=== PATIENT | male | born 1960 | race Caucasian/White ===

== ENCOUNTER 2016-04-10 13:24 | Inpatient (IN) | payer MEDICARE, OTHER ==
[2016-04-10] MEDS ORDERED: SODIUM CHLORIDE 0.9% 1,000 ML IV ONE ×2 (13:35)
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
[2016-04-10 13:46] LABS: Glucose,Whole Blood 74 mg/dL (75-99)
[2016-04-10 14:01] LABS: ALT 65 U/L (21-72); AST 70 U/L (17-59); Alkaline Phosphatase 79 U/L (38-126); Anion Gap 9 mmol/L; Blood Urea Nitrogen 12 mg/dL (9-20); Calcium 9.1 mg/dL (8.4-10.2); Carbon Dioxide 26 mmol/L (22-30); Chloride 106 mmol/L (98-107); Glucose 69 mg/dL (74-99); Magnesium 2.1 mg/dL (1.6-2.3); Non-African American GFR(MDRD) >60 (>60 ml/min/1.73 sqM); Sodium 141 mmol/L (137-145); Total Bilirubin 0.8 mg/dL (0.2-1.3); Total Protein 6.6 g/dL (6.3-8.2)
[2016-04-10 14:03] LABS: Basophils % (A) 1 %; CH 30.4; CHCM 33.1; Eosinophils # (A) 0.3 k/uL (0-0.7); Eosinophils % (A) 4 %; HCT 40.6 % (39.0-53.0); HDW 2.62; HGB 13.4 gm/dL (13.0-17.5); Luc % (Auto) 1; Lymphocytes # (A) 1.8 k/uL (1.0-4.8); Lymphocytes % (A) 25 %; MCH 30.3 pg (25.0-35.0); MCHC 32.9 g/dL (31.0-37.0); MCV 92.2 fL (80.0-100.0); Mean Platelet Volume 8.2; Monocytes # (A) 0.4 k/uL (0-1.0); Monocytes % (A) 5 %; Neutrophils # (A) 4.8 k/uL (1.3-7.7); Neutrophils % (A) 65 %; RBC 4.41 m/uL (4.30-5.90); RDW 12.9 % (11.5-15.5); WBC 7.5 k/uL (3.8-10.6); WBC (Perox) 7.54
[2016-04-10 14:10] LABS: Partial Thromboplastin Time 24.8 sec (22.0-30.0)
[2016-04-10 14:19] LABS: Creatine Kinase 1525 U/L (55-170)
[2016-04-10 14:31] LABS: Troponin I <0.012 ng/mL (0.000-0.034)
[2016-04-10 14:38] LABS: Creatine Kinase MB 8.9 ng/mL (0.0-2.4)
[2016-04-10 14:45] LABS: Glucose,Whole Blood 49 mg/dL (75-99)
[2016-04-10] MEDS ORDERED: DEXTROSE 50%-WATER 50 ML SYRINGE IVP STA ×5 (14:47→21:08)
[2016-04-10 14:56] LABS: Appearance,Urine Clear (Clear); Bilirubin,Urine Negative (Negative); Glucose,Urine (UA) Negative (Negative); Ketones,Urine Negative (Negative); Leukocyte Esterase,Urine Negative (Negative); Nitrite,Urine Negative (Negative); Protein,Urine Trace (Negative); Specific Gravity,Urine 1.032 (1.001-1.035); UA Billing (MACRO vs. MICRO) CHEM; Urobilinogen,Urine <2.0 mg/dL (<2.0)
[2016-04-10 14:58] LABS: Glucose,Whole Blood 61 mg/dL (75-99)
[2016-04-10] MEDS ORDERED: DEXTROSE 5%-0.45% NACL 1,000 ML IV ONE (15:04)
[2016-04-10 15:19] LABS: Glucose,Whole Blood 92 mg/dL (75-99)
--- NOTE | 2016-04-10 15:57 | XR ---
EXAMINATION TYPE: XR chest 2V DATE OF EXAM: 04/10/2016 3:51 PM COMPARISON: 11/14/2015 HISTORY: Altered mental status FINDINGS: There is cardiomegaly and bibasilar infiltrate. There is a diffuse interstitial pattern. No pneumoth orax. No definite sizable pleural effusion. IMPRESSION: 1. Diffuse interstitial pattern correlate for CHF versus atypical pneumonia or interstitial pneumonit is.
[2016-04-10 16:09] LABS: Glucose,Whole Blood 116 mg/dL (75-99)
[2016-04-10 16:31] LABS: Glucose,Whole Blood 90 mg/dL (75-99)
[2016-04-10] MEDS ORDERED: NALOXONE 0.4 MG/ML 1 ML VIAL IV PRN (16:48)
[2016-04-10] MEDS ORDERED: DEXTROSE 5%-0.45% NACL 1,000 ML IV SCH (17:00)
--- NOTE | 2016-04-10 17:07 | CT ---
EXAMINATION TYPE: CT brain wo con DATE OF EXAM: 04/10/2016 5:01 PM COMPARISON: 03/08/2015 HISTORY: 55-year-old male with pain, patient poor historian TECHNIQUE: Examination was done in axial plane without intravenous contrast. Coronal and sagittal reconstructio ns performed. CT DLP: 943.8 mGycm Automated exposure control for dose reduction was used. FINDINGS: There is no evidence of acute intracranial hemorrhage, acute ischemic changes, mass, mass-effect, or extra-axial fluid collection. There is no effacement of cerebral sulci or basal subarachnoid cister ns. There is no hydrocephalus. There is no midline shift. Penny-white matter distinction is preserv ed. Moderate mucosal thickening within the ethmoid air cells with old medial orbital wall blowout fractur e on the left. Patient's gait is slightly divergent. Small amount of fluid within the inferior most m astoid air cells. IMPRESSION: 1. No acute intracranial abnormality seen. 2. Moderate chronic ethmoid sinus disease. The patient gaze remains divergent suggesting underlying s trabismus. Correlate. 3. Small amount of fluid within the inferior mastoid air cells on both sides could represent retained secretions. Correlate for any mastoid pain to exclude mastoiditis.
[2016-04-10 18:38] LABS: Glucose,Whole Blood 40 mg/dL (75-99)
[2016-04-10 19:01] LABS: Glucose,Whole Blood 56 mg/dL (75-99)
[2016-04-10 19:18] LABS: Glucose,Whole Blood 125 mg/dL (75-99)
[2016-04-10 19:47] LABS: Glucose,Whole Blood 94 mg/dL (75-99)
[2016-04-10 20:12] LABS: Creatine Kinase MB 8.6 ng/mL (0.0-2.4)
[2016-04-10 20:24] LABS: Glucose,Whole Blood 81 mg/dL (75-99)
[2016-04-10] MEDS: DEXTROSE 5%-0.45% NACL 1,000 ML IV SCH (20:30)
[2016-04-10 21:03] LABS: Glucose,Whole Blood 35 mg/dL (75-99)
[2016-04-10 21:21] LABS: Glucose,Whole Blood 120 mg/dL (75-99)
[2016-04-10 21:50] LABS: Glucose,Whole Blood 69 mg/dL (75-99)
[2016-04-10 22:07] LABS: Glucose,Whole Blood 76 mg/dL (75-99)
[2016-04-10 22:29] LABS: Glucose,Whole Blood 61 mg/dL (75-99)
[2016-04-10] MEDS: DEXTROSE 50%-WATER 50 ML SYRINGE IVP PRN ×2 (22:31→23:31)
[2016-04-10 22:47] LABS: Glucose,Whole Blood 80 mg/dL (75-99)
[2016-04-10 22:58] LABS: Glucose,Whole Blood 77 mg/dL (75-99)
[2016-04-10 23:35] LABS: Glucose,Whole Blood 62 mg/dL (75-99)
[2016-04-10 23:48] LABS: Glucose,Whole Blood 113 mg/dL (75-99)
[2016-04-11 00:03] LABS: Glucose,Whole Blood 82 mg/dL (75-99)
[2016-04-11] MEDS: TOPIRAMATE 100 MG TAB PO SCH ×3 (00:04→21:18)
[2016-04-11] MEDS: PREGABALIN 75 MG CAP PO SCH ×4 (00:04→21:18)
[2016-04-11] MEDS: DEXTROSE 5%-0.45% NACL 1,000 ML IV SCH ×2 (00:14→10:57)
[2016-04-11 00:33] LABS: Glucose,Whole Blood 72 mg/dL (75-99)
[2016-04-11] MEDS: METHYLPHENIDATE HCL 10 MG TAB PO SCH ×4 (01:05→21:19)
[2016-04-11 01:10] LABS: Glucose,Whole Blood 87 mg/dL (75-99)
[2016-04-11 01:32] VITALS: BMI 29.6
[2016-04-11] MEDS: PIPERACILLIN-TAZOBACTAM 3.375 GM in DEXTROSE/WATER 1 50ML.BAG IVPB SCH ×4 (01:40→23:54)
[2016-04-11 01:41] LABS: Glucose,Whole Blood 84 mg/dL (75-99)
[2016-04-11 01:59] LABS: Glucose,Whole Blood 88 mg/dL (75-99)
[2016-04-11] MEDS: DEXTROSE 5% IN WATER 1,000 ML IV SCH ×2 (02:00→16:35)
[2016-04-11 02:01] LABS: Creatine Kinase MB 5.3 ng/mL (0.0-2.4)
[2016-04-11 02:34] LABS: Glucose,Whole Blood 61 mg/dL (75-99)
[2016-04-11] MEDS: DEXTROSE 50%-WATER 50 ML SYRINGE IVP PRN (02:34)
[2016-04-11 02:55] LABS: Glucose,Whole Blood 134 mg/dL (75-99)
[2016-04-11 03:33] LABS: Glucose,Whole Blood 104 mg/dL (75-99)
[2016-04-11 04:04] LABS: Glucose,Whole Blood 87 mg/dL (75-99)
[2016-04-11 04:34] LABS: Glucose,Whole Blood 90 mg/dL (75-99)
[2016-04-11] MEDS ORDERED: oxyCODONE-APAP 10-325MG 1 EACH TAB PO PRN (04:47)
[2016-04-11 04:56] LABS: CH 30.5; CHCM 33.3; HCT 36.7 % (39.0-53.0); HDW 2.71; HGB 12.4 gm/dL (13.0-17.5); MCH 31.2 pg (25.0-35.0); MCHC 33.8 g/dL (31.0-37.0); MCV 92.2 fL (80.0-100.0); RBC 3.98 m/uL (4.30-5.90); RDW 13.1 % (11.5-15.5)
[2016-04-11 05:06] LABS: Glucose,Whole Blood 97 mg/dL (75-99)
[2016-04-11 05:15] LABS: Anion Gap 7 mmol/L; Blood Urea Nitrogen 8 mg/dL (9-20); Calcium 8.4 mg/dL (8.4-10.2); Carbon Dioxide 25 mmol/L (22-30); Chloride 106 mmol/L (98-107); Glucose 88 mg/dL (74-99); Magnesium 1.9 mg/dL (1.6-2.3); Non-African American GFR(MDRD) >60 (>60 ml/min/1.73 sqM); Phosphorous 3.5 mg/dL (2.5-4.5); Potassium 4.1 mmol/L (3.5-5.1); Sodium 138 mmol/L (137-145)
[2016-04-11 06:03] LABS: Glucose,Whole Blood 106 mg/dL (75-99)
[2016-04-11] MEDS ORDERED: Potassium Replacement Protocol 1 EACH MISC MISCELLANE PRN (06:38)
[2016-04-11] MEDS ORDERED: Phosphorus Replacement Protoco 1 EACH MISC MISCELLANE PRN (06:38)
[2016-04-11] MEDS ORDERED: Magnesium Replacement Protocol 1 EACH MISC MISCELLANE PRN (06:38)
[2016-04-11 07:04] LABS: Glucose,Whole Blood 89 mg/dL (75-99)
[2016-04-11] MEDS: MAGNESIUM SULFATE-D5W PMX 1 GM in DEXTROSE/WATER 1 100ML.BAG IVPB SCH ×2 (07:08→09:54)
[2016-04-11 08:18] LABS: Glucose,Whole Blood 99 mg/dL (75-99)
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
[2016-04-11 09:01] LABS: Glucose,Whole Blood 92 mg/dL (75-99)
[2016-04-11] MEDS: CITALOPRAM HYDROBROMIDE 20 MG TAB PO SCH (09:58)
[2016-04-11 10:04] LABS: Glucose,Whole Blood 105 mg/dL (75-99)
[2016-04-11 11:06] LABS: Glucose,Whole Blood 88 mg/dL (75-99)
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
[2016-04-11 12:28] LABS: Glucose,Whole Blood 121 mg/dL (75-99)
[2016-04-11] MEDS: CYCLOBENZAPRINE 10 MG TAB PO PRN (13:34)
[2016-04-11 14:37] LABS: Glucose,Whole Blood 77 mg/dL (75-99)
--- NOTE | 2016-04-11 14:53 | CDI ---
In responding to this query, please exercise your independent professional judgment. The [facility] Coding Staff and Clinical Documentation Specialists appreciate your assistance in clarifying documentation, maintaining compliance with coding guidelines, accurately documenting patients condition and capturing severity of illness. The fact that a question is asked does not imply that any particular answer is desired or expected. Communication forms are a method of clarifying documentation and are not made part of the Legal Health Record. Thank you in advance for your clarification. Last Revision, May [address] [place] [address] Documentation Clarification Form Date: 04/11/2016 2:42:00 PM From: Carina Collins RN, CCDS Admit Date: 04/10/2016 4:48:00 PM Patient Name: Jimenez Triana Visit Number: [id number] Dr. Brian Russell/ Kandi BIRD Altered mental status was documented in the H&P Patient history/risk factors: Seizure disorder, post-ictal, hypoglycemia, aspiration pneumonitis, severe recurrent depression Clinical Indicators: Labs: Glucose 69/88, POC Glucose /56/59/61/62, total CK 1138/984, CKMB 8.6/5.3, + opiates, + oxycodone, + TCA's, + Benzo's CXR: CHF vs. atypical pneumonia or interstitial pneumonitis CT: c ethmoid sinusitis, strabismus, correlate to exclude mastoiditis Treatment: D50x 6 amps IV Mag Iv Zosyn 3.375 gm IVPB q 8 hrs In your professional opinion, please clarify the etiology of the altered mental status, if known. Dementia (if know, specify Type and if with/without Behavioral Disturbance) Encephalopathy (specify Type and Underlying Medical Illness) Other condition (please specify) Unable to determine Please document in your progress notes and discharge summary in order to capture severity of illness and risk of mortality. Include clinical findings that support your diagnosis. FYI: Press F11 to launch patient chart. Place X here if this finding has no clinical significance, is not applicable or if you are not able to provide any additional documentation. MTDD
--- NOTE | 2016-04-11 15:21 | US ---
EXAMINATION TYPE: US abdomen limited DATE OF EXAM: 04/11/2016 2:51 PM COMPARISON: NONE CLINICAL HISTORY: hypoglycemia, elevated liver enzymes. Abd cramping in ICU patient EXAM MEASUREMENTS: Liver Length: 17.1cm Gallbladder Wall: 0.2cm CBD: 0.4cm Right Kidney: 10.6 x 4.3 x 4.cm TECHNOLOGIST IMPRESSION: overlying bowel gas limits exam, intercostal imaging Pancreas: not seen due to bowel Liver: difficult to penetrate, intercostal imaging appears wnl Gallbladder: wnl Evidence for sonographic Pruitt's sign: no CBD: wnl Right Kidney: wnl IMPRESSION: Limited examination however no definitive abnormalities identified.
[2016-04-11] MEDS: oxyCODONE-APAP 10-325MG 1 EACH TAB PO PRN (15:28)
[2016-04-11 16:59] LABS: Glucose,Whole Blood 102 mg/dL (75-99)
[2016-04-11 20:19] LABS: Glucose,Whole Blood 150 mg/dL (75-99)
--- NOTE | 2016-04-11 22:12 | EEG ---
DATE OF SERVICE: 04/11/2016 REASON FOR TESTING: Altered mental status. DESCRIPTION OF THE PROCEDURE: This EEG was performed using a 21-channel digital electroencephalograph, following international 10-20 system. DESCRIPTION OF THE RECORDING: From the beginning of the tracing, and with the patient's eyes closed, the background rhythm was mostly consisting of 8 to 9 Hz alpha frequency in the posterior occipital leads. No obvious asymmetry is seen. Photic stimulation was performed with a minimal driving response seen. No pathological waves were elicited. Occasional movement artifacts and muscle artifacts are seen. Hyperventilation was not performed. The patient remains awake throughout the tracing. No epileptiform discharges were seen. His EKG lead showed a regular rate and rhythm. INTERPRETATION: This awake EEG can be considered within normal limits. There was no asymmetry seen. No epileptiform discharges were noticed. The absence of epileptiform discharges does not rule out the diagnosis of epilepsy; therefore clinical correlation is recommended.
[2016-04-12 03:05] LABS: Glucose,Whole Blood 103 mg/dL (75-99)
[2016-04-12] MEDS: DEXTROSE 5% IN WATER 1,000 ML IV SCH ×2 (05:02→15:59)
[2016-04-12 05:41] LABS: Basophils % (A) 1 %; CH 30.6; CHCM 33.4; Eosinophils # (A) 0.2 k/uL (0-0.7); Eosinophils % (A) 4 %; HCT 37.6 % (39.0-53.0); HDW 2.69; HGB 12.2 gm/dL (13.0-17.5); Luc # (Auto) 0.08; Luc % (Auto) 1; Lymphocytes # (A) 1.8 k/uL (1.0-4.8); Lymphocytes % (A) 30 %; MCHC 32.5 g/dL (31.0-37.0); MCV 92.2 fL (80.0-100.0); Mean Platelet Volume 9.4; Monocytes # (A) 0.5 k/uL (0-1.0); Monocytes % (A) 8 %; Neutrophils # (A) 3.2 k/uL (1.3-7.7); Neutrophils % (A) 56 %; RBC 4.08 m/uL (4.30-5.90); RDW 13.1 % (11.5-15.5); WBC 5.8 k/uL (3.8-10.6); WBC (Perox) 5.99
[2016-04-12 06:34] LABS: Anion Gap 8 mmol/L; Blood Urea Nitrogen 10 mg/dL (9-20); Calcium 8.6 mg/dL (8.4-10.2); Carbon Dioxide 20 mmol/L (22-30); Chloride 111 mmol/L (98-107); Glucose 95 mg/dL (74-99); Magnesium 2.3 mg/dL (1.6-2.3); Non-African American GFR(MDRD) >60 (>60 ml/min/1.73 sqM); Phosphorous 3.6 mg/dL (2.5-4.5); Potassium 4.2 mmol/L (3.5-5.1); Sodium 139 mmol/L (137-145)
--- NOTE | 2016-04-12 07:27 | XR ---
EXAMINATION TYPE: XR chest 1V portable DATE OF EXAM: 04/12/2016 6:22 AM HISTORY: Shortness of breath. COMPARISON: 04/10/2016 TECHNIQUE: Single view of the chest is submitted. FINDINGS: Demonstrated are scattered senescent parenchymal change. The heart is stable. There is persistent pulmonary venous congestion which has improved in the interv al. Scattered patchy infiltrates also improved although do persist. Hilar and mediastinal structures are within normal limits. Degenerative changes are seen of the dorsal spine. IMPRESSION: 1. There is persistent pulmonary venous congestion which has improved in the interval. Scattered pat isabel infiltrates also improved although do persist.
[2016-04-12 07:44] LABS: Glucose,Whole Blood 81 mg/dL (75-99)
[2016-04-12] MEDS: CITALOPRAM HYDROBROMIDE 20 MG TAB PO SCH (08:57)
[2016-04-12] MEDS: PREGABALIN 75 MG CAP PO SCH ×3 (08:57→21:44)
[2016-04-12] MEDS: TOPIRAMATE 100 MG TAB PO SCH ×2 (08:58→20:51)
[2016-04-12] MEDS: METHYLPHENIDATE HCL 10 MG TAB PO SCH ×3 (09:00→21:44)
--- NOTE | 2016-04-12 09:07 | CONS ---
DATE OF CONSULTATION: 04/11/2016 CHIEF COMPLAINT: Altered mental status. HISTORY OF PRESENT ILLNESS: Mr. Triana is a 55-year-old male who is being evaluated today on 04/11/2016 by the Neurology Service per the request of Dr. Brian Russell for altered mental status. The patient was brought into [facility] emergency room after he was found to be confused at home. The patient was somewhat lethargic and disoriented. He denies having any head injuries and denies having any fevers at home. The patient does have history of seizure disorder that has been well-controlled on Topamax and Lyrica. A CT scan of the brain was done, which was normal. His CBC was normal except for mild anemia with a hemoglobin of 12.4. His basic metabolic profile, magnesium level, and urinalysis were normal. His urine drug screen was positive for opiates, oxycodone, tricyclic antidepressants, and benzodiazepine. The patient does take Percocet 3 times daily at home for chronic low back pain. He is not supposed to be on any hydrocodone. The patient's serum glucose was also found to be low and he was given multiple doses of D50 to elevate his glucose level. He was admitted to the intensive care unit for closer monitoring. At the time of my evaluation, he is back to his baseline and is quite awake and oriented. He continues to complain of low back pain with lower extremity pain. His Percocet has been restarted earlier today as needed. He denies having any recent breakthrough seizures. PAST MEDICAL HISTORY: Chronic pain syndrome, seizure disorder, chronic lumbago, hypertension, gastroesophageal reflux disease, attention deficit disorder, anxiety disorder, bipolar disorder, depression. SOCIAL HISTORY: The patient is a current every day smoker. He denies any alcohol or drug use. FAMILY HISTORY: Positive for peripheral vascular disease. HOME MEDICATIONS: Reviewed in the chart. ALLERGIES: DILANTIN. REVIEW OF SYSTEMS: CONSTITUTIONAL: Positive for fatigue. EYES: Positive for chronic diminished vision. ENT: Negative. CARDIOVASCULAR: Negative. RESPIRATORY: Negative. NEUROLOGICAL: He denies any lateralizing numbness or weakness and denies any headache at this time. GASTROINTESTINAL: Positive for occasional heartburn. GENITOURINARY: Negative. PSYCHIATRIC: Positive for history of bipolar disorder and anxiety disorder. MUSCULOSKELETAL: As mentioned above. DERMATOLOGICAL: Negative. ENDOCRINE: Negative. PHYSICAL EXAM: Vital signs show a temperature of 98.0, pulse 79, respiration 12, blood pressure 108/58. GENERAL APPEARANCE: The patient is a well-developed male who appears to be in no acute distress. HEENT: Normocephalic, atraumatic, no facial asymmetry is seen. Neck is supple with no masses felt. CARDIOVASCULAR: Regular rate and rhythm. ABDOMEN: Nontender, nondistended. EXTREMITIES: Showed trace edema with no clubbing seen. NEUROLOGICAL EXAM: The patient is alert, aware, and oriented x3. Speech and language are normal. Strength is 5-/5 in bilateral upper extremities and 4/5 in bilateral lower extremities with significant give way weakness, mostly due to pain. Sensory exam was normal to light touch in all 4 extremities. No tremors or seizure-like activity is seen. No facial asymmetry is noticed on cranial nerve testing. IMPRESSION: 1. Altered mental status, improved. 2. Acute multifactorial encephalopathy. 3. Hypoglycemia. 4. Seizure disorder. 5. Chronic pain syndrome. RECOMMENDATION: The patient's mental status has improved. The patient likely had multifactorial acute encephalopathy, given his serum glucose level and given his urine drug screen results. He likely had toxic encephalopathy as he had been taking other medications that were not prescribed to him. He is on Percocet 3 times daily at home for his chronic low back pain, but it is unclear why he tested positive for opiates. The patient denies taking any medications that are not prescribed to him. Also, he likely had metabolic encephalopathy, given his hypoglycemic episode. Nonetheless, he is back to his baseline now. I did review his EEG which was normal. For his seizures, I will keep him on his home dose of Lyrica and Topamax. Continue neuro checks. I will continue to follow with you. Further recommendations to follow. Thank you, Dr. Russell, for allowing me to participate in the care of your patient. If you have any questions, please call free to contact me.
[2016-04-12] MEDS: PIPERACILLIN-TAZOBACTAM 3.375 GM in DEXTROSE/WATER 1 50ML.BAG IVPB SCH ×3 (09:32→23:50)
[2016-04-12 12:33] LABS: Glucose,Whole Blood 106 mg/dL (75-99)
[2016-04-12] MEDS: oxyCODONE-APAP 10-325MG 1 EACH TAB PO PRN ×2 (13:12→21:44)
[2016-04-12 14:51] LABS: Mis test requested (Blood) Insulin
[2016-04-12] MEDS: CYCLOBENZAPRINE 10 MG TAB PO PRN (16:00)
[2016-04-12 17:07] LABS: Glucose,Whole Blood 143 mg/dL (75-99)
--- NOTE | 2016-04-12 18:01 | P.PN ---
Subjective Principal diagnosis: Altered mental status This 55-year-old male continue be evaluated by the neurology service for altered mental status. This is a known chronic pain and seizure patient to our practice. He was brought to the emergency room somewhat lethargic and disoriented. His seizures have been well controlled on his current medications. Initial CT of the brain was normal. His urine drug screen was positive for opiates, oxycodone, tricyclic antidepressants, and benzodiazepines. He was also found to be hypoglycemic. He has been transferred out of the ICU and is stable. At this time my evaluation he continues to be back to his baseline, and is sitting comfortably in bed eating his dinner. He continues to back complain of his chronic low back pain. There have been no seizures since his admission. Objective - Vital Signs Vital signs: Vital Signs Temp 97.6 F 04/12/16 14:45 Pulse 80 04/12/16 14:45 Resp 20 04/12/16 14:45 BP 120/64 04/12/16 14:45 Pulse Ox 95 04/12/16 14:45 Intake & Output 04/11/16 04/12/16 04/12/16 18:59 06:59 18:59 Intake Total 1050 150 240 Output Total 2750 900 525 Balance -1700 -750 -285 Intake: IV 550 150 Dextrose 5% in Water 1, 450 150 000 ml @ 75 mls/hr IV . [id number] RICH Rx#:[id number] Piperacillin-Tazobactam 3 100 .375 gm In Dextrose/Water 1 50ml.bag @ 12.5 mls/hr IVPB Q8HR RICH Rx#: [id number] Intake, IV Titration 500 Amount Dextrose 5% in Water 1, 300 000 ml @ 75 mls/hr IV . [id number] RICH Rx#:[id number] Magnesium Sulfate-D5w Pmx 200 1 gm In Dextrose/Water 1 100ml.bag @ 100 mls/hr IVPB Q1H RICH Rx#: [id number] Oral 240 Output: Urine 2750 900 525 Other: Voiding Method Indwelling Catheter Urinal Urinal # Voids 1 # Bowel Movements 0 - Constitutional General appearance: Present: average body habitus, no acute distress - EENT Eyes: Present: EOMI, PERRLA. Absent: abnormal pupil, ptosis ENT: Present: hearing grossly normal - Neck Neck: Present: normal ROM - Respiratory Respiratory: negative: prolonged expiration, prolonged inspiration - Cardiovascular Rhythm: regular - Gastrointestinal General gastrointestinal: Absent: distended, tenderness - Neurologic Neurologic Comment(s): Patient is alert awake oriented 3. Speech-language are normal. There is no facial asymmetry. Strength is 5 minus out of 5 bilateral upper extremities 5 minus out of 5 in bilateral lower extremities. No decreased sensation to in either bilateral upper or lower extremities. There is no tremor or seizure- like activity seen. - Labs CBC & Chem 7: 04/12/16 04:53 04/12/16 04:53 Labs: Abnormal Lab Results - Last 24 Hours (Table) 04/11/16 04/12/16 04/12/16 Range/Units 20:18 03:02 04:53 RBC 4.08 L (4.30-5.90) m/uL Hgb 12.2 L (13.0-17.5) gm/dL Hct 37.6 L (39.0-53.0) % Chloride (98-107) mmol/L Carbon Dioxide (22-30) mmol/L POC Glucose (mg/dL) 150 H 103 H (75-99) mg/dL 04/12/16 04/12/16 04/12/16 Range/Units 04:53 12:19 17:05 RBC (4.30-5.90) m/uL Hgb (13.0-17.5) gm/dL Hct (39.0-53.0) % Chloride 111 H (98-107) mmol/L Carbon Dioxide 20 L (22-30) mmol/L POC Glucose (mg/dL) 106 H 143 H (75-99) mg/dL Assessment and Plan (1) Acute metabolic encephalopathy due to hypoglycemia Status: Acute (2) Toxic encephalopathy Status: Acute (3) Chronic pain Status: Chronic (4) Altered mental status Status: Resolved (5) Hypoglycemia Status: Resolved (6) History of seizure disorder Status: Chronic Plan: Patient's mental status has improved. Again these changes were likely multifactorial in nature, to include hypoglycemia and urine drug screen abnormalities resulting in metabolic and toxic encephalopathies. His EEG was normal, and he is back to his baseline. There have been no seizure-like activities. Continue routine neurological checks. At this point he would be cleared from a neurological standpoint but we may be consulted on as-needed basis for any changes in his neurological status. I have performed a history and physical on the above patient. I have reviewed the above note, and agree.
--- NOTE | 2016-04-12 20:15 | CONS ---
DATE OF CONSULTATION: I was asked to consult regarding mastoiditis with this patient. I reviewed the CT scan films showing just a little fluid in the mastoid. He has what appears to be very limited mastoid fluid with no evidence of mastoiditis. I am recommending that this patient follow up with me on an outpatient basis. A course of antibiotics may be appropriate. IV expresses this to Yoly. I am requesting that the consultation be canceled, but the patient is to follow with me on an outpatient basis. I understand that this patient has no otologic symptoms. If there is any changes please let me know.
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
[2016-04-12 21:32] LABS: Glucose,Whole Blood 104 mg/dL (75-99)
[2016-04-13 02:14] LABS: Glucose,Whole Blood 76 mg/dL (75-99)
[2016-04-13 03:26] LABS: Glucose,Whole Blood 102 mg/dL (75-99)
[2016-04-13] MEDS: DEXTROSE 5% IN WATER 1,000 ML IV SCH (06:37)
[2016-04-13 07:32] LABS: Glucose,Whole Blood 92 mg/dL (75-99)
[2016-04-13 07:41] VITALS: RESP 16
[2016-04-13] MEDS: TOPIRAMATE 100 MG TAB PO SCH (08:38)
[2016-04-13] MEDS: oxyCODONE-APAP 10-325MG 1 EACH TAB PO PRN ×2 (08:38→16:55)
[2016-04-13] MEDS: PIPERACILLIN-TAZOBACTAM 3.375 GM in DEXTROSE/WATER 1 50ML.BAG IVPB SCH (08:38)
[2016-04-13] MEDS: CITALOPRAM HYDROBROMIDE 20 MG TAB PO SCH (08:38)
[2016-04-13] MEDS: PREGABALIN 75 MG CAP PO SCH ×2 (08:38→17:05)
[2016-04-13] MEDS: METHYLPHENIDATE HCL 10 MG TAB PO SCH ×2 (08:46→16:56)
[2016-04-13 09:33] LABS: Basophils % (A) 1 %; CH 30.3; CHCM 33.1; Eosinophils # (A) 0.2 k/uL (0-0.7); Eosinophils % (A) 4 %; HCT 41.3 % (39.0-53.0); HDW 2.68; HGB 13.7 gm/dL (13.0-17.5); Luc # (Auto) 0.08; Luc % (Auto) 1; Lymphocytes # (A) 1.6 k/uL (1.0-4.8); Lymphocytes % (A) 26 %; MCH 30.6 pg (25.0-35.0); MCHC 33.2 g/dL (31.0-37.0); MCV 92.2 fL (80.0-100.0); Mean Platelet Volume 8.8; Monocytes # (A) 0.4 k/uL (0-1.0); Monocytes % (A) 6 %; Neutrophils # (A) 3.7 k/uL (1.3-7.7); Neutrophils % (A) 62 %; RBC 4.48 m/uL (4.30-5.90); WBC 5.9 k/uL (3.8-10.6); WBC (Perox) 6.21
[2016-04-13 09:47] LABS: Anion Gap 10 mmol/L; Blood Urea Nitrogen 10 mg/dL (9-20); Calcium 9.1 mg/dL (8.4-10.2); Carbon Dioxide 21 mmol/L (22-30); Chloride 113 mmol/L (98-107); Glucose 89 mg/dL (74-99); Magnesium 2.2 mg/dL (1.6-2.3); Non-African American GFR(MDRD) >60 (>60 ml/min/1.73 sqM); Phosphorous 3.1 mg/dL (2.5-4.5); Potassium 4.2 mmol/L (3.5-5.1); Sodium 144 mmol/L (137-145)
[2016-04-13 12:14] LABS: Glucose,Whole Blood 86 mg/dL (75-99)
[2016-04-13 15:31] VITALS: BP 119/73; PULSE 66; TEMP 97.7
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
[2016-04-13 17:06] LABS: Glucose,Whole Blood 83 mg/dL (75-99)
== END 2016-04-13 17:52 | disposition home or self-care (01) | DRG 70 ==
LOC: EC 13:24 → 6SEL 16:48 → 6ICU 19:59 → 4MS4W 04-12 10:27
PROVIDERS: ADMIT Family Medicine; ATTEND Family Medicine
DX: G93.41 Metabolic encephalopathy (principal); J69.0 Pneumonitis due to inhalation of food and vomit; M62.82 Rhabdomyolysis; F33.2 Major depressive disorder, recurrent severe without psychotic features; E16.2 Hypoglycemia, unspecified; D64.9 Anemia, unspecified; T40.2X5A Adverse effect of other opioids, initial encounter; F17.200 Nicotine dependence, unspecified, uncomplicated; F41.9 Anxiety disorder, unspecified; F90.9 Attention-deficit hyperactivity disorder, unspecified type; G40.909 Epilepsy, unspecified, not intractable, without status epilepticus; G89.4 Chronic pain syndrome; I10 Essential (primary) hypertension; J32.2 Chronic ethmoidal sinusitis; K21.9 Gastro-esophageal reflux disease without esophagitis; Z82.49 Family history of ischemic heart disease and other diseases of the circulatory system
CPT/HCPCS: 36415; 70450; 71010; 71020; 76705; 80048; 80053; 80306; 81003; 82140; 82533; 82550; 82553; 83525; 83605; 83735; 83880; 84100; 84484; 85025; 85027; 85610; 85730; 93005; 95819; 96360; 96361; 99285

== ENCOUNTER → 2016-07-18 | Outpatient (CLI) | payer MEDICARE, OTHER ==
--- NOTE | 2016-07-18 11:55 | US ---
EXAMINATION TYPE: US abdomen limited DATE OF EXAM: 07/18/2016 9:52 AM COMPARISON: US CLINICAL HISTORY: 56-year-old male with E16.2 Hypoglycemia. TECHNIQUE: Multiple sonographic images of the right upper quadrant are obtained. FINDINGS: RETURNED GOODS REPAIRER NOTES: Patient has extensive overlying midline bowel gas. EXAM MEASUREMENTS: Liver Length: 14.9 cm Gallbladder Wall: 0.3 cm CBD: 0.4 cm Right Kidney: 10.8 x 4.0 x 5.2 cm Pancreas: Glass Bead Maker notes: multiple attempts made to better see the pancreas, it is not well visua lized. Liver: Glass Bead Maker notes: limited views due to excessive overlying bowel gas, one acoustic window, po rtions visualized show no gross abnormality. Gallbladder: The gallbladder fundus is obscured. Visualized portions show no abnormal distention, wal l thickening, pericholecystic fluid, or shadowing calculi. Glass Bead Maker notes: limited views due to ex cessive overlying bowel gas, one acoustic window, portions visualized wnl Evidence for sonographic Pruitt's sign: no CBD: Within normal limits Right Kidney: No hydronephrosis IMPRESSION: Multiple structures are suboptimally visualized with limited acoustic windows. There is no apparent c holelithiasis or findings of acute cholecystitis. No biliary ductal dilatation.
== END | disposition home or self-care (01) ==
LOC: RADUSWWP 09:21
PROVIDERS: ATTEND Family Medicine
DX: E16.2 Hypoglycemia, unspecified (principal)
CPT/HCPCS: 76705

== ENCOUNTER 2016-10-23 22:01 | Inpatient (IN) | payer MEDICARE, OTHER ==
[2016-10-23] MEDS ORDERED: SODIUM CHLORIDE 0.9% 500 ML IV ONE (22:06)
[2016-10-23] MEDS ORDERED: SODIUM CHLORIDE 0.9% 1,000 ML IV ONE (22:06)
[2016-10-23 22:22] LABS: Glucose,Whole Blood 90 mg/dL (75-99)
[2016-10-23 22:22] LABS: Basophils % (A) 1 %; CH 31.6; CHCM 34.8; Eosinophils # (A) 0.3 k/uL (0-0.7); Eosinophils % (A) 4 %; HCT 38.5 % (39.0-53.0); HDW 3.06; Luc # (Auto) 0.08; Luc % (Auto) 1; Lymphocytes # (A) 2.4 k/uL (1.0-4.8); Lymphocytes % (A) 36 %; MCH 30.8 pg (25.0-35.0); MCHC 33.7 g/dL (31.0-37.0); MCV 91.4 fL (80.0-100.0); Monocytes # (A) 0.4 k/uL (0-1.0); Monocytes % (A) 6 %; Neutrophils # (A) 3.6 k/uL (1.3-7.7); Neutrophils % (A) 53 %; RBC 4.22 m/uL (4.30-5.90); RDW 14.5 % (11.5-15.5); WBC 6.8 k/uL (3.8-10.6); WBC (Perox) 7.25
[2016-10-23 22:39] LABS: Alcohol <10 mg/dL; Anion Gap 9 mmol/L; Calcium 8.4 mg/dL (8.4-10.2); Carbon Dioxide 23 mmol/L (22-30); Chloride 105 mmol/L (98-107); Non-African American GFR(MDRD) >60 (>60 ml/min/1.73 sqM); Potassium 5.4 mmol/L (3.5-5.1); Sodium 137 mmol/L (137-145)
[2016-10-23 22:40] LABS: ALT 48 U/L (21-72); AST 82 U/L (17-59); Alkaline Phosphatase 49 U/L (38-126); Blood Urea Nitrogen 10 mg/dL (9-20); Glucose 90 mg/dL (74-99); Total Bilirubin 2.3 mg/dL (0.2-1.3); Total Protein 6.3 g/dL (6.3-8.2)
[2016-10-23 22:41] LABS: Appearance,Urine Clear (Clear); Bilirubin,Urine Negative (Negative); Glucose,Urine (UA) Negative (Negative); Ketones,Urine Negative (Negative); Leukocyte Esterase,Urine Negative (Negative); Nitrite,Urine Negative (Negative); Protein,Urine Trace (Negative); Specific Gravity,Urine 1.025 (1.001-1.035); UA Billing (MACRO vs. MICRO) CHEM
[2016-10-23 22:44] LABS: Partial Thromboplastin Time 24.1 sec (22.0-30.0)
[2016-10-23 22:54] LABS: Prothrombin Time 10.5 sec (9.0-12.0)
[2016-10-23 22:57] LABS: Creatine Kinase MB 4.2 ng/mL (0.0-2.4)
[2016-10-23 22:58] LABS: Creatine Kinase 1360 U/L (55-170); Troponin I <0.012 ng/mL (0.000-0.034)
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
[2016-10-23] MEDS ORDERED: SODIUM CHLORIDE 0.9% 2,000 ML IV STA (23:07)
[2016-10-23] MEDS ORDERED: SODIUM CHLORIDE 0.9% 500 ML IV STA (23:07)
--- NOTE | 2016-10-23 23:16 | CT ---
EXAM: CT Head Without Intravenous Contrast CLINICAL HISTORY: Reason: altered mental status TECHNIQUE: Axial computed tomography images of the head/brain without intravenous contrast. CTDI is 59.43 mGy and DLP is 1090.53 mGy-cm. This CT exam was performed using one or more of the following dose reduction techniques: automated exposure control, adjustment of the mA and/or kV according to patient size, and/or use of iterative reconstruction technique. COMPARISON: CT head on 04/10/2016 FINDINGS: Brain: No acute infarct or hemorrhage. No extra-axial fluid collection. No mass effect or midline shift. Ventricles and sulci: Normal. No ventriculomegaly or intraventricular hemorrhage. Skull: Normal. No bony lesion or fracture. Subcutaneous tissues: Normal. Sinuses: Persistent moderate opacification in the left ethmoid air cells with stable remote fracture deformity of the left lamina papyracea. Minimal mucosal thickening in the medial left maxillary sinus. Mastoid air cells: Persistent opacification of an inferior left mastoid air cell. Orbits: Grossly unremarkable. IMPRESSION: No acute intracranial abnormality.
[2016-10-23 23:21] LABS: Acetaminophen <10.0 ug/mL; Salicylate <1.0 mg/dL
[2016-10-23] MEDS ORDERED: NALOXONE 0.4 MG/ML 10 ML VIAL IVP STA (23:37)
[2016-10-24] MEDS ORDERED: NALOXONE 0.4 MG/ML 10 ML VIAL IVP PRN (00:06)
[2016-10-24] MEDS ORDERED: LORazepam 2 MG/ML SYRINGE IV PRN ×2 (00:09)
[2016-10-24] MEDS ORDERED: THIAMINE 100 MG/ML 2 ML VIAL IM STA (00:09)
[2016-10-24] MEDS ORDERED: ONDANSETRON 4 MG/2 ML VIAL IVP PRN (00:09)
--- NOTE | 2016-10-24 00:22 | XR ---
EXAM: XR Chest, 1 View CLINICAL HISTORY: Reason: Pain TECHNIQUE: Frontal view of the chest. COMPARISON: Chest radiograph on 04/12/2016 FINDINGS: Lungs/pleura: Persistent low lung volumes with prominence of pulmonary vascular markings which may at least in part be accentuated by low lung volumes. Element of pulmonary vasculature congestion is possible, similar to prior exam. Bibasilar opacities may represent small pleural effusions with atelectasis versus pneumonia. No pneumothorax. Heart/mediastinum: Stable cardiomediastinal silhouette, likely accentuated by low lung volumes and technique. Soft tissues: Unremarkable. Bones: No acute fracture. Upper abdomen: Unremarkable. IMPRESSION: Low lung volumes with similar pulmonary vasculature congestion. Increased bibasilar opacities may represent small pleural effusions with atelectasis versus pneumonia.
[2016-10-24] MEDS: ENOXAPARIN 40 MG/0.4 ML SYRINGE SQ SCH (08:34)
[2016-10-24] MEDS: LACTULOSE 20 GM/30 ML CUP PO SCH ×2 (08:35→20:55)
[2016-10-24 10:40] LABS: ALT 41 U/L (21-72); AST 45 U/L (17-59); Alkaline Phosphatase 47 U/L (38-126); Anion Gap 3 mmol/L; Blood Urea Nitrogen 6 mg/dL (9-20); Calcium 7.9 mg/dL (8.4-10.2); Carbon Dioxide 23 mmol/L (22-30); Chloride 116 mmol/L (98-107); Creatine Kinase 941 U/L (55-170); Glucose 98 mg/dL (74-99); Non-African American GFR(MDRD) >60 (>60 ml/min/1.73 sqM); Potassium 3.7 mmol/L (3.5-5.1); Sodium 142 mmol/L (137-145); Total Bilirubin 1.1 mg/dL (0.2-1.3); Total Protein 4.7 g/dL (6.3-8.2)
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
--- NOTE | 2016-10-24 12:02 | XR ---
EXAMINATION TYPE: XR chest 1V DATE OF EXAM: 10/24/2016 COMPARISON: 10/23/2016 HISTORY: 56-year-old male shortness of breath, possible aspiration. TECHNIQUE: Single lateral view of the chest is obtained. FINDINGS: A single lateral view submitted. Some patchy posterior basilar opacity that could represent atelectasis or early infiltrate. No pleura l effusion. IMPRESSION: Only a single lateral view there is submitted for evaluation. There is some patchy posterior basilar opacity that could represent atelectasis or developing infiltrate. No pleural effusion.
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
[2016-10-24] MEDS ORDERED: CYCLOBENZAPRINE 10 MG TAB PO PRN (16:00)
[2016-10-24] MEDS ORDERED: clonazePAM 0.5 MG TAB PO PRN (16:00)
[2016-10-24] MEDS: cloNIDine HCL 0.1 MG TAB PO SCH ×2 (16:55→20:55)
[2016-10-24] MEDS: oxyCODONE-APAP 10-325MG 1 EACH TAB PO PRN ×2 (16:57→23:05)
[2016-10-24] MEDS: PREGABALIN 75 MG CAP PO SCH ×2 (17:01→20:55)
[2016-10-24] MEDS: METHYLPHENIDATE HCL 10 MG TAB PO SCH ×2 (17:02→20:55)
[2016-10-24] MEDS: LORazepam 2 MG/ML SYRINGE IV PRN (17:03)
[2016-10-24] MEDS: THIAMINE 100 MG TAB PO SCH (17:03)
[2016-10-24 18:35] VITALS: BMI 27.8
[2016-10-24] MEDS: ALPRAZolam 0.5 MG TAB PO PRN (18:47)
[2016-10-24] MEDS: MIRTAZAPINE 15 MG TAB PO SCH (20:54)
[2016-10-25] MEDS: oxyCODONE-APAP 10-325MG 1 EACH TAB PO PRN ×4 (04:54→23:00)
[2016-10-25] MEDS: LACTULOSE 20 GM/30 ML CUP PO SCH ×2 (07:38→19:52)
[2016-10-25] MEDS: cloNIDine HCL 0.1 MG TAB PO SCH ×3 (07:38→19:53)
[2016-10-25] MEDS: ENOXAPARIN 40 MG/0.4 ML SYRINGE SQ SCH (07:38)
[2016-10-25] MEDS: PREGABALIN 75 MG CAP PO SCH ×3 (07:42→20:08)
[2016-10-25] MEDS: METHYLPHENIDATE HCL 10 MG TAB PO SCH ×3 (07:42→20:08)
--- NOTE | 2016-10-25 08:20 | CONS ---
This is a 56-year-old male who has been admitted to [facility] with history of substance overdose. Patient was brought in for mental status changes and has been admitted. Patient has history of seizure disorder, anxiety disorder, history of depression. Patient also had history of hypertension. I was consulted for vascular evaluation of the left arm. There was some cold feeling noted. On examination, the patient was seen in his room. He was sitting on his bed. HIS VASCULAR EXAMINATION: His brachial radial, axillary ( ) vein are palpable. There is no ischemic changes noted in both arms. His femoral pulses are present. There is no evidence of any vascular compromise noted into both upper extremities. No evidence of thrombophlebitis. At this point, patient is stable from vascular point of view. He has a history of smoking, which I have discussed with him. At this point, there is no patient need for vascular intervention. We will follow with you if there is any change. ROYAL
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
[2016-10-25] MEDS: THIAMINE 100 MG TAB PO SCH ×2 (10:58→16:55)
--- NOTE | 2016-10-25 11:05 | P.PN ---
Subjective Patient is comfortable and without complaint at this time. Patient has consultation with the neurology awaiting EEG also consultation with psychiatry plan is to reduce medications Objective - Vital Signs Vital signs: Vital Signs Temp 96.7 F L 10/25/16 07:57 Pulse 69 10/25/16 07:57 Resp 16 10/25/16 07:57 BP 142/85 10/25/16 07:57 Pulse Ox 94 L 10/25/16 07:57 Intake & Output 10/24/16 10/25/16 10/25/16 18:59 06:59 18:59 Intake Total 380 240 Output Total 700 Balance -320 240 Weight 90.718 kg 88.5 kg Intake: Oral 380 240 Output: Urine 700 Other: Voiding Method Urinal Urinal # Voids 1 - Constitutional General appearance: Present: obese - EENT Eyes: Present: PERRLA Ears: bilateral: normal - Neck Neck: Present: normal ROM - Respiratory Respiratory: bilateral: CTA - Cardiovascular Rhythm: regular - Gastrointestinal General gastrointestinal: Present: soft - Integumentary Integumentary: Present: normal - Neurologic Neurologic Comment(s): Resting tremor Neurologic: Present: CNII-XII intact - Musculoskeletal Musculoskeletal: Present: generalized weakness - Psychiatric Psychiatric: Present: A&O x's 3, appropriate affect, intact judgment & insight - Labs CBC & Chem 7: 10/23/16 22:09 10/24/16 09:58 Labs: Microbiology - Last 24 Hours (Table) 10/23/16 22:09 Urine Culture - Preliminary Urine,Catheterized Assessment and Plan Plan: Assessment Polypharmacy overdose Altered mental status toxic encephalopathy Rhabdomyolysis Chronic back pain with opioid dependence bipolar History of tobacco use Depression/anxiety seizure disorder Plan Consultation with neurology and psychiatry
[2016-10-25] MEDS: LORazepam 2 MG/ML SYRINGE IV PRN ×2 (11:07→19:49)
[2016-10-25] MEDS: ALPRAZolam 0.5 MG TAB PO PRN ×2 (13:43→21:46)
--- NOTE | 2016-10-25 16:35 | P.PN ---
Subjective Principal diagnosis: Patient is a pleasant 56-year-old male who is being followed by the neurology service for altered mental status. Patient came to [facility] with complaints of altered mental status. Patient was found to be quite lethargic in the emergency room. Patient does have a history of multiple medications for chronic lower extremity pain and low back pain. Computed tomography scan of the brain was done which was normal. His urine drug screen was positive for oxycodone, tricyclic antidepressants, and benzodiazepines. Patient's mentation has slowly improved and is alert and conversant at this time. At the time of my evaluation he is resting comfortably in bed and appears to be in no acute distress. Objective - Vital Signs Vital signs: Vital Signs Temp 98.2 F 10/25/16 15:44 Pulse 71 10/25/16 15:44 Resp 16 10/25/16 15:44 BP 140/85 10/25/16 15:44 Pulse Ox 97 10/25/16 15:44 Intake & Output 10/24/16 10/25/16 10/25/16 18:59 06:59 18:59 Intake Total 380 360 Output Total 700 Balance -320 360 Weight 90.718 kg 88.5 kg Intake: Oral 380 360 Output: Urine 700 Other: Voiding Method Urinal Urinal # Voids 1 - Exam PHYSICAL EXAM: GENERAL APPEARANCE: Patient is a well-developed, male who appears to be in no acute distress. HEENT: Normocephalic, atraumatic, no facial asymmetry is seen. Neck is supple with no masses felt. CARDIOVASCULAR: Regular rate and rhythm. ABDOMEN: Nontender, nondistended. EXTREMITIES: Show no edema or clubbing. NEUROLOGICAL EXAM: Patient is awake, alert, and oriented 3. Speech and language are normal. Strength is 4/5 in bilateral lower extremities and 5-/5 in bilateral upper extremities. Sensory exam is normal to light touch in all 4 extremities. No facial asymmetry is seen on cranial nerve testing. No tremors or seizure-like activity is noted. - Labs CBC & Chem 7: 10/23/16 22:09 10/24/16 09:58 Labs: Microbiology - Last 24 Hours (Table) 10/23/16 22:09 Urine Culture - Final Urine,Catheterized Assessment and Plan Plan: Impression: 1. Altered mental status, resolving 2. Acute toxic encephalopathy 3. Chronic pain syndrome 4. Rhabdomyolysis Recommendations: Patient's altered mental status is likely due to toxic encephalopathy due to high doses of oxycodone along with muscle relaxants and benzodiazepines. I recommend reducing his pain medication to Percocet at 3 times a day dosing. I recommend continuing to hold Klonopin. Due to difficulty in controlling his pain, we did discuss possibility of intrathecal drug therapy which can be further discussed in the outpatient setting. An EEG has been ordered and results are pending. Continue current medical management. Continue neurological checks. His mental status appears to be back to baseline. Barring any abnormalities on the EEG, I will continue to follow with you on an as-needed basis. Feel free to call with any questions or concerns. I performed an examination of the patient and discussed the management with the [employer]. I have reviewed the [employer] notes and agree with the findings and plan of care.
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
[2016-10-25 17:53] LABS: Glucose,Whole Blood 78 mg/dL (75-99)
[2016-10-25] MEDS: MIRTAZAPINE 15 MG TAB PO SCH (19:52)
[2016-10-25 20:26] LABS: Glucose,Whole Blood 87 mg/dL (75-99)
[2016-10-26] MEDS: LORazepam 2 MG/ML SYRINGE IV PRN (02:55)
[2016-10-26] MEDS: ALPRAZolam 0.5 MG TAB PO PRN ×2 (05:09→11:36)
[2016-10-26] MEDS: oxyCODONE-APAP 10-325MG 1 EACH TAB PO PRN ×2 (05:09→11:36)
--- NOTE | 2016-10-26 06:25 | EEG ---
DATE OF SERVICE: 10/25/2016 REASON FOR TESTING: Altered mental status. DESCRIPTION OF THE PROCEDURE: This EEG was performed using a 21 channel digital electroencephalograph, following international 10-20 system. DESCRIPTION OF THE RECORDING: From the beginning of the tracing, and with the patient's eyes closed, the background rhythm was mostly consisting of 8 Hz alpha frequency in the posterior occipital leads. No obvious asymmetry is seen. Photic stimulation was performed with a good driving response seen. No pathological waves were elicited. Hyperventilation was not performed. The patient does reach stage II during the tracing and occasional sleep spindles and K complexes are seen. Occasional movement artifacts are noticed. No epileptiform discharges were seen. His EKG lead showed a regular rate and rhythm. INTERPRETATION: This awake and asleep EEG can be considered within normal limits. There was no asymmetry seen. No epileptiform discharges were noticed. The absence of epileptiform discharges does not rule out the diagnosis of epilepsy, therefore clinical correlation is recommended. MTDD
[2016-10-26 07:53] VITALS: BP 147/90; PULSE 67; RESP 18; TEMP 97.2
[2016-10-26] MEDS: ENOXAPARIN 40 MG/0.4 ML SYRINGE SQ SCH (08:06)
[2016-10-26] MEDS: PREGABALIN 75 MG CAP PO SCH (08:06)
[2016-10-26] MEDS: METHYLPHENIDATE HCL 10 MG TAB PO SCH (08:06)
[2016-10-26] MEDS: cloNIDine HCL 0.1 MG TAB PO SCH (08:06)
[2016-10-26] MEDS: LACTULOSE 20 GM/30 ML CUP PO SCH (08:06)
[2016-10-26] MEDS: THIAMINE 100 MG TAB PO SCH (11:38)
--- NOTE | 2016-10-30 10:46 | DS ---
FINAL DIAGNOSES: 1. Change in mental status with acute metabolic toxic encephalopathy secondary to polypharmacy overdose. 2. Rhabdomyolysis. 3. Chronic back pain. 4. Degenerative joint disease. 5. Bipolar. 6. History of nicotine dependence. DISCHARGE DISPOSITION: Patient discharged in stable condition with guarded prognosis. Total time taken 35 minutes. HISTORY OF PRESENT ILLNESS: This is a 56-year-old gentleman with a past medical history of multiple medical problems, admitted with change in mental status, thought to be oral medication and polypharmacy medication adjusted. Patient improved significantly. The patient is seen by Dr. Carter. Psychiatry also saw the patient and cleared. Please refer to the recommendations and discharge consultation for recommendations. Dr. Bee saw the patient as well. Patient is found to be stable from the vascular point of view. On exam, vitals are stable. CARDIOVASCULAR SYSTEM: S1, S2, muffled. ABDOMEN: Soft. NERVOUS SYSTEM: No focal deficits. DISCHARGE ADVICE: 1. Diet is cardiac. 2. Activity limited until followup. 3. Follow up with Dr. Brian Russell in 2 to 3 days. 4. Follow up with Dr. Carter as recommended. Medications will be: 1. Xanax 1 mg q.6 p.r.n. 2. Catapres 0.1 p.o. t.i.d. 3. Flexeril 10 mg p.o. t.i.d. 4. Folic acid 1 mg p.o. daily. 5. Ritalin 20 mg p.o. t.i.d. 6. Remeron 30 mg p.o. q.h.s. 7. Multivitamin 1 p.o. daily. 8. Oxycodone 10 mg q.8 p.r.n. 9. Lyrica 150 mg p.o. t.i.d. 10. Imitrex 25 mg p.o. daily. 11. Multivitamin 1 p.o. daily. Once again, the patient will be discharged in a stable condition with guarded prognosis. MTDD
== END 2016-10-26 12:15 | disposition home or self-care (01) | DRG 917 ==
LOC: EC 22:01 → 6SEL 10-24 00:04 → 5MS5E 10-25 15:55
PROVIDERS: ADMIT Family Medicine; ATTEND Family Medicine
DX: T42.4X1A Poisoning by benzodiazepines, accidental (unintentional), initial encounter (principal); G92 Toxic encephalopathy; F31.9 Bipolar disorder, unspecified; M62.82 Rhabdomyolysis; F11.20 Opioid dependence, uncomplicated; T40.2X1A Poisoning by other opioids, accidental (unintentional), initial encounter; F17.200 Nicotine dependence, unspecified, uncomplicated; F41.9 Anxiety disorder, unspecified; F90.9 Attention-deficit hyperactivity disorder, unspecified type; G40.909 Epilepsy, unspecified, not intractable, without status epilepticus; G89.4 Chronic pain syndrome; I10 Essential (primary) hypertension; K21.9 Gastro-esophageal reflux disease without esophagitis; M54.5 Low back pain; M79.606 Pain in leg, unspecified; R51 Headache; Z79.899 Other long term (current) drug therapy; Z88.8 Allergy status to other drugs, medicaments and biological substances; Z86.14 Personal history of Methicillin resistant Staphylococcus aureus infection
CPT/HCPCS: 36415; 70450; 71010; 80053; 80164; 80185; 80306; 80320; 81003; 82140; 82550; 82553; 83520; 84484; 85025; 85610; 85730; 87086; 93005; 95819; 96361; 96372; 96374; 99291

== ENCOUNTER 2017-01-15 19:09 | Inpatient (IN) | payer MEDICARE, OTHER ==
[2017-01-15] MEDS ORDERED: SODIUM CHLORIDE 0.9% IVPB STA ×2 (19:12)
[2017-01-15] MEDS ORDERED: NALOXONE IVPB STA ×2 (19:12)
[2017-01-15] MEDS: SODIUM CHLORIDE 0.9% 1,000 ML IV STA ×2 (19:18→19:40)
[2017-01-15 19:19] LABS: Glucose,Whole Blood 139 mg/dL (75-99)
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
[2017-01-15 19:29] LABS: Basophils % (A) 0 %; CH 31.3; CHCM 33.2; Eosinophils # (A) 0.2 k/uL (0-0.7); Eosinophils % (A) 2 %; HCT 36.2 % (39.0-53.0); HDW 2.73; HGB 11.7 gm/dL (13.0-17.5); Luc # (Auto) 0.08; Luc % (Auto) 1; Lymphocytes # (A) 2.9 k/uL (1.0-4.8); Lymphocytes % (A) 38 %; MCH 30.7 pg (25.0-35.0); MCHC 32.4 g/dL (31.0-37.0); MCV 94.7 fL (80.0-100.0); Monocytes # (A) 0.4 k/uL (0-1.0); Monocytes % (A) 6 %; Neutrophils # (A) 4.1 k/uL (1.3-7.7); Neutrophils % (A) 53 %; RBC 3.82 m/uL (4.30-5.90); WBC 7.7 k/uL (3.8-10.6); WBC (Perox) 7.41
[2017-01-15] MEDS ORDERED: NALOXONE 0.4 MG/ML 10 ML VIAL IVP STA (19:30)
[2017-01-15 19:33] LABS: Prothrombin Time 10.4 sec (9.0-12.0)
[2017-01-15 19:45] LABS: ALT 40 U/L (21-72); AST 17 U/L (17-59); Alcohol <10 mg/dL; Alkaline Phosphatase 65 U/L (38-126); Amylase <30 U/L (30-110); Anion Gap 8 mmol/L; Blood Urea Nitrogen 19 mg/dL (9-20); Calcium 8.9 mg/dL (8.4-10.2); Carbon Dioxide 21 mmol/L (22-30); Chloride 112 mmol/L (98-107); Glucose 144 mg/dL (74-99); Magnesium 1.9 mg/dL (1.6-2.3); Non-African American GFR(MDRD) >60 (>60 ml/min/1.73 sqM); Potassium 4.2 mmol/L (3.5-5.1); Salicylate <1.0 mg/dL; Sodium 141 mmol/L (137-145); Total Bilirubin 0.3 mg/dL (0.2-1.3); Total Protein 5.6 g/dL (6.3-8.2)
[2017-01-15] MEDS ORDERED: SUCCINYLCHOLINE CHLORIDE VIAL 200 MG/10 ML VIAL IV STA (19:45)
[2017-01-15] MEDS ORDERED: PROPOFOL 1,000 MG/100 ML VIAL IV STA (19:48)
[2017-01-15 19:49] LABS: Creatine Kinase 58 U/L (55-170)
[2017-01-15 20:02] LABS: Creatine Kinase MB 0.9 ng/mL (0.0-2.4); Troponin I <0.012 ng/mL (0.000-0.034)
--- NOTE | 2017-01-15 20:09 | XR ---
EXAMINATION TYPE: XR chest 1V portable DATE OF EXAM: 01/15/2017 COMPARISON: 10/23/2016 HISTORY: Overdose and unresponsive TECHNIQUE: Single frontal view of the chest is obtained. FINDINGS: There is no heart failure nor confluent pneumonic infiltrate. There is poor inspiration. E ndotracheal tube appears in good position. There is nasogastric tube in good position. There are ches t leads. There is no sign of pleural effusion. IMPRESSION: Poor inspiration that is improved compared to last exam. No heart failure.
--- NOTE | 2017-01-15 20:11 | XR ---
EXAMINATION TYPE: XR KUB portable DATE OF EXAM: 01/15/2017 COMPARISON: 11/07/2012 HISTORY: Overdose TECHNIQUE: 2 views FINDINGS: There is no sign of intestinal obstruction or pneumoperitoneum. Fecal pattern is normal. Th ere is nasogastric tube is looped in the gastric fundus. There are no pathologic calcifications over the kidneys. IMPRESSION: Nonacute abdomen. No adverse change compared to old exam.
[2017-01-15 20:27] LABS: ABG HCO3 19 mmol/L (21-25); ABG PCO2 36 mmHg (35-45); ABG PH 7.35 (7.35-7.45); ABG PO2 292 mmHg (83-108); ABG TCO2 20 mmol/L (19-24)
[2017-01-15 20:28] LABS: ABG Base Excess -5.1 mmol/L
[2017-01-15] MEDS ORDERED: SODIUM CHLORIDE 0.9% 1,000 ML IV STA (20:44)
[2017-01-15] MEDS: NALOXONE 4 MG in SODIUM CHLORIDE 0.9% 100 ML IV SCH (21:04)
[2017-01-15] MEDS ORDERED: ATROPINE SULFATE 0.1 MG/ML 10ML SYRINGE IV STA (21:28)
[2017-01-15] MEDS ORDERED: NOREPINEPHRIN 4 MG-0.9% NS PMX 4 MG/250 ML ML IV ONE (21:46)
[2017-01-15] MEDS ORDERED: NALOXONE 0.4 MG/ML 1 ML VIAL IV PRN (21:53)
--- NOTE | 2017-01-15 21:58 | ED ---
Medical Decision Making - Medical Decision Making The patient's blood pressure stabilized on low-dose Levophed. He has 3 adequate IVs. Computed tomography scan was performed showing no acute findings. Patient is transferred to the ICU stable at this time. - Lab Data Result diagrams: 01/15/17 19:19 01/15/17 19:19 Lab Results 01/15/17 01/15/17 01/15/17 Range/Units 19:16 19:19 19:19 WBC (3.8-10.6) k/uL RBC (4.30-5.90) m/uL Hgb (13.0-17.5) gm/dL Hct (39.0-53.0) % MCV (80.0-100.0) fL MCH (25.0-35.0) pg MCHC (31.0-37.0) g/dL RDW (11.5-15.5) % Plt Count (150-450) k/uL Neutrophils % % Lymphocytes % % Monocytes % % Eosinophils % % Basophils % % Neutrophils # (1.3-7.7) k/uL Lymphocytes # (1.0-4.8) k/uL Monocytes # (0-1.0) k/uL Eosinophils # (0-0.7) k/uL Basophils # (0-0.2) k/uL PT (9.0-12.0) sec INR (<1.2) Sample Site ABG pH (7.35-7.45) ABG pCO2 (35-45) mmHg ABG pO2 (83-108) mmHg ABG HCO3 (21-25) mmol/L ABG Total CO2 (19-24) mmol/L ABG O2 Saturation (94-97) % ABG Base Excess mmol/L FiO2 % Sodium 141 (137-145) mmol/L Potassium 4.2 (3.5-5.1) mmol/L Chloride 112 H (98-107) mmol/L Carbon Dioxide 21 L (22-30) mmol/L Anion Gap 8 mmol/L BUN 19 (9-20) mg/dL Creatinine 0.80 (0.66-1.25) mg/dL Est GFR (MDRD) Af Amer >60 (>60 ml/min/1.73 sqM) Est GFR (MDRD) Non-Af >60 (>60 ml/min/1.73 sqM) Glucose 144 H (74-99) mg/dL POC Glucose (mg/dL) 139 H (75-99) mg/dL POC Glu Interactive Producer ID Renate Rodriguez Osmolality 298 (280-301) mosm/kg Plasma Lactic Acid Blake (0.7-2.0) mmol/L Calcium 8.9 (8.4-10.2) mg/dL Magnesium 1.9 (1.6-2.3) mg/dL Total Bilirubin 0.3 (0.2-1.3) mg/dL AST 17 (17-59) U/L ALT 40 (21-72) U/L Alkaline Phosphatase 65 (38-126) U/L Total Creatine Kinase 58 (55-170) U/L CK-MB (CK-2) 0.9 (0.0-2.4) ng/mL CK-MB (CK-2) Rel Index 1.6 Troponin I <0.012 (0.000-0.034) ng/mL Total Protein 5.6 L (6.3-8.2) g/dL Albumin 3.2 L (3.5-5.0) g/dL Amylase <30 L (30-110) U/L Lipase 54 (23-300) U/L Salicylates <1.0 mg/dL Urine Opiates Screen (NotDetected) Ur Oxycodone Screen (NotDetected) Urine Methadone Screen (NotDetected) Ur Propoxyphene Screen (NotDetected) Acetaminophen 21.0 ug/mL Ur Barbiturates Screen (NotDetected) U Tricyclic Antidepress (NotDetected) Ur Phencyclidine Scrn (NotDetected) Ur Amphetamines Screen (NotDetected) U Methamphetamines Scrn (NotDetected) U Benzodiazepines Scrn (NotDetected) Urine Cocaine Screen (NotDetected) U Marijuana (THC) Screen (NotDetected) Serum Alcohol <10 mg/dL 01/15/17 01/15/17 01/15/17 Range/Units 19:19 19:19 19:19 WBC 7.7 (3.8-10.6) k/uL RBC 3.82 L (4.30-5.90) m/uL Hgb 11.7 L (13.0-17.5) gm/dL Hct 36.2 L (39.0-53.0) % MCV 94.7 (80.0-100.0) fL MCH 30.7 (25.0-35.0) pg MCHC 32.4 (31.0-37.0) g/dL RDW 14.0 (11.5-15.5) % Plt Count 362 (150-450) k/uL Neutrophils % 53 % Lymphocytes % 38 % Monocytes % 6 % Eosinophils % 2 % Basophils % 0 % Neutrophils # 4.1 (1.3-7.7) k/uL Lymphocytes # 2.9 (1.0-4.8) k/uL Monocytes # 0.4 (0-1.0) k/uL Eosinophils # 0.2 (0-0.7) k/uL Basophils # 0.0 (0-0.2) k/uL PT 10.4 (9.0-12.0) sec INR 1.0 (<1.2) Sample Site ABG pH (7.35-7.45) ABG pCO2 (35-45) mmHg ABG pO2 (83-108) mmHg ABG HCO3 (21-25) mmol/L ABG Total CO2 (19-24) mmol/L ABG O2 Saturation (94-97) % ABG Base Excess mmol/L FiO2 % Sodium (137-145) mmol/L Potassium (3.5-5.1) mmol/L Chloride (98-107) mmol/L Carbon Dioxide (22-30) mmol/L Anion Gap mmol/L BUN (9-20) mg/dL Creatinine (0.66-1.25) mg/dL Est GFR (MDRD) Af Amer (>60 ml/min/1.73 sqM) Est GFR (MDRD) Non-Af (>60 ml/min/1.73 sqM) Glucose (74-99) mg/dL POC Glucose (mg/dL) (75-99) mg/dL POC Glu Interactive Producer ID Osmolality (280-301) mosm/kg Plasma Lactic Acid Blake 1.4 (0.7-2.0) mmol/L Calcium (8.4-10.2) mg/dL Magnesium (1.6-2.3) mg/dL Total Bilirubin (0.2-1.3) mg/dL AST (17-59) U/L ALT (21-72) U/L Alkaline Phosphatase (38-126) U/L Total Creatine Kinase (55-170) U/L CK-MB (CK-2) (0.0-2.4) ng/mL CK-MB (CK-2) Rel Index Troponin I (0.000-0.034) ng/mL Total Protein (6.3-8.2) g/dL Albumin (3.5-5.0) g/dL Amylase (30-110) U/L Lipase (23-300) U/L Salicylates mg/dL Urine Opiates Screen (NotDetected) Ur Oxycodone Screen (NotDetected) Urine Methadone Screen (NotDetected) Ur Propoxyphene Screen (NotDetected) Acetaminophen ug/mL Ur Barbiturates Screen (NotDetected) U Tricyclic Antidepress (NotDetected) Ur Phencyclidine Scrn (NotDetected) Ur Amphetamines Screen (NotDetected) U Methamphetamines Scrn (NotDetected) U Benzodiazepines Scrn (NotDetected) Urine Cocaine Screen (NotDetected) U Marijuana (THC) Screen (NotDetected) Serum Alcohol mg/dL 01/15/17 01/15/17 Range/Units 19:26 20:09 WBC (3.8-10.6) k/uL RBC (4.30-5.90) m/uL Hgb (13.0-17.5) gm/dL Hct (39.0-53.0) % MCV (80.0-100.0) fL MCH (25.0-35.0) pg MCHC (31.0-37.0) g/dL RDW (11.5-15.5) % Plt Count (150-450) k/uL Neutrophils % % Lymphocytes % % Monocytes % % Eosinophils % % Basophils % % Neutrophils # (1.3-7.7) k/uL Lymphocytes # (1.0-4.8) k/uL Monocytes # (0-1.0) k/uL Eosinophils # (0-0.7) k/uL Basophils # (0-0.2) k/uL PT (9.0-12.0) sec INR (<1.2) Sample Site R radial ABG pH 7.35 (7.35-7.45) ABG pCO2 36 (35-45) mmHg ABG pO2 292 H (83-108) mmHg ABG HCO3 19 L (21-25) mmol/L ABG Total CO2 20 (19-24) mmol/L ABG O2 Saturation 99.0 H (94-97) % ABG Base Excess -5.1 mmol/L FiO2 100 % Sodium (137-145) mmol/L Potassium (3.5-5.1) mmol/L Chloride (98-107) mmol/L Carbon Dioxide (22-30) mmol/L Anion Gap mmol/L BUN (9-20) mg/dL Creatinine (0.66-1.25) mg/dL Est GFR (MDRD) Af Amer (>60 ml/min/1.73 sqM) Est GFR (MDRD) Non-Af (>60 ml/min/1.73 sqM) Glucose (74-99) mg/dL POC Glucose (mg/dL) (75-99) mg/dL POC Glu Interactive Producer ID Osmolality (280-301) mosm/kg Plasma Lactic Acid Blake (0.7-2.0) mmol/L Calcium (8.4-10.2) mg/dL Magnesium (1.6-2.3) mg/dL Total Bilirubin (0.2-1.3) mg/dL AST (17-59) U/L ALT (21-72) U/L Alkaline Phosphatase (38-126) U/L Total Creatine Kinase (55-170) U/L CK-MB (CK-2) (0.0-2.4) ng/mL CK-MB (CK-2) Rel Index Troponin I (0.000-0.034) ng/mL Total Protein (6.3-8.2) g/dL Albumin (3.5-5.0) g/dL Amylase (30-110) U/L Lipase (23-300) U/L Salicylates mg/dL Urine Opiates Screen Not Detected (NotDetected) Ur Oxycodone Screen Detected H (NotDetected) Urine Methadone Screen Not Detected (NotDetected) Ur Propoxyphene Screen Not Detected (NotDetected) Acetaminophen ug/mL Ur Barbiturates Screen Not Detected (NotDetected) U Tricyclic Antidepress Not Detected (NotDetected) Ur Phencyclidine Scrn Not Detected (NotDetected) Ur Amphetamines Screen Not Detected (NotDetected) U Methamphetamines Scrn Not Detected (NotDetected) U Benzodiazepines Scrn Detected H (NotDetected) Urine Cocaine Screen Not Detected (NotDetected) U Marijuana (THC) Screen Not Detected (NotDetected) Serum Alcohol mg/dL - EKG Data -: EKG Interpreted by Me (Repeat EKG shows a heart rate of 50. Interval 188 QRS 76 QT/QTC of 506/461) Disposition Clinical Impression: Drug overdose, multiple drugs, Acute respiratory failure, Hypotension, Bradycardia, Depression, Suicidal overdose Disposition: ADMITTED IP TO THIS [facility] Condition: Critical
[2017-01-15] MEDS: SODIUM CHLORIDE 0.9% 1,000 ML IV SCH (22:16)
--- NOTE | 2017-01-15 22:55 | CT ---
EXAMINATION TYPE: CT brain sanjiv nazario DATE OF EXAM: 01/15/2017 COMPARISON: 10/23/2016 HISTORY: Overdose. CT DLP: 1714.20 mGycm Automated exposure control for dose reduction was used. TECHNIQUE: CT scan of the head and cervical spine are performed without contrast. FINDINGS: There is mild cerebral atrophy. There is no mass effect nor midline shift. There is no si gn of intracranial hemorrhage. The calvarium appears intact. Cervical vertebra have normal alignment. Posterior elements are intact. There is mild anterior spurring at C5-6 C6-7. Facet joints are intact . Skull base appears intact. IMPRESSION: Mild cerebral atrophy. No acute intracranial abnormality. No change. Mild degenerative changes in the cervical spine. No fracture.
[2017-01-15 23:35] LABS: Glucose,Whole Blood 117 mg/dL (75-99)
[2017-01-16] MEDS ORDERED: NOREPINEPHRIN 4 MG-0.9% NS PMX 4 MG/250 ML ML IV SCH (00:15)
[2017-01-16] MEDS ORDERED: IPRATROPIUM-ALBUTEROL 3 ML NEB INHALATION PRN (01:39)
[2017-01-16 02:18] VITALS: BMI 25.5
[2017-01-16] MEDS: NALOXONE 4 MG in SODIUM CHLORIDE 0.9% 100 ML IV SCH ×2 (04:19→15:21)
[2017-01-16 04:57] LABS: Basophils # (A) 0.1 k/uL (0-0.2); Basophils % (A) 1 %; CH 30.6; CHCM 31.9; Eosinophils # (A) 0.2 k/uL (0-0.7); Eosinophils % (A) 2 %; HGB 10.9 gm/dL (13.0-17.5); Luc # (Auto) 0.11; Luc % (Auto) 1; Lymphocytes # (A) 2.4 k/uL (1.0-4.8); Lymphocytes % (A) 30 %; MCH 30.2 pg (25.0-35.0); MCHC 31.2 g/dL (31.0-37.0); MCV 96.7 fL (80.0-100.0); Mean Platelet Volume 8.2; Monocytes # (A) 0.5 k/uL (0-1.0); Monocytes % (A) 6 %; Neutrophils # (A) 4.8 k/uL (1.3-7.7); Neutrophils % (A) 60 %; RBC 3.62 m/uL (4.30-5.90); RDW 15.2 % (11.5-15.5); WBC 7.9 k/uL (3.8-10.6); WBC (Perox) 7.66
[2017-01-16 04:58] LABS: ABG HCO3 19 mmol/L (21-25); ABG PCO2 33 mmHg (35-45); ABG PH 7.39 (7.35-7.45); ABG PO2 135 mmHg (83-108); ABG TCO2 20 mmol/L (19-24)
[2017-01-16 05:06] LABS: Anion Gap 5 mmol/L; Blood Urea Nitrogen 17 mg/dL (9-20); Calcium 8.5 mg/dL (8.4-10.2); Carbon Dioxide 21 mmol/L (22-30); Chloride 117 mmol/L (98-107); Glucose 113 mg/dL (74-99); Magnesium 1.9 mg/dL (1.6-2.3); Non-African American GFR(MDRD) >60 (>60 ml/min/1.73 sqM); Phosphorus 3.4 mg/dL (2.5-4.5); Potassium 4.2 mmol/L (3.5-5.1); Sodium 143 mmol/L (137-145)
[2017-01-16] MEDS: IPRATROPIUM-ALBUTEROL 3 ML NEB INHALATION SCH ×4 (07:12→19:57)
--- NOTE | 2017-01-16 07:29 | XR ---
EXAMINATION TYPE: XR chest 1V portable DATE OF EXAM: 01/16/2017 COMPARISON: 01/15/2017 HISTORY: Endotracheal tube placement TECHNIQUE: Single frontal view of the chest is obtained. FINDINGS: Enteric tube and endotracheal tube are unchanged in position from the prior. Cardiac silho uette remains unenlarged. There is hypoventilation of the lungs with bibasilar subsegmental atelectas is. No pleural effusion, pneumothorax or focal consolidation is appreciated. IMPRESSION: Stable endotracheal tube and enteric tube placement with bibasilar atelectasis. No focal consolidation.
[2017-01-16] MEDS ORDERED: SODIUM CHLORIDE 0.9% 1,000 ML IV ONE (09:00)
[2017-01-16] MEDS: CHLORHEXIDINE GLUCONATE 15 ML CUP MUCOUS MEM SCH ×2 (10:04→21:01)
[2017-01-16 10:23] LABS: ALT 34 U/L (21-72); AST 16 U/L (17-59); Alkaline Phosphatase 44 U/L (38-126); Total Bilirubin 0.6 mg/dL (0.2-1.3); Total Protein 5.2 g/dL (6.3-8.2)
[2017-01-16] MEDS: MAGNESIUM SULFATE-D5W PMX 1 GM in DEXTROSE/WATER 1 100ML.BAG IVPB SCH ×2 (10:30→10:37)
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
--- NOTE | 2017-01-16 13:06 | CDI ---
In responding to this query, please exercise your independent professional judgment. The [facility] Coding Staff and Clinical Documentation Specialists appreciate your assistance in clarifying documentation, maintaining compliance with coding guidelines, accurately documenting patients condition and capturing severity of illness. The fact that a question is asked does not imply that any particular answer is desired or expected. Communication forms are a method of clarifying documentation and are not made part of the Legal Health Record. Thank you in advance for your clarification. Last Revision, May 2015 Rosalino Polanco [address] [facility] [address] Documentation Clarification Form Date: 01/16/2017 12:56:00 PM From: Carina Collins RN, CCDS Admit Date: 01/15/2017 9:53:00 PM Patient Name: Jimenez Triana Visit Number: [id number] Dr. Brian Russell/ Kandi BIRD Hypotension with bradycardia is documented in the H&P Patient history/risk factors: Multiple drug overdose, acute respiratory failure, ADHD, seizure disorder, suicide attempt Clinical Indicators: Vitals: temp 97.3, hr 62, RR 21, B/P 75/36, spo2 98% on 100% NRB Treatment: Levophed Gtt titrate for B/P 3L IVF Bolus In your professional opinion, can you please specify the type of shock if known ? Hypovolemic Shock o Cause Cardiogenic Shock o Cause Other, please specify Unable to determine Please document in your progress notes and discharge summary in order to capture severity of illness and risk of mortality. Include clinical findings that support your diagnosis. FYI: Press F11 to launch patient chart. ROYAL
--- NOTE | 2017-01-16 13:16 | CDI ---
In responding to this query, please exercise your independent professional judgment. The [facility] Coding Staff and Clinical Documentation Specialists appreciate your assistance in clarifying documentation, maintaining compliance with coding guidelines, accurately documenting patients condition and capturing severity of illness. The fact that a question is asked does not imply that any particular answer is desired or expected. Communication forms are a method of clarifying documentation and are not made part of the Legal Health Record. Thank you in advance for your clarification. Last Revision, May 2015 Rosalino Polanco [address] [place] [address] Documentation Clarification Form Date: 01/16/2017 1:07:00 PM From: Carina Collins RN, CCDS Admit Date: 01/15/2017 9:53:00 PM Patient Name: Jimenez Triana Visit Number: [id number] Dr. Brian Russell/ Kandi BIRD Altered mental status was documented in the H&P Patient history/risk factors: Multiple drug overdose Clinical Indicators: Labs: + Oxycodone, + benzodiazepines, Cl- 112/117, Hgb 11.7/10.9 01/16 H&P: "Multi-drug overdose including oxycodone and Xanax Flexeril, Catapres. Altered mental status secondary to the above." CT Brain: mild cerebral atrophy Treatment: intubated and mechanically ventilated Narcan drip Diprovan Drip, 4L IVF Bolus In your professional opinion, please clarify the etiology of the altered mental status, if known. Encephalopathy (specify Type- toxic, metabolic, hypertensive- and Underlying Medical Illness) Other condition (please specify) Unable to determine Please document in your progress notes and discharge summary in order to capture severity of illness and risk of mortality. Include clinical findings that support your diagnosis. FYI: Press F11 to launch patient chart. ROYAL
[2017-01-16 20:52] LABS: Glucose,Whole Blood 72 mg/dL (75-99)
[2017-01-16] MEDS: SODIUM CHLORIDE 0.9% 1,000 ML IV SCH ×4 (21:00→21:35)
[2017-01-16] MEDS ORDERED: PROPOFOL 1,000 MG/100 ML VIAL IV SCH (21:15)
[2017-01-16 22:15] LABS: Glucose,Whole Blood 81 mg/dL (75-99)
[2017-01-17 03:17] LABS: Glucose,Whole Blood 71 mg/dL (75-99)
[2017-01-17 05:05] LABS: Basophils % (A) 0 %; CH 30.6; CHCM 31.4; Eosinophils # (A) 0.2 k/uL (0-0.7); Eosinophils % (A) 2 %; HCT 34.3 % (39.0-53.0); HGB 10.7 gm/dL (13.0-17.5); Hypochromasia Slight; Luc # (Auto) 0.11; Luc % (Auto) 2; Lymphocytes # (A) 2.9 k/uL (1.0-4.8); Lymphocytes % (A) 38 %; MCH 30.7 pg (25.0-35.0); MCHC 31.3 g/dL (31.0-37.0); MCV 98.1 fL (80.0-100.0); Mean Platelet Volume 7.3; Monocytes # (A) 0.5 k/uL (0-1.0); Monocytes % (A) 6 %; Neutrophils # (A) 3.8 k/uL (1.3-7.7); Neutrophils % (A) 51 %; WBC 7.5 k/uL (3.8-10.6); WBC (Perox) 7.72
[2017-01-17 05:11] LABS: ABG HCO3 20 mmol/L (21-25); ABG PCO2 33 mmHg (35-45); ABG PO2 117 mmHg (83-108); ABG TCO2 21 mmol/L (19-24)
[2017-01-17 06:08] LABS: Anion Gap 6 mmol/L; Blood Urea Nitrogen 11 mg/dL (9-20); Carbon Dioxide 19 mmol/L (22-30); Chloride 115 mmol/L (98-107); Glucose 65 mg/dL (74-99); Magnesium 2.1 mg/dL (1.6-2.3); Non-African American GFR(MDRD) >60 (>60 ml/min/1.73 sqM); Phosphorus 3.3 mg/dL (2.5-4.5); Potassium 4.1 mmol/L (3.5-5.1); Sodium 140 mmol/L (137-145)
[2017-01-17] MEDS: DEXTROSE 10 % IN WATER 250 ML IV STA ×2 (06:40→11:51)
--- NOTE | 2017-01-17 07:12 | XR ---
EXAMINATION TYPE: XR chest 1V portable DATE OF EXAM: 01/17/2017 CLINICAL HISTORY: Difficulty breathing progress study. TECHNIQUE: Single AP portable upright view of the chest is obtained. COMPARISON: Chest x-ray from one day earlier and older studies. FINDINGS: An endotracheal tube and orogastric tube are stable in appearance. There is chronic parenc hymal change without suspicious new focal airspace opacity, pleural effusion, or pneumothorax seen bi laterally. The cardiac silhouette size is stable and upper limits of normal. Osseous structures are i ntact. IMPRESSION: Overall stable findings, no suspicious acute pulmonary process is evident.
[2017-01-17 07:19] LABS: Glucose,Whole Blood 55 mg/dL (75-99)
[2017-01-17] MEDS: IPRATROPIUM-ALBUTEROL 3 ML NEB INHALATION SCH ×4 (07:19→19:36)
[2017-01-17 07:24] LABS: Glucose,Whole Blood 76 mg/dL (75-99)
[2017-01-17 08:03] LABS: Glucose,Whole Blood 121 mg/dL (75-99)
[2017-01-17] MEDS: CHLORHEXIDINE GLUCONATE 15 ML CUP MUCOUS MEM SCH (09:04)
--- NOTE | 2017-01-17 10:47 | P.PN ---
Subjective Patient extubated. Speech mumbling. We'll consult psych for medication adjustment and evaluation for overdose. 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 6 MG/HR 15 mls/hr IV . Q6H40M [facility] Rx#:[id number] Sodium Chloride 0.9% 1, 2425 1500 500 000 ml @ 125 mls/hr IV . Q8H [facility] Rx#:[id number] Intake, IV Titration 100.0 75.875 254.76 Amount Dextrose 10 % in Water 250 250 ml @ 999 mls/hr IV ONCE [facility] Rx#:[id number] Naloxone 4 mg In Sodium 100.0 Chloride 0.9% 100 ml @ 0. 6 MG/HR 15 mls/hr IV . Q6H40M [facility] Rx#:[id number] Propofol 1,000 mg In 100 75.875 4.76 ml @ Titrate IV .Q0M [facility] Rx#:[id number] Output: Gastric Drainage 200 Urine [phone] Other: Voiding Method Indwelling Catheter Indwelling Catheter Indwelling Catheter - Constitutional General appearance: Present: mild distress - EENT Eyes: Present: PERRLA Ears: bilateral: normal - Neck Neck: Present: normal ROM - Respiratory Respiratory: bilateral: CTA - Cardiovascular Rhythm: regular - Gastrointestinal General gastrointestinal: Present: soft - Integumentary Integumentary: Present: normal - Neurologic Neurologic: Present: CNII-XII intact - Musculoskeletal Musculoskeletal: Present: generalized weakness - Psychiatric Psychiatric Comment(s): Mumbling speech unable to assess orientation - Labs CBC & Chem 7: 01/17/17 04:26 01/17/17 04:24 Labs: Abnormal Lab Results - Last 24 Hours (Table) 01/16/17 01/17/17 01/17/17 Range/Units 20:50 03:15 04:24 RBC (4.30-5.90) m/uL Hgb (13.0-17.5) gm/dL Hct (39.0-53.0) % ABG pCO2 (35-45) mmHg ABG pO2 (83-108) mmHg ABG HCO3 (21-25) mmol/L ABG O2 Saturation (94-97) % Chloride 115 H (98-107) mmol/L Carbon Dioxide 19 L (22-30) mmol/L Glucose 65 L (74-99) mg/dL POC Glucose (mg/dL) 72 L 71 L (75-99) mg/dL Calcium 8.0 L (8.4-10.2) mg/dL 01/17/17 01/17/17 01/17/17 Range/Units 04:26 05:10 07:18 RBC 3.50 L (4.30-5.90) m/uL Hgb 10.7 L (13.0-17.5) gm/dL Hct 34.3 L (39.0-53.0) % ABG pCO2 33 L (35-45) mmHg ABG pO2 117 H (83-108) mmHg ABG HCO3 20 L (21-25) mmol/L ABG O2 Saturation 99.0 H (94-97) % Chloride (98-107) mmol/L Carbon Dioxide (22-30) mmol/L Glucose (74-99) mg/dL POC Glucose (mg/dL) 55 L (75-99) mg/dL Calcium (8.4-10.2) mg/dL 01/17/17 Range/Units 08:02 RBC (4.30-5.90) m/uL Hgb (13.0-17.5) gm/dL Hct (39.0-53.0) % ABG pCO2 (35-45) mmHg ABG pO2 (83-108) mmHg ABG HCO3 (21-25) mmol/L ABG O2 Saturation (94-97) % Chloride (98-107) mmol/L Carbon Dioxide (22-30) mmol/L Glucose (74-99) mg/dL POC Glucose (mg/dL) 121 H (75-99) mg/dL Calcium (8.4-10.2) mg/dL - Imaging and Cardiology Chest x-ray: report reviewed Assessment and Plan Plan: Assessment Drug overdose polypharmacy Shock secondary to Catapres overdose Acute hypoxic respiratory failure secondary to hypertension and bradycardia Altered mental status toxic encephalopathy secondary to overdose and hypotension Intubated for respiratory failure extubated at this time History of attention deficit GERD Hypertension Seizure disorder Chronic back pain Bipolar Plan Continue consultation with Dr. Mae Consultation with psychiatry and social staff worker
[2017-01-17 11:51] LABS: Glucose,Whole Blood 53 mg/dL (75-99)
[2017-01-17 11:51] LABS: Glucose,Whole Blood 50 mg/dL (75-99)
[2017-01-17] MEDS: SODIUM CHLORIDE 0.9% 1,000 ML IV SCH (11:52)
[2017-01-17] MEDS: DEXTROSE 5%-0.9% NACL 1,000 ML IV SCH ×2 (12:15→22:21)
[2017-01-17 12:29] LABS: Glucose,Whole Blood 134 mg/dL (75-99)
[2017-01-17 12:29] LABS: Glucose,Whole Blood 222 mg/dL (75-99)
[2017-01-17 15:05] LABS: Glucose,Whole Blood 99 mg/dL (75-99)
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
[2017-01-17] MEDS: PANTOPRAZOLE 40 MG/10 ML VIAL IVP SCH (16:56)
[2017-01-17] MEDS: HEPARIN SODIUM,PORCINE 5,000 UNIT/ML 1 ML VIAL SQ SCH (16:57)
[2017-01-17 21:14] LABS: Glucose,Whole Blood 73 mg/dL (75-99)
[2017-01-18] MEDS: HEPARIN SODIUM,PORCINE 5,000 UNIT/ML 1 ML VIAL SQ SCH ×4 (00:08→23:06)
[2017-01-18 05:36] LABS: Basophils % (A) 0 %; CH 30.2; CHCM 32.4; Eosinophils # (A) 0.1 k/uL (0-0.7); Eosinophils % (A) 1 %; HCT 36.3 % (39.0-53.0); HDW 2.62; HGB 11.8 gm/dL (13.0-17.5); Luc # (Auto) 0.05; Luc % (Auto) 0; Lymphocytes # (A) 1.5 k/uL (1.0-4.8); Lymphocytes % (A) 11 %; MCH 30.6 pg (25.0-35.0); MCHC 32.5 g/dL (31.0-37.0); MCV 93.9 fL (80.0-100.0); Monocytes # (A) 0.6 k/uL (0-1.0); Monocytes % (A) 4 %; Neutrophils # (A) 10.7 k/uL (1.3-7.7); Neutrophils % (A) 83 %; RBC 3.86 m/uL (4.30-5.90); RDW 14.9 % (11.5-15.5); WBC 12.8 k/uL (3.8-10.6)
[2017-01-18 05:57] LABS: Anion Gap 9 mmol/L; Blood Urea Nitrogen 5 mg/dL (9-20); Calcium 8.2 mg/dL (8.4-10.2); Carbon Dioxide 20 mmol/L (22-30); Chloride 113 mmol/L (98-107); Glucose 106 mg/dL (74-99); Magnesium 1.8 mg/dL (1.6-2.3); Non-African American GFR(MDRD) >60 (>60 ml/min/1.73 sqM); Phosphorus 3.5 mg/dL (2.5-4.5); Potassium 3.3 mmol/L (3.5-5.1); Sodium 142 mmol/L (137-145)
--- NOTE | 2017-01-18 06:38 | XR ---
EXAMINATION TYPE: XR chest 1V portable DATE OF EXAM: 01/18/2017 HISTORY: Tube placement. REFERENCE: Previous study dated 01/17/2017. FINDINGS: The patient has been extubated. The patient is NG tube is been removed. The heart is enlarged. There is vascular congestion without janice edema. There is some atelectasis at the lung bases. I suspect a small left effusion. IMPRESSION: 1. CARDIOMEGALY AND VASCULAR CONGESTION. 2. BIBASILAR ATELECTASIS.
[2017-01-18] MEDS: IPRATROPIUM-ALBUTEROL 3 ML NEB INHALATION SCH ×4 (07:20→19:43)
[2017-01-18] MEDS: POTASSIUM CHLORIDE ER 20 MEQ TAB.ER PO SCH ×2 (07:56→08:40)
[2017-01-18] MEDS: DEXTROSE 5%-0.9% NACL 1,000 ML IV SCH (07:59)
[2017-01-18] MEDS: PREGABALIN 75 MG CAP PO SCH ×3 (08:40→21:33)
[2017-01-18] MEDS: clonazePAM 0.5 MG TAB PO SCH ×3 (08:40→21:33)
[2017-01-18] MEDS: PANTOPRAZOLE 40 MG/10 ML VIAL IVP SCH (08:40)
[2017-01-18] MEDS ORDERED: METHYLPHENIDATE HCL 10 MG TAB PO SCH (08:45)
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
[2017-01-18 10:10] LABS: Glucose,Whole Blood 94 mg/dL (75-99)
[2017-01-18 11:47] LABS: Glucose,Whole Blood 76 mg/dL (75-99)
[2017-01-18] MEDS: ALPRAZolam 0.5 MG TAB PO PRN (13:40)
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
[2017-01-18 17:32] LABS: Glucose,Whole Blood 92 mg/dL (75-99)
[2017-01-18 21:13] LABS: Glucose,Whole Blood 96 mg/dL (75-99)
[2017-01-18] MEDS: MIRTAZAPINE 15 MG TAB PO SCH (21:33)
[2017-01-19] MEDS: ALPRAZolam 0.5 MG TAB PO PRN ×3 (03:00→18:18)
[2017-01-19] MEDS: PREGABALIN 75 MG CAP PO SCH ×3 (07:21→21:11)
[2017-01-19] MEDS: PANTOPRAZOLE 40 MG TABLET PO SCH (07:22)
[2017-01-19] MEDS: clonazePAM 0.5 MG TAB PO SCH ×3 (07:22→21:11)
[2017-01-19] MEDS: HEPARIN SODIUM,PORCINE 5,000 UNIT/ML 1 ML VIAL SQ SCH ×3 (07:22→23:14)
[2017-01-19 07:30] LABS: Glucose,Whole Blood 77 mg/dL (75-99)
[2017-01-19] MEDS: IPRATROPIUM-ALBUTEROL 3 ML NEB INHALATION SCH ×4 (07:45→20:44)
[2017-01-19 08:00] LABS: Basophils % (A) 0 %; CH 31.1; CHCM 33.2; Eosinophils # (A) 0.2 k/uL (0-0.7); Eosinophils % (A) 2 %; HCT 39.4 % (39.0-53.0); HDW 2.85; HGB 12.7 gm/dL (13.0-17.5); Luc # (Auto) 0.11; Luc % (Auto) 1; Lymphocytes # (A) 1.7 k/uL (1.0-4.8); Lymphocytes % (A) 16 %; MCH 30.4 pg (25.0-35.0); MCHC 32.2 g/dL (31.0-37.0); MCV 94.2 fL (80.0-100.0); Mean Platelet Volume 7.3; Monocytes # (A) 0.6 k/uL (0-1.0); Monocytes % (A) 6 %; Neutrophils # (A) 7.9 k/uL (1.3-7.7); Neutrophils % (A) 75 %; RBC 4.18 m/uL (4.30-5.90); RDW 13.8 % (11.5-15.5); WBC 10.4 k/uL (3.8-10.6); WBC (Perox) 10.66
[2017-01-19 08:36] LABS: Anion Gap 9 mmol/L; Blood Urea Nitrogen 3 mg/dL (9-20); Calcium 9.2 mg/dL (8.4-10.2); Carbon Dioxide 24 mmol/L (22-30); Chloride 110 mmol/L (98-107); Glucose 112 mg/dL (74-99); Magnesium 1.9 mg/dL (1.6-2.3); Non-African American GFR(MDRD) >60 (>60 ml/min/1.73 sqM); Phosphorus 3.2 mg/dL (2.5-4.5); Potassium 3.5 mmol/L (3.5-5.1); Sodium 143 mmol/L (137-145)
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
[2017-01-19 20:57] LABS: Glucose,Whole Blood 111 mg/dL (75-99)
[2017-01-19] MEDS: MIRTAZAPINE 15 MG TAB PO SCH (21:11)
[2017-01-20] MEDS: ALPRAZolam 0.5 MG TAB PO PRN ×3 (00:04→22:30)
[2017-01-20] MEDS: IPRATROPIUM-ALBUTEROL 3 ML NEB INHALATION SCH ×4 (07:40→20:08)
[2017-01-20 07:56] LABS: Glucose,Whole Blood 89 mg/dL (75-99)
[2017-01-20] MEDS: PREGABALIN 75 MG CAP PO SCH ×3 (08:39→20:50)
[2017-01-20] MEDS: PANTOPRAZOLE 40 MG TABLET PO SCH (08:39)
[2017-01-20] MEDS: HEPARIN SODIUM,PORCINE 5,000 UNIT/ML 1 ML VIAL SQ SCH ×3 (08:39→22:32)
[2017-01-20] MEDS: clonazePAM 0.5 MG TAB PO SCH ×3 (08:39→20:51)
[2017-01-20 08:52] LABS: Basophils % (A) 1 %; CH 31.5; Eosinophils # (A) 0.1 k/uL (0-0.7); Eosinophils % (A) 2 %; HCT 38.1 % (39.0-53.0); HGB 12.5 gm/dL (13.0-17.5); Luc # (Auto) 0.08; Luc % (Auto) 1; Lymphocytes # (A) 1.7 k/uL (1.0-4.8); Lymphocytes % (A) 22 %; MCH 30.5 pg (25.0-35.0); MCHC 32.7 g/dL (31.0-37.0); MCV 93.2 fL (80.0-100.0); Mean Platelet Volume 7.4; Monocytes # (A) 0.4 k/uL (0-1.0); Monocytes % (A) 5 %; Neutrophils # (A) 5.4 k/uL (1.3-7.7); Neutrophils % (A) 70 %; RBC 4.08 m/uL (4.30-5.90); RDW 13.7 % (11.5-15.5); WBC 7.8 k/uL (3.8-10.6); WBC (Perox) 8.03
[2017-01-20 09:40] LABS: Anion Gap 9 mmol/L; Blood Urea Nitrogen 7 mg/dL (9-20); Calcium 9.2 mg/dL (8.4-10.2); Carbon Dioxide 25 mmol/L (22-30); Chloride 109 mmol/L (98-107); Glucose 108 mg/dL (74-99); Magnesium 1.9 mg/dL (1.6-2.3); Non-African American GFR(MDRD) >60 (>60 ml/min/1.73 sqM); Phosphorus 2.9 mg/dL (2.5-4.5); Potassium 3.8 mmol/L (3.5-5.1); Sodium 143 mmol/L (137-145)
[2017-01-20] MEDS ORDERED: SUMAtriptan SUCCINATE 25 MG TAB PO PRN (13:02)
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
[2017-01-20] MEDS: CYCLOBENZAPRINE 10 MG TAB PO SCH ×2 (16:09→20:52)
[2017-01-20] MEDS: oxyCODONE-APAP 7.5-325MG 1 EACH TAB PO PRN ×2 (16:43→22:30)
[2017-01-20] MEDS: METHYLPHENIDATE HCL 10 MG TAB PO SCH (17:20)
[2017-01-20] MEDS: MIRTAZAPINE 15 MG TAB PO SCH (20:52)
[2017-01-20] MEDS ORDERED: MIRTAZAPINE 30 MG PO SCH (21:00)
[2017-01-21] MEDS: oxyCODONE-APAP 7.5-325MG 1 EACH TAB PO PRN ×2 (05:50→13:12)
[2017-01-21] MEDS: ALPRAZolam 0.5 MG TAB PO PRN (05:51)
[2017-01-21 06:56] LABS: Basophils % (A) 1 %; CH 31.2; CHCM 34.1; Eosinophils # (A) 0.3 k/uL (0-0.7); Eosinophils % (A) 4 %; HDW 2.92; HGB 12.1 gm/dL (13.0-17.5); Luc # (Auto) 0.11; Luc % (Auto) 2; Lymphocytes # (A) 2.6 k/uL (1.0-4.8); Lymphocytes % (A) 33 %; MCH 30.2 pg (25.0-35.0); MCHC 32.8 g/dL (31.0-37.0); MCV 92.2 fL (80.0-100.0); Mean Platelet Volume 7.5; Monocytes # (A) 0.5 k/uL (0-1.0); Monocytes % (A) 7 %; Neutrophils # (A) 4.1 k/uL (1.3-7.7); Neutrophils % (A) 54 %; RBC 4.02 m/uL (4.30-5.90); RDW 13.6 % (11.5-15.5); WBC 7.6 k/uL (3.8-10.6); WBC (Perox) 7.62
[2017-01-21 07:28] LABS: Anion Gap 7 mmol/L; Blood Urea Nitrogen 11 mg/dL (9-20); Calcium 8.9 mg/dL (8.4-10.2); Carbon Dioxide 27 mmol/L (22-30); Chloride 108 mmol/L (98-107); Glucose 78 mg/dL (74-99); Non-African American GFR(MDRD) >60 (>60 ml/min/1.73 sqM); Phosphorus 4.2 mg/dL (2.5-4.5); Potassium 3.6 mmol/L (3.5-5.1); Sodium 142 mmol/L (137-145)
[2017-01-21] MEDS: IPRATROPIUM-ALBUTEROL 3 ML NEB INHALATION SCH ×3 (07:50→16:30)
[2017-01-21] MEDS: PANTOPRAZOLE 40 MG TABLET PO SCH (08:13)
[2017-01-21] MEDS: CYCLOBENZAPRINE 10 MG TAB PO SCH (08:13)
[2017-01-21] MEDS: METHYLPHENIDATE HCL 10 MG TAB PO SCH ×2 (08:13→13:13)
[2017-01-21] MEDS: PREGABALIN 75 MG CAP PO SCH (08:13)
[2017-01-21] MEDS: HEPARIN SODIUM,PORCINE 5,000 UNIT/ML 1 ML VIAL SQ SCH (08:13)
[2017-01-21] MEDS: clonazePAM 0.5 MG TAB PO SCH (08:13)
[2017-01-21] MEDS ORDERED: METHYLPHENIDATE HCL 10 MG TAB PO ONE (13:45)
--- NOTE | 2017-01-21 15:09 | P.DS ---
Providers Date of admission: 01/15/17 21:53 Attending physician: Brian Russell Consults: 01/15/17 22:01 Consult Physician Stat Consulting Provider: Elena Mae Consult Reason/Comments: ICU management Do you want consulting provider notified?: Already Contacted 01/17/17 12:48 Consult Physician Urgent Consulting Provider: Fidel Escobar Consult Reason/Comments: bipolar/ drug OD, needs medication adjustment hs seizures Do you want consulting provider notified?: Already Contacted Primary care physician: Brian Russell Hospital Course: Interval history:patient was admitted secondary to intentional overdose on multiple medications including Xanax Percocet Lyrica clonidine and Klonopin Remeron and Flexeril, patient was extubated the day yesterday clinical doing well except for mild hyperglycemia which can be corrected with oral diet patient is okay to be discharged to psychiatric floor patient, but psychiatry cannot make the addition today because of which will transfer him to [facility] floor. Patient came in with intentional overdose on these medications. 01/20/2017 Patient is quite weak, family has tried to decide regarding his disposition will continue to monitor and physical therapy evaluation will decide on his disposition tomorrow after family preservation caseworker evaluation Jan, Patient began to go to rehab patient will be discharged today to follow up with the Dr. Russell as an outpatient, since patient uses all his medications he is requesting to refill which will be done and his daughter will apply for medical power of crisis intervention specialist guardianship an she'll be taking care of the patient and his medications at home. GENERAL: The patient is alert and oriented x3, not in any acute distress. Well developed, well nourished. patient is bit tremulous HEENT: Pupils are round and equally reacting to light. EOMI. No scleral icterus. No conjunctival pallor. Normocephalic, atraumatic. No pharyngeal erythema. No thyromegaly. CARDIOVASCULAR: S1 and S2 present. No murmurs, rubs, or gallops. PULMONARY: Chest is clear to auscultation, no wheezing or crackles. ABDOMEN: Soft, nontender, nondistended, normoactive bowel sounds. No palpable organomegaly. MUSCULOSKELETAL: No joint swelling or deformity. EXTREMITIES: No cyanosis, clubbing, or pedal edema. NEUROLOGICAL: Gross neurological examination did not reveal any focal deficits. SKIN: No rashes. 1 Multiple drug overdose, suspect intentional, multiple empty bottles were found including Xanax, Percocet, Lyrica, clonidine, Klonopin, Remeron, Flexeril. Urine drug screen positive for oxycodone and benzodiazepines. Clinically doing well #2 Acute hypoxic respiratory failure secondary to above #3 Altered mental status secondary to above, recovered toxic encephalopathy from overdose on medications #4 bipolar disorder #5 attention deficit disorder. #6 seizure disorder. #7 gastroesophageal reflux disorder. #8 hypertension. #9 chronic back pain Patient Condition at Discharge: Critical Plan - Discharge Summary Discharge Rx Participant: Yes New Discharge Prescriptions: New ALPRAZolam [Xanax] 1 mg PO Q6H PRN #30 tab PRN Reason: Anxiety Pregabalin [Lyrica] 150 mg PO TID #30 cap Continue Methylphenidate HCl [Ritalin] 20 mg PO TID #30 Mirtazapine 30 mg PO HS #30 tablet SUMAtriptan SUCCINATE [Imitrex] 25 mg PO DAILY PRN #30 tab PRN Reason: Migraine Headache Discontinued Pregabalin [Lyrica] 150 mg PO TID Cyclobenzaprine [Flexeril] 10 mg PO TID ALPRAZolam [Xanax] 1 mg PO Q6H cloNIDine HCL [Catapres] 0.1 mg PO TID oxyCODONE-APAP 10-325MG [Percocet 10-325 mg] 1 tab PO Q8H PRN #10 PRN Reason: pain clonazePAM [KlonoPIN] 0.5 mg PO TID Discharge Medication List ALPRAZolam [Xanax] 1 mg PO Q6H PRN #30 tab 01/21/17 [Rx] Methylphenidate HCl [Ritalin] 20 mg PO TID #30 01/21/17 [Rx] Mirtazapine 30 mg PO HS #30 tablet 01/21/17 [Rx] Pregabalin [Lyrica] 150 mg PO TID #30 cap 01/21/17 [Rx] SUMAtriptan SUCCINATE [Imitrex] 25 mg PO DAILY PRN #30 tab 01/21/17 [Rx] Follow up Appointment(s)/Referral(s): [facility] [Outside] - 01/28/17 10:00 am (Eva Oswald 11.13.17 at 10:00am Dr. Oconnor 01.30.17 at 8:00 PSYCH EVAL) Brian Russell MD [Primary Care Provider] - 01/23/17 1:40 pm [facility], [NON-STAFF] - 1 Week Patient Instructions/Handouts: How to Stop Smoking (DC), Depression (DC) Discharge Disposition: HOME WITH HOME HEALTH SERVICES
[2017-01-21 15:19] VITALS: BP 160/95; PULSE 108; RESP 16; TEMP 98.2
[2017-01-21] MEDS ORDERED: METHYLPHENIDATE HCL 10 MG TAB PO SCH (17:30)
== END 2017-01-21 16:35 | disposition home health service (06) | DRG 917 ==
LOC: EC 19:09 → 6ICU 21:53 → 4MS4W 01-18 21:07
PROVIDERS: ADMIT Family Medicine; ATTEND Family Medicine
PROC: 5A1945Z Respiratory Ventilation, 24-96 Consecutive Hours (ICD-10-PCS; principal; 2017-01-15)
PROC: 0BH17EZ Insertion of Endotracheal Airway into Trachea, Via Natural or Artificial Opening (ICD-10-PCS; 2017-01-15)
DX: T42.4X2A Poisoning by benzodiazepines, intentional self-harm, initial encounter (principal); J96.01 Acute respiratory failure with hypoxia; R57.9 Shock, unspecified; G92 Toxic encephalopathy; J98.11 Atelectasis; T40.2X2A Poisoning by other opioids, intentional self-harm, initial encounter; T42.6X2A Poisoning by other antiepileptic and sedative-hypnotic drugs, intentional self-harm, initial encounter; T46.5X2A Poisoning by other antihypertensive drugs, intentional self-harm, initial encounter; T43.022A Poisoning by tetracyclic antidepressants, intentional self-harm, initial encounter; T48.1X2A Poisoning by skeletal muscle relaxants [neuromuscular blocking agents], intentional self-harm, initial encounter; F90.9 Attention-deficit hyperactivity disorder, unspecified type; K21.9 Gastro-esophageal reflux disease without esophagitis; I10 Essential (primary) hypertension; G40.909 Epilepsy, unspecified, not intractable, without status epilepticus; M54.9 Dorsalgia, unspecified; R00.1 Bradycardia, unspecified; G89.29 Other chronic pain; F31.9 Bipolar disorder, unspecified; F17.210 Nicotine dependence, cigarettes, uncomplicated; F41.9 Anxiety disorder, unspecified; Z79.899 Other long term (current) drug therapy; Z91.5 Personal history of self-harm; Z86.14 Personal history of Methicillin resistant Staphylococcus aureus infection; Z88.8 Allergy status to other drugs, medicaments and biological substances; Y92.008 Other place in unspecified non-institutional (private) residence as the place of occurrence of the external cause
CPT/HCPCS: 31500; 36415; 36600; 70450; 71010; 72125; 74000; 80048; 80053; 80306; 80320; 82150; 82550; 82553; 82805; 83520; 83605; 83690; 83735; 83930; 84100; 84132; 84484; 85025; 85610; 93005; 94002; 94003; 94640; 96361; 96365; 96367; 96375; 96376; 99291

== ENCOUNTER 2017-08-03 20:26 | Inpatient (IN) | payer MEDICARE ==
[2017-08-03 22:08] LABS: Glucose,Whole Blood 79 mg/dL (75-99)
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
[2017-08-03] MEDS ORDERED: NALOXONE 0.4 MG/ML 1 ML VIAL IV STA (22:12)
[2017-08-03] MEDS: SODIUM CHLORIDE 0.9% 500 ML IV SCH (22:21)
[2017-08-03 22:31] LABS: Basophils # (A) 0.1 k/uL (0-0.2); Basophils % (A) 1 %; Eosinophils # (A) 0.3 k/uL (0-0.7); Eosinophils % (A) 3 %; HCT 45.3 % (39.0-53.0); HGB 15.3 gm/dL (13.0-17.5); Lymphocytes # (A) 2.7 k/uL (1.0-4.8); Lymphocytes % (A) 24 %; MCHC 33.7 g/dL (31.0-37.0); Mean Platelet Volume 7.6; Monocytes # (A) 0.8 k/uL (0-1.0); Monocytes % (A) 7 %; Neutrophils # (A) 7.2 k/uL (1.3-7.7); Neutrophils % (A) 64 %; Platelet Count 291 k/uL (150-450); RBC 5.09 m/uL (4.30-5.90); WBC 11.1 k/uL (3.8-10.6)
[2017-08-03 22:33] LABS: Appearance,Urine Clear (Clear); Bilirubin,Urine Negative (Negative); Blood,Urine Negative (Negative); Color,Urine Yellow; Glucose,Urine (UA) Negative (Negative); Ketones,Urine Negative (Negative); Leukocyte Esterase,Urine Negative (Negative); Nitrite,Urine Negative (Negative); PH, Urine 5.5 (5.0-8.0); Protein,Urine Trace (Negative); Specific Gravity,Urine 1.015 (1.001-1.035); Urobilinogen,Urine <2.0 mg/dL (<2.0)
[2017-08-03 22:40] LABS: Partial Thromboplastin Time 22.8 sec (22.0-30.0); Prothrombin Time 9.5 sec (9.0-12.0)
[2017-08-03 22:52] LABS: ALT 35 U/L (21-72); AST 24 U/L (17-59); Acetaminophen <10.0 ug/mL; Albumin 4.3 g/dL (3.5-5.0); Alkaline Phosphatase 77 U/L (38-126); Anion Gap 14 mmol/L; Blood Urea Nitrogen 14 mg/dL (9-20); Carbon Dioxide 21 mmol/L (22-30); Chloride 108 mmol/L (98-107); Creatine Kinase 89 U/L (55-170); Glucose 80 mg/dL (74-99); Potassium 4.4 mmol/L (3.5-5.1); Salicylate <1.0 mg/dL; Sodium 143 mmol/L (137-145); Total Bilirubin 0.5 mg/dL (0.2-1.3)
[2017-08-03 22:59] LABS: Creatine Kinase MB 1.2 ng/mL (0.0-2.4)
[2017-08-03 23:01] LABS: Amphetamine Screen,Urine Not Detected (NotDetected); Barbiturate Screen,Urine Not Detected (NotDetected); Benzodiazepines Screen,Urine Detected (NotDetected); Cocaine Screen,Urine Not Detected (NotDetected); Methadone Screen, Urine Not Detected (NotDetected); Opiate Screen,Urine Not Detected (NotDetected); Oxycodone Screen, Urine Not Detected (NotDetected); Phencyclidine Screen,Urine Not Detected (NotDetected); Tricyclic Antidepressant,Urine Not Detected (NotDetected); Urn Cannabinoid Scrn Not Detected (NotDetected)
--- NOTE | 2017-08-03 23:19 | XR ---
EXAMINATION TYPE: XR chest 1V portable DATE OF EXAM: 08/03/2017 COMPARISON: 01/18/2017 HISTORY: Fever TECHNIQUE: Single frontal view of the chest is obtained. FINDINGS: Heart and mediastinum are normal. Lungs are clear. Diaphragm is normal. There are chest le ads. Bony thorax is intact. IMPRESSION: No active cardiopulmonary disease. No change.
--- NOTE | 2017-08-04 00:04 | CT ---
EXAMINATION TYPE: CT brain wo con DATE OF EXAM: 08/03/2017 COMPARISON: NONE HISTORY: Altered mental status. CT DLP: 1126.5 mGycm Automated exposure control for dose reduction was used. FINDINGS: Ventricles and sulci appear normal. There is no mass effect nor midline shift. There is no sign of in tracranial hemorrhage. The calvarium is intact. IMPRESSION: NEGATIVE CT SCAN OF THE BRAIN.
[2017-08-04 00:10] LABS: ABG Base Excess -1.2 mmol/L; ABG HCO3 24 mmol/L (21-25); ABG Oxygen Saturation 93.3 % (94-97); ABG PCO2 41 mmHg (35-45); ABG PH 7.38 (7.35-7.45); ABG PO2 66 mmHg (83-108); ABG TCO2 25 mmol/L (19-24)
[2017-08-04] MEDS: SODIUM CHLORIDE 0.9% 500 ML IV SCH (00:50)
[2017-08-04] MEDS ORDERED: NALOXONE 0.4 MG/ML 1 ML VIAL IV PRN (00:51)
[2017-08-04] MEDS: SODIUM CHLORIDE 0.9% 1,000 ML IV SCH ×2 (01:16→16:14)
[2017-08-04 04:54] LABS: Creatine Kinase MB 1.2 ng/mL (0.0-2.4)
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
[2017-08-04] MEDS: HEPARIN SODIUM,PORCINE 5,000 UNIT/ML 1 ML VIAL SQ SCH (16:14)
[2017-08-04 17:21] VITALS: BMI 27.1
[2017-08-05] MEDS: HEPARIN SODIUM,PORCINE 5,000 UNIT/ML 1 ML VIAL SQ SCH ×4 (00:03→23:48)
[2017-08-05] MEDS: SODIUM CHLORIDE 0.9% 1,000 ML IV SCH ×2 (02:30→15:53)
[2017-08-05] MEDS: ACETAMINOPHEN TAB 325 MG TAB PO PRN ×2 (15:51→20:55)
--- NOTE | 2017-08-05 16:02 | P.CN ---
Psychiatric Consult - . Consult date: 08/05/17 Consult:: Mr. Triana is a 57-year-old male who has a history of a depressive disorder. He presented to medical service with confusion, falls and a reported history of an overdose. The hospitalist consulted psychiatry to evaluate the patient for the overdose and suicide attempt. I reviewed the medical record and attempted to interview Mr. Tirana. According to the medical record he presented to the ED for an altered mental status. He was unable to give a history or review of symptoms. However according to the charge nurse he presented to the ED waiting room to be evaluated for "suicidal ideation". Apparently was found unresponsive by family in the bathroom floor but did have a pulse and was breathing. He was brought immediately to the emergency department. He was unable to provide a coherent past or current history. He had difficulty expressing complete sentences. He uttered partial statements and was initially preoccupied about his legs. He kept talking about his "legs" and appeared unable to describe his concerns or his distress. He had great difficulty concentrating and attending to the interview. He is preoccupied with pain and falling. He alleged that he has fallen multiple times and has struck his head multiple times. He admitted to feeling depressed but appeared to attend denied that he attempted suicide by overdose. He appeared confused as to the reason for being in the hospital. According to our record he has had 3 prior admissions to this psychiatric unit with the last in December 2015. He has a diagnosis of recurrent depressive disorder. He receives treatment through [facility]. Information from his admission in November 2015 indicates has had 4 prior inpatient psychiatric hospitalizations. He's had 3 "accidental" overdoses. He has worked with a variety of psychiatrists in the past including Dr. Cruz at [facility]. He has been prescribed multiple psychotropic medications including Prozac, Paxil, Zoloft, Celexa, Lexapro, Effexor, Cymbalta etc. He has history of an alcohol use disorder including 4 DUIs. On mental status examination, he presented as a casually groomed middle-aged male who is laying In bed. A one-to-one sitter was in attendance. He made eye contact but had difficulty concentrating and attending to the interview. He had a distressed facial expression. He was alert and oriented to person, place and time. He showed show psychomotor retardation but no abnormal movements. His speech was nonspontaneous, monotone and slightly dysarthric. His affect was blunted and depressed. He denied suicidal ideation or wishes he denied homicidal ideation. He expressed feelings of hopelessness and helplessness but clearly with regard to his chronic pain and physical disability. He did not express ideas reference, paranoid ideation or delusional thoughts. His thinking was concrete. He perseverated on his physical limitations and pain. He denied hallucinations and did not appear to be responding to internal stimuli. We completed the [facility] Orientation Memory and Concentration test. He showed impairments in concentration, attention, registration and short-term memory. His total weighted error score was 18; a total weighted error score greater than 10 is consistent with a dementia. He knew the month and year. He was able to register memory phrase "Rodir Sung, [address] [place] [address].". He was unable to estimate the time correctly (within 1 hour of the actual time). He was able to count backwards 20-1 but could not name the months of the year in reverse order (beginning with February). He did not remember any element of the above memory phrase. Impression: He is a 57-year-old man with long history of depressive disorder and mental health treatment. [facility] with acute mental status changes. The record alleges a history of suicidal ideation but he denied that he had overdosed or attempted suicide prior to admission. During the interview he showed prominent of cognitive impairment affecting his ability to concentrate, remember, register or attend. Given the severity of his cognitive impairment he is not appropriate for transfer to the psychiatric unit at this time. Consider evaluating causes of the mental status changes and we consulted psychiatry when he is medically stable. Thank you for the consult. 08/05/17 15:45
--- NOTE | 2017-08-05 17:57 | P.PN ---
Subjective Progress Note Date: 08/05/17 Progress note being dictated for Dr. Cedeño Interval history:Chief Complaint: drug overdose patient is a 57-year-old male with a known history of chronic back pain, headache, hypertension and GERD was brought to the hospital with altered mental status. Currently patient is drowsy and could not be arousable. Otherwise hemodynamically stable and saturating well on room air. As per family patient apparently had suicidal ideation. He was found unresponsive on the bathroom floor. Aberrantly patient overdosed Xanax pills. UDS is positive for benzo arrangements. Otherwise appetite within normal limits. Patient does have a history of suicide attempts. Currently patient could not provide any history. Psychiatry was consulted as well. 08/05/2017 maintained on gentle IV fluid hydration. no overnight events. Diet intake improving. Suicide precautions maintained. Alert to person and place, disoriented to month,year and time. Evaluated by psychiatry with recommendations noted. Objective - Vital Signs Vital signs: Vital Signs Temp 99.4 F 08/05/17 14:42 Pulse 77 08/05/17 16:00 Resp 20 08/05/17 16:00 BP 129/80 08/05/17 14:42 Pulse Ox 92 L 08/05/17 14:42 Intake & Output 08/04/17 08/05/17 08/05/17 18:59 06:59 18:59 Weight 88.451 kg 88.451 kg Other: Voiding Method Diaper Urinal Urinal Incontinent Diaper Diaper Incontinent Incontinent # Voids 2 2 3 # Bowel Movements 0 0 - Exam PHYSICAL EXAMINATION: Patient is lying in the bed comfortably, no acute distress HEENT: Normocephalic. Neck is supple. Pupils reactive. Nostrils clear. Oral cavity is moist. Ears reveal no drainage. Neck reveals no JVD, carotid bruits, or thyromegaly. CHEST EXAMINATION: Trachea is central. Symmetrical expansion. Lung milton clear to auscultation and percussion. CARDIAC: Normal S1, S2 with no gallops. No murmurs ABDOMEN: Soft. Bowel sounds normal. No organomegaly. No abdominal bruits. Extremities: reveal no edema. No clubbing or cyanosis Neurologically . Cooperative. Follows simple commands, No focal deficits noted Skin: No rash or skin lesions. Psychiatry:, alert and oriented to person and place, disoriented to time. Disoriented to month and year. Musculoskeletal: No joint swelling or deformity. - Labs CBC & Chem 7: 08/03/17 20:10 08/03/17 20:10 Labs: Microbiology - Last 24 Hours (Table) 08/03/17 20:10 Urine Culture - Final Urine,Catheterized 08/03/17 20:10 Blood Culture - Preliminary Blood No Growth after 24 hours Assessment and Plan Assessment: acute benzodiazepine overdose Possible suicide attempt History of depression and suicidal ideation in the past Hypertension GERD chronic back pain DVT prophylaxis Plan: Continue on current medication regime ,monitoring and symptomatic treatment. Maintain IV fluid hydration. Follow closely with psychiatry, potential transfer to psych unit. Maintain suicide precautions. The impression and plan of care has been dictated as directed. : I performed a history and examination of this patient, discussed the same with the dictator. I agree with the dictator's note ,documented as a scribe. Any additional findings or plans will be noted.
[2017-08-05] MEDS: IBUPROFEN 400 MG TAB PO PRN (23:48)
[2017-08-06] MEDS: ACETAMINOPHEN TAB 325 MG TAB PO PRN (03:11)
[2017-08-06] MEDS: SODIUM CHLORIDE 0.9% 1,000 ML IV SCH ×2 (05:16→16:19)
[2017-08-06] MEDS: HEPARIN SODIUM,PORCINE 5,000 UNIT/ML 1 ML VIAL SQ SCH ×2 (08:27→15:06)
[2017-08-06 10:00] LABS: Basophils # (A) 0.1 k/uL (0-0.2); Basophils % (A) 1 %; Eosinophils # (A) 0.1 k/uL (0-0.7); Eosinophils % (A) 1 %; HCT 40.4 % (39.0-53.0); HGB 13.4 gm/dL (13.0-17.5); Lymphocytes # (A) 2.2 k/uL (1.0-4.8); Lymphocytes % (A) 31 %; MCHC 33.3 g/dL (31.0-37.0); MCV 90.3 fL (80.0-100.0); Mean Platelet Volume 7.9; Monocytes # (A) 0.4 k/uL (0-1.0); Monocytes % (A) 6 %; Neutrophils # (A) 4.2 k/uL (1.3-7.7); Neutrophils % (A) 60 %; Platelet Count 254 k/uL (150-450); RBC 4.47 m/uL (4.30-5.90); RDW 14.1 % (11.5-15.5)
[2017-08-06 10:19] LABS: Anion Gap 13 mmol/L; Blood Urea Nitrogen 13 mg/dL (9-20); Calcium 8.8 mg/dL (8.4-10.2); Carbon Dioxide 21 mmol/L (22-30); Chloride 110 mmol/L (98-107); Glucose 106 mg/dL (74-99); Potassium 3.9 mmol/L (3.5-5.1); Sodium 144 mmol/L (137-145)
[2017-08-06] MEDS: IBUPROFEN 400 MG TAB PO PRN (12:24)
--- NOTE | 2017-08-06 12:47 | P.CN ---
Psychiatric Consult - . Consult date: 08/06/17 Consult:: IDENTIFYING DATA: Mr. mccarty a 57-year-old male who has a history of a depressive disorder. The hospitalist reconsulted psychiatry to evaluate his need for inpatient psychiatric services. HISTORY OF PRESENT ILLNESS: I evaluated the patient on 08/05/2017 because he described for suicide and ideation and need for inpatient psychiatric care. I did not recommend psychiatric transfer at that time because he was markedly obtunded and showed prominent cognitive impairment. During our interview today he was able to explain the reason for his presentation and described that he had attempted overdose on benzodiazepines. He complained of feeling depressed over his chronic physical disability and pain. When I ask questions about his depressive symptoms he returned to his concerns about the persistence and severity of the pain. He gave conflicting responses to questions about suicidality and depression. During one point interview he denied feeling depressed than later he admitted to feeling depressed because he cannot "stand the pain." He initially denied having suicidal ideation, thoughts or intent but later in interview request to be transferred to psych at Hospital and acknowledged that he has attempted suicide at home. He described feeling hopeless, helpless and worthless. He feels depressed in the severity of depression fluctuates with the severity of the pain. He denied severe and persistent anxiety that interferes with his ability to function. He denied symptoms suggestive of panic attack. He denied obsessions or compulsive behaviors. He denied such psychotic symptoms as auditory, visual or olfactory hallucinations, ideas reference, thought insertion etc. He denied use of alcohol or drugs. Note that his urine drug screen on admission was positive only for benzodiazepines. MENTAL STATUS EXAM: He presented as a moderately obese casually groomed middle- aged male who was pleasant on approach. He made eye contact and attended to interview. He had no distinguishing features. He had a depressed facial expression. He is alert and oriented to person, place and time. He showed psychomotor retardation but no abnormal movements. His gait was slow and unsteady. His affect was depressed but reactive. He denied current suicidal ideation or wishes. He denied homicidal ideation. He feels hopeless, helpless and worthless. He ruminated about pain and his physical disabilities. He did not express ideas of reference, paranoid ideation or delusional thoughts. His thinking was concrete but his associations were coherent, logical and goal directed. He did not demonstrate neologisms or blocking. He denied hallucinations and did not appear to be responding to internal stimuli. [facility] Con[facility]. His total weighted error score was 8; a total weighted error score greater than 10 is consistent with a dementia. He knew the year and the month. He is able to register the memory phrase "Rodri Sung, [address] [place] [address]." He correctly estimated the time (within 1 hour actual time). He is able to count backwards from 20 and name the months of the year in reverse order. He remembered only 1 element of memory phrase ("Tye".) PSYCHIATRIC DIAGNOSES: Major depressive disorder recurrent severe with psychotic features, chronic pain disorder PLAN: Transfer the psychiatric unit when medically stable. He agreed to a voluntary admission. 08/06/17 12:35
[2017-08-06] MEDS: PREGABALIN 75 MG CAP PO SCH ×2 (15:06→15:52)
[2017-08-06 15:16] VITALS: BP 155/61; PULSE 72; RESP 18; TEMP 98.6
--- NOTE | 2017-08-06 17:00 | CDI ---
Last Revision, February 2017 Documentation Clarification Form Date: 08/06/2017 From: Rosario Workman RN, CCDS Admit Date: 08/04/2017 12:50:00 AM Patient Name: Jimenez Triana Visit Number: [id number] Discharge Date: ATTENTION: The Clinical Documentation Specialists (CDI) and [facility] Coding Staff appreciate your assistance in clarifying documentation. Please respond to the clarification below the line at the bottom and electronically sign. The CDI & [facility] Coding staff will review the response and follow-up if needed. Please note: Queries are made part of the Legal Health Record. If you have any questions, please contact the author of this message via ITS. Dr. Janet Garcia Altered mental status was documented in the ED notes H/P and progress notes. Patient history/risk factors: Hypertension, Seizure disorder, ADHD, Bipolar, Depression, Current every day smoker, Opiates, Prescription Drug Abuse Clinical Indicators: Patient was found unresponsive on the bathroom floor. Present with altered mental status. In ED patient was drowsy, lethargic and unarousable. Vital Signs 124/72 116 128 98.6 Labs: UDS is positive for benzodiazepines CT Brain: Negative brain CT Treatment: IV Fluids Psychiatry consult Neuro checks per protocol Suicide precautions Sitter 1:1 at bedside In your professional opinion, please clarify the etiology of the altered mental status, if known. Encephalopathy (specify Type Metabolic, Toxic- Specify drugs, and Underlying Medical Illness) Other condition (please specify) Unable to determine Please continue to document in your progress notes and discharge summary in order to capture severity of illness and risk of mortality. Include clinical findings that support your diagnosis. metabolic encephalopathy due to drug over dose MTDD
--- NOTE | 2017-08-07 06:10 | DS ---
DISCHARGE SUMMARY DATE OF SERVICE: 08/06/2017. FINAL DIAGNOSES: 1. Acute benzodiazepine overdose and suicidal attempt. 2. Depression. 3. Suicidal ideation in the past. 4. Hypertension. 5. Gastroesophageal reflux disease. 6. Chronic back pain. 7. Deep venous thrombosis prophylaxis. DISCHARGE DISPOSITION: The patient will be discharged and transferred to inpatient psych unit. HISTORY OF PRESENT ILLNESS: This 57-year-old gentleman admitted with suicidal attempt and benzodiazepine overdose and patient was evaluated by Psychiatry, treated symptomatically. Patient improved significantly. On exam, vitals are stable. CARDIOVASCULAR: S1 and S2 muffled. ABDOMEN: Soft. NERVOUS SYSTEM: No focal deficits. DISCHARGE ADVICE: The patient will be transferred to inpatient psych with the following advice and medications: 1. Diet is regular. 2. Activity limited until followup. 3. Follow up with Dr. Bravo after discharge from inpatient psych. MEDICATIONS: 1. Tylenol 650 q.6 p.r.n. 2. Vitamin B12, 1000 mcg subcutaneously. 3. Vitamin D2, 50,000. 4. Motrin 400 mg q.6 p.r.n. 5. Zestril 10 mg p.o. daily. 6. Lyrica 150 mg p.o. t.i.d. MMCHRISTINEL / CATERINAN: [id number] / MTDD
== END 2017-08-06 16:58 | DRG 917 ==
LOC: EC 20:26 → 4MS4W 08-04 00:50
PROVIDERS: ADMIT Internal Medicine; ATTEND Internal Medicine
DX: T42.4X2A Poisoning by benzodiazepines, intentional self-harm, initial encounter (principal); G93.41 Metabolic encephalopathy; F33.3 Major depressive disorder, recurrent, severe with psychotic symptoms; F17.200 Nicotine dependence, unspecified, uncomplicated; F41.9 Anxiety disorder, unspecified; F90.9 Attention-deficit hyperactivity disorder, unspecified type; G89.29 Other chronic pain; I10 Essential (primary) hypertension; K21.9 Gastro-esophageal reflux disease without esophagitis; Z79.899 Other long term (current) drug therapy; Z82.49 Family history of ischemic heart disease and other diseases of the circulatory system; Z91.5 Personal history of self-harm; Z88.8 Allergy status to other drugs, medicaments and biological substances; M54.9 Dorsalgia, unspecified
CPT/HCPCS: 36415; 36600; 70450; 71045; 80048; 80053; 80306; 81003; 82009; 82550; 82553; 82805; 83520; 83605; 83930; 85025; 85610; 85730; 87040; 87086; 93005; 96374; 99285

== ENCOUNTER 2017-08-06 16:37 | Inpatient (IN) | payer MEDICARE, MEDICAID ==
[2017-08-06 17:51] VITALS: BMI 27.6
[2017-08-06] MEDS ORDERED: ZIPRASIDONE 20 MG VIAL IM PRN (17:51)
[2017-08-06] MEDS ORDERED: MAGNESIUM HYDROXIDE 2,400 MG/10 ML CUP PO PRN (17:51)
[2017-08-06] MEDS ORDERED: MAG HYDROX/AL HYDROX/SIMETH 30 ML CUP PO PRN (17:51)
[2017-08-06] MEDS ORDERED: ACETAMINOPHEN TAB 325 MG TAB PO PRN (17:51)
[2017-08-06] MEDS: LORazepam 1 MG TAB PO PRN (20:32)
[2017-08-06] MEDS: PREGABALIN 75 MG CAP PO SCH (21:41)
[2017-08-06] MEDS: IBUPROFEN 400 MG TAB PO PRN (22:58)
[2017-08-07] MEDS: PREGABALIN 75 MG CAP PO SCH ×3 (09:11→21:11)
[2017-08-07] MEDS: LISINOPRIL 10 MG TAB PO SCH (09:11)
[2017-08-07] MEDS: NICOTINE 21MG/24HR PATCH TRANSDERM SCH (09:11)
[2017-08-07 12:57] LABS: T4, Free (Free Thyroxine) 1.01 ng/dL (0.78-2.19)
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
[2017-08-07] MEDS: FLUoxetine HCL 20 MG CAP PO SCH (14:17)
[2017-08-07] MEDS: IBUPROFEN 400 MG TAB PO PRN (15:58)
[2017-08-07] MEDS: LORazepam 1 MG TAB PO PRN (17:42)
--- NOTE | 2017-08-07 18:13 | CONS ---
CONSULTATION DATE OF SERVICE: 08/07/2017 REASON FOR CONSULTATION: Advice regarding leg pain and other medical issues, requested by Psychiatry. HISTORY OF PRESENT ILLNESS: This 57-year-old gentleman with a past medical history of depression, hypertension, GERD, chronic back pain, being followed by [facility] and Dr. Bravo in the outpatient setting, was admitted recently with benzodiazepine overdose and suicidal attempt to medical floor. After improving, the patient was sent to inpatient psych floor. Patient is complaining of bilateral knee pain, right more than left, and some difficulty walking. Apparently patient was taking Auxier for a prolonged time from Dr. Brian Russell, but currently the patient is attending [facility] and the patient does not have a valid prescription for narcotics at this time. The patient is set to see Dr. Urbano, the pain management physician. Otherwise there is no history of any fever, rigor, chills; no history of headache, loss of consciousness, seizures. PAST MEDICAL HISTORY: 1. History of GERD. 2. Hypertension. 3. History of seizure disorder. 4. Back pain. 5. MRSA. 6. ADD, ADHD. 7. Anxiety. MEDICATIONS PRIOR TO ADMISSION: 1. Lyrica 150 mg p.o. t.i.d. 2. Zestril 10 mg p.o. daily. 3. Motrin 400 mg q.6 p.r.n. 4. Drisdol 50,000 q.14 days. 5. Vitamin B12 1000 mcg p.o. monthly. 6. Tylenol 650 q.6 p.r.n. ALLERGIES: 1. PHENYTOIN. 2. DILANTIN. FAMILY HISTORY: No history of any heart disease or strokes in the family. SOCIAL HISTORY: History of smoking. No history of alcohol. No substance abuse. REVIEW OF SYSTEMS: ENT: No diminished hearing. No diminished vision. CARDIOVASCULAR SYSTEM: No angina, palpitations. RESPIRATORY SYSTEM: No cough, hemoptysis. GI: No nausea, vomiting. : No dysuria or retention. NERVOUS SYSTEM: As mentioned earlier. ALLERGY/IMMUNOLOGY: No asthma, hayfever. MUSCULOSKELETAL: As mentioned earlier. HEMATOLOGY/ONCOLOGY: No history of anemia. ENDOCRINE: No history of diabetes, hypothyroidism. CONSTITUTIONAL: As mentioned earlier. DERMATOLOGY: Negative. RHEUMATOLOGY: Negative. PSYCHIATRY: As mentioned earlier. PHYSICAL EXAMINATION: Patient is alert and oriented x3. Pulse 51, blood pressure 116/67, respiration 16, temperature 97.4, pulse ox 98% on room air. HEENT: Conjunctivae normal. Oral mucosa moist. NECK: No jugular venous distention. No carotid bruit. No lymph node enlargement. CARDIOVASCULAR SYSTEM: S1, S2 muffled. RESPIRATORY SYSTEM: Breath sounds diminished at the bases. No rhonchi. No crackles. ABDOMEN: Soft, non-tender. No mass palpable. LEGS: Movements are slightly painful in both knees. Otherwise no weakness appreciated. LYMPHATICS: No lymph node palpable in neck, axillae or groin. JOINTS: No deforming arthropathy. NERVOUS SYSTEM: Higher functions as mentioned earlier. Cranial nerves 2 to 12 grossly intact. Moves all 4 limbs. No nystagmus. No diplopia. The power is normal. Gait is noted. No sensory abnormalities. LABS: TSH 0.457. ASSESSMENT: 1. Status post benzodiazepine overdose and suicidal attempts. 2. Bilateral leg pain and knee pain, possibly degenerative joint disease, and chronic pain syndrome. 3. Depression and anxiety. 4. Suicidal ideation in the past. 5. Hypertension. 6. Gastroesophageal reflux disease. 7. Chronic back pain. RECOMMENDATIONS AND DISCUSSION: I recommend to continue current medications, continue with symptomatic treatment. I would recommend a free T3, T4. Resume the home medications. Recommend a combination Tylenol and Motrin at this time. I recommend close followup with Pain Management in the outpatient setting. If the patient has difficulty in walking, PT/OT evaluation may be requested later. Otherwise we will follow the patient closely. Patient may be asked to follow up with Dr. Bravo and [facility]. Thank you for letting us participate in the care of this patient. MMODL / IJN: [id number] / MTDD
[2017-08-07] MEDS: OLANZapine 5 MG TAB PO SCH (20:26)
[2017-08-08] MEDS: LORazepam 1 MG TAB PO PRN ×3 (01:43→21:02)
[2017-08-08] MEDS: NICOTINE 21MG/24HR PATCH TRANSDERM SCH (08:05)
[2017-08-08] MEDS: PANTOPRAZOLE 40 MG TABLET PO SCH (08:06)
[2017-08-08] MEDS: FLUoxetine HCL 20 MG CAP PO SCH (08:06)
[2017-08-08] MEDS: OLANZapine 5 MG TAB PO SCH ×2 (08:07→20:30)
[2017-08-08] MEDS: PREGABALIN 75 MG CAP PO SCH ×3 (08:07→20:59)
[2017-08-08] MEDS: IBUPROFEN 400 MG TAB PO PRN ×2 (08:07→16:11)
[2017-08-08] MEDS: LISINOPRIL 10 MG TAB PO SCH (08:07)
--- NOTE | 2017-08-08 14:11 | P.PN ---
Progress Note - Text Progress Note Date: 08/08/17 I reviewed the medical record, interviewed the patient and discuss his treatment and treatment plan during team meeting. He complained of pain and requested prescriptions for "2 Tylenol #4 in the morning and 2 at night." He alleged that he been prescribed "Narco" for the treatment of his pain. He questioned why we are refusing to prescribe him the medication. I obtained a copy of the [facility] report through [facility] and shared the results. He is not received a prescription for opiate pain medication since December 2016. The report also documents that he has regularly received prescriptions for methylphenidate, alprazolam, Lyrica and clonazepam. We also obtain copies of the medical records from [facility]. We have been treating him for diagnoses of major depressive disorder recurrent severe, posttraumatic Disorder, alcohol use disorder and opiate use disorder. Her psychotropic medications include fluoxetine 20 mg daily, Lyrica 150 mg 3 times a day, Ritalin 10 mg twice a day, Xanax 0.5 mg twice a day and Zyprexa 10 mg at bedtime. The talent coordinator examined him yesterday and the exam report appreciated. He has not participated in therapeutic groups and activities. He presented as a disheveled appearing male who is ambulating with the assistance of a walker. He had a depressed and angry facial expression. He was alert and oriented to person, place and time. She showed psychomotor retardation but no abnormal movements. Speech was spontaneous with decreased rhythm and volume. His affect was dysphoric consisting of mixture of anger and depression. He denied suicidal ideation or wishes. He denied homicidal ideation. He expressed feelings of hopelessness and helplessness particularly with regard to her discussions of pain and prescription narcotic pain medications. He ruminated over narcotic pain medications. He did not express ideas of reference and paranoid ideation. His thinking was concrete but his associations appeared coherent and goal directed he denied hallucinations and did not appear to be responding to internal stimuli. Impression: He continues to show signs and symptoms of depression. He remains preoccupied with pain and obtaining prescriptions for narcotic pain medications. Plan: Continue inpatient hospitalization due to the severity of depressive symptoms. Continue Prozac 20 mg daily and change olanzapine dosing to 10 mg at bedtime. Continue lorazepam 1 mg by mouth 3 times a day when necessary for anxiety. Obtain free T4 and T3 as per recommendation of talent coordinator. Follow the talent coordinator recommendation regarding management of his pain. Encourage participation in therapeutic groups and activities. Evaluate clinical status response to treatment daily basis.
[2017-08-09 06:23] VITALS: TEMP 97.6
[2017-08-09] MEDS: OLANZapine 5 MG TAB PO SCH (08:21)
[2017-08-09] MEDS: NICOTINE 21MG/24HR PATCH TRANSDERM SCH (08:21)
[2017-08-09] MEDS: FLUoxetine HCL 20 MG CAP PO SCH (08:21)
[2017-08-09] MEDS: PREGABALIN 75 MG CAP PO SCH (08:22)
[2017-08-09] MEDS: LISINOPRIL 10 MG TAB PO SCH (08:22)
[2017-08-09] MEDS: PANTOPRAZOLE 40 MG TABLET PO SCH (08:22)
[2017-08-09] MEDS: LORazepam 1 MG TAB PO PRN (08:23)
[2017-08-09 08:40] VITALS: BP 148/80; PULSE 87; RESP 22
--- NOTE | 2017-08-09 12:20 | P.DS ---
Providers Date of admission: 08/06/17 17:06 Attending physician: Rodri Taylor MD Consults: 08/06/17 17:51 Consult Physician Routine Consulting Provider: Janet Garcia Consult Reason/Comments: H & P and medical management Do you want consulting provider notified?: Yes Primary care physician: Olivia Bravo - Discharge Diagnosis(es) (1) Benzodiazepine overdose Current Visit: No Status: Resolved Priority: Medium (2) Major depressive disorder, recurrent severe without psychotic features Current Visit: No Status: Chronic Priority: Medium (3) Suicidal ideation Current Visit: No Status: Resolved Priority: Medium Hospital Course: The patient presented to the emergency department on 11/20/2017 with complaints of suicidal ideation. ED staff found him unresponsive at the restroom but with a pulse and normal respiration. His BAL was negative. His urine drug screen was positive for benzodiazepines. The emergency room physician suspected that that he overdosed on benzodiazepines either prior to her arrival to the emergency department. He was admitted to medicine service for management with mental status changes due to an intentional overdose of benzodiazepines. When he was medically stable he was transferred to the psychiatric unit. During the initial evaluation on the psychiatric unit he was preoccupied with pain and obtaining a prescription for opiate pain medications. He alleged that he overdosed on Xanax on his way to the hospital because he was distressed and frustrated that he could not find a physician willing to prescribe him narcotic pain medications. He complained that he has been taking narcotic pain medications for 20 years and since the pain clinic he attended last year discharge him, he has been unable to find another physician willing to prescribe the medication. On arrival to the psychiatric unit and throughout this hospitalization he denied suicidal ideation, wishes or suicidal intent or plan. He repeatedly requested a prescription for narcotic pain medication. He received a comprehensive psychiatric assessment, social work assessment and nursing assessment. The consultant electronics and she does completed the initial physical exam and also declined the patient's request for prescription for an opiate pain medication. Restarted his outpatient medications including Prozac 20 mg per day and Zyprexa 10 mg at bedtime. We continued Lyrica 150 mg 3 times a day and prescribed lorazepam 1 mg by mouth 3 times a day when necessary for anxiety. By day of discharge she presented as a casually groomed H male who was pleasant on approach. He made eye contact and attended to the interview. He had a blunted but bright facial expression. He showed psychomotor retardation but no abnormal movements. His gait was slow and unsteady. He walked with the aid of a walker. His speech was spontaneous with normal rate, rhythm and volume. His F was blunted but stable and appropriate. She denied suicidal ideation or wishes. He denied homicidal ideation. He did not express such depressive cognitions as hopelessness, helplessness or worthlessness. He ruminated about the of his son and his . He did not express ideas reference. Ideation or delusional thoughts. His thinking was concrete but his associations were coherent and logical. He denied hallucinations and did not appear to be responding to internal stimuli. We arranged a follow-up appointment with [facility] and he is to call his outpatient clinic to schedule an appointment with his primary care physician. Patient Condition at Discharge: Stable Plan - Discharge Summary Discharge Rx Participant: No New Discharge Prescriptions: New FLUoxetine HCL [PROzac] 20 mg PO DAILY #7 cap Nicotine 21Mg/24Hr Patch [Habitrol] 1 patch TRANSDERM DAILY #7 patch OLANZapine [ZyPREXA] 10 mg PO HS #7 tab Continue Cyanocobalamin [Vitamin B-12 Injection] 1,000 mcg SQ QMONTH Lisinopril [Zestril] 10 mg PO DAILY Ergocalciferol [Vitamin D2 (DRISDOL)] 50,000 unit PO Q14D Acetaminophen Tab [Tylenol] 650 mg PO Q6HR PRN tab PRN Reason: Fever And/ Or Pain Ibuprofen [Motrin] 400 mg PO Q6HR PRN tab PRN Reason: Moderate Pain Pregabalin [Lyrica] 150 mg PO TID #42 capsule Discharge Medication List Cyanocobalamin [Vitamin B-12 Injection] 1,000 mcg SQ QMONTH 08/04/17 [History] Ergocalciferol [Vitamin D2 (DRISDOL)] 50,000 unit PO Q14D 08/04/17 [History] Lisinopril [Zestril] 10 mg PO DAILY 08/04/17 [History] Acetaminophen Tab [Tylenol] 650 mg PO Q6HR PRN tab 08/06/17 [Rx] Ibuprofen [Motrin] 400 mg PO Q6HR PRN tab 08/06/17 [Rx] FLUoxetine HCL [PROzac] 20 mg PO DAILY #7 cap 08/09/17 [Rx] Nicotine 21Mg/24Hr Patch [Habitrol] 1 patch TRANSDERM DAILY #7 patch 08/09/17 [ Rx] OLANZapine [ZyPREXA] 10 mg PO HS #7 tab 08/09/17 [Rx] Pregabalin [Lyrica] 150 mg PO TID #42 capsule 08/09/17 [Rx] Follow up Appointment(s)/Referral(s): [facility] [Outside] - As Needed (Follow up appts at [facility] are as follows: Saturday08/13/17 @ 8:[address] Cruz 08/20/17 @ 3pm with Eva for therapy) [facility] [NON-STAFF] - 08/16/17 8:00 am Activity/Diet/Wound Care/Special Instructions: Follow up with [facility] for his TSH level of 0.457, free t3 2.7, and free t4 1.01. Discharge Disposition: HOME SELF-CARE
[2017-08-15] MEDS ORDERED: ERGOCALCIFEROL 50,000 UNIT CAP PO SCH (12:00)
== END 2017-08-09 13:31 | disposition home or self-care (01) | DRG 885 ==
LOC: 3MHU 17:06
PROVIDERS: ADMIT Psychiatry & Neurology Psychiatry; ATTEND Psychiatry & Neurology Psychiatry
DX: F33.2 Major depressive disorder, recurrent severe without psychotic features (principal); F90.9 Attention-deficit hyperactivity disorder, unspecified type; F10.11 Alcohol abuse, in remission; F11.10 Opioid abuse, uncomplicated; F43.10 Post-traumatic stress disorder, unspecified; F45.9 Somatoform disorder, unspecified; G40.909 Epilepsy, unspecified, not intractable, without status epilepticus; G89.29 Other chronic pain; I10 Essential (primary) hypertension; K21.9 Gastro-esophageal reflux disease without esophagitis; T42.4X2D Poisoning by benzodiazepines, intentional self-harm, subsequent encounter; Z72.0 Tobacco use; Z79.899 Other long term (current) drug therapy; Z91.5 Personal history of self-harm; M54.9 Dorsalgia, unspecified; M25.552 Pain in left hip; M25.551 Pain in right hip; M79.605 Pain in left leg; M79.604 Pain in right leg; M79.602 Pain in left arm; M79.601 Pain in right arm; Z56.0 Unemployment, unspecified; Z91.19 Patient's noncompliance with other medical treatment and regimen; Z86.14 Personal history of Methicillin resistant Staphylococcus aureus infection; R26.81 Unsteadiness on feet
CPT/HCPCS: 84439; 84443; 84481

== ENCOUNTER → 2017-10-25 | Outpatient (CLI) | payer MEDICARE, OTHER ==
--- NOTE | 2017-10-25 16:07 | MR ---
EXAMINATION TYPE: MR lumbar spine wo con DATE OF EXAM: 10/25/2017 COMPARISON: Prior lumbar MRI dated 02/18/2015 HISTORY: Low back pain TECHNIQUE: Multiplanar, multisequence images of the lumbar spine were acquired. L1-L2: Normal disc appearance without desiccation. No herniation, protrusion or disc bulging. No ca nal stenosis is present. Foramina are patent bilaterally. L2-L3: Normal disc appearance without desiccation. No herniation, protrusion or disc bulging. No ca nal stenosis is present. Foramina are patent bilaterally. L3-L4: Mild facet arthropathy, no significant stenosis or evident disc herniation, neural foraminal e ncroachment. L4-L5: Facet arthropathy with hypertrophy ligamentum flavum encroaches somewhat on the lateral recess es as on prior exam, there is no significant central stenosis. Minimal posterior broad-based disc bul ge causes only slight anterior mass effect on the thecal sac. No significant foraminal encroachment. L5-S1: Broad-based posterior disc bulge is stable contact the anterior thecal sac, there is some face t arthropathy change, no significant central canal stenosis. Differential extension of endplate disc complex encroaches slightly on the foramina as on prior exam Lumbar segments are intact, there is preserved height and alignment, stable marrow signal in stable d isc spaces. No paraspinal masses are identified. Conus medullaris has a normal appearance. Circumao rtic left renal vein is present. IMPRESSION: Essentially stable degenerative disc disease and facet arthropathy.
== END | disposition home or self-care (01) ==
LOC: RADMRIMAIN 15:23
PROVIDERS: ATTEND Psychiatry & Neurology Neurology
DX: M51.36 Other intervertebral disc degeneration, lumbar region (principal); M46.96 Unspecified inflammatory spondylopathy, lumbar region
CPT/HCPCS: 72148

== ENCOUNTER 2017-11-27 18:08 | Emergency (ER) | payer MEDICARE, OTHER ==
[2017-11-27 18:46] VITALS: RESP 18; TEMP 98.3
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
[2017-11-27] MEDS ORDERED: KETOROLAC 60 MG/2 ML VIAL IM STA (19:42)
[2017-11-27] MEDS ORDERED: ORPHENADRINE 30 MG/ML 2 ML VIAL IM STA (19:42)
--- NOTE | 2017-11-27 20:21 | XR ---
EXAMINATION TYPE: XR Hip RT and AP Pelvis DATE OF EXAM: 11/27/2017 COMPARISON: NONE HISTORY: Right hip pain TECHNIQUE: A single AP view of the pelvis is obtained. Two views of the right hip are obtained. FINDINGS: The pelvic ring is intact. Proximal right femur and hip joint are intact. There is mild sheri tabular spurring. There is mild spurring on the femoral head. Sacroiliac joints are intact. IMPRESSION: Mild osteoarthritis. No fracture.
--- NOTE | 2017-11-27 20:22 | XR ---
EXAMINATION TYPE: XR knee complete RT DATE OF EXAM: 11/27/2017 COMPARISON: 12/06/2015 HISTORY: Right knee pain TECHNIQUE: 3 views FINDINGS: There is spurring of the medial femoral and tibial condyles. There is a knee joint effusion . There is spurring on the superior patella. IMPRESSION: Mild osteoarthritis. No fracture. Small joint effusion. Joint effusion appears new compar ed to old exam.
[2017-11-27] MEDS ORDERED: ACET/COD 300 MG/30 MG STARTER PACK 6 TAB BTL PO STA (20:48)
[2017-11-27 20:53] VITALS: BP 159/99; PULSE 71
== END 2017-11-27 21:28 | disposition home or self-care (01) ==
LOC: EC 18:08
DX: S76.011A Strain of muscle, fascia and tendon of right hip, initial encounter (principal); W19.XXXA Unspecified fall, initial encounter; Y92.521 Bus station as the place of occurrence of the external cause; M25.461 Effusion, right knee; I10 Essential (primary) hypertension; G40.909 Epilepsy, unspecified, not intractable, without status epilepticus; F31.9 Bipolar disorder, unspecified; F41.9 Anxiety disorder, unspecified; F90.9 Attention-deficit hyperactivity disorder, unspecified type; F17.200 Nicotine dependence, unspecified, uncomplicated; Z86.14 Personal history of Methicillin resistant Staphylococcus aureus infection; Z79.899 Other long term (current) drug therapy
CPT/HCPCS: 73502; 73562; 99284; 96372 ×2; L1830; J2360; J1885

== ENCOUNTER → 2018-04-07 | Outpatient (CLI) | payer MEDICARE, OTHER ==
[2018-04-07 10:00] LABS: Basophils # (A) 0.1 k/uL (0-0.2); Basophils % (A) 1 %; Eosinophils # (A) 0.2 k/uL (0-0.7); Eosinophils % (A) 1 %; HGB 16.5 gm/dL (13.0-17.5); Lymphocytes # (A) 3.1 k/uL (1.0-4.8); Lymphocytes % (A) 30 %; MCH 30.6 pg (25.0-35.0); MCHC 32.3 g/dL (31.0-37.0); MCV 94.5 fL (80.0-100.0); Mean Platelet Volume 7.9; Monocytes # (A) 0.6 k/uL (0-1.0); Monocytes % (A) 6 %; Neutrophils # (A) 6.4 k/uL (1.3-7.7); Neutrophils % (A) 61 %; Platelet Count 330 k/uL (150-450); RBC 5.39 m/uL (4.30-5.90); RDW 13.7 % (11.5-15.5); WBC 10.4 k/uL (3.8-10.6)
[2018-04-07 10:07] LABS: Calcium 10.1 mg/dL (8.4-10.2); Potassium 4.9 mmol/L (3.5-5.1)
== END | disposition home or self-care (01) ==
LOC: LABPAT 08:37
PROVIDERS: ATTEND Urology
DX: Z01.812 Encounter for preprocedural laboratory examination (principal); C61 Malignant neoplasm of prostate; Z79.899 Other long term (current) drug therapy
CPT/HCPCS: 36415; 80048; 85025

== ENCOUNTER 2018-04-10 16:49 | Inpatient (IN) | payer MEDICARE, OTHER ==
[2018-04-10] MEDS ORDERED: MORPHINE SULFATE 4 MG/ML SYRINGE IVP STA (18:31)
--- NOTE | 2018-04-10 19:02 | XR ---
PROCEDURE: XR hand complete LT - 3V DATE AND TIME: 04/10/2018 6:53 PM CLINICAL INDICATION: PH[facility]; Pain TECHNIQUE: Department protocol COMPARISON: None FINDINGS: There is no fracture or malalignment. Multifocal relatively mild osteoarthritis pattern noted. The soft tissues show diffuse hand soft tissue swelling. IMPRESSION: Hand soft tissue swelling noted.
[2018-04-10 19:25] LABS: Basophils % (A) 0 %; Eosinophils # (A) 0.3 k/uL (0-0.7); Eosinophils % (A) 3 %; HCT 44.5 % (39.0-53.0); HGB 14.2 gm/dL (13.0-17.5); Lymphocytes # (A) 2.1 k/uL (1.0-4.8); Lymphocytes % (A) 22 %; MCH 29.8 pg (25.0-35.0); MCHC 31.9 g/dL (31.0-37.0); MCV 93.4 fL (80.0-100.0); Mean Platelet Volume 7.2; Monocytes # (A) 0.7 k/uL (0-1.0); Monocytes % (A) 7 %; Neutrophils # (A) 6.3 k/uL (1.3-7.7); Neutrophils % (A) 66 %; Platelet Count 225 k/uL (150-450); RBC 4.77 m/uL (4.30-5.90); RDW 13.6 % (11.5-15.5); WBC 9.6 k/uL (3.8-10.6)
[2018-04-10 19:34] LABS: Albumin 4.2 g/dL (3.5-5.0); C Reactive Protein 36.9 mg/L (<10.0); Potassium 5.3 mmol/L (3.5-5.1); Total Bilirubin 0.9 mg/dL (0.2-1.3)
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
[2018-04-10] MEDS ORDERED: KETOROLAC 30 MG/ML 1 ML VIAL IVP STA (20:20)
[2018-04-10] MEDS ORDERED: PIPERACILLIN-TAZOBACTAM 3.375 GM in SODIUM CHLORIDE 0.9% 100 ML IVPB STA (20:20)
[2018-04-10] MEDS ORDERED: SODIUM CHLORIDE 0.9% 1,000 ML IV ONE (20:20)
[2018-04-10] MEDS ORDERED: ACETAMINOPHEN TAB 325 MG TAB PO PRN (20:26)
[2018-04-10] MEDS ORDERED: NALOXONE 0.4 MG/ML 1 ML VIAL IV PRN (20:26)
[2018-04-10] MEDS ORDERED: IBUPROFEN 400 MG TAB PO PRN (20:26)
[2018-04-10] MEDS ORDERED: ONDANSETRON 4 MG/2 ML VIAL IVP PRN (20:26)
[2018-04-10] MEDS ORDERED: CYCLOBENZAPRINE 5 MG TAB PO PRN (20:28)
[2018-04-10] MEDS ORDERED: ALBUTEROL NEBULIZED 2.5 MG/3 ML INHALATION PRN (20:28)
--- NOTE | 2018-04-10 20:42 | US ---
EXAMINATION TYPE: US venous doppler duplex UE LT DATE OF EXAM: 04/10/2018 COMPARISON: 09/30/2015 CLINICAL HISTORY: Pain. Left hand swelling. SIDE PERFORMED: Left FINDINGS: Grayscale, color doppler, spectral doppler imaging performed of the deep veins of the upper extremities. There is normal flow, compressibility and vascular waveforms. IMPRESSION: NEGATIVE FOR DVT, LEFT UPPER EXTREMITY.
[2018-04-10] MEDS: PREGABALIN 75 MG CAP PO SCH (22:21)
[2018-04-10] MEDS: levETIRAcetam 500 MG TAB PO SCH (22:21)
[2018-04-10] MEDS: SODIUM CHLORIDE 0.9% 1,000 ML IV SCH (22:22)
[2018-04-10 22:33] VITALS: BMI 31.4
[2018-04-11] MEDS: MORPHINE SULFATE 4 MG/ML SYRINGE IV PRN ×5 (00:03→22:05)
[2018-04-11] MEDS: DULoxetine HCL 60 MG CAPSULE.DR PO SCH ×3 (00:03→21:09)
[2018-04-11] MEDS: KETOROLAC 30 MG/ML 1 ML VIAL IVP PRN ×4 (03:16→23:00)
[2018-04-11] MEDS ORDERED: PIPERACILLIN-TAZOBACTAM 3.375 GM in SODIUM CHLORIDE 0.9% 100 ML IVPB SCH (06:00)
[2018-04-11] MEDS: levETIRAcetam 500 MG TAB PO SCH ×2 (08:08→21:09)
[2018-04-11] MEDS: lamoTRIgine 100 MG TAB PO SCH (08:09)
[2018-04-11] MEDS: TAMSULOSIN 0.4 MG CAP.ER.24H PO SCH (08:09)
[2018-04-11] MEDS: PREGABALIN 75 MG CAP PO SCH ×3 (08:12→21:09)
[2018-04-11] MEDS: SODIUM CHLORIDE 0.9% 1,000 ML IV SCH ×2 (08:24→13:48)
[2018-04-11] MEDS ORDERED: LISINOPRIL 10 MG TAB PO SCH (09:00)
[2018-04-11] MEDS ORDERED: LISINOPRIL 5 MG TAB PO SCH (09:00)
[2018-04-11] MEDS ORDERED: PANTOPRAZOLE 40 MG/10 ML VIAL IV SCH (09:00)
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
[2018-04-11] MEDS: oxyCODONE-APAP 10-325MG 1 EACH TAB PO PRN ×3 (11:17→21:09)
[2018-04-11] MEDS ORDERED: VANCOMYCIN IV PER PHARMACY 1 EACH MISC MISCELLANE PRN (11:53)
[2018-04-11] MEDS ORDERED: IPRATROPIUM-ALBUTEROL 3 ML NEB INHALATION PRN (11:56)
[2018-04-11] MEDS ORDERED: VANCOMYCIN 1,750 MG in SODIUM CHLORIDE 0.9% 500 ML 500 ML IVPB ONE (12:15)
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
[2018-04-11 13:49] LABS: Potassium 5.1 mmol/L (3.5-5.1)
[2018-04-11] MEDS: SYMBICORT 160-4.5 MCG INHALER INHALATION SCH (20:07)
[2018-04-11] MEDS: FAMOTIDINE 20 MG TAB PO SCH (21:09)
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
--- NOTE | 2018-04-11 23:58 | P.PN ---
Progress Note - Text Progress Note Date: 04/11/18 Progress Note - Orthopedic Surgery S: Pt states the hand has continued to improve throughout the day. Pain has decreased and motion is improving. O: Left hand/wrist: erythema improved and regressed behind previous demarcations. Localized primarily to the dorsum of the hand. Still moderately intense TTP. (However much improved when pt doesn't watch the exam. There's likely a component of anxiety. Persistent but improved edema of hand/fingers. Better active digital flexion A: Cellulitis - left hand and wrist P: Pt continues to show clinical improvement. Recommend continued IV abx and observation. Encourage ROM and activity as tolerated. Will continue to monitor. Marvin Dougherty D.O.
[2018-04-12] MEDS: oxyCODONE-APAP 10-325MG 1 EACH TAB PO PRN ×3 (01:15→09:51)
[2018-04-12] MEDS: ceFAZolin IN SWFI 2 GM/20 ML SYRINGE IVP SCH ×2 (02:04→07:53)
[2018-04-12] MEDS: MORPHINE SULFATE 4 MG/ML SYRINGE IV PRN ×3 (02:04→21:35)
[2018-04-12] MEDS: KETOROLAC 30 MG/ML 1 ML VIAL IVP PRN ×2 (05:15→11:49)
[2018-04-12] MEDS: SODIUM CHLORIDE 0.9% 1,000 ML IV SCH (05:15)
[2018-04-12] MEDS ORDERED: VANCOMYCIN 1,750 MG in SODIUM CHLORIDE 0.9% 500 ML 500 ML IVPB SCH (06:00)
[2018-04-12] MEDS: SYMBICORT 160-4.5 MCG INHALER INHALATION SCH ×2 (07:23→22:46)
[2018-04-12 07:33] LABS: Basophils % (A) 1 %; Eosinophils # (A) 0.3 k/uL (0-0.7); Eosinophils % (A) 5 %; HCT 37.9 % (39.0-53.0); HGB 12.4 gm/dL (13.0-17.5); Lymphocytes # (A) 1.7 k/uL (1.0-4.8); Lymphocytes % (A) 26 %; MCH 30.9 pg (25.0-35.0); MCHC 32.6 g/dL (31.0-37.0); MCV 94.6 fL (80.0-100.0); Monocytes # (A) 0.5 k/uL (0-1.0); Monocytes % (A) 7 %; Neutrophils # (A) 3.8 k/uL (1.3-7.7); Neutrophils % (A) 59 %; Platelet Count 200 k/uL (150-450); RDW 13.3 % (11.5-15.5); WBC 6.5 k/uL (3.8-10.6)
[2018-04-12 07:49] LABS: Calcium 8.7 mg/dL (8.4-10.2); Potassium 4.9 mmol/L (3.5-5.1); Uric Acid 7.7 mg/dL (3.5-8.5)
[2018-04-12] MEDS: TAMSULOSIN 0.4 MG CAP.ER.24H PO SCH (07:52)
[2018-04-12] MEDS: PREGABALIN 75 MG CAP PO SCH ×3 (07:52→21:36)
[2018-04-12] MEDS: DULoxetine HCL 60 MG CAPSULE.DR PO SCH ×2 (07:52→21:35)
[2018-04-12] MEDS: lamoTRIgine 100 MG TAB PO SCH (07:52)
[2018-04-12] MEDS: levETIRAcetam 500 MG TAB PO SCH ×2 (07:52→21:34)
[2018-04-12] MEDS: FAMOTIDINE 20 MG TAB PO SCH ×2 (07:52→21:35)
--- NOTE | 2018-04-12 21:22 | P.PN ---
<Yury Whiteside - Last Filed: 04/12/18 21:18> Subjective Progress Note Date: 04/12/18 Principal diagnosis: Left hand cellulitis Patient is seen at bedside this morning. We are following for left hand cellulitis. he has been on IV antibiotocs. Patients states his hand continues to improve. He denies new numbness or tingling. No other complaints Objective - Vital Signs Vital signs: Vital Signs Temp 97.6 F 04/12/18 04:15 Pulse 66 04/12/18 04:15 Resp 16 04/12/18 04:15 BP 130/61 04/12/18 04:15 Pulse Ox 94 L 04/12/18 04:15 Intake & Output 04/12/18 04/12/18 04/13/18 06:59 18:59 06:59 Intake Total 1979 Balance 1979 Intake: Intake, IV Titration 1200 Amount Sodium Chloride 0.9% 1, 1200 000 ml @ 100 mls/hr IV . Q10H [facility] Rx#:[id number] Oral 780 Other: Voiding Method Toilet Toilet Urinal Urinal # Voids 2 - Exam Improved erythema and edema at dorsum of left hand. Neurovascular status intact with motor and sensation in all digits. 2+ radius pulse and less than 2 sec cap refill present in all digits. - Constitutional General appearance: Present: no acute distress - Labs CBC & Chem 7: 04/12/18 06:37 04/12/18 06:37 Labs: Abnormal Lab Results - Last 24 Hours (Table) 04/12/18 04/12/18 Range/Units 06:37 06:37 RBC 4.00 L (4.30-5.90) m/uL Hgb 12.4 L (13.0-17.5) gm/dL Hct 37.9 L (39.0-53.0) % Chloride 109 H (98-107) mmol/L BUN 24 H (9-20) mg/dL Creatinine 1.50 H (0.66-1.25) mg/dL Microbiology - Last 24 Hours (Table) 04/10/18 19:03 Blood Culture - Preliminary Blood No Growth after 48 hours Assessment and Plan (1) Cellulitis of left hand Narrative/Plan: We will continue to monitor. Continue IV antibiotics, elevation and pain management. Status: Acute Priority: Medium Code(s): L03.114 - CELLULITIS OF LEFT UPPER LIMB SNOMED Code(s): 31003767 Time with Patient: Less than 30 <Marvin Dougherty - Last Filed: 04/13/18 20:24> Objective - Vital Signs Vital signs: Vital Signs Temp 97.1 F L 04/13/18 12:55 Pulse 75 04/13/18 12:55 Resp 15 04/13/18 12:55 BP 107/51 04/13/18 12:55 Pulse Ox 96 04/13/18 12:55 Intake & Output 04/13/18 04/13/18 04/14/18 06:59 18:59 06:59 Intake Total 1500 Output Total 500 Balance 1000 Intake: Intake, IV Titration 900 Amount Sodium Chloride 0.9% 1, 900 000 ml @ 100 mls/hr IV . Q10H [facility] Rx#:[id number] Oral 600 Output: Urine 500 Other: Voiding Method Toilet Toilet Urinal Urinal # Voids 1 3 # Bowel Movements 1 - Labs CBC & Chem 7: 04/12/18 06:37 04/12/18 06:37 Labs: Microbiology - Last 24 Hours (Table) 04/10/18 19:03 Blood Culture - Preliminary Blood No Growth after 48 hours Assessment and Plan (1) Cellulitis of left hand Status: Acute Priority: Medium Code(s): L03.114 - CELLULITIS OF LEFT UPPER LIMB SNOMED Code(s): 45708173 Plan: Reviewed and agree with above. Patient was seen and examined by me. Patient states the pain is marginally improved. Still notes stiffness and difficulty moving fingers. PE: Erythema continues to regress. Dorsal edema improved - minimal in fingers now. Unable to make full composite fist: ~5cm [id number] deficit of all fingers. Impression: Left hand cellulitis - improving. Plan: Continue IV Abx and PRN analgesics. Encourage ROM. Will continue to monitor. Marvin Dougherty D.O.
[2018-04-13] MEDS: KETOROLAC 30 MG/ML 1 ML VIAL IVP PRN ×3 (00:20→16:05)
[2018-04-13] MEDS: ceFAZolin IN SWFI 2 GM/20 ML SYRINGE IVP SCH ×4 (00:21→16:04)
[2018-04-13] MEDS: SODIUM CHLORIDE 0.9% 1,000 ML IV SCH ×3 (00:26→10:10)
[2018-04-13] MEDS: oxyCODONE-APAP 10-325MG 1 EACH TAB PO PRN ×4 (01:06→14:07)
[2018-04-13] MEDS: MORPHINE SULFATE 4 MG/ML SYRINGE IV PRN ×4 (02:02→15:01)
--- NOTE | 2018-04-13 02:51 | PN ---
PROGRESS NOTE DATE OF SERVICE: 04/12/2018 REASON FOR FOLLOWUP: Left hand cellulitis. INTERVAL HISTORY: The patient is currently afebrile. The left hand dorsum swelling and redness is improved. The patient denies having any chest pain, shortness of breath or cough. No abdominal pain, no diarrhea. PHYSICAL EXAMINATION: Blood pressure is 122/61 with a pulse of 67, temperature is 97.6. He is 94% on room air. GENERAL DESCRIPTION: A middle-aged male lying in bed in no distress. RESPIRATORY SYSTEM: Unlabored breathing. Clear to auscultation anteriorly. HEART: S1, S2. Regular rate and rhythm. ABDOMEN: Soft, no tenderness. LABS: Hemoglobin 12.4, white count 6.5, BUN of 24, creatinine 1.50. Blood culture has been negative. DIAGNOSTIC IMPRESSION AND PLAN: Patient with left hand cellulitis with some extension to the left arm. The patient did show overall decrease in the redness and swelling to his left hand. To continue on IV cefazolin for another 24 hours before transitioning to oral antibiotics. Continue supportive care. MMODL / IJN: [id number] /
[2018-04-13] MEDS: DULoxetine HCL 60 MG CAPSULE.DR PO SCH (08:29)
[2018-04-13] MEDS: levETIRAcetam 500 MG TAB PO SCH (08:29)
[2018-04-13] MEDS: PREGABALIN 75 MG CAP PO SCH ×2 (08:29→16:04)
[2018-04-13] MEDS: SYMBICORT 160-4.5 MCG INHALER INHALATION SCH (08:29)
[2018-04-13] MEDS: FAMOTIDINE 20 MG TAB PO SCH (08:29)
[2018-04-13] MEDS: lamoTRIgine 100 MG TAB PO SCH (08:30)
[2018-04-13] MEDS: TAMSULOSIN 0.4 MG CAP.ER.24H PO SCH (08:30)
--- NOTE | 2018-04-13 11:00 | P.PN ---
Subjective Progress Note Date: 04/12/18 57-year-old pleasant gentleman with a history of prostate cancer supposed to undergo prostatectomy came in with compensative tonsillitis has been going on for 3 days swollen painful and red left hand involving the whole hand extending up to a few centimeters proximal to the wrist joint mostly on the dorsal aspect. Patient does have history of MRSA. Patient used to smoke but will cut down smoking to 3-4 in willing to completely stop it before his prostate surgery on April 23 patient had chills denied any obvious fever denied any nausea vomiting. Patient also is comparing of severe burning pain in the left hand, secondary to select this. Patient was started on Zosyn patient will be switched to vancomycin blood cultures were obtained. 04/12/2018 Patient's right hand is did improve will continue with IV vancomycin for today possibility of discharge tomorrow. Constitutional: Denied any fatigue denied any fever. Cardio vascular: denied any chest pain, palpitations Gastrointestinal denied any nausea vomiting Pulmonary: Denied any shortness of breath cough Neurologic denied any new focal deficits All inpatient medications were reviewed and appropriate changes in these medications as dictated in the interval history and assessment and plan. Objective - Vital Signs Vital signs: Vital Signs Temp 97.6 F 04/13/18 05:00 Pulse 72 04/13/18 05:00 Resp 20 04/13/18 05:00 BP 132/59 04/13/18 05:00 Pulse Ox 99 04/13/18 05:00 Intake & Output 04/12/18 04/13/18 04/13/18 18:59 06:59 18:59 Intake Total 1500 Output Total 500 Balance 1000 Intake: Intake, IV Titration 900 Amount Sodium Chloride 0.9% 1, 900 000 ml @ 100 mls/hr IV . Q10H [facility] Rx#:[id number] Oral 600 Output: Urine 500 Other: Voiding Method Toilet Toilet Toilet Urinal Urinal Urinal # Voids 1 # Bowel Movements 1 - Exam PHYSICAL EXAMINATION: GENERAL: The patient is alert and oriented x3, not in any acute distress. Well developed, well nourished. HEENT: Pupils are round and equally reacting to light. EOMI. No scleral icterus. No conjunctival pallor. Normocephalic, atraumatic. No pharyngeal erythema. No thyromegaly. CARDIOVASCULAR: S1 and S2 present. No murmurs, rubs, or gallops. PULMONARY: Fairly good air entry bilateral lung milton minimal expiratory wheezing was appreciated ABDOMEN: Soft, nontender, nondistended, normoactive bowel sounds. No palpable organomegaly. MUSCULOSKELETAL: No joint swelling or deformity. EXTREMITIES: No cyanosis, clubbing, or pedal edema. NEUROLOGICAL: Gross neurological examination did not reveal any focal deficits. SKIN: Redness swelling in the left hand as mentioned above in the history, improved redness and swelling - Labs CBC & Chem 7: 04/12/18 06:37 04/12/18 06:37 Labs: Microbiology - Last 24 Hours (Table) 04/10/18 19:03 Blood Culture - Preliminary Blood No Growth after 48 hours Assessment and Plan Plan: -Left hand cellulitis with history of MRSA in the past: Patient is on vancomycin , infectious disease will be consulted patient was started on IV vancomycin blood cultures were obtained orthopedic surgery evaluated the patient. Patient doesn't have any trauma to the hand. -COPD with minimal exacerbation patient was started on inhaled steroids and initial treatments, smoking cessation counseling was provided -Gastroesophageal reflux disease -Hypertension -Seizure disorder -Bipolar disorder -Patient will not require pharmacologic DVT prophylaxis early ablation although patient will require pharmacologic GI prophylaxis
--- NOTE | 2018-04-13 13:02 | P.PN ---
<Yury Whiteside Glory - Last Filed: 04/13/18 12:59> Subjective Progress Note Date: 04/13/18 Principal diagnosis: Left hand cellulitis Patient is seen at bedside this morning. We are following for left hand cellulitis. He has been on IV antibiotocs. Patients states his hand continues to improve today. He denies new numbness or tingling. No other complaints Objective - Vital Signs Vital signs: Vital Signs Temp 97.6 F 04/13/18 05:00 Pulse 72 04/13/18 05:00 Resp 20 04/13/18 05:00 BP 132/59 04/13/18 05:00 Pulse Ox 99 04/13/18 05:00 Intake & Output 04/12/18 04/13/18 04/13/18 18:59 06:59 18:59 Intake Total 1500 Output Total 500 Balance 1000 Intake: Intake, IV Titration 900 Amount Sodium Chloride 0.9% 1, 900 000 ml @ 100 mls/hr IV . Q10H [facility] Rx#:[id number] Oral 600 Output: Urine 500 Other: Voiding Method Toilet Toilet Toilet Urinal Urinal Urinal # Voids 1 # Bowel Movements 1 - Exam Continued Improved erythema and edema at dorsum of left hand. Neurovascular status intact with motor and sensation in all digits. 2+ radius pulse and less than 2 sec cap refill present in all digits. Mild tenderness - Constitutional General appearance: Present: no acute distress - Labs CBC & Chem 7: 04/12/18 06:37 04/12/18 06:37 Labs: Microbiology - Last 24 Hours (Table) 04/10/18 19:03 Blood Culture - Preliminary Blood No Growth after 48 hours Assessment and Plan (1) Cellulitis of left hand Narrative/Plan: He has continued improvement overall and has minimal edema and erythema today. No plans for surgical intervention from an orthopedic standpoint. We will sign off for now. Thank you Status: Acute Priority: Medium Code(s): L03.114 - CELLULITIS OF LEFT UPPER LIMB SNOMED Code(s): 83546843 Time with Patient: Less than 30 <Marvin Dougherty - Last Filed: 04/13/18 20:29> Objective - Vital Signs Vital signs: Vital Signs Temp 97.1 F L 04/13/18 12:55 Pulse 75 04/13/18 12:55 Resp 15 04/13/18 12:55 BP 107/51 04/13/18 12:55 Pulse Ox 96 04/13/18 12:55 Intake & Output 04/13/18 04/13/18 04/14/18 06:59 18:59 06:59 Intake Total 1500 Output Total 500 Balance 1000 Intake: Intake, IV Titration 900 Amount Sodium Chloride 0.9% 1, 900 000 ml @ 100 mls/hr IV . Q10H [facility] Rx#:[id number] Oral 600 Output: Urine 500 Other: Voiding Method Toilet Toilet Urinal Urinal # Voids 1 3 # Bowel Movements 1 - Labs CBC & Chem 7: 04/12/18 06:37 04/12/18 06:37 Labs: Microbiology - Last 24 Hours (Table) 04/10/18 19:03 Blood Culture - Preliminary Blood No Growth after 48 hours Assessment and Plan (1) Cellulitis of left hand Status: Acute Priority: Medium Code(s): L03.114 - CELLULITIS OF LEFT UPPER LIMB SNOMED Code(s): 26930358 Plan: Reviewed and agree with above. Patient was seen and examined by me prior to discharge. Patient reports marked improvement in pain and motion. Has been working on ROM. PE: Trace erythema and mild residual edema localized to dorsum of hand. Able to make a near full composite fist: ~2cm [id number] deficit of all fingers. Impression: Left hand cellulitis - improving. Plan: Patient has made significant clinical improvement. Do not foresee need for operative intervention or outpatient followup with orthopedics. Encouraged patient to continue working on ROM and gradually increase use of hand as tolerated. Marvin Dougherty D.O.
[2018-04-13 13:37] VITALS: BP 107/51; PULSE 75; RESP 15; TEMP 97.1
--- NOTE | 2018-04-13 17:04 | P.DS ---
Providers Date of admission: 04/12/18 13:40 Attending physician: Janet Garcia Consults: 04/10/18 22:00 Consult Physician Routine Consulting Provider: Marvin Dougherty Consult Reason/Comments: cellulitis Do you want consulting provider notified?: Yes, Notify in am 04/11/18 11:57 Consult Physician Routine Consulting Provider: Jonas Cruz Consult Reason/Comments: hand cellulitis Do you want consulting provider notified?: Yes Primary care physician: [facility] Hospital Course: 57-year-old pleasant gentleman with a history of prostate cancer supposed to undergo prostatectomy came in with compensative tonsillitis has been going on for 3 days swollen painful and red left hand involving the whole hand extending up to a few centimeters proximal to the wrist joint mostly on the dorsal aspect. Patient does have history of MRSA. Patient used to smoke but will cut down smoking to 3-4 in willing to completely stop it before his prostate surgery on April 23 patient had chills denied any obvious fever denied any nausea vomiting. Patient also is comparing of severe burning pain in the left hand, secondary to select this. Patient was started on Zosyn patient will be switched to vancomycin blood cultures were obtained. 04/12/2018 Patient's right hand is did improve will continue with IV vancomycin for today possibility of discharge tomorrow. 04/13/2018 Patient swelling significantly improved patient's creatinine was 1.6 yesterday secondary to Toradol NICHOLAS inhibitor hypotension and vancomycin all of which were discontinued today it's 1.6 patient is presently on ceftezole and patient swelling significantly improved will repeat basic metabolic profile in 3 days patient will be discharged today I'm expecting her creatinine to come down his NICHOLAS inhibitor will be discontinued patient is presently not receiving this medication in spite of which his blood pressure is stable. PHYSICAL EXAMINATION: GENERAL: The patient is alert and oriented x3, not in any acute distress. Well developed, well nourished. HEENT: Pupils are round and equally reacting to light. EOMI. No scleral icterus. No conjunctival pallor. Normocephalic, atraumatic. No pharyngeal erythema. No thyromegaly. CARDIOVASCULAR: S1 and S2 present. No murmurs, rubs, or gallops. PULMONARY: Fairly good air entry bilateral lung milton minimal expiratory wheezing was appreciated ABDOMEN: Soft, nontender, nondistended, normoactive bowel sounds. No palpable organomegaly. MUSCULOSKELETAL: No joint swelling or deformity. EXTREMITIES: No cyanosis, clubbing, or pedal edema. NEUROLOGICAL: Gross neurological examination did not reveal any focal deficits. SKIN: Redness swelling in the left hand significantly improved Assessment and Plan Plan: -Left hand cellulitis and patient has significant improvement with ceftezole and will be discharged on Keflex for 10 days. Follow up with infectious disease -Acute renal failure secondary to hypotension and NICHOLAS inhibitor, NICHOLAS inhibitor is being discontinued -COPD with minimal exacerbation patient was started on inhaled steroids and initial treatments, smoking cessation counseling was provided -Gastroesophageal reflux disease -Hypertension -Seizure disorder -Bipolar disorder Patient Condition at Discharge: Stable Plan - Discharge Summary Discharge Rx Participant: No New Discharge Prescriptions: New Budesonide-Formot 160-4.5 Mcg [Symbicort 160-4.5 Mcg Inhaler] 2 puff INHALATION RT-BID #1 inhaler Cephalexin [Keflex] 500 mg PO Q6HR 10 Days #40 cap Continue levETIRAcetam [Keppra] 1,000 mg PO BID Pregabalin [Lyrica] 150 mg PO TID Cyclobenzaprine [Flexeril] 5 mg PO DAILY PRN PRN Reason: Muscle Spasm lamoTRIgine [LaMICtal] 100 mg PO DAILY Tamsulosin HCl [Flomax] 0.4 mg PO DAILY Ergocalciferol [Vitamin D2 (DRISDOL)] 50,000 unit PO Q14D oxyCODONE-APAP 10-325MG [Percocet 10-325 mg] 1 tab PO Q4H PRN PRN Reason: Pain Albuterol Inhaler [Ventolin Hfa Inhaler] 1 - 2 puff INHALATION RT-Q6H PRN PRN Reason: Shortness Of Breath DULoxetine HCL [Cymbalta] 60 mg PO BID traZODone HCL [Desyrel] 100 mg PO HS Discontinued Lisinopril [Zestril] 10 mg PO DAILY Lisinopril [Zestril] 5 mg PO DAILY Discharge Medication List Cyclobenzaprine [Flexeril] 5 mg PO DAILY PRN 11/27/17 [History] Pregabalin [Lyrica] 150 mg PO TID 11/27/17 [History] lamoTRIgine [LaMICtal] 100 mg PO DAILY 11/27/17 [History] levETIRAcetam [Keppra] 1,000 mg PO BID 11/27/17 [History] Tamsulosin HCl [Flomax] 0.4 mg PO DAILY 04/04/18 [History] Albuterol Inhaler [Ventolin Hfa Inhaler] 1 - 2 puff INHALATION RT-Q6H PRN [History] DULoxetine HCL [Cymbalta] 60 mg PO BID 04/10/18 [History] Ergocalciferol [Vitamin D2 (DRISDOL)] 50,000 unit PO Q14D 04/10/18 [History] oxyCODONE-APAP 10-325MG [Percocet 10-325 mg] 1 tab PO Q4H PRN 04/10/18 [History] traZODone HCL [Desyrel] 100 mg PO HS 04/12/18 [History] Budesonide-Formot 160-4.5 Mcg [Symbicort 160-4.5 Mcg Inhaler] 2 puff INHALATION RT-BID #1 inhaler 04/13/18 [Rx] Cephalexin [Keflex] 500 mg PO Q6HR 10 Days #40 cap 04/13/18 [Rx] Follow up Appointment(s)/Referral(s): [facility] [Primary Care Provider] - 3 Days Discharge Disposition: HOME SELF-CARE
--- NOTE | 2018-04-13 17:46 | PN ---
PROGRESS NOTE DATE OF SERVICE: 04/13/2018. REASON FOR FOLLOWUP: Left hand cellulitis. INTERVAL HISTORY: The patient is currently afebrile. He is breathing comfortably. Denies having any chest pain, shortness of breath or cough. No abdominal pain. Left hand swelling and redness improved. PHYSICAL EXAMINATION: Blood pressure is 107/51 with a pulse of 75. Temperature 97.1. He is 96% on room air. General description is a middle-aged male lying in bed in no distress. Respiratory system: Unlabored breathing. Clear to auscultation anteriorly. Heart S1, S2. Regular rate and rhythm. Abdomen soft, no tenderness. Left hand swelling and redness improved. No drainage. LABS: Hemoglobin is 12.4, white count 6.5. Blood cultures remain to be negative. DIAGNOSTIC IMPRESSION AND PLAN: Patient with left hand cellulitis. The patient significant clinical improvement with IV cefazolin able to transitioned to oral Keflex 500 mg q.6 hours for another 10 days with close outpatient followup. Plan of care discussed with the admitting physician. Continue supportive care. MMODL / IJN: [id number] /
[2018-04-14] MEDS ORDERED: ERGOCALCIFEROL 50,000 UNIT CAP PO SCH (09:00)
== END 2018-04-13 17:45 | disposition home or self-care (01) | DRG 603 ==
LOC: EC 16:49 → 3NMEDONC 20:44 → OBSVTOIN 04-12 13:40
PROVIDERS: ADMIT Hospitalist; ATTEND Hospitalist
DX: L03.114 Cellulitis of left upper limb (principal); N17.9 Acute kidney failure, unspecified; Z71.6 Tobacco abuse counseling; F17.210 Nicotine dependence, cigarettes, uncomplicated; F31.9 Bipolar disorder, unspecified; F41.9 Anxiety disorder, unspecified; F90.9 Attention-deficit hyperactivity disorder, unspecified type; G40.909 Epilepsy, unspecified, not intractable, without status epilepticus; I10 Essential (primary) hypertension; I95.2 Hypotension due to drugs; J44.9 Chronic obstructive pulmonary disease, unspecified; K21.9 Gastro-esophageal reflux disease without esophagitis; M10.9 Gout, unspecified; M19.90 Unspecified osteoarthritis, unspecified site; M79.7 Fibromyalgia; T46.4X5A Adverse effect of angiotensin-converting-enzyme inhibitors, initial encounter; Z79.899 Other long term (current) drug therapy; C61 Malignant neoplasm of prostate; Z86.14 Personal history of Methicillin resistant Staphylococcus aureus infection; I83.90 Asymptomatic varicose veins of unspecified lower extremity; Z91.81 History of falling; Z83.2 Family history of diseases of the blood and blood-forming organs and certain disorders involving the immune mechanism
CPT/HCPCS: 36415; 80048; 80053; 83605; 84550; 85025; 86140; 87040; 94640; 96374; 96375; 99285

== ENCOUNTER 2018-04-11 07:30 | Inpatient (IN) | payer MEDICARE, OTHER ==
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
[2018-04-23] MEDS ORDERED: ceFAZolin IN SWFI 2 GM/20 ML SYRINGE IVP ONE (05:00)
[2018-04-23] MEDS ORDERED: ONDANSETRON 4 MG/2 ML VIAL IVP ONE (06:48)
[2018-04-23] MEDS ORDERED: DEXAMETHASONE SOD PHOSPHATE 10 MG/ML 1 ML VIAL IV ONE (06:48)
[2018-04-23] MEDS ORDERED: SCOPOLAMINE 1.5MG/72HR PATCH TRANSDERM ONE (06:48)
[2018-04-23] MEDS ORDERED: LIDOCAINE 1% 20 ML VIAL (10MG/ML) FOR IV START INTRADERMA PRN (06:48)
[2018-04-23] MEDS: LACTATED RINGERS 1,000 ML IV SCH (11:32)
[2018-04-23] MEDS ORDERED: fentaNYL (PF) 50 MCG/ML 2 ML AMP IV ONE (11:33)
[2018-04-23] MEDS ORDERED: HEPARIN SODIUM,PORCINE 5,000 UNIT/ML 1 ML VIAL SQ ONE (12:00)
[2018-04-23] MEDS ORDERED: NEOSTIGMINE 1 MG/ML 10 ML VIAL ONE (12:24)
[2018-04-23] MEDS ORDERED: VECURONIUM 10 MG VIAL IV ONE (12:24)
[2018-04-23] MEDS ORDERED: GLYCOPYRROLATE 0.2 MG/ML 2 ML VIAL ONE (12:24)
[2018-04-23] MEDS ORDERED: LIDOCAINE 1% INJ 10MG/ML (20 ML MDV) ONE (12:24)
[2018-04-23] MEDS ORDERED: PROPOFOL 10 MG/ML 20 ML VIAL IV ONE (12:24)
[2018-04-23] MEDS ORDERED: fentaNYL (PF) 50 MCG/ML 2 ML AMP ONE (12:24)
[2018-04-23] MEDS ORDERED: MIDAZOLAM 2 MG/2 ML VIAL ONE (12:24)
[2018-04-23] MEDS ORDERED: HYDROmorphone (PF) 1 MG/ML ONE (12:24)
[2018-04-23] MEDS ORDERED: BUPIVACAINE (PF) 0.25% 30 ML VIAL SQ ONE ×2 (13:12)
[2018-04-23] MEDS ORDERED: ONDANSETRON 4 MG/2 ML VIAL IVP PRN (17:04)
--- NOTE | 2018-04-23 17:18 | P.OP ---
Date of Procedure: 04/23/18 Preoperative Diagnosis: Adenocarcinoma of the prostate Postoperative Diagnosis: Same Procedure(s) Performed: Robotic-assisted laparoscopic prostatectomy (RALP) with bilateral pelvic lymphadenectomy Anesthesia: MAIN Surgeon: Elmer Kimball Software Development Engineer #1: Baldemar Cao Estimated Blood Loss (ml): 50 IV fluids (ml): 450 Condition: stable Disposition: PACU Indications for Procedure: The patient is a 57-year-old white male found to have an elevated PSA level of 24.3. A repeat PSA level was 18.4. HOLLY revealed a nodule at the left prostatic base. He underwent a prostate ultrasound, revealing a prostate volume of 16 mL. All 6 left-sided biopsies showed Santo 8/9 adenocarcinoma. The right-sided biopsies were negative. His metabolic evaluation consisted of a bone scan and computed tomography scan of the pelvis, both of which were normal. Alternative treatment options were reviewed with him in detail. He has elected to undergo a robotic-assisted laparoscopic prostatectomy (RALP) with bilateral pelvic lymphadenectomy. Operative Findings: Significant bladder wall thickening. No evidence of extraprostatic disease. Description of Procedure: The patient was taken in the operating room and placed in the dorsal lithotomy position, with his legs supported in Wilmer stirrups. He was carefully positioned on a beanbag for stability. The abdomen and external genitalia were prepped and draped sterilely. A Pimentel catheter was inserted. The Veress needle was passed through the anterior abdominal wall immediately cephalad to the umbilicus, and insufflation was performed to a pressure of 20 mm Hg. Once insufflation was performed, the Veress needle was removed and a supraumbilical incision was made, through which a 12 mm camera port was placed. Under camera guidance, 3 8 mm robotic ports were placed, 2 on the left and one on the right. An additional 12 mm port was placed on the right lateral side for use as an blood donor unit assistant port. A 5 mm port was placed to the right of the camera port for suction. The patient was placed in Trendelenburg position, and docking was then performed to the da Huong system utilizing a 4-arm approach. The abdomen was examined. The sigmoid colon was mobilized out of the pelvis. The peritoneum was incised lateral to the medial umbilical ligaments bilaterally , exposing the pubis. The peritoneum was then incised across the midline, allowing the bladder flap to be taken down. The endopelvic fascia was opened bilaterally, and muscular attachments from the urogenital diaphragm were swept away from the prostate. Extended bilateral pelvic lymphadenectomies were performed in the standard fashion. The peritoneal incisions were extended in a cephalad direction, and the vas deferens were divided bilaterally. Margins of dissection were the bifurcation of the iliac vessels proximally, the circumflex iliac vein distally , the genitofemoral nerve laterally, and the obturator nerve medially. A combination of sharp and blunt dissection was used. Care was taken to avoid any neurovascular injury, and the use of monopolar electrocautery was avoided immediately adjacent to neurovascular structures. The lymphatic package was clipped distally. No enlarged lymph nodes were encountered. There were no complications. The vesical neck was incised transversely, down to the lumen. The Pimentel catheter was brought out through the anterior vesical neck incision and was used for traction. The posterior aspect of the vesical neck was incised, such that the full-thickness of the vesical neck was divided. The vesical neck was significantly thickened. The anterior layer of the Denonvilliers fascia was incised, exposing the vas deferens. Each were isolated and divided. Next, each of the seminal vesicles were dissected away from adjacent tissues, and vascular attachments were cauterized and divided. The posterior leaf of Denonvilliers fascia was incised transversely, allowing entry into the plane between the prostate and rectum. With lateral spreading, this plane was developed down to the apex. This exposed the lateral vascular pedicles bilaterally. The da Huong vessel sealer was used to ligate and divide the vascular pedicles in an antegrade fashion, down to the apex. Wide excision of the left neurovascular bundle was performed. The remaining apical attachments were swept away from the prostate. The dorsal venous complex was incised, as well as periurethral tissue. At this point, only the urethra remained intact. This was transected immediately distal to the prostatic apex using cold scissors. The specimen was placed within a specimen bag. The dorsal venous complex was sutured using a V-Loc suture in a running fashion. A second V-Loc suture was then used to place the Juan Carlos stitch, incorporating the rhabdosphincter and the edge of Denonvilliers fascia. This allowed the bladder to be taken down to the urethra, leaving the vesical neck immediately adjacent to the urethra. The vesicourethral anastomosis was then performed using a V-Loc suture in a running fashion. After completing the anastomosis, an 18-[place] Pimentel catheter was placed and approximately 150 mL of 0.9 normal saline were instilled into the bladder. No extravasation of irrigant from the vesicourethral anastomosis was noted. Hemostasis was noted at this time to be excellent, and it was thus felt that a drain was unnecessary. Tisseel was sprayed into the pelvis over the vascular pedicles, dorsal vein, and vesicourethral anastomosis. The patient was returned to the supine position. Undocking was performed, and the specimen bag sutures were passed through the camera port. After removing all the ports and allowing all of the CO2 to be released from the peritoneal cavity, the camera port incision was enlarged to allow removal of the surgical specimen. The fascia of this incision was then closed using 0 Vicryl suture in an interrupted [id number] fashion. Each of the skin incisions were then closed using 4-0 Monocryl suture in a subcuticular fashion. Marcaine was injected at each of the incision sites. Dermabond was applied to each incision. The Pimentel catheter was connected to gravity drainage. All sponge and needle counts were correct. The patient tolerated the procedure well was taken to the recovery room in stable condition.
[2018-04-23] MEDS ORDERED: ALBUTEROL NEBULIZED 2.5 MG/3 ML INHALATION PRN (17:46)
[2018-04-23] MEDS ORDERED: CYCLOBENZAPRINE 5 MG TAB PO PRN (17:46)
[2018-04-23] MEDS: HYDROmorphone 0.5 MG/0.5 ML SYRINGE IVP PRN ×4 (18:44→19:00)
[2018-04-23] MEDS ORDERED: fentaNYL (PF) 50 MCG/ML 2 ML AMP IVP ONE (19:15)
[2018-04-23] MEDS: SYMBICORT 160-4.5 MCG INHALER INHALATION SCH (19:52)
[2018-04-23] MEDS: HYDROmorphone 1 MG/ML 1 ML SYRINGE IVP PRN (21:25)
[2018-04-23] MEDS: levETIRAcetam 500 MG TAB PO SCH (21:29)
[2018-04-23] MEDS: traZODone HCL 100 MG TAB PO SCH (21:29)
[2018-04-23] MEDS: HEPARIN SODIUM,PORCINE 5,000 UNIT/ML 1 ML VIAL SQ SCH (21:29)
[2018-04-23] MEDS: PREGABALIN 75 MG CAP PO SCH (21:29)
[2018-04-23] MEDS: DULoxetine HCL 60 MG CAPSULE.DR PO SCH (21:29)
[2018-04-23] MEDS: DEXTROSE 5%-0.45% NACL 1,000 ML IV SCH (21:30)
[2018-04-24] MEDS: HYDROmorphone 1 MG/ML 1 ML SYRINGE IVP PRN ×6 (00:17→21:31)
[2018-04-24] MEDS: KETOROLAC 30 MG/ML 1 ML VIAL IVP PRN ×4 (00:18→18:55)
[2018-04-24 01:03] VITALS: BMI 31.0
[2018-04-24] MEDS: DEXTROSE 5%-0.45% NACL 1,000 ML IV SCH ×3 (01:42→17:29)
[2018-04-24] MEDS ORDERED: HYDROmorphone 1 MG/ML 1 ML SYRINGE ONE (02:47)
[2018-04-24] MEDS: LACTATED RINGERS 1,000 ML IV SCH (07:21)
[2018-04-24] MEDS: PREGABALIN 75 MG CAP PO SCH ×3 (07:31→21:31)
[2018-04-24] MEDS: DULoxetine HCL 60 MG CAPSULE.DR PO SCH ×2 (07:31→21:30)
[2018-04-24] MEDS: levETIRAcetam 500 MG TAB PO SCH ×2 (07:32→21:30)
[2018-04-24] MEDS: HEPARIN SODIUM,PORCINE 5,000 UNIT/ML 1 ML VIAL SQ SCH ×2 (07:32→19:58)
[2018-04-24] MEDS: lamoTRIgine 100 MG TAB PO SCH (07:32)
[2018-04-24] MEDS: SYMBICORT 160-4.5 MCG INHALER INHALATION SCH ×2 (08:39→19:36)
--- NOTE | 2018-04-24 12:04 | P.PN ---
Subjective Progress Note Date: 04/24/18 Principal diagnosis: POD #1, s/p RALP Patient complains of leg and hip pain. He also reports moderate abdominal discomfort with movement. He tolerated clear liquid diet. He has not yet ambulated. Objective - Vital Signs Vital signs: Vital Signs Temp 98.2 F 04/24/18 07:27 Pulse 79 04/24/18 07:27 Resp 14 04/24/18 07:27 BP 110/68 04/24/18 07:27 Pulse Ox 96 04/24/18 07:27 Intake & Output 04/23/18 04/24/18 04/24/18 18:59 06:59 18:59 Intake Total 850 1368 Output Total 40 800 Balance 810 568 Intake: IV 850 Intake, IV Titration 1250 Amount Dextrose 5%-0.45% NaCl 1, 1250 000 ml @ 125 mls/hr IV . Q8H RICH Rx#:[id number] Oral 118 Output: Urine 800 Estimated Blood Loss 40 Other: Voiding Method Indwelling Catheter Indwelling Catheter - Constitutional General appearance: Present: cooperative, no acute distress - Gastrointestinal Gastrointestinal Comment(s): Incisions clean, dry, and intact. General gastrointestinal: Present: soft. Absent: distended Assessment and Plan (1) Malignant neoplasm of prostate Current Visit: Yes Status: Acute Code(s): C61 - MALIGNANT NEOPLASM OF PROSTATE SNOMED Code(s): 422223561 Plan: Patient is doing fairly well overall. The Pimentel catheters draining clear yellow urine. I have encouraged ambulation. PT/OT consultation has been requested.
[2018-04-24] MEDS: traZODone HCL 100 MG TAB PO SCH (21:30)
[2018-04-25] MEDS: HYDROmorphone 1 MG/ML 1 ML SYRINGE IVP PRN ×9 (00:54→23:24)
[2018-04-25] MEDS: DEXTROSE 5%-0.45% NACL 1,000 ML IV SCH ×4 (01:41→22:54)
[2018-04-25] MEDS: KETOROLAC 30 MG/ML 1 ML VIAL IVP PRN ×3 (02:05→21:40)
[2018-04-25] MEDS: LACTATED RINGERS 1,000 ML IV SCH (05:23)
[2018-04-25] MEDS: SYMBICORT 160-4.5 MCG INHALER INHALATION SCH ×2 (07:15→19:56)
[2018-04-25] MEDS: PREGABALIN 75 MG CAP PO SCH ×3 (07:23→21:38)
[2018-04-25] MEDS: lamoTRIgine 100 MG TAB PO SCH (07:24)
[2018-04-25] MEDS: levETIRAcetam 500 MG TAB PO SCH ×2 (07:24→20:14)
[2018-04-25] MEDS: HEPARIN SODIUM,PORCINE 5,000 UNIT/ML 1 ML VIAL SQ SCH ×2 (07:24→20:13)
[2018-04-25] MEDS: DULoxetine HCL 60 MG CAPSULE.DR PO SCH ×2 (07:24→20:13)
--- NOTE | 2018-04-25 13:19 | P.PN ---
Subjective Progress Note Date: 04/25/18 Principal diagnosis: POD #2, s/p RALP Patient complains of persistent leg and hip pain which limits his ability to ambulate. He also reports moderate abdominal discomfort with movement. He is tolerating diet. He is passing flatus but has not had a bowel movement. Objective - Vital Signs Vital signs: Vital Signs Temp 98.0 F 04/25/18 11:45 Pulse 55 L 04/25/18 11:45 Resp 14 04/25/18 11:45 BP 103/65 04/25/18 11:45 Pulse Ox 96 04/25/18 11:45 Intake & Output 04/24/18 04/25/18 04/25/18 18:59 06:59 18:59 Intake Total 1000 200 320 Output Total 700 1250 Balance 300 -1050 320 Intake: Intake, IV Titration 1000 Amount Dextrose 5%-0.45% NaCl 1, 1000 000 ml @ 125 mls/hr IV . Q8H RICH Rx#:[id number] Oral 200 320 Output: Urine 700 1250 Uretheral (Pimentel) 850 Other: Voiding Method Indwelling Catheter Indwelling Catheter Indwelling Catheter - Constitutional General appearance: Present: cooperative, no acute distress - Gastrointestinal Gastrointestinal Comment(s): Soft, non-distended. Incisions clean, dry, and intact. - Psychiatric Psychiatric: Present: A&O x's 3, appropriate affect Assessment and Plan (1) Malignant neoplasm of prostate Current Visit: Yes Status: Acute Code(s): C61 - MALIGNANT NEOPLASM OF PROSTATE SNOMED Code(s): 870745699 Plan: Patient is doing fairly well overall. The Pimentel catheter is draining clear yellow urine. He is scheduled to be transferred to [facility] tomorrow for rehab. He will follow up with me in 1 week for Pimentel catheter removal. The pathology report is pending.
[2018-04-25] MEDS: traZODone HCL 100 MG TAB PO SCH (21:38)
[2018-04-26] MEDS: HYDROmorphone 1 MG/ML 1 ML SYRINGE IVP PRN ×8 (02:54→22:11)
[2018-04-26] MEDS: LACTATED RINGERS 1,000 ML IV SCH (04:17)
[2018-04-26] MEDS: SYMBICORT 160-4.5 MCG INHALER INHALATION SCH ×2 (07:59→20:44)
[2018-04-26] MEDS: HEPARIN SODIUM,PORCINE 5,000 UNIT/ML 1 ML VIAL SQ SCH ×2 (08:14→21:16)
[2018-04-26] MEDS: KETOROLAC 30 MG/ML 1 ML VIAL IVP PRN ×2 (08:15→18:17)
[2018-04-26] MEDS: PREGABALIN 75 MG CAP PO SCH ×3 (08:16→21:16)
[2018-04-26] MEDS: levETIRAcetam 500 MG TAB PO SCH ×2 (08:17→21:16)
[2018-04-26] MEDS: DULoxetine HCL 60 MG CAPSULE.DR PO SCH ×2 (08:17→21:16)
[2018-04-26] MEDS: lamoTRIgine 100 MG TAB PO SCH (08:17)
[2018-04-26] MEDS: DEXTROSE 5%-0.45% NACL 1,000 ML IV SCH ×3 (09:07→21:18)
[2018-04-26] MEDS: traZODone HCL 100 MG TAB PO SCH (21:16)
[2018-04-27] MEDS: HYDROmorphone 1 MG/ML 1 ML SYRINGE IVP PRN ×9 (01:16→22:48)
[2018-04-27] MEDS: LACTATED RINGERS 1,000 ML IV SCH (02:19)
[2018-04-27] MEDS: KETOROLAC 30 MG/ML 1 ML VIAL IVP PRN ×2 (02:26→10:30)
[2018-04-27] MEDS: HEPARIN SODIUM,PORCINE 5,000 UNIT/ML 1 ML VIAL SQ SCH ×2 (07:58→20:25)
[2018-04-27] MEDS: DULoxetine HCL 60 MG CAPSULE.DR PO SCH ×2 (08:02→20:25)
[2018-04-27] MEDS: lamoTRIgine 100 MG TAB PO SCH (08:02)
[2018-04-27] MEDS: PREGABALIN 75 MG CAP PO SCH ×3 (08:02→21:43)
[2018-04-27] MEDS: levETIRAcetam 500 MG TAB PO SCH ×2 (08:02→20:26)
[2018-04-27] MEDS: SYMBICORT 160-4.5 MCG INHALER INHALATION SCH ×2 (08:05→19:39)
[2018-04-27] MEDS: DEXTROSE 5%-0.45% NACL 1,000 ML IV SCH ×2 (10:36→20:23)
[2018-04-27] MEDS ORDERED: HYDROcodone/APAP 10-325MG 1 EACH TAB PO PRN (11:19)
--- NOTE | 2018-04-27 11:48 | P.PN ---
Progress Note - Text Progress Note Date: 04/27/18 The patient is afebrile. He has chronic pain and had been taking Percocet prior to this admission. He is tolerating a diet and is ambulatory. He lives with his mother who is disabled and plans had been made for him to be transferred to the [facility] for rehab but this could not be set up over the weekend. The patient will remain in the hospital until tomorrow when he will be discharged to that facility. His catheter will remain in place. He will be seeing later in the week for catheter removal.
[2018-04-27] MEDS: traZODone HCL 100 MG TAB PO SCH (20:25)
[2018-04-28] MEDS: HYDROmorphone 1 MG/ML 1 ML SYRINGE IVP PRN ×3 (01:42→06:13)
[2018-04-28] MEDS: DEXTROSE 5%-0.45% NACL 1,000 ML IV SCH ×2 (05:16→08:29)
[2018-04-28] MEDS: LACTATED RINGERS 1,000 ML IV SCH (05:17)
[2018-04-28] MEDS: SYMBICORT 160-4.5 MCG INHALER INHALATION SCH (07:42)
[2018-04-28] MEDS: oxyCODONE-APAP 10-325MG 1 EACH TAB PO PRN ×3 (08:27→17:46)
[2018-04-28] MEDS: PREGABALIN 75 MG CAP PO SCH ×2 (08:28→16:17)
[2018-04-28] MEDS: DULoxetine HCL 60 MG CAPSULE.DR PO SCH (08:28)
[2018-04-28] MEDS: lamoTRIgine 100 MG TAB PO SCH (08:28)
[2018-04-28] MEDS: levETIRAcetam 500 MG TAB PO SCH (08:28)
[2018-04-28] MEDS: HEPARIN SODIUM,PORCINE 5,000 UNIT/ML 1 ML VIAL SQ SCH (08:28)
--- NOTE | 2018-04-28 08:48 | P.DS ---
Providers Date of admission: 04/23/18 10:01 Expected date of discharge: 04/28/18 Attending physician: Elmer Kimball Primary care physician: [facility] - Discharge Diagnosis(es) (1) Malignant neoplasm of prostate Current Visit: Yes Status: Acute Hospital Course: On the day of admission, the patient underwent an uncomplicated RALP with bilateral pelvic lymphadenectomy. The perioperative course was unremarkable, other than the fact that the patient has multiple orthopedic problems which limited his mobility postoperatively. The decision was made for him to be transferred to [facility] for inpatient rehabilitation, but this could not be coordinated into 04/28/2018. At that time, he was ambulating to a limited degree. He was tolerating diet and his bowels were moving regularly. He had no specific complaints related to his surgery. The Pimentel catheter was draining clear yellow urine, and his incisions were clean and dry. Procedures: Robotic-assisted laparoscopic prostatectomy (RALP) with bilateral pelvic lymphadenectomy on 04/23/2018. Patient Condition at Discharge: Good Plan - Discharge Summary Discharge Rx Participant: Yes New Discharge Prescriptions: New Ciprofloxacin HCl [Cipro] 250 mg PO Q12HR #6 tablet oxyCODONE HCL/ACETAMINOPHEN [Percocet 10-325 mg] 1 tab PO Q4HR PRN 3 Days # 18 tab PRN Reason: Pain Continue levETIRAcetam [Keppra] 1,000 mg PO BID Pregabalin [Lyrica] 150 mg PO TID Cyclobenzaprine [Flexeril] 5 mg PO DAILY PRN PRN Reason: Muscle Spasm lamoTRIgine [LaMICtal] 100 mg PO DAILY Tamsulosin HCl [Flomax] 0.4 mg PO DAILY Ergocalciferol [Vitamin D2 (DRISDOL)] 50,000 unit PO Q14D oxyCODONE-APAP 10-325MG [Percocet 10-325 mg] 1 tab PO Q4H PRN PRN Reason: Pain Albuterol Inhaler [Ventolin Hfa Inhaler] 1 - 2 puff INHALATION RT-Q6H PRN PRN Reason: Shortness Of Breath DULoxetine HCL [Cymbalta] 60 mg PO BID traZODone HCL [Desyrel] 100 mg PO HS Budesonide-Formot 160-4.5 Mcg [Symbicort 160-4.5 Mcg Inhaler] 2 puff INHALATION RT-BID Discharge Medication List Cyclobenzaprine [Flexeril] 5 mg PO DAILY PRN 11/27/17 [History] Pregabalin [Lyrica] 150 mg PO TID 11/27/17 [History] lamoTRIgine [LaMICtal] 100 mg PO DAILY 11/27/17 [History] levETIRAcetam [Keppra] 1,000 mg PO BID 11/27/17 [History] Tamsulosin HCl [Flomax] 0.4 mg PO DAILY 04/04/18 [History] Albuterol Inhaler [Ventolin Hfa Inhaler] 1 - 2 puff INHALATION RT-Q6H PRN [History] DULoxetine HCL [Cymbalta] 60 mg PO BID 04/10/18 [History] Ergocalciferol [Vitamin D2 (DRISDOL)] 50,000 unit PO Q14D 04/10/18 [History] oxyCODONE-APAP 10-325MG [Percocet 10-325 mg] 1 tab PO Q4H PRN 04/10/18 [History] traZODone HCL [Desyrel] 100 mg PO HS 04/12/18 [History] Budesonide-Formot 160-4.5 Mcg [Symbicort 160-4.5 Mcg Inhaler] 2 puff INHALATION RT-BID 04/17/18 [History] Ciprofloxacin HCl [Cipro] 250 mg PO Q12HR #6 tablet 04/25/18 [Rx] oxyCODONE HCL/ACETAMINOPHEN [Percocet 10-325 mg] 1 tab PO Q4HR PRN 3 Days #18 tab 04/28/18 [Rx] Follow up Appointment(s)/Referral(s): Elmer Kimball MD [STAFF PHYSICIAN] - 05/02/18 Patient Instructions/Handouts: Prostate Cancer (DC), Robot Assisted Laparoscopic Prostatectomy (DC) Activity/Diet/Wound Care/Special Instructions: Discharge home with Pimentel catheter. Instruct patient to use overnight drainage bag as well as urinary leg bag. Okay to shower. Diet as tolerated. No lifting , driving, or strenuous activity. Reassure patient that abdominal wall ecchymosis and penoscrotal swelling are normal. Patient to begin taking Cipro on 05/01/18. Discharge Disposition: TRANSFER TO SNF/ECF
[2018-04-28 15:38] VITALS: BP 121/68; PULSE 70; RESP 12; TEMP 99.1
[2018-05-01] MEDS ORDERED: ERGOCALCIFEROL 50,000 UNIT CAP PO SCH (09:00)
== END 2018-04-28 17:55 | DRG 708 ==
LOC: 2ORMAIN 04-23 10:01 → 4SSUR 04-23 17:29
PROVIDERS: ADMIT Urology; ATTEND Urology
PROC: 07TC4ZZ Resection of Pelvis Lymphatic, Percutaneous Endoscopic Approach (ICD-10-PCS; 2018-04-23)
PROC: 8E0W4CZ Robotic Assisted Procedure of Trunk Region, Percutaneous Endoscopic Approach (ICD-10-PCS; 2018-04-23)
PROC: 0VT04ZZ Resection of Prostate, Percutaneous Endoscopic Approach (ICD-10-PCS; principal; 2018-04-23 12:30)
DX: C61 Malignant neoplasm of prostate (principal); G89.29 Other chronic pain; F17.210 Nicotine dependence, cigarettes, uncomplicated; I10 Essential (primary) hypertension; J44.9 Chronic obstructive pulmonary disease, unspecified; M54.9 Dorsalgia, unspecified; K21.9 Gastro-esophageal reflux disease without esophagitis; G40.909 Epilepsy, unspecified, not intractable, without status epilepticus; Z79.51 Long term (current) use of inhaled steroids; Z79.899 Other long term (current) drug therapy
CPT/HCPCS: 86850; 86900; 86901; 88305; 88307; 88309; 94640

== ENCOUNTER 2018-05-14 13:35 | Inpatient (IN) | payer MEDICARE, OTHER ==
[2018-05-14] MEDS ORDERED: MORPHINE SULFATE 4 MG/ML SYRINGE IVP STA ×2 (14:13→17:34)
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
--- NOTE | 2018-05-14 15:36 | US ---
EXAMINATION TYPE: US venous doppler duplex LE LT DATE OF EXAM: 05/14/2018 3:25 PM COMPARISON: NONE CLINICAL HISTORY: Pain. patient has chronic pain, rock hard edematous left leg, patient is uncontroll ably shaking, no h/o dvt, just had prostate removed. SIDE PERFORMED: left TECHNIQUE: The lower extremity deep venous system is examined utilizing real time linear array sonog ronald with graded compression, doppler sonography and color-flow sonography. VESSELS IMAGED: External Iliac Vein (EIV) Common Femoral Vein Deep Femoral Vein Greater Saphenous Vein * Femoral Vein Popliteal Vein Small Saphenous Vein * Proximal Calf Veins (* superficial vessels) Left Leg: , unable to visualize color flow or compression imaging in left dist FV, but was able to d etected doppler flow. IMPRESSION: 1. Limited exam could not exclude a DVT of the left mid superficial femoral vein. See above.
[2018-05-14] MEDS ORDERED: RX INFO: IV CONTRAST WAS GIVEN 1 EACH MISC MISCELLANE PRN (16:21)
[2018-05-14 16:58] LABS: Basophils % (A) 0 %; Eosinophils # (A) 0.2 k/uL (0-0.7); Eosinophils % (A) 2 %; HCT 38.6 % (39.0-53.0); HGB 12.7 gm/dL (13.0-17.5); Lymphocytes # (A) 1.7 k/uL (1.0-4.8); Lymphocytes % (A) 22 %; MCH 30.3 pg (25.0-35.0); MCHC 32.9 g/dL (31.0-37.0); MCV 92.2 fL (80.0-100.0); Mean Platelet Volume 7.7; Monocytes # (A) 0.5 k/uL (0-1.0); Monocytes % (A) 6 %; Neutrophils # (A) 5.3 k/uL (1.3-7.7); Neutrophils % (A) 68 %; Platelet Count 281 k/uL (150-450); RBC 4.19 m/uL (4.30-5.90); RDW 13.5 % (11.5-15.5); WBC 7.8 k/uL (3.8-10.6)
[2018-05-14 17:00] LABS: Albumin 4.2 g/dL (3.5-5.0); Calcium 9.5 mg/dL (8.4-10.2); Magnesium 1.9 mg/dL (1.6-2.3)
[2018-05-14] MEDS ORDERED: LORazepam 2 MG/ML INJ IV STA (17:01)
[2018-05-14 17:03] LABS: Potassium 4.7 mmol/L (3.5-5.1)
[2018-05-14 17:06] LABS: INR 0.9 (<1.2); Partial Thromboplastin Time 23.7 sec (22.0-30.0); Prothrombin Time 9.7 sec (9.0-12.0)
[2018-05-14 17:31] LABS: D-Dimer 4.32 mg/L FEU (<0.60)
--- NOTE | 2018-05-14 18:28 | CT ---
EXAMINATION TYPE: CT angio lower extremity LT DATE OF EXAM: 05/14/2018 6:17 PM COMPARISON: None HISTORY: Pain, swelling lower LT extremity CT DLP: 1487.8 mGycm Automated exposure control for dose reduction was used. TECHNIQUE: Performed with IV Contrast, patient injected with 125 mL of Isovue 370. . There are 3-D post processed images. FINDINGS: The distal abdominal aorta has normal size. There is wide patency of the iliac and femoral arteries. There is patency of the femoral artery bifurcation. There is wide patency of the femoral arteries. There is wide patency of the popliteal and tibial timothy fina. There is wide patency of the tibial artery trifurcations. There is subcutaneous edema around th e left lower leg. On the right side there is arterial flow in the anterior and posterior tibial arteries at the ankle. On the left side there is no demonstrated flow in the distal anterior and posterior tibial arteries. I see no bony destructive process. IMPRESSION: THERE IS NO EVIDENCE OF HEMODYNAMIC STENOSIS OF THE ILIAC AND FEMORAL AND POPLITEAL ARTERIES. THERE I S DIMINISHED ARTERIAL CONTRAST OPACIFICATION DISTAL LEFT TIBIAL ARTERIES. THIS COULD RELATE TO SLOW F LOW OR DISTAL HEMODYNAMIC STENOSIS. SUBCUTANEOUS EDEMA NOTED AROUND THE LEFT LOWER LEG.
[2018-05-14] MEDS ORDERED: HEPARIN SODIUM,PORCINE 10,000 UNIT/ML 1 ML VIAL IV ONE (18:38)
[2018-05-14] MEDS ORDERED: HEPARIN SODIUM,PORCINE 5,000 UNIT/ML 1 ML VIAL IV PRN (18:38)
[2018-05-14] MEDS ORDERED: ONDANSETRON 4 MG/2 ML VIAL IVP PRN (18:39)
[2018-05-14] MEDS ORDERED: NALOXONE 0.4 MG/ML 1 ML VIAL IV PRN (18:39)
[2018-05-14] MEDS: HEPARIN SOD,PORK IN 0.45% NACL 25,000 UNIT in 0.45% NACL 1 250ML.BAG IV SCH (20:38)
[2018-05-14 21:27] LABS: Glucose,Whole Blood 95 mg/dL (75-99)
[2018-05-14] MEDS: MORPHINE SULFATE 4 MG/ML SYRINGE IV PRN (22:22)
[2018-05-14] MEDS: levETIRAcetam 500 MG TAB PO SCH (23:39)
[2018-05-14] MEDS: LORazepam 2 MG/ML INJ IV PRN (23:40)
[2018-05-15] MEDS: MORPHINE SULFATE 4 MG/ML SYRINGE IV PRN ×6 (02:20→22:35)
[2018-05-15] MEDS: LORazepam 2 MG/ML INJ IV PRN (05:43)
[2018-05-15] MEDS: SODIUM CHLORIDE 0.9% 1,000 ML IV SCH ×3 (05:55→20:14)
[2018-05-15] MEDS: DULoxetine HCL 60 MG CAPSULE.DR PO SCH ×2 (08:56→20:14)
[2018-05-15] MEDS: lamoTRIgine 100 MG TAB PO SCH (08:56)
[2018-05-15] MEDS: levETIRAcetam 500 MG TAB PO SCH ×2 (08:56→20:14)
[2018-05-15] MEDS: TAMSULOSIN 0.4 MG CAP.ER.24H PO SCH (08:59)
[2018-05-15] MEDS: oxyCODONE-APAP 5-325MG 1 EACH TAB PO PRN ×2 (09:03→17:07)
[2018-05-15 09:28] LABS: Basophils % (A) 0 %; Eosinophils # (A) 0.2 k/uL (0-0.7); Eosinophils % (A) 3 %; HGB 11.7 gm/dL (13.0-17.5); Lymphocytes # (A) 1.3 k/uL (1.0-4.8); Lymphocytes % (A) 20 %; MCH 30.7 pg (25.0-35.0); MCHC 33.4 g/dL (31.0-37.0); MCV 91.8 fL (80.0-100.0); Mean Platelet Volume 7.6; Monocytes # (A) 0.3 k/uL (0-1.0); Monocytes % (A) 5 %; Neutrophils # (A) 4.6 k/uL (1.3-7.7); Neutrophils % (A) 70 %; Platelet Count 239 k/uL (150-450); RBC 3.81 m/uL (4.30-5.90); RDW 13.6 % (11.5-15.5); WBC 6.5 k/uL (3.8-10.6)
[2018-05-15] MEDS: SYMBICORT 160-4.5 MCG INHALER INHALATION SCH ×2 (09:47→19:37)
[2018-05-15] MEDS: HEPARIN SOD,PORK IN 0.45% NACL 25,000 UNIT in 0.45% NACL 1 250ML.BAG IV SCH (10:00)
[2018-05-15] MEDS ORDERED: FUROSEMIDE 40 MG TAB PO STA (12:25)
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
[2018-05-15] MEDS: CYCLOBENZAPRINE 10 MG TAB PO PRN (13:29)
[2018-05-15] MEDS ORDERED: HEPARIN SODIUM,PORCINE 5,000 UNIT/ML 1 ML VIAL IV STA (15:51)
[2018-05-15] MEDS: PREGABALIN 75 MG CAP PO SCH ×2 (15:57→20:14)
--- NOTE | 2018-05-15 19:04 | CONS ---
CONSULTATION This is a 57 -year-old gentleman who has history of prostate surgery and lymph node dissection for CA of the prostate about April 23. He came with history of marked swelling of the left lower extremity for a few days and patient has been admitted. The patient had a carotid ultrasound of the left leg. Left leg unable to visualize color- flow and does not compresses and Doppler flow was noted which was inconclusive study for a DVT. The patient had a CT of the left extremity no evidence of vascular occlusive disease. PHYSICAL EXAMINATION: Patient was seen in his room. Patient has some marked swelling of the left lower extremity. CHEST: Clear to auscultation. ABDOMEN: Soft, nontender. Vascular examination: Femorals are palpable, dorsal pedis is palpable. Patient has swelling of the left lower extremity. No vascular compromise noted. The patient is on heparin. PLAN: Continue the heparin. Stocking 2 pillow elevation. I will discuss with Internal Medicine for possible CT venography, rule out any iliofemoral DVT. We will follow with you and also the differential impression includes possible due to the lymph node dissection. There is obstruction of the lymphatic system causing lymphedema. MMODL / IJN: [id number] /
[2018-05-15] MEDS: traZODone HCL 100 MG TAB PO SCH (20:14)
[2018-05-16] MEDS: MORPHINE SULFATE 4 MG/ML SYRINGE IV PRN ×6 (02:28→22:37)
[2018-05-16] MEDS: HEPARIN SOD,PORK IN 0.45% NACL 25,000 UNIT in 0.45% NACL 1 250ML.BAG IV SCH ×2 (02:35→16:55)
[2018-05-16] MEDS: oxyCODONE-APAP 5-325MG 1 EACH TAB PO PRN ×3 (04:28→20:58)
[2018-05-16 05:48] LABS: Basophils % (A) 1 %; Eosinophils # (A) 0.4 k/uL (0-0.7); Eosinophils % (A) 6 %; HCT 35.8 % (39.0-53.0); HGB 12.1 gm/dL (13.0-17.5); Lymphocytes # (A) 2.3 k/uL (1.0-4.8); Lymphocytes % (A) 35 %; MCH 31.2 pg (25.0-35.0); MCHC 33.7 g/dL (31.0-37.0); MCV 92.5 fL (80.0-100.0); Mean Platelet Volume 6.7; Monocytes # (A) 0.4 k/uL (0-1.0); Monocytes % (A) 7 %; Neutrophils # (A) 3.2 k/uL (1.3-7.7); Neutrophils % (A) 49 %; Platelet Count 254 k/uL (150-450); RBC 3.87 m/uL (4.30-5.90); RDW 13.6 % (11.5-15.5); WBC 6.5 k/uL (3.8-10.6)
[2018-05-16 06:20] LABS: Anion Gap 5 mmol/L; Blood Urea Nitrogen 14 mg/dL (9-20); Calcium 9.2 mg/dL (8.4-10.2); Carbon Dioxide 28 mmol/L (22-30); Chloride 109 mmol/L (98-107); Glucose 87 mg/dL (74-99); Potassium 3.8 mmol/L (3.5-5.1); Sodium 142 mmol/L (137-145)
[2018-05-16] MEDS: SYMBICORT 160-4.5 MCG INHALER INHALATION SCH ×2 (07:33→19:26)
[2018-05-16] MEDS: TAMSULOSIN 0.4 MG CAP.ER.24H PO SCH (08:54)
[2018-05-16] MEDS: levETIRAcetam 500 MG TAB PO SCH ×2 (08:54→20:58)
[2018-05-16] MEDS: lamoTRIgine 100 MG TAB PO SCH (08:54)
[2018-05-16] MEDS: DULoxetine HCL 60 MG CAPSULE.DR PO SCH ×2 (08:54→20:58)
[2018-05-16] MEDS: PREGABALIN 75 MG CAP PO SCH ×3 (09:10→20:58)
[2018-05-16] MEDS: SODIUM CHLORIDE 0.9% 1,000 ML IV SCH ×2 (09:11→22:43)
[2018-05-16] MEDS: CYCLOBENZAPRINE 10 MG TAB PO PRN (14:32)
--- NOTE | 2018-05-16 14:56 | CT ---
EXAMINATION TYPE: CT abdomen pelvis and left lower extremity and surrounding artifact. W con DATE OF EXAM: 05/16/2018 COMPARISON: 05/14/2018 HISTORY: clinical dvt/hx of prostate cancer CT DLP: 2058.1 mGycm Automated exposure control for dose reduction was used. CONTRAST: CT scan of the abdomen pelvis is performed with IV Contrast, patient injected with 100 mL of Isovue 3 70. FINDINGS- Aorta of normal caliber. The exam was tailored for the venous system. Unfortunately there is suboptim al opacification of the venous system to assess for thrombus. Case discussed with referring physician . A repeat ultrasound was suggested given the limitation of the exam. There is a small amount of free fluid in the pelvis anteriorly. There remains a 6 cm left pelvic side wall mass which could be related to a postoperative seroma although low density adenopathy or other e tiologies including neoplasm not excluded. Hypertrophic and degenerative change of the vertebral column. There does appear to be some diminished caliber to the external iliac vein secondary to this seroma. A trace of pericardial fluid noted. The arterial findings are unchanged previous exam. Patency is seen to the level of the popliteal carol a. Assessment the trifurcation vessels limited due to their diminutive size IMPRESSION- 1. Nondiagnostic assessment of the venous system due to suboptimal opacification. Case discussed with referring clinician. Repeat ultrasound or venogram could BE obtained. There does appear to be reduce d caliber and possible compression of the left external iliac vein at the level of the large left pel mona sidewall mass suspected to be postoperative seroma. 2. Stable left sidewall pelvic mass measuring 6 cm. Cerebral and the differential diagnosis. Other et iologies as discussed above not excluded.
--- NOTE | 2018-05-16 14:57 | CT ---
EXAMINATION TYPE: CT lower leg LT w con DATE OF EXAM: 05/16/2018 COMPARISON: Ultrasound 05/14/2018 HISTORY: Clinical dvt/hx prosate cancer CT DLP: 8.1 mGycm Automated exposure control for dose reduction was used. CONTRAST: Performed with IV Contrast, patient injected with 100 mL of Isovue 370. IMPRESSION: SEE DICTATION CT ABDOMEN PELVIS
[2018-05-16] MEDS: traZODone HCL 100 MG TAB PO SCH (20:58)
[2018-05-17] MEDS: MORPHINE SULFATE 4 MG/ML SYRINGE IV PRN ×4 (02:39→14:45)
[2018-05-17] MEDS: oxyCODONE-APAP 5-325MG 1 EACH TAB PO PRN ×2 (04:36→13:11)
[2018-05-17] MEDS: SYMBICORT 160-4.5 MCG INHALER INHALATION SCH (07:19)
[2018-05-17] MEDS: HEPARIN SOD,PORK IN 0.45% NACL 25,000 UNIT in 0.45% NACL 1 250ML.BAG IV SCH (07:28)
[2018-05-17 07:43] LABS: Basophils % (A) 1 %; Eosinophils # (A) 0.4 k/uL (0-0.7); Eosinophils % (A) 6 %; HCT 38.1 % (39.0-53.0); HGB 12.4 gm/dL (13.0-17.5); Lymphocytes # (A) 1.9 k/uL (1.0-4.8); Lymphocytes % (A) 29 %; MCH 30.8 pg (25.0-35.0); MCHC 32.6 g/dL (31.0-37.0); MCV 94.5 fL (80.0-100.0); Monocytes # (A) 0.4 k/uL (0-1.0); Monocytes % (A) 7 %; Neutrophils # (A) 3.7 k/uL (1.3-7.7); Neutrophils % (A) 56 %; Platelet Count 257 k/uL (150-450); RBC 4.03 m/uL (4.30-5.90); RDW 13.5 % (11.5-15.5); WBC 6.5 k/uL (3.8-10.6)
[2018-05-17] MEDS: TAMSULOSIN 0.4 MG CAP.ER.24H PO SCH (08:32)
[2018-05-17] MEDS: DULoxetine HCL 60 MG CAPSULE.DR PO SCH (08:32)
[2018-05-17] MEDS: levETIRAcetam 500 MG TAB PO SCH (08:32)
[2018-05-17] MEDS: lamoTRIgine 100 MG TAB PO SCH (08:32)
[2018-05-17] MEDS: PREGABALIN 75 MG CAP PO SCH (08:33)
--- NOTE | 2018-05-17 09:52 | US ---
EXAMINATION TYPE: US venous doppler duplex LE LT DATE OF EXAM: 05/17/2018 9:32 AM COMPARISON: Left lower extremity venous ultrasound May 14, 2018 CT CLINICAL HISTORY: R/O DVT . left leg swelling SIDE PERFORMED: Left TECHNIQUE: The lower extremity deep venous system is examined utilizing real time linear array sonog ronald with graded compression, doppler sonography and color-flow sonography. VESSELS IMAGED: External Iliac Vein (EIV) Common Femoral Vein Deep Femoral Vein Greater Saphenous Vein * Femoral Vein Popliteal Vein Proximal Calf Veins (* superficial vessels) Dr. Bee present for exam. Left Leg: Negative for DVT, Additional images taken distal FV where flow was unable to be shown on p rior. Grayscale, color doppler, spectral doppler imaging performed of the deep veins of the left lower extr emity. There is normal flow, compressibility, vascular waveforms on current study. IMPRESSION: No evidence of acute DVT on current study. More successful visualization on current stud y.
--- NOTE | 2018-05-17 10:36 | PN ---
PROGRESS NOTE This patient is a 57-year-old gentleman who had a prostatectomy and lymph node dissection for carcinoma of the prostate. The patient came with marked swelling of the left lower extremity. Patient had a venous ultrasound done which showed that the left superficial vein was small in caliber; could not rule out DVT. The patient has been on heparin. CT venography shows there is a fluid collection of 6 cm in the left pelvic sidewall. There is suboptimal opacification of the venous system to assess for the thrombus. Today we did the ultrasound, and his left external iliac vein was found to be patent and compressible. Common femoral vein was compressible. In distal femoral vein there was flow noted. Popliteal vein was visualized and compressible and augments. We did not see any thrombus in the venous system. His swelling is completely gone. PLAN: We will discontinue the heparin. Continue with SOL hose and leg elevation. MMODL / IJN: [id number] /
[2018-05-17] MEDS: SODIUM CHLORIDE 0.9% 1,000 ML IV SCH (14:37)
[2018-05-17 14:43] VITALS: BP 147/82; PULSE 87; RESP 16; TEMP 98.6
--- NOTE | 2018-05-17 15:14 | P.DS ---
Providers Date of admission: 05/14/18 19:17 Attending physician: Shashank Jarrett MD Consults: 05/15/18 11:32 Consult Physician Routine Consulting Provider: Quinton Bee Consult Reason/Comments: R/O DVT Do you want consulting provider notified?: Yes Primary care physician: [facility] Course: 57-year-old admitted with the left leg swelling there was a suspicion of DVT Doppler of the left lower extremity did not rule out any DVT patient had CT venogram which did not show any evidence of DVT because of which IV heparin is being discontinued last for surgery evaluated the patient unfortunately there is no good treatment for his lymphedema of the left leg patient will be given Lasix after which his creatinine remained stable because of which I'll discharge him on oral Lasix with potassium supplementation along with compression socks. Patient does have prostatic adenocarcinoma patient will follow with urology as an outpatient. Patient's Awa score is 7 PHYSICAL EXAMINATION: GENERAL: The patient is alert and oriented x3, not in any acute distress. Well developed, well nourished. HEENT: Pupils are round and equally reacting to light. EOMI. No scleral icterus. No conjunctival pallor. Normocephalic, atraumatic. No pharyngeal erythema. No thyromegaly. CARDIOVASCULAR: S1 and S2 present. No murmurs, rubs, or gallops. PULMONARY: Chest is clear to auscultation, no wheezing or crackles. ABDOMEN: Soft, nontender, nondistended, normoactive bowel sounds. No palpable organomegaly. MUSCULOSKELETAL: No joint swelling or deformity. EXTREMITIES: He still has edema of the left leg and some pain in the leg although better NEUROLOGICAL: Gross neurological examination did not reveal any focal deficits. SKIN: No rashes. Assessment and Plan Plan: -Left leg pain and edema: Rule out DVT and patient probably has lymphedema of the left leg lymphedema secondary to radical lymphadenectomy the pelvis recently -Recent prostatectomy laparoscopic with lymphadenectomy. 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 -Fibromyalgia -Gastroesophageal reflux disease -Seizure disorder -COPD without any acute exacerbation although patient continues to smoke 1-2 cigarettes a day which she has cut down from 2 packs per day Patient Condition at Discharge: Fair Plan - Discharge Summary Discharge Rx Participant: No New Discharge Prescriptions: New Furosemide [Lasix] 40 mg PO DAILY #30 tablet Potassium Chloride ER [K-Dur 10] 10 meq PO DAILY #30 tab Continue levETIRAcetam [Keppra] 1,000 mg PO BID Pregabalin [Lyrica] 150 mg PO TID Cyclobenzaprine [Flexeril] 5 mg PO DAILY PRN PRN Reason: Muscle Spasm lamoTRIgine [LaMICtal] 100 mg PO DAILY Tamsulosin HCl [Flomax] 0.4 mg PO DAILY Ergocalciferol [Vitamin D2 (DRISDOL)] 50,000 unit PO Q14D Albuterol Inhaler [Ventolin Hfa Inhaler] 1 - 2 puff INHALATION RT-Q6H PRN PRN Reason: Shortness Of Breath DULoxetine HCL [Cymbalta] 60 mg PO BID traZODone HCL [Desyrel] 100 mg PO HS Budesonide-Formot 160-4.5 Mcg [Symbicort 160-4.5 Mcg Inhaler] 2 puff INHALATION RT-BID oxyCODONE HCL/ACETAMINOPHEN [Percocet 10-325 mg] 1 tab PO Q4HR PRN 3 Days # 18 tab PRN Reason: Pain Discharge Medication List Cyclobenzaprine [Flexeril] 5 mg PO DAILY PRN 11/27/17 [History] Pregabalin [Lyrica] 150 mg PO TID 11/27/17 [History] lamoTRIgine [LaMICtal] 100 mg PO DAILY 11/27/17 [History] levETIRAcetam [Keppra] 1,000 mg PO BID 11/27/17 [History] Tamsulosin HCl [Flomax] 0.4 mg PO DAILY 04/04/18 [History] Albuterol Inhaler [Ventolin Hfa Inhaler] 1 - 2 puff INHALATION RT-Q6H PRN [History] DULoxetine HCL [Cymbalta] 60 mg PO BID 04/10/18 [History] Ergocalciferol [Vitamin D2 (DRISDOL)] 50,000 unit PO Q14D 04/10/18 [History] traZODone HCL [Desyrel] 100 mg PO HS 04/12/18 [History] Budesonide-Formot 160-4.5 Mcg [Symbicort 160-4.5 Mcg Inhaler] 2 puff INHALATION RT-BID 04/17/18 [History] oxyCODONE HCL/ACETAMINOPHEN [Percocet 10-325 mg] 1 tab PO Q4HR PRN 3 Days #18 tab 05/16/18 [Rx] Furosemide [Lasix] 40 mg PO DAILY #30 tablet 05/17/18 [Rx] Potassium Chloride ER [K-Dur 10] 10 meq PO DAILY #30 tab 05/17/18 [Rx] Follow up Appointment(s)/Referral(s): Nima Ma MD [STAFF PHYSICIAN] - 1 Week [facility], [NON-STAFF] - [facility] [Primary Care Provider] - 1 Week Activity/Diet/Wound Care/Special Instructions: Continue with SOL hose to bilateral legs. Make follow up appointment with primary care on Saturday Please make appointment with pain clinic (Dr. Ma) for pain management. Discharge Disposition: HOME WITH HOME HEALTH SERVICES
[2018-05-21] MEDS ORDERED: ERGOCALCIFEROL 50,000 UNIT CAP PO SCH (09:00)
== END 2018-05-17 15:22 | disposition home health service (06) | DRG 607 ==
LOC: EC 13:35 → 4MS4W 19:17
PROVIDERS: ADMIT Internal Medicine; ATTEND Internal Medicine
DX: I89.0 Lymphedema, not elsewhere classified (principal); G62.9 Polyneuropathy, unspecified; C61 Malignant neoplasm of prostate; E16.2 Hypoglycemia, unspecified; F17.210 Nicotine dependence, cigarettes, uncomplicated; F31.9 Bipolar disorder, unspecified; F41.9 Anxiety disorder, unspecified; F90.9 Attention-deficit hyperactivity disorder, unspecified type; G40.909 Epilepsy, unspecified, not intractable, without status epilepticus; G89.29 Other chronic pain; I10 Essential (primary) hypertension; J44.9 Chronic obstructive pulmonary disease, unspecified; K21.9 Gastro-esophageal reflux disease without esophagitis; M79.7 Fibromyalgia; G43.909 Migraine, unspecified, not intractable, without status migrainosus; I83.90 Asymptomatic varicose veins of unspecified lower extremity; M19.90 Unspecified osteoarthritis, unspecified site; M54.5 Low back pain; M79.604 Pain in right leg; I73.9 Peripheral vascular disease, unspecified; Z79.51 Long term (current) use of inhaled steroids; Z79.899 Other long term (current) drug therapy; Z88.5 Allergy status to narcotic agent; Z86.14 Personal history of Methicillin resistant Staphylococcus aureus infection; Z90.79 Acquired absence of other genital organ(s); Z91.81 History of falling; Z82.49 Family history of ischemic heart disease and other diseases of the circulatory system
CPT/HCPCS: 36415; 74177; 80048; 80053; 83735; 84484; 85025; 85379; 85610; 85730; 93005; 94640; 96374; 96375; 96376; 99285

== ENCOUNTER → 2018-05-23 | Outpatient (CLI) | payer MEDICARE, OTHER | END | disposition home or self-care (01) | LOC: LABWHC1 08:42 | PROVIDERS: ATTEND Urology | DX: C61 Malignant neoplasm of prostate (principal) | CPT/HCPCS: 36415; 84153 ==

== ENCOUNTER 2018-06-06 14:55 | Emergency (ER) | payer MEDICARE, OTHER ==
[2018-06-06 15:59] LABS: Basophils # (A) 0.1 k/uL (0-0.2); Basophils % (A) 0 %; Eosinophils # (A) 0.3 k/uL (0-0.7); Eosinophils % (A) 2 %; HCT 44.5 % (39.0-53.0); HGB 14.6 gm/dL (13.0-17.5); Lymphocytes # (A) 2.5 k/uL (1.0-4.8); Lymphocytes % (A) 19 %; MCH 30.7 pg (25.0-35.0); MCHC 32.9 g/dL (31.0-37.0); MCV 93.3 fL (80.0-100.0); Mean Platelet Volume 7.9; Monocytes # (A) 0.9 k/uL (0-1.0); Monocytes % (A) 6 %; Neutrophils # (A) 9.5 k/uL (1.3-7.7); Neutrophils % (A) 71 %; Platelet Count 330 k/uL (150-450); RBC 4.78 m/uL (4.30-5.90); RDW 13.2 % (11.5-15.5); WBC 13.4 k/uL (3.8-10.6)
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
[2018-06-06 16:09] LABS: Albumin 4.6 g/dL (3.5-5.0); Calcium 9.5 mg/dL (8.4-10.2); Potassium 4.6 mmol/L (3.5-5.1); Total Bilirubin 0.6 mg/dL (0.2-1.3); Total Protein 7.3 g/dL (6.3-8.2)
[2018-06-06] MEDS ORDERED: MORPHINE SULFATE 4 MG/ML SYRINGE IVP STA (16:09)
--- NOTE | 2018-06-06 17:16 | CT ---
EXAMINATION TYPE: CT abdomen pelvis wo con DATE OF EXAM: 06/06/2018 COMPARISON: 05/16/2018 CT HISTORY: Dysuria, history of prostate cancer. CT DLP: 741.2 mGycm Automated exposure control for dose reduction was used. TECHNIQUE: Helical acquisition of images was performed from the lung bases through the pelvis. FINDINGS: Within the limitations of noncontrast CT the following observations are made: LUNG BASES: No significant abnormality is appreciated. LIVER/GB: No significant abnormality is appreciated. PANCREAS: No significant abnormality is seen. SPLEEN: No significant abnormality is seen. ADRENALS: No significant abnormality is seen. KIDNEYS AND URETERS AND URINARY BLADDER: No acute findings. There is, there is no hydronephrosis or h ydroureter. Urinary bladder is widely distended but is otherwise unremarkable. There are no renal mo cifications. FREE AIR: No free air is visualized RETROPERITONEAL ADENOPATHY: None visualized REPRODUCTIVE ORGANS: No significant abnormality is seen PELVIC ADENOPATHY: No adenopathy. However, previously seen left pelvic sidewall water attenuation mas s in the left iliac lymph node positions is redemonstrated, but less than one half its volume seen on the previous study; currently measuring approximately 5 x 5 x 2 cm in greatest dimensions. OSSEOUS STRUCTURES: No significant abnormality is seen. BOWEL: No significant abnormality is seen. IMPRESSION: INTERVAL DECREASE IN THE WATER ATTENUATION SMOOTHLY MARGINATED ROUNDED LEFT PELVIC SIDEWALL MASS; SINA PECT DIAGNOSIS OF SEROMA/LYMPHOCELE WHICH CAN BE PROVEN WITH FOLLOW-UP IMAGING.
[2018-06-06 18:03] LABS: Appearance,Urine Clear (Clear); Bilirubin,Urine Negative (Negative); Blood,Urine Negative (Negative); Color,Urine Light Yellow; Glucose,Urine (UA) Negative (Negative); Granular Casts,Urine 1 /lpf (0); Hyaline Casts,Urine 12 /lpf (0-2); Ketones,Urine Negative (Negative); Leukocyte Esterase,Urine Trace (Negative); Mucus,Urine Rare /hpf; Nitrite,Urine Negative (Negative); Protein,Urine Negative (Negative); RBC,Urine 1 /hpf (0-5); Specific Gravity,Urine 1.006 (1.001-1.035); Squamous Epithelial Cell,Urine <1 /hpf (0-4); Urobilinogen,Urine <2.0 mg/dL (<2.0); WBC,Urine 3 /hpf (0-5)
[2018-06-06 18:33] VITALS: BP 112/81; PULSE 85; RESP 19; TEMP 98.1
== END 2018-06-06 18:33 | disposition home or self-care (01) ==
LOC: EC 14:55
DX: R10.31 Right lower quadrant pain (principal); R39.198 Other difficulties with micturition; I10 Essential (primary) hypertension; M19.90 Unspecified osteoarthritis, unspecified site; G40.909 Epilepsy, unspecified, not intractable, without status epilepticus; F31.9 Bipolar disorder, unspecified; F90.9 Attention-deficit hyperactivity disorder, unspecified type; F41.9 Anxiety disorder, unspecified; F17.200 Nicotine dependence, unspecified, uncomplicated; Z85.46 Personal history of malignant neoplasm of prostate; Z86.14 Personal history of Methicillin resistant Staphylococcus aureus infection; Z79.899 Other long term (current) drug therapy; Z88.5 Allergy status to narcotic agent
CPT/HCPCS: 36415; 80053; 82150; 83690; 85025; 81001; 74176; 99284; 96374; J2270

== ENCOUNTER → 2018-07-14 | Outpatient (CLI) | payer MEDICARE, OTHER ==
--- NOTE | 2018-07-14 13:20 | XR ---
EXAMINATION TYPE: XR chest 2V DATE OF EXAM: 07/14/2018 COMPARISON: 08/03/2017 HISTORY: 58-year-old male with chest pain and abdominal pain TECHNIQUE: Frontal and lateral views FINDINGS: Heart normal size. Mild interstitial prominence and mild hyperinflation. No consolidation or pleural effusion seen. IMPRESSION: Chronic changes, possible underlying COPD. No acute process seen.
--- NOTE | 2018-07-14 13:23 | XR ---
EXAMINATION TYPE: XR abdomen complete w decub DATE OF EXAM: 07/14/2018 COMPARISON: NONE HISTORY: 58 year-old male chest pain on breathing, abdominal pain TECHNIQUE: Supine, upright, and left side down lateral decubitus views of the abdomen are obtained. FINDINGS: There is no evidence for pneumoperitoneum. No differential air-fluid levels seen. Few mildly dilated small bowel loops seen within the left mid abdomen measuring up to 3.7 cm. Colonic air is present throughout. Moderate stool burden. No signific ant stool within the rectum. IMPRESSION: 1. A few mildly dilated small bowel within the left mid abdomen are nonspecific. They may represent a regional ileus or enteritis. The presence of prominent colonic gas argues against small bowel obstr uction at this time. Radiographic follow-up as clinically indicated. 2. Moderate stool burden.
== END | disposition home or self-care (01) ==
LOC: RADXRMAIN 10:20
PROVIDERS: ATTEND Nurse Practitioner
DX: K63.89 Other specified diseases of intestine (principal); R91.8 Other nonspecific abnormal finding of lung field; R07.1 Chest pain on breathing
CPT/HCPCS: 71046; 74021

== ENCOUNTER → 2018-12-12 | Outpatient (CLI) | payer MEDICARE | END | disposition home or self-care (01) | LOC: LABWHC1 08:23 | PROVIDERS: ATTEND Urology | DX: C61 Malignant neoplasm of prostate (principal) | CPT/HCPCS: 36415; 84153 ==

== ENCOUNTER 2019-03-30 02:32 | Observation (INO) | payer MEDICARE ==
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
[2019-03-30] MEDS ORDERED: IPRATROPIUM-ALBUTEROL 3 ML NEB INHALATION STA (02:51)
[2019-03-30] MEDS ORDERED: ASPIRIN 81 MG PO STA (02:51)
[2019-03-30] MEDS ORDERED: LORazepam 1 MG TAB PO STA (02:52)
[2019-03-30 03:11] LABS: Basophils # (A) 0.1 k/uL (0-0.2); Basophils % (A) 1 %; Eosinophils # (A) 0.3 k/uL (0-0.7); Eosinophils % (A) 3 %; HCT 41.1 % (39.0-53.0); HGB 13.9 gm/dL (13.0-17.5); Lymphocytes # (A) 2.2 k/uL (1.0-4.8); Lymphocytes % (A) 21 %; MCH 31.4 pg (25.0-35.0); MCHC 33.7 g/dL (31.0-37.0); MCV 93.1 fL (80.0-100.0); Mean Platelet Volume 8.5; Monocytes # (A) 0.5 k/uL (0-1.0); Monocytes % (A) 5 %; Neutrophils # (A) 7.3 k/uL (1.3-7.7); Neutrophils % (A) 69 %; Platelet Count 279 k/uL (150-450); RBC 4.42 m/uL (4.30-5.90); RDW 13.5 % (11.5-15.5); WBC 10.5 k/uL (3.8-10.6)
[2019-03-30 03:16] LABS: ALT 67 U/L (4-49); AST 32 U/L (17-59); African American GFR (CKD) >90 (>60 ml/min/1.73 sqM); Albumin 4.2 g/dL (3.5-5.0); Alkaline Phosphatase 91 U/L (38-126); Anion Gap 6 mmol/L; Blood Urea Nitrogen 13 mg/dL (9-20); Calcium 9.3 mg/dL (8.4-10.2); Carbon Dioxide 26 mmol/L (22-30); Chloride 108 mmol/L (98-107); Glucose 130 mg/dL (74-99); Magnesium 2.1 mg/dL (1.6-2.3); Non-African American GFR(CKD) >90 (>60 ml/min/1.73 sqM); Potassium 4.5 mmol/L (3.5-5.1); Sodium 140 mmol/L (137-145); Total Bilirubin 0.6 mg/dL (0.2-1.3); Total Protein 6.7 g/dL (6.3-8.2)
[2019-03-30 03:20] LABS: INR 0.8 (<1.2); Partial Thromboplastin Time 22.5 sec (22.0-30.0); Prothrombin Time 9.3 sec (9.0-12.0)
--- NOTE | 2019-03-30 03:24 | XR ---
EXAMINATION TYPE: XR chest 2V DATE OF EXAM: 03/30/2019 COMPARISON: 08/03/2017 HISTORY: Chest pain TECHNIQUE: FINDINGS: There is no heart failure nor confluent pneumonic infiltrate. Heart appears slightly enlarg ed. Costophrenic angles are clear. There is osteopenia. IMPRESSION: No active cardiopulmonary disease. Mild cardiomegaly. No change.
[2019-03-30] MEDS ORDERED: methylPREDNISolone SOD SUCCI 125 MG/2 ML VIAL IV STA (04:09)
[2019-03-30] MEDS: predniSONE 20 MG TAB PO SCH (09:59)
[2019-03-30] MEDS: IPRATROPIUM-ALBUTEROL 3 ML NEB INHALATION PRN ×2 (10:38→20:31)
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
[2019-03-30] MEDS: OXYBUTYNIN CHLORIDE 5 MG TAB PO SCH ×2 (13:05→20:17)
[2019-03-30] MEDS: lamoTRIgine 100 MG TAB PO SCH (13:05)
[2019-03-30] MEDS: PREGABALIN 75 MG CAP PO SCH ×3 (13:06→20:17)
[2019-03-30] MEDS: CHOLECALCIFEROL 1,000 UNIT TAB PO SCH (13:07)
[2019-03-30] MEDS: FUROSEMIDE 40 MG TAB PO SCH (13:08)
[2019-03-30] MEDS: levETIRAcetam 500 MG TAB PO SCH ×2 (13:08→20:17)
[2019-03-30] MEDS: POTASSIUM CHLORIDE ER 10 MEQ TAB.ER.PRT PO SCH (13:09)
[2019-03-30] MEDS: TAMSULOSIN 0.4 MG CAP.ER.24H PO SCH (13:09)
[2019-03-30] MEDS: DULoxetine HCL 60 MG CAPSULE.DR PO SCH ×2 (13:10→20:17)
[2019-03-30] MEDS: LISINOPRIL 5 MG TAB PO SCH ×2 (13:11→13:40)
[2019-03-30] MEDS: oxyCODONE-APAP 10-325MG 1 EACH TAB PO SCH ×3 (13:11→20:21)
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
[2019-03-30] MEDS: BREXPIPRAZOLE 2 MG PO SCH (14:43)
[2019-03-30] MEDS: BACLOFEN 10 MG TAB PO SCH (20:17)
[2019-03-31 06:26] VITALS: BP 116/71; RESP 18; TEMP 97.5
[2019-03-31] MEDS: TAMSULOSIN 0.4 MG CAP.ER.24H PO SCH (07:02)
[2019-03-31] MEDS: BACLOFEN 10 MG TAB PO SCH (07:02)
[2019-03-31] MEDS: CHOLECALCIFEROL 1,000 UNIT TAB PO SCH (07:03)
[2019-03-31] MEDS: predniSONE 20 MG TAB PO SCH (07:03)
[2019-03-31] MEDS: PREGABALIN 75 MG CAP PO SCH (07:03)
[2019-03-31] MEDS: levETIRAcetam 500 MG TAB PO SCH (07:04)
[2019-03-31] MEDS: lamoTRIgine 100 MG TAB PO SCH (07:04)
[2019-03-31] MEDS: POTASSIUM CHLORIDE ER 10 MEQ TAB.ER.PRT PO SCH (07:04)
[2019-03-31] MEDS: LISINOPRIL 5 MG TAB PO SCH (07:04)
[2019-03-31] MEDS: DULoxetine HCL 60 MG CAPSULE.DR PO SCH (07:04)
[2019-03-31] MEDS: FUROSEMIDE 40 MG TAB PO SCH (07:04)
[2019-03-31] MEDS: OXYBUTYNIN CHLORIDE 5 MG TAB PO SCH (07:04)
[2019-03-31] MEDS: BREXPIPRAZOLE 2 MG PO SCH (07:08)
[2019-03-31] MEDS: IPRATROPIUM-ALBUTEROL 3 ML NEB INHALATION PRN ×2 (07:34→11:17)
[2019-03-31] MEDS: oxyCODONE-APAP 10-325MG 1 EACH TAB PO SCH (08:02)
[2019-03-31 08:50] LABS: HCT 45.1 % (39.0-53.0); HGB 14.8 gm/dL (13.0-17.5); MCH 31.2 pg (25.0-35.0); MCHC 32.8 g/dL (31.0-37.0); Mean Platelet Volume 8.6; Platelet Count 263 k/uL (150-450); RBC 4.74 m/uL (4.30-5.90); RDW 13.9 % (11.5-15.5); WBC 26.7 k/uL (3.8-10.6)
[2019-03-31 09:15] LABS: Calcium 9.9 mg/dL (8.4-10.2)
[2019-03-31 09:20] LABS: Potassium 4.9 mmol/L (3.5-5.1)
[2019-03-31 11:29] VITALS: PULSE 84
--- NOTE | 2019-03-31 12:30 | P.PN ---
Subjective Progress Note Date: 03/31/19 Principal diagnosis: Acute exacerbation of chronic obstructive pulmonary disease 58-year-old white male patient who receives his care at the [facility] [place], and follows with JOHNIE Cantrell, with past medical history of COPD, normally not oxygen dependent, history of nicotine dependence, patient carries [id number] smoking history, continues to smoke, one pack daily, hypertension, fibromyalgia, prostate cancer with surgery, previous history of MRSA infection, ADD/ADHD, anxiety, bipolar disorder, and seizure disorder taint on [facility]. Patient presented to the emergency department on 03/30/2019, complaints of worsening dyspnea, that has been progressive over a period of several days. States last night it became much worse, and patient felt like he could not get a full breath, he states his chest was hurting with deep breathing. denied hemoptysis, he states he did feel a bit nauseous, and briefly sweaty, which had resolved. He states he went outside to get some fresh air, and finally called the ambulance. Denied any cough or congestion. denied any fevers, chills denied any vomiting, denying any recent illness. chest x-ray was completed showing no active cardiopulmonary disease. EKG showed normal sinus rhythm with evidence of old inferior infarct of undetermined age. CBC was unremarkable, and her was 0.8, electrolytes and renal profile were unremarkable, troponin was negative at less than 0.012, proBNP was within normal limit at 75. Denies any swelling in lower extremities, no calf tenderness. No cough or phlegm production. in the ER she received IV Solu-Medrol and breathing treatments and he states his breathing is somewhat improved since he came in. The patient is seen today 03/31/2019 and follow-up on the regular medical floor. He is currently sitting up in a chair at the bedside. Awake and alert in no acute distress. His breathing is pretty much back to his baseline. He is maintaining O2 saturations in the 90s on room air. White count 26.7. Hemoglobin 14.8. Sodium 140. Potassium 4.9. Creatinine 1.24. He's been treated with DuoNeb inhalations and steroids. Objective - Vital Signs Vital signs: Vital Signs Temp 97.5 F L 03/31/19 06:15 Pulse 84 03/31/19 11:29 Resp 18 03/31/19 06:15 BP 116/71 03/31/19 06:15 Pulse Ox 96 03/31/19 11:08 Intake & Output 03/30/19 03/31/19 03/31/19 18:59 06:59 18:59 Weight 104.326 kg Other: # Voids 1 - Exam GENERAL EXAM: Alert, 58-year-old white male, currently on room air, with a pulse ox of 94%, comfortable in no apparent distress. HEAD: Normocephalic/atraumatic. EYES: Normal reaction of pupils, equal size. Conjunctiva pink, sclera white. NOSE: Clear with pink turbinates. THROAT: No erythema or exudates. NECK: No masses, no JVD, no thyroid enlargement, no adenopathy. CHEST: No chest wall deformity. Symmetrical expansion. LUNGS: diminished air entry with no crackles, wheeze, rhonchi or dullness. CVS: Regular rate and rhythm, normal S1 and S2, no gallops, no murmurs, no rubs ABDOMEN: Soft, nontender. No hepatosplenomegaly, normal bowel sounds, no guarding or rigidity. EXTREMITIES: No clubbing, no edema, no cyanosis, 2+ pulses and upper and lower extremities. MUSCULOSKELETAL: Muscle strength and tone normal. SPINE: No scoliosis or deformity SKIN: No rashes CENTRAL NERVOUS SYSTEM: Alert and oriented -3. No focal deficits, tone is normal in all 4 extremities. PSYCHIATRIC: Alert and oriented -3. Appropriate affect. Intact judgment and insight. - Labs CBC & Chem 7: 03/31/19 08:18 03/31/19 08:18 Labs: Abnormal Lab Results - Last 24 Hours (Table) 03/31/19 03/31/19 Range/Units 08:18 08:18 WBC 26.7 H (3.8-10.6) k/uL BUN 27 H (9-20) mg/dL Glucose 171 H (74-99) mg/dL Assessment and Plan Assessment: #1. Acute dyspnea, possibly related to mild COPD exacerbation, chest x-ray showed no acute pulmonary process #2. Suspect underlying COPD, and the severity of which is unknown at this time, but patient is not oxygen dependent at baseline #3. History of prostate cancer status post prostatectomy and lymphadenectomy #4. Chronic low back pain with radiculopathy and peripheral neuropathy #5. Fibromyalgia #6. GERD/reflux #7. Seizure disorder, patient's last seizure was a year and half ago #8. [id number] smoking history, and patient is a current smoker #9. Anxiety #10. Bipolar disorder with previous hospitalizations related to multiple drug overdoses #11.history of ADD/ADHD #12. History of methicillin-resistant staph aureus infection in the left arm in 2012 Plan: The patient was seen and evaluated by Dr. Palomino. He is improved and stable from the pulmonary standpoint he could be discharged home. Complete prednisone taper starting at 40 mg for 4 days. He does follow at the [facility]. If he is able he could follow-up in our office for full pulmonary function testing to evaluate the severity of his suspected COPD and make recommendations for for maintenance medications. He verbalized understanding and is agreeable to this plan. I, the cosigning physician, performed a history & physical examination of the patient. Lungs sounds are clear, diminished. Maintaining good O2 saturations in the 90s on room air. I discussed the assessment and plan of care with my nurse practitioner, Zaira Dior. I attest to the above note as dictated by her.
[2019-03-31] MEDS ORDERED: oxyCODONE-APAP 10-325MG 1 EACH TAB PO SCH (13:00)
--- NOTE | 2019-03-31 17:00 | P.DS ---
Providers Date of admission: 03/30/19 04:56 Expected date of discharge: 03/31/19 Attending physician: Janet Garcia Consults: 03/30/19 04:56 Consult Physician Routine Consulting Provider: Elena Mae Consult Reason/Comments: COPD, no hx of, daily smoker Do you want consulting provider notified?: Yes, Notify in am Primary care physician: [facility] Course: Final diagnosis -COPD exacerbation, cute -History of prostate cancer -Continued nicotine use -Chronic low back pain -Hypertension -Gastroesophageal reflux disease -seizure disorder -Bipolar disorder discharge disposition Patient is being discharged in a stable condition with guarded prognosis to home and will follow-up with primary care provider at the [facility] upon discharge. Patient will also follow-up with pulmonary Dr. Palomino in 2-3 weeks for pulmonary function testing. Patient will continue with prednisone taper upon discharge. Total time taken is 35 minutes. History of present illness 58-year-old pleasant gentleman came in with COPD exacerbation wheezing significant improved with the breathing treatments and systemic steroids continues to smoke but trying to quit unable to quit doesn't use any onset at home denied any fever chills doesn't have any pneumonia on the chest x-ray. Patient is being admitted for COPD exacerbation. He is comparing of cough with whitish sputum production symptoms has been going on about 3-4 days 03/31/2019 Patient is sitting up in the chair and appears to be in no acute distress. Patient was on 3 L of oxygen via nasal cannula and satting in the high 90s. Discussed with nursing staff about weaning patient off oxygen and was maintaining 92-94% on room air. Pulmonary was following and cleared the patient for discharge today. Patient will continue on a short course of prednisone taper and will follow-up with primary care provider upon discharge. Patient will also follow-up with Dr. Palomino's office in the outpatient setting in 2-3 weeks for pulmonary function testing. Currently patient denies any chest pain, shortness of breath, or palpitations. Patient is afebrile. Patient denies any nausea or vomiting and is tolerating diet. Patient continues to have generalized pain and states that he takes his Percocets 4 times a day. Discussed with the patient at length about following up with pain management and clarifying medications. On exam vital signs are stable. Temp is 97.5F, pulse is 93, respirations are 18, blood pressure is 116/71, oxygen saturation is 96% on room air. Cardio S1, S2 are muffled. Respiratory system shows diminished breath sounds at the bases with no wheezing noted. Abdomen is soft, obese, nontender. Nervous system shows no focal deficits. These refer to medication reconciliation sheet for a list of medications. Patient Condition at Discharge: Stable Plan - Discharge Summary Discharge Rx Participant: No New Discharge Prescriptions: New oxyCODONE-APAP 10-325MG [Percocet 10-325 mg] 1 each PO QID tab predniSONE 10 mg PO DIRECTED #50 tab Continue levETIRAcetam [Keppra] 1,000 mg PO BID Pregabalin [Lyrica] 150 mg PO TID DULoxetine HCL [Cymbalta] 60 mg PO BID Furosemide [Lasix] 40 mg PO DAILY #30 tablet Potassium Chloride ER [K-Dur 10] 10 meq PO DAILY #30 tab lamoTRIgine [LaMICtal] 200 mg PO DAILY Lisinopril [Zestril] 5 mg PO DAILY Lisinopril [Zestril] 10 mg PO DAILY Cholecalciferol [Vitamin D3 (25 Mcg = 1000 Iu)] 5,000 unit PO DAILY Baclofen [Lioresal] 10 mg PO BID Oxybutynin Chloride [Ditropan] 5 mg PO BID Brexpiprazole [Rexulti] 2 mg PO DAILY Albuterol Sulfate [Ventolin HFA] 1 - 2 puff INHALATION RT-Q6H PRN PRN Reason: Shortness Of Breath Tamsulosin HCl [Flomax] 0.4 mg PO DAILY Discontinued oxyCODONE HCL/ACETAMINOPHEN [Percocet 10-325 mg] 1 tab PO TID Discharge Medication List Pregabalin [Lyrica] 150 mg PO TID 11/27/17 [History] levETIRAcetam [Keppra] 1,000 mg PO BID 11/27/17 [History] DULoxetine HCL [Cymbalta] 60 mg PO BID 04/10/18 [History] Furosemide [Lasix] 40 mg PO DAILY #30 tablet 05/17/18 [Rx] Potassium Chloride ER [K-Dur 10] 10 meq PO DAILY #30 tab 05/17/18 [Rx] Lisinopril [Zestril] 5 mg PO DAILY 06/06/18 [History] Lisinopril [Zestril] 10 mg PO DAILY 06/06/18 [History] lamoTRIgine [LaMICtal] 200 mg PO DAILY 06/06/18 [History] Albuterol Sulfate [Ventolin HFA] 1 - 2 puff INHALATION RT-Q6H PRN 03/30/19 [History] Baclofen [Lioresal] 10 mg PO BID 03/30/19 [History] Brexpiprazole [Rexulti] 2 mg PO DAILY 03/30/19 [History] Cholecalciferol [Vitamin D3 (25 Mcg = 1000 Iu)] 5,000 unit PO DAILY 03/30/19 [History] Oxybutynin Chloride [Ditropan] 5 mg PO BID 03/30/19 [History] Tamsulosin HCl [Flomax] 0.4 mg PO DAILY 03/30/19 [History] oxyCODONE-APAP 10-325MG [Percocet 10-325 mg] 1 each PO QID tab 03/31/19 [Rx] predniSONE 10 mg PO DIRECTED #50 tab 03/31/19 [Rx] Follow up Appointment(s)/Referral(s): Bryan Palomino MD [STAFF PHYSICIAN] - 1 Week (Please call office to make appointment) [facility] [Primary Care Provider] - 1-2 days Patient Instructions/Handouts: COPD (Chronic Obstructive Pulmonary Disease) (DC) Activity/Diet/Wound Care/Special Instructions: Activity Limited until follow-up Continue with prednisone taper Follow-up with primary care provider upon discharge Follow-up with pulmonary for additional pulmonary testing in 2-3 weeks Continue current diet Discharge Disposition: HOME SELF-CARE
== END 2019-03-31 16:07 | disposition home or self-care (01) ==
LOC: EC 02:32 → 4SSUR 04:56 → 5NMEDONC 09:00 → 6NMEDSUR 13:12
PROVIDERS: ADMIT Hospitalist; ATTEND Hospitalist
DX: J44.1 Chronic obstructive pulmonary disease with (acute) exacerbation (principal); F17.200 Nicotine dependence, unspecified, uncomplicated; F31.9 Bipolar disorder, unspecified; F41.9 Anxiety disorder, unspecified; F90.9 Attention-deficit hyperactivity disorder, unspecified type; G40.909 Epilepsy, unspecified, not intractable, without status epilepticus; G89.29 Other chronic pain; E66.9 Obesity, unspecified; Z68.32 Body mass index [BMI] 32.0-32.9, adult; I10 Essential (primary) hypertension; K21.9 Gastro-esophageal reflux disease without esophagitis; M54.10 Radiculopathy, site unspecified; M79.7 Fibromyalgia; Z79.899 Other long term (current) drug therapy; Z82.49 Family history of ischemic heart disease and other diseases of the circulatory system; Z85.46 Personal history of malignant neoplasm of prostate; Z86.14 Personal history of Methicillin resistant Staphylococcus aureus infection; Z90.79 Acquired absence of other genital organ(s); Z88.5 Allergy status to narcotic agent; M54.5 Low back pain; Z79.891 Long term (current) use of opiate analgesic
CPT/HCPCS: 96374; 99285; 36415; 94640 ×4; 93005; 85379; 83880; 80053; 80048; 83735; 84484; 85025; 85027; 85610; 85730; 71046; G0378 ×4; J2930; J7512 ×2

== ENCOUNTER 2019-04-27 16:25 | Inpatient (IN) | payer MEDICARE ==
[2019-04-27] MEDS ORDERED: SODIUM CHLORIDE 0.9% 500 ML 500 ML IV ONE (16:33)
[2019-04-27] MEDS ORDERED: NALOXONE 0.4 MG/ML 1 ML VIAL IV STA ×2 (16:33→19:38)
[2019-04-27 16:49] LABS: VBG PH 7.46 (7.31-7.41)
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
[2019-04-27 16:54] LABS: Basophils # (A) 0.1 k/uL (0-0.2); Basophils % (A) 1 %; Eosinophils # (A) 0.2 k/uL (0-0.7); Eosinophils % (A) 2 %; HCT 38.1 % (39.0-53.0); HGB 12.8 gm/dL (13.0-17.5); Lymphocytes # (A) 1.2 k/uL (1.0-4.8); Lymphocytes % (A) 14 %; MCHC 33.7 g/dL (31.0-37.0); MCV 92.1 fL (80.0-100.0); Mean Platelet Volume 8.6; Monocytes # (A) 0.5 k/uL (0-1.0); Monocytes % (A) 6 %; Neutrophils # (A) 6.3 k/uL (1.3-7.7); Neutrophils % (A) 76 %; Platelet Count 284 k/uL (150-450); RBC 4.14 m/uL (4.30-5.90); RDW 13.4 % (11.5-15.5); WBC 8.3 k/uL (3.8-10.6)
[2019-04-27 16:57] LABS: ALT 21 U/L (4-49); AST 22 U/L (17-59); African American GFR (CKD) 90 (>60 ml/min/1.73 sqM); Albumin 3.8 g/dL (3.5-5.0); Alcohol <10 mg/dL; Alkaline Phosphatase 88 U/L (38-126); Anion Gap 4 mmol/L; Blood Urea Nitrogen 9 mg/dL (9-20); Calcium 9.6 mg/dL (8.4-10.2); Carbon Dioxide 25 mmol/L (22-30); Chloride 114 mmol/L (98-107); Glucose 100 mg/dL (74-99); Non-African American GFR(CKD) 78 (>60 ml/min/1.73 sqM); Potassium 3.8 mmol/L (3.5-5.1); Sodium 143 mmol/L (137-145); Total Bilirubin 0.8 mg/dL (0.2-1.3); Total Protein 6.3 g/dL (6.3-8.2)
--- NOTE | 2019-04-27 16:58 | XR ---
EXAMINATION TYPE: XR chest 1V portable DATE OF EXAM: 04/27/2019 COMPARISON: 03/30/2019 INDICATION: Altered mental status TECHNIQUE: Single frontal view of the chest is obtained. FINDINGS: The heart size is enlarged. The pulmonary vasculature is normal. There is some mild increased lung markings present bilaterally. Correlate for early volume overload. IMPRESSION: 1. Clinical consideration for early volume overload is recommended. 2. Cardiomegaly
[2019-04-27 17:02] LABS: INR 0.9 (<1.2); Prothrombin Time 9.5 sec (9.0-12.0)
[2019-04-27 17:10] LABS: Partial Thromboplastin Time 21.6 sec (22.0-30.0)
[2019-04-27 17:30] LABS: Appearance,Urine Clear (Clear); Bilirubin,Urine Negative (Negative); Blood,Urine Negative (Negative); Color,Urine Yellow; Glucose,Urine (UA) Negative (Negative); Ketones,Urine Negative (Negative); Leukocyte Esterase,Urine Negative (Negative); Nitrite,Urine Negative (Negative); Protein,Urine Negative (Negative); Urobilinogen,Urine <2.0 mg/dL (<2.0)
[2019-04-27 17:42] LABS: Amphetamine Screen,Urine Not Detected (NotDetected); Barbiturate Screen,Urine Not Detected (NotDetected); Benzodiazepines Screen,Urine Detected (NotDetected); Cocaine Screen,Urine Not Detected (NotDetected); Methadone Screen, Urine Not Detected (NotDetected); Opiate Screen,Urine Not Detected (NotDetected); Oxycodone Screen, Urine Detected (NotDetected); Phencyclidine Screen,Urine Not Detected (NotDetected); Tricyclic Antidepressant,Urine Not Detected (NotDetected); Urn Cannabinoid Scrn Not Detected (NotDetected)
--- NOTE | 2019-04-27 18:04 | CT ---
EXAMINATION TYPE: CT brain wo con DATE OF EXAM: 04/27/2019 COMPARISON: 08/03/2017 HISTORY: Altered mental status. CT DLP: 1178.[address] of the brain was performed. The ventricles, basal cisterns and sulci overlying the cerebral convexities demonstrate mild enlargem ent. There is no evidence for intracranial hemorrhage or sulcal effacement. There is decreased attenuation about the periventricular white matter and deep white matter of both c erebral hemispheres, compatible with chronic small vessel ischemia. Differential diagnosis does inclu de demyelination. No mass effects are seen.No midline shift. Osseous calvarium is intact. If symptoms persist consider MRI. IMPRESSION: 1. Age related atrophic and chronic small vessel ischemic change without acute intracranial process s een at this time.
[2019-04-27] MEDS ORDERED: NALOXONE 0.4 MG/ML 1 ML VIAL IV PRN (19:17)
[2019-04-27] MEDS: SODIUM CHLORIDE 0.9% 1,000 ML IV SCH (19:49)
[2019-04-28] MEDS: levETIRAcetam 500 MG TAB PO SCH ×3 (00:19→21:17)
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
[2019-04-28] MEDS: SODIUM CHLORIDE 0.9% 1,000 ML IV SCH ×2 (05:49→09:26)
[2019-04-28] MEDS: lamoTRIgine 100 MG TAB PO SCH (09:25)
[2019-04-28] MEDS: TAMSULOSIN 0.4 MG CAP.ER.24H PO SCH (09:25)
[2019-04-28 11:26] LABS: Basophils % (A) 0 %; Eosinophils # (A) 0.1 k/uL (0-0.7); Eosinophils % (A) 1 %; HCT 35.3 % (39.0-53.0); Lymphocytes # (A) 1.6 k/uL (1.0-4.8); Lymphocytes % (A) 18 %; MCH 31.3 pg (25.0-35.0); MCV 92.3 fL (80.0-100.0); Mean Platelet Volume 8.8; Monocytes # (A) 0.5 k/uL (0-1.0); Monocytes % (A) 6 %; Neutrophils # (A) 6.6 k/uL (1.3-7.7); Neutrophils % (A) 74 %; Platelet Count 276 k/uL (150-450); RBC 3.82 m/uL (4.30-5.90); RDW 13.4 % (11.5-15.5); WBC 8.9 k/uL (3.8-10.6)
[2019-04-28 11:37] LABS: ALT 19 U/L (4-49); AST 22 U/L (17-59); African American GFR (CKD) >90 (>60 ml/min/1.73 sqM); Albumin 3.5 g/dL (3.5-5.0); Alkaline Phosphatase 73 U/L (38-126); Anion Gap 5 mmol/L; Blood Urea Nitrogen 12 mg/dL (9-20); Calcium 8.7 mg/dL (8.4-10.2); Carbon Dioxide 25 mmol/L (22-30); Chloride 110 mmol/L (98-107); Glucose 91 mg/dL (74-99); Non-African American GFR(CKD) >90 (>60 ml/min/1.73 sqM); Potassium 3.6 mmol/L (3.5-5.1); Sodium 140 mmol/L (137-145); Total Bilirubin 0.9 mg/dL (0.2-1.3)
[2019-04-28] MEDS: cloNIDine HCL 0.2 MG TAB PO SCH ×3 (12:38→21:17)
--- NOTE | 2019-04-28 19:47 | PN ---
PROGRESS NOTE CHIEF COMPLAINT: Overdose. HISTORY OF PRESENT ILLNESS: This gentleman is improved. He is more awake and alert. He has no neurologic problems. He is not complaining of any chest pain, shortness of breath, abdominal pain, etc. He is complaining of back pain and wants his narcotics. PHYSICAL EXAMINATION: Vital signs are normal. Chest is clear. Cardiac exam is normal. Abdomen is soft and nontender. IMPRESSION: Status post overdose. PLAN: Progress activity and progress diet. His narcotics at home will not be reintroduced while he is in the hospital. MMODL / IJN: [id number] /
[2019-04-29] MEDS: SODIUM CHLORIDE 0.9% 1,000 ML IV SCH ×3 (01:56→21:40)
[2019-04-29] MEDS: cloNIDine HCL 0.2 MG TAB PO SCH ×3 (08:16→21:40)
[2019-04-29] MEDS: levETIRAcetam 500 MG TAB PO SCH ×2 (08:16→21:40)
[2019-04-29] MEDS: TAMSULOSIN 0.4 MG CAP.ER.24H PO SCH (08:16)
[2019-04-29] MEDS: lamoTRIgine 100 MG TAB PO SCH (08:16)
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
--- NOTE | 2019-04-29 20:38 | PN ---
PROGRESS NOTE CHIEF COMPLAINT: Overdose. HISTORY OF PRESENT ILLNESS: This gentleman is now fully awake and alert. I do not know his normal neurologic status, especially given that he has had prior central nervous system problems. He was telling a nurse last night that he intentionally overdosed just to get into the hospital. Hence, he is on suicide precautions with a sitter and is to be seen by Psychiatry. REVIEW OF SYSTEMS: He complains only of back pain. PHYSICAL EXAMINATION: On physical examination, head, ears, eyes, nose, mouth and throat are normal. Vital signs are normal. IMPRESSION: 1. Drug ingestion and overdose. 2. Longstanding history of analgesic abuse. 3. Major depression. 4. Head injury. PLAN: Psychiatric evaluation. MMODL / IJN: [id number] /
[2019-04-30] MEDS: levETIRAcetam 500 MG TAB PO SCH ×2 (07:22→20:23)
[2019-04-30] MEDS: cloNIDine HCL 0.2 MG TAB PO SCH ×3 (07:23→20:23)
[2019-04-30] MEDS: TAMSULOSIN 0.4 MG CAP.ER.24H PO SCH (07:23)
[2019-04-30] MEDS: lamoTRIgine 100 MG TAB PO SCH (07:23)
[2019-04-30] MEDS: SODIUM CHLORIDE 0.9% 1,000 ML IV SCH (11:06)
--- NOTE | 2019-04-30 17:43 | PN ---
PROGRESS NOTE CHIEF COMPLAINT: Drug overdose. HISTORY OF PRESENT ILLNESS: This gentleman is now fully awake and alert. He is being evaluated by Psychiatry. They may choose to move him to the psych unit once he is fully recovered. PHYSICAL EXAMINATION: His chest is clear. Cardiac exam is normal. Abdomen is soft, nontender. He is much more awake and alert. IMPRESSION: 1. Drug ingestion overdose. 2. Polysubstance abuse and use. 3. Low back pain. 4. Closed head injury. PLAN: Continue to monitor and increase activity while waiting to see if he will go to the psych unit. MMODL / IJN: [id number] /
[2019-05-01 07:17] VITALS: BP 154/87; PULSE 57; RESP 18; TEMP 99.7
[2019-05-01] MEDS: TAMSULOSIN 0.4 MG CAP.ER.24H PO SCH (07:55)
[2019-05-01] MEDS: cloNIDine HCL 0.2 MG TAB PO SCH (07:55)
[2019-05-01] MEDS: levETIRAcetam 500 MG TAB PO SCH (07:55)
[2019-05-01] MEDS: lamoTRIgine 100 MG TAB PO SCH (07:56)
--- NOTE | 2019-05-01 08:31 | P.CON ---
Consult Note - . Consult date: 05/01/19 Assessment/Plan:: Clinical Problems: Confusion secondary to overdose of muscle relaxants, major depressive disorder recurrent unspecified,, alcohol use disorder severe in full remission Interim history: i Reviewed the medical record and interviewed the patient. He presented to [facility] with an altered mental status and history of apparent intentional or unintentional overdose of Flexeril and Percocet. I initially evaluated him on 04/29/2019 during which he denied that he felt depressed, had suicidal ideation or intentionally overdosed on Flexeril and Percocet. During this interview he denied that he made an intentional overdose. He was unable to explain the change in his mental status that resulted in his mother called EMS. With repeated questioning he acknowledgeD that he "may have taken" too much Flexeril but he is uncertain. Again, he denied that he had suicidal thoughts, wishes or taken medications in a suicide attempt. He currently denies feeling depressed or having thoughts of or suicide. He denies feeling hopeless, helpless or worthless. He he denies persistent insomnia, fatigue or anhedonia. He denies persistent and severe anxiety that is uncontrolled. Mental status exam: He presented as a casually groomed 50-year-old male with thinning long hair. He is comfortably laying in his bed. He made eye contact and attended to the interview. He had a blunted but bright facial expression. He was alert and oriented to person, place and time. Was slow and he had a slight tremor. His speech was spontaneous with decreased rate and rhythm. His affect was blunted but stable and appropriate. He denied suicidal ideation, wishes or homicidal ideation. He denied such depressive cognitions as hopelessness, helplessness or worthlessness. He ruminated about the circumstances that hospitalization and repeatedly denied that he attempted suicide. He did not express ideas reference, paranoid ideation or delusions. His thinking was concrete but his associations were coherent, logical and goal directed. He denied hallucinations did not appear to be responding to internal stimuli. We again completed the [facility] Memory and Concentration test. His total weighted error score was 2; total weighted error score greater than 10 is consistent with a dementia. Assessment: He has marked improvement in performance of cognitive functioning with improvement of concentration, attention and short-term memory. His impairment was most likely the effects of the apparent overdose. He does not require transfer to the psychiatric unit but should continue with outpatient [facility] services. Plan: Discontinue one-to-one. There is no indication for inpatient psychiatric treatment at this time. To follow up with his outpatient mental health treatment providers. Psychiatry will sign off on this case.
--- NOTE | 2019-05-01 23:11 | DS ---
DISCHARGE SUMMARY CHIEF COMPLAINT: Overdose. HISTORY OF PRESENT ILLNESS AND PHYSICAL EXAM: Details of this gentleman's history and physical can be found in the initial workup. LABORATORY STUDIES: While he was in the hospital, he had laboratory studies, details of which can be found laboratory section of his chart. COURSE IN HOSPITAL: After admission he was placed on bedrest, started intravenous fluids and the next day or two he became more fully awake and alert. There was some question as to whether not he was trying to injure himself with this overdose. He was seen by Psychiatry, and their conclusion was that he was not a danger to himself. He could be discharged. To go home on his usual activity, diet and regular medications and will be asked to follow up in my office in several days. FINAL DIAGNOSIS: 1. Polysubstance drug overdose. 2. Analgesic abuser. 3. Chronic low back pain. 4. Status post closed head injury with mental incapacitation. OPERATIONS: Operations none. CONSULTATIONS: Psychiatry. He is improved. MMJANEE / CATERINAN: [id number] /
== END 2019-05-01 13:34 | disposition home or self-care (01) | DRG 917 ==
LOC: EC 16:25 → 3SCARD 19:17 → 4SSUR 04-28 13:49 → 6NMEDSUR 04-28 17:36
PROVIDERS: ADMIT Family Medicine; ATTEND Family Medicine
DX: T40.2X1A Poisoning by other opioids, accidental (unintentional), initial encounter (principal); R40.20 Unspecified coma; R40.2122 Coma scale, eyes open, to pain, at arrival to emergency department; F33.9 Major depressive disorder, recurrent, unspecified; F03.90 Unspecified dementia, unspecified severity, without behavioral disturbance, psychotic disturbance, mood disturbance, and anxiety; M79.7 Fibromyalgia; J44.9 Chronic obstructive pulmonary disease, unspecified; I10 Essential (primary) hypertension; G40.909 Epilepsy, unspecified, not intractable, without status epilepticus; M19.90 Unspecified osteoarthritis, unspecified site; G89.29 Other chronic pain; G43.909 Migraine, unspecified, not intractable, without status migrainosus; R40.2352 Coma scale, best motor response, localizes pain, at arrival to emergency department; R40.2242 Coma scale, best verbal response, confused conversation, at arrival to emergency department; R25.1 Tremor, unspecified; H54.7 Unspecified visual loss; F90.9 Attention-deficit hyperactivity disorder, unspecified type; F41.9 Anxiety disorder, unspecified; F17.210 Nicotine dependence, cigarettes, uncomplicated; K21.9 Gastro-esophageal reflux disease without esophagitis; F10.20 Alcohol dependence, uncomplicated; F55.8 Abuse of other non-psychoactive substances; F09 Unspecified mental disorder due to known physiological condition; M54.5 Low back pain; R29.6 Repeated falls; T48.1X1A Poisoning by skeletal muscle relaxants [neuromuscular blocking agents], accidental (unintentional), initial encounter; Z79.899 Other long term (current) drug therapy; Z86.14 Personal history of Methicillin resistant Staphylococcus aureus infection; Z90.79 Acquired absence of other genital organ(s); Z91.81 History of falling; Z90.49 Acquired absence of other specified parts of digestive tract; Z98.890 Other specified postprocedural states; Z85.46 Personal history of malignant neoplasm of prostate; Z91.5 Personal history of self-harm; Z87.820 Personal history of traumatic brain injury; Z86.69 Personal history of other diseases of the nervous system and sense organs; Z87.39 Personal history of other diseases of the musculoskeletal system and connective tissue; Z88.5 Allergy status to narcotic agent; Z82.49 Family history of ischemic heart disease and other diseases of the circulatory system
CPT/HCPCS: 36415; 70450; 71045; 80053; 80306; 80320; 81003; 82140; 82803; 85025; 85610; 85730; 93005; 96361; 96374; 96376; 99285

== ENCOUNTER 2019-11-29 02:12 | Inpatient (IN) | payer MEDICARE, OTHER ==
[2019-11-29] MEDS ORDERED: SODIUM CHLORIDE 0.9% 1,000 ML IV ONE ×2 (02:36→03:26)
[2019-11-29] MEDS ORDERED: NALOXONE 0.4 MG/ML 1 ML VIAL IVP STA (02:37)
[2019-11-29 02:41] LABS: Glucose,Whole Blood 156 mg/dL (75-99)
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
[2019-11-29 02:57] LABS: Basophils # (A) 0.1 k/uL (0-0.2); Basophils % (A) 1 %; Eosinophils # (A) 0.5 k/uL (0-0.7); Eosinophils % (A) 4 %; HCT 42.1 % (39.0-53.0); HGB 13.7 gm/dL (13.0-17.5); Lymphocytes # (A) 2.2 k/uL (1.0-4.8); Lymphocytes % (A) 16 %; MCH 30.2 pg (25.0-35.0); MCHC 32.6 g/dL (31.0-37.0); MCV 92.8 fL (80.0-100.0); Mean Platelet Volume 8.7; Monocytes # (A) 0.8 k/uL (0-1.0); Monocytes % (A) 6 %; Neutrophils # (A) 10.2 k/uL (1.3-7.7); Neutrophils % (A) 74 %; Platelet Count 410 k/uL (150-450); RBC 4.54 m/uL (4.30-5.90); RDW 13.3 % (11.5-15.5); WBC 13.9 k/uL (3.8-10.6)
[2019-11-29 03:07] LABS: ALT 26 U/L (4-49); AST 24 U/L (17-59); African American GFR (CKD) 27 (>60 ml/min/1.73 sqM); Albumin 4.4 g/dL (3.5-5.0); Alcohol <10 mg/dL; Alkaline Phosphatase 76 U/L (38-126); Anion Gap 10 mmol/L; Blood Urea Nitrogen 16 mg/dL (9-20); Carbon Dioxide 21 mmol/L (22-30); Chloride 109 mmol/L (98-107); Glucose 121 mg/dL (74-99); Non-African American GFR(CKD) 24 (>60 ml/min/1.73 sqM); Sodium 140 mmol/L (137-145); Total Bilirubin 0.8 mg/dL (0.2-1.3)
--- NOTE | 2019-11-29 03:12 | XR ---
EXAMINATION TYPE: XR chest 1V portable DATE OF EXAM: 11/29/2019 COMPARISON: 04/27/2019 HISTORY: Altered mental status TECHNIQUE: FINDINGS: Heart is enlarged. There is no gross heart failure. Costophrenic angles are clear. There ar e chest leads. IMPRESSION: No active cardiopulmonary disease. Inspiration slightly improved compared to last exam.
[2019-11-29 03:18] LABS: Potassium 4.4 mmol/L (3.5-5.1)
[2019-11-29 03:18] LABS: VBG PH 7.38 (7.31-7.41)
[2019-11-29 03:20] LABS: Lactic Acid, Venous 2.5 mmol/L (0.7-2.0)
[2019-11-29 03:35] LABS: INR 0.9 (<1.2); Prothrombin Time 9.4 sec (9.0-12.0)
[2019-11-29 03:36] LABS: Partial Thromboplastin Time 22.4 sec (22.0-30.0)
--- NOTE | 2019-11-29 03:37 | CT ---
EXAMINATION TYPE: CT brain wo con DATE OF EXAM: 11/29/2019 COMPARISON: 04/27/2019 HISTORY: AMS CT DLP: 1182.4 mGycm Automated exposure control for dose reduction was used. The ventricles and sulci appear normal. There is no mass effect nor midline shift. There is no sign o f intracranial hemorrhage. The calvarium is intact. There is no evidence of cerebral edema. Skull bas e is intact. IMPRESSION: Negative unenhanced head CT scan. No change.
[2019-11-29 04:19] LABS: Amorphous Sediment,Urine Rare /hpf; Appearance,Urine Cloudy (Clear); Bilirubin,Urine Negative (Negative); Blood,Urine Negative (Negative); Color,Urine Yellow; Glucose,Urine (UA) Negative (Negative); Hyaline Casts,Urine 83 /lpf (0-2); Ketones,Urine Trace (Negative); Leukocyte Esterase,Urine Negative (Negative); Mucus,Urine Moderate /hpf; Nitrite,Urine Negative (Negative); PH, Urine 5.5 (5.0-8.0); Protein,Urine 2+ (Negative); RBC,Urine 2 /hpf (0-5); Specific Gravity,Urine 1.017 (1.001-1.035); Squamous Epithelial Cell,Urine 2 /hpf (0-4); WBC,Urine 16 /hpf (0-5)
[2019-11-29 04:24] LABS: Amphetamine Screen,Urine Detected (NotDetected); Barbiturate Screen,Urine Not Detected (NotDetected); Benzodiazepines Screen,Urine Detected (NotDetected); Cocaine Screen,Urine Not Detected (NotDetected); Methadone Screen, Urine Not Detected (NotDetected); Opiate Screen,Urine Not Detected (NotDetected); Oxycodone Screen, Urine Detected (NotDetected); Phencyclidine Screen,Urine Not Detected (NotDetected); Tricyclic Antidepressant,Urine Not Detected (NotDetected); Urn Cannabinoid Scrn Not Detected (NotDetected)
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
[2019-11-29] MEDS ORDERED: ACETAMINOPHEN TAB 325 MG TAB PO PRN (05:36)
[2019-11-29] MEDS ORDERED: NALOXONE 0.4 MG/ML 1 ML VIAL IV PRN (05:36)
[2019-11-29] MEDS ORDERED: SODIUM CHLORIDE 0.9% 1,000 ML IV SCH (05:45)
[2019-11-29 07:07] LABS: HCT 36.1 % (39.0-53.0); HGB 11.9 gm/dL (13.0-17.5); MCH 31.5 pg (25.0-35.0); MCV 95.2 fL (80.0-100.0); Mean Platelet Volume 8.2; Platelet Count 281 k/uL (150-450); RBC 3.79 m/uL (4.30-5.90); RDW 13.5 % (11.5-15.5)
[2019-11-29 07:19] LABS: Magnesium 2.2 mg/dL (1.6-2.3)
[2019-11-29 07:54] LABS: Calcium 8.2 mg/dL (8.4-10.2); Potassium 5.4 mmol/L (3.5-5.1)
[2019-11-29] MEDS: FAMOTIDINE 20 MG TAB PO SCH ×2 (08:35→20:48)
[2019-11-29] MEDS ORDERED: IPRATROPIUM-ALBUTEROL 3 ML NEB IH STA (10:06)
--- NOTE | 2019-11-29 10:21 | XR ---
EXAMINATION TYPE: XR chest 1V portable DATE OF EXAM: 11/29/2019 COMPARISON: 11/29/2019 HISTORY: Respiratory distress TECHNIQUE: Single frontal view of the chest is obtained. FINDINGS: Subsegmental changes left lung base. There is no obvious pneumothorax. Heart size is promi nent stable slightly coarsened interstitium. Pleural-based thickening on the right noted. No definite sizable pleural effusion or pneumothorax. IMPRESSION: 1. Left perihilar and basilar atelectasis favored over pneumonia correlate clinically. Coarsened inte rstitium could been the basis or sedation pneumonitis or developing venous congestion correlate clini navi
[2019-11-29] MEDS ORDERED: LORazepam 2 MG/ML INJ IV STA (10:26)
[2019-11-29] MEDS ORDERED: FUROSEMIDE 10 MG/ML 4 ML VIAL IV STA (10:29)
[2019-11-29 10:38] LABS: ABG Base Excess -7.3 mmol/L; ABG HCO3 18 mmol/L (21-25); ABG Oxygen Saturation 96.7 % (94-97); ABG PCO2 32 mmHg (35-45); ABG PH 7.36 (7.35-7.45); ABG PO2 87 mmHg (83-108); ABG TCO2 19 mmol/L (19-24); Allen Test Performed? Yes
--- NOTE | 2019-11-29 11:48 | P.PN ---
Progress Note - Text Progress Note Date: 11/29/19 Patient was seen and examined. Please refer to H&P for full documentation. A team was called for dyspnea and shortness of breath. Chest x-ray showed atelectasis versus pneumonia coarsened interstitium. Patient was in moderate distress. Patient was coughing and at times crying. He was hemodynamically stable. He was saturating 96% on 2 L. Plans: Patient was given a neb treatment. ABG will be ordered. He'll be given 1 dose of Lasix 40 mg IV. Pulmonology will be consulted. Started on Unasyn for presumed aspiration pneumonia. He will be placed on telemetry monitoring. Keep nothing by mouth.
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
[2019-11-29 12:58] LABS: Glucose,Whole Blood 102 mg/dL (75-99)
[2019-11-29] MEDS: PREGABALIN 75 MG CAP PO SCH ×3 (13:05→21:11)
[2019-11-29] MEDS: levETIRAcetam 500 MG TAB PO SCH ×2 (13:05→20:48)
[2019-11-29] MEDS: lamoTRIgine 100 MG TAB PO SCH (13:05)
[2019-11-29] MEDS: AMPICILLIN-SULBACTAM 1.5 GM in SODIUM CHLORIDE 0.9% 50 ML IVPB SCH ×2 (13:09→21:00)
[2019-11-29 13:55] LABS: Acetaminophen <10.0 ug/mL; African American GFR (CKD) 54 (>60 ml/min/1.73 sqM); Anion Gap 7 mmol/L; Blood Urea Nitrogen 14 mg/dL (9-20); Calcium 8.8 mg/dL (8.4-10.2); Carbon Dioxide 22 mmol/L (22-30); Chloride 115 mmol/L (98-107); Glucose 104 mg/dL (74-99); Non-African American GFR(CKD) 47 (>60 ml/min/1.73 sqM); Sodium 144 mmol/L (137-145)
[2019-11-29 16:49] LABS: Glucose,Whole Blood 105 mg/dL (75-99)
[2019-11-29] MEDS: FLUTICASONE 110 MCG INHALER INHALATION SCH (19:19)
[2019-11-29] MEDS: DEXMEDETOMIDINE/0.9% NACL(PMX) 400 MCG in EMPTY BAG 1 BAG IV SCH (20:53)
[2019-11-30] MEDS: AMPICILLIN-SULBACTAM 1.5 GM in SODIUM CHLORIDE 0.9% 50 ML IVPB SCH ×3 (04:30→20:13)
[2019-11-30 04:56] LABS: Basophils % (A) 0 %; Eosinophils # (A) 0.3 k/uL (0-0.7); Eosinophils % (A) 3 %; HGB 12.3 gm/dL (13.0-17.5); Lymphocytes # (A) 1.9 k/uL (1.0-4.8); Lymphocytes % (A) 20 %; MCH 30.9 pg (25.0-35.0); MCHC 33.2 g/dL (31.0-37.0); MCV 92.8 fL (80.0-100.0); Mean Platelet Volume 8.6; Monocytes # (A) 0.6 k/uL (0-1.0); Monocytes % (A) 6 %; Neutrophils # (A) 6.5 k/uL (1.3-7.7); Neutrophils % (A) 70 %; Platelet Count 232 k/uL (150-450); RBC 3.98 m/uL (4.30-5.90); RDW 13.4 % (11.5-15.5); WBC 9.3 k/uL (3.8-10.6)
[2019-11-30 05:15] LABS: African American GFR (CKD) >90 (>60 ml/min/1.73 sqM); Albumin 3.4 g/dL (3.5-5.0); Anion Gap 6 mmol/L; Carbon Dioxide 20 mmol/L (22-30); Chloride 115 mmol/L (98-107); Glucose 100 mg/dL (74-99); Non-African American GFR(CKD) 79 (>60 ml/min/1.73 sqM); Sodium 141 mmol/L (137-145); Total Bilirubin 0.9 mg/dL (0.2-1.3); Total Protein 5.7 g/dL (6.3-8.2)
[2019-11-30 05:17] LABS: ALT 21 U/L (4-49); AST 21 U/L (17-59); Alkaline Phosphatase 56 U/L (38-126); Blood Urea Nitrogen 16 mg/dL (9-20); Potassium 4.7 mmol/L (3.5-5.1)
--- NOTE | 2019-11-30 06:49 | XR ---
EXAMINATION TYPE: XR chest 1V portable DATE OF EXAM: 11/30/2019 CLINICAL HISTORY: Difficulty breathing progress study. TECHNIQUE: Single AP portable upright view of the chest is obtained. COMPARISON: Chest x-ray from one day earlier and older studies. FINDINGS: Background chronic parenchymal change with patchy left basilar opacity. Right lung remains clear. Cardiac silhouette size remains enlarged. Overlying EKG leads redemonstrated. Osseous structu res are intact. IMPRESSION: Chronic parenchymal changes and cardiomegaly with patchy left basilar atelectasis and/or infiltrate are all redemonstrated. No significant change from one day earlier.
[2019-11-30] MEDS: FLUTICASONE 110 MCG INHALER INHALATION SCH (07:38)
[2019-11-30] MEDS: DEXMEDETOMIDINE/0.9% NACL(PMX) 400 MCG in EMPTY BAG 1 BAG IV SCH (07:42)
[2019-11-30] MEDS: REXULTI 4 MG PO SCH (09:27)
[2019-11-30] MEDS: levETIRAcetam 500 MG TAB PO SCH ×2 (09:28→21:31)
[2019-11-30] MEDS: FAMOTIDINE 20 MG TAB PO SCH ×2 (09:29→21:31)
[2019-11-30] MEDS: PREGABALIN 75 MG CAP PO SCH ×3 (09:30→21:32)
[2019-11-30] MEDS ORDERED: SODIUM CHLORIDE 0.9% 1,000 ML IV SCH (09:30)
[2019-11-30] MEDS: lamoTRIgine 100 MG TAB PO SCH (09:30)
[2019-11-30] MEDS: oxyCODONE-APAP 10-325MG 1 EACH TAB PO PRN ×4 (09:31→21:32)
--- NOTE | 2019-11-30 12:09 | P.PN ---
Subjective Progress Note Date: 11/30/19 59-year-old male patient with known history of COPD presented to the ED with altered mentation, lethargy and unsteady gait. Note that the patient has also history of polysubstance abuse. Apparently the patient had taken a combination of medications. Urine drug screen was positive for methamphetamine, benzodiazepine and oxycodone. The patient was unable to volunteer any history. The history was obtained from the [id number]. The patient apparently became progressively more fatigued and confused and altered. He ultimately collapse. No seizure activity has been noted. The patient was admitted to the hospital because of altered mental status and polysubstance abuse and polypharmacy. His initial white cell count was at 15.0 with a hemoglobin of 13.7. The blood gases showed a pH of 7.36 with a pCO2 of 32 and pO2 of 87 this was on 28% FiO2. The patient had mild lactic acidosis with a lactic acid level of 2.5 that dropped down to 0.7 with hydration. Initial creatinine was at 2.7 dropped down to 2.1 with hydration. Note that he had a normal baseline renal function tests. The urine analysis essentially negative for any infection. There was +2 protein. LFTs are within normal limits. Troponin was negative. The serum alcohol was also negative. The CAT scan of the brain showed no acute abnormalities. The chest x-ray shows some left perihilar and basilar atelectasis favoring pneumonia. There is also coarse interstitial. The patient was started on IV Unasyn regarding the possibility of aspiration pneumonia. He is also normal state rate of 125 mL an hour. I was asked to evaluate this patient has the patient became quite restless and he was having coughing fits earlier this morning. He was getting restless and agitated. He was given Ativan and abdominal my evaluation he seemed to be quite lethargic and a bit more comfortable. No reported aspiration. The patient is currently on IV Unasyn. On today's evaluation of 11/30/2019, the patient is awake and alert. Overnight, the patient became more restless and agitated. I started him on Precedex drip. This helped her quite a bit with his agitation. Mentation gradually improved. He is currently on 0.1 mg per KG of minutes of Precedex and this will be further weaned off. He is awake and alert. His swallow will be checked and the patient will be started on oral feeding if he is able to swallow properly. He remains on normal saline at 75 mL an hour. He is on 1 L about 2 by nasal cannula. Pulse ox 97%. He is hemodynamically stable. He wants his painkillers to be restarted. Note that he is on oxycodone in the form of Percocet on outpatient basis. He is doing dressing was positive for various medication and polypharmacy is suspected. He is known to have bipolar disorder and depression and chronic anxiety in addition to ADD/ADHD. I think his mental status change was probably to the polypharmacy. No seizure activity has been noted. No focal logical deficits. A neurology consultation will be also obtained. Objective - Vital Signs Vital signs: Vital Signs Temp 97.9 F 11/30/19 11:00 Pulse 67 11/30/19 11:00 Resp 19 11/30/19 11:00 BP 107/60 11/30/19 11:00 Pulse Ox 97 11/30/19 11:00 Intake & Output 11/29/19 11/30/19 11/30/19 18:59 06:59 18:59 Intake Total 100 169.091 247.143 Output Total 3810 355 145 Balance -3710 -185.909 102.143 Weight 106.6 kg Intake: IV 225 Normal Saline 225 Intake, IV Titration 100 169.091 22.143 Amount Ampicillin-Sulbactam 1.5 100 100 gm In Sodium Chloride 0.9 % 50 ml @ 100 mls/hr IVPB Q8H [facility] Rx#:[id number] Dexmedetomidine/0.9% NaCl 69.091 12.143 (Pmx) 400 mcg In Empty Bag 1 bag @ Titrate IV . Q0M [facility] Rx#:[id number] Sodium Chloride 0.9% 1, 10 000 ml @ 75 mls/hr IV . [id number] [facility] Rx#:[id number] Output: Urine 3810 355 145 Other: Voiding Method Indwelling Catheter Indwelling Catheter Indwelling Catheter - Exam General: non toxic, no distress, appears at stated age, obese, awake and alert and following orders and answering questions appropriately. Derm: no unusual rashes/lesions no unusual ecchymoses, warm, dry Head: atraumatic, normocephalic, symmetric Eyes: Anicteric sclera, pupils equal round reactive to light 4-5 mm gabo ENT: Nose and ears atraumatic Neck: Trachea midline, supple Mouth: no lip lesion, mucus membranes dry Cardiovascular: S1S2 reg, no murmur, positive posterior tibial pulse bilateral, no edema, capillary refill less than 2 seconds Lungs: CTA bilateral, no rhonchi, no rales , no accessory muscle use Abdominal: soft, nontender to palpation, no guarding, no appreciable organomegaly, normal bowel sounds Ext: no gross muscle atrophy, moving all extremities grossly, no contractures Neuro: Awake and alert and there is no focal neurological deficit. Neurologically, the patient is awake and alert and the patient does not have any focal neurological deficit. Cranial nerves are essentially intact. - Labs CBC & Chem 7: 11/30/19 04:42 11/30/19 04:42 Labs: Abnormal Lab Results - Last 24 Hours (Table) 11/29/19 11/29/19 11/29/19 Range/Units 12:57 13:22 16:39 RBC (4.30-5.90) m/uL Hgb (13.0-17.5) gm/dL Hct (39.0-53.0) % Chloride 115 H (98-107) mmol/L Carbon Dioxide (22-30) mmol/L Creatinine 1.59 H (0.66-1.25) mg/dL Glucose 104 H (74-99) mg/dL POC Glucose (mg/dL) 102 H 105 H (75-99) mg/dL Total Protein (6.3-8.2) g/dL Albumin (3.5-5.0) g/dL 11/30/19 11/30/19 Range/Units 04:42 04:42 RBC 3.98 L (4.30-5.90) m/uL Hgb 12.3 L (13.0-17.5) gm/dL Hct 37.0 L (39.0-53.0) % Chloride 115 H (98-107) mmol/L Carbon Dioxide 20 L (22-30) mmol/L Creatinine (0.66-1.25) mg/dL Glucose 100 H (74-99) mg/dL POC Glucose (mg/dL) (75-99) mg/dL Total Protein 5.7 L (6.3-8.2) g/dL Albumin 3.4 L (3.5-5.0) g/dL Assessment and Plan Plan: 1 altered mental status likely secondary to polysubstance abuse/drug induced encephalopathy. The patient was given Narcan in the emergency department. Subsequently he became more restless and agitated up on the medical floor. He was given Ativan. His neurologic exam is nonfocal. His probably withdrawing to various drugs. Note that his urine drug screen was positive for oxycodone, amphetamine, amphetamine and benzodiazepines. After being transferred to the intensive care unit, the patient was started on Precedex for agitation which helped him quite a bit. Currently is back to normal mental status. The patient will be seen by neurology. His neurologic exam is nonfocal. He has chronic psychiatric problems and there is a high suspicion for polypharmacy. 2 acute dehydration, improved with fluid resuscitation 3 acute lactic acidosis, improving 4 acute kidney injury, improved with fluid resuscitation 5 COPD currently inactive in stable 6 question of perihilar pulmonary infiltrates, aspiration is doubtful currently on IV Unasyn. The repeat chest x-ray from today shows cardiomegaly and patchy left basilar atelectasis/infiltrates. 7 seizure disorder, last seizure in 2018 8 hypertension 9 osteoarthritis 10 previous history of prostate cancer with previous prostatectomy 11 chronic back pain/radiculopathy/chronic hip and knee pain bilateral Plan Monitor mental status Swallow evaluation Resume sounds all medication including his psychiatric medications Resume Percocet Neurology consultation Wean off Precedex and discontinue Off her diet if the patient is able to pass a swallow evaluation We'll continue to follow
--- NOTE | 2019-11-30 14:56 | EEG ---
ELECTROENCEPHALOGRAM REPORT DATE OF SERVICE: 11/30/2019 PREAMBLE: This is a 59-year-old male with history of seizure disorder, came in with altered mental status. This study performed to evaluate for any epileptiform activity. EEG FINDINGS: This is a 21 channel routine EEG recording in a patient utilizing 10-20 international system with referential and bipolar montage. The background consists of well- developed, moderately well regulated, mixed frequencies of 6 hertz theta mixed with 1.5 to 2 hertz generalized delta activity seen in bihemispheric region. Well-formed alpha not seen in the entire study. Photic driving response was not seen. Reactivity to eye opening or closing was not seen. No focal or generalized epileptiform activity was seen. EKG rhythm lead revealed no obvious arrhythmia. IMPRESSION: This is an abnormal EEG due to background slowing of moderate degree. This is suggestive of generalized cerebral dysfunction as can be seen with toxic metabolic encephalopathy or due to diffuse structural brain abnormality. No epileptiform activity was seen. MMODL / IJN: [id number] /
[2019-11-30] MEDS ORDERED: IPRATROPIUM-ALBUTEROL 3 ML NEB INHALATION PRN (17:20)
--- NOTE | 2019-11-30 17:22 | P.PN ---
Subjective Progress Note Date: 11/30/19 The patient is a 59-year-old male with a PMH of polysubstance abuse, seizure disorder, COPD, hypertension who had presented to the ED when he brought in a family member for evaluation, and was noted to be lethargic with unsteady gait. Patient did endorse to the emergency RN that he had taken several of his medications prior to arrival. Urine tox in the emergency room was positive for methamphetamines, benzodiazepines and oxycodone. Laboratory evaluation revealed a lactic acid of 2.5, WBC count 13.9, creatinine 2.79 (baseline 0.91), with troponin less than 0.012. CT brain was unremarkable with chest x-ray also unremarkable. The patient did receive 1 mg of Narcan in the emergency room with no improvement in his mental status. When he arrived to the medical floor, A team was called for worsening dyspnea. Chest x-ray was obtained which showed atelectasis versus pneumonia with coarsened interstitium. Patient was given a nebulized treatment and one dose of IV Lasix. He was started on Unasyn for presumed aspiration pneumonia and pulmonology was consulted. Pulmonology recommended ICU monitoring. Overnight, patient became increasingly agitated requiring Precedex. Patient was seen and examined this afternoon. No acute events overnight. Mentation back to normal. Patient reports pain that is chronic lower back pain. He denies any chest pain, shortness breath or palpitations. No nausea or vomiting. No fever or chills. Requesting Percocet to be increased to 4 times a day dosing. Objective - Vital Signs Vital signs: Vital Signs Temp 98.3 F 11/30/19 16:00 Pulse 81 11/30/19 16:00 Resp 17 11/30/19 16:00 BP 99/51 11/30/19 16:00 Pulse Ox 93 L 11/30/19 16:00 Intake & Output 11/29/19 11/30/19 11/30/19 18:59 06:59 18:59 Intake Total 100 565.777 8342.143 Output Total 3810 355 360 Balance -3710 -185.909 742.143 Weight 106.6 kg Intake: IV 600 Normal Saline 600 Intake, IV Titration 100 169.091 22.143 Amount Ampicillin-Sulbactam 1.5 100 100 gm In Sodium Chloride 0.9 % 50 ml @ 100 mls/hr IVPB Q8H [facility] Rx#:[id number] Dexmedetomidine/0.9% NaCl 69.091 12.143 (Pmx) 400 mcg In Empty Bag 1 bag @ Titrate IV . Q0M [facility] Rx#:[id number] Sodium Chloride 0.9% 1, 10 000 ml @ 75 mls/hr IV . [id number] [facility] Rx#:[id number] Tube Feeding 480 Output: Urine 3810 355 360 Other: Voiding Method Indwelling Catheter Indwelling Catheter Indwelling Catheter - Exam General: [non toxic], [no distress], [appears at stated age] Derm: [warm], [dry] Head: [atraumatic], [normocephalic], [symmetric] Eyes: [EOMI], [no lid lag], [anicteric sclera] Mouth: [no lip lesion], [mucus membranes moist] Cardiovascular: [S1S2 reg], [no murmur], [positive DP pulse bilateral], Lungs: [CTA bilateral], [no rhonchi, no rales] , [no accessory muscle use] Abdominal: [soft], [ nontender to palpation], [no guarding], [no appreciable organomegaly] Ext: [no gross muscle atrophy], [no edema], [no contractures] Neuro: [no focal neuro deficits] Psych: [Alert], [oriented], [appropriate affect] - Labs CBC & Chem 7: 11/30/19 04:42 11/30/19 04:42 Labs: Abnormal Lab Results - Last 24 Hours (Table) 11/30/19 11/30/19 Range/Units 04:42 04:42 RBC 3.98 L (4.30-5.90) m/uL Hgb 12.3 L (13.0-17.5) gm/dL Hct 37.0 L (39.0-53.0) % Chloride 115 H (98-107) mmol/L Carbon Dioxide 20 L (22-30) mmol/L Glucose 100 H (74-99) mg/dL Total Protein 5.7 L (6.3-8.2) g/dL Albumin 3.4 L (3.5-5.0) g/dL Assessment and Plan Assessment: Toxic metabolic encephalopathy likely related to polysubstance abuse now resolving Hyperchloremic metabolic acidosis Seizure disorder COPD Hypertension Resolved: lactic acidosis, leukocytosis His altered mentation has improved as compared to yesterday. Precedex drip is now discontinued. Plans: EEG has been ordered and neurology has been consulted. This is likely related to infused IVF. Plans: DC IVF and encourage hydration by mouth. Repeat BMP tomorrow morning. Plans: Restart Lamictal and Keppra. Stable. Plans: DuoNeb as needed for shortness of breath and wheezing. BP 99/51. Plans: Hold antihypertensive medication due to relative hypotension. Reintroduce as tolerated. [Patient admitted for altered mentation. Likely related to polysubstance abuse seen on UDS. Passed swallow eval, started on diet. Anticipated DC in 1-2 days.]
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
[2019-11-30] MEDS: DULoxetine HCL 60 MG CAPSULE.DR PO SCH (21:32)
--- NOTE | 2019-11-30 22:27 | US ---
EXAMINATION TYPE: US carotid duplex BILAT DATE OF EXAM: 11/30/2019 COMPARISON: CT CLINICAL HISTORY: Syncope versus seizure. Syncope versus seizure per order. Current smoker. HTN. EXAM MEASUREMENTS: RIGHT: Peak Systolic Velocity (PSV) cm/sec ----- Right CCA: 106.0 ----- Right ICA: 106.0 ----- Right ECA: 149.0 ICA/CCA ratio: 1.0 RIGHT: End Diastole cm/sec ----- Right CCA: 25.2 ----- Right ICA: 26.8 ----- Right ECA: 26.8 LEFT: Peak Systolic Velocity (PSV) cm/sec ----- Left CCA: 85.9 ----- Left ICA: 144.5 ----- Left ECA: 120.7 ICA/CCA ratio: 1.7 LEFT: End Diastole cm/sec ----- Left CCA: 22.9 ----- Left ICA: 36.1 ----- Left ECA: 16.3 VERTEBRALS (direction of flow): Right Vertebral: Antegrade Left Vertebral: Antegrade Rhythm: Normal Intimal thickening seen bilaterally. Hypoechoic plaque seen left ICA and left ECA. Elevated velocity right ECA and left ICA. Turbulent flow within the left ICA. IMPRESSION: There is antegrade flow in the vertebral arteries. There is elevated velocity left internal carotid a rtery that suggests 50-70% stenosis. There is plaque formation and estimated close to 50% stenosis in the right internal carotid artery. Criteria for Assigning % of Stenosis / Diameter reduction (Estimation based on the indirect measurements of the internal carotid artery velocities (ICA PSV). 1. Normal (no stenosis)=ICA PSV < 125 cm/s: ratio < 2.0: ICA EDV<40 cm/s. 2. Less than 50% stenosis=ICA PSV < 125 cm/s: ratio < 2.0: ICA EDV<40 cm/s. 3. 50 to 69% stenosis=ICA PSV of 125 to 230 cm/s: ration 2.0 ? 4.0: ICA EDV 40-100 cm/s. 4. Greater than 70% stenosis to near occlusion= ICA PSV > 230 cm/s: ratio > 4.0: ICA EDV > 100 cm/s. 5. Near occlusion= ICA PSV velocities may be low or undetectable: variable ratio and ICA EDV. 6. Total occlusion=unable to detect flow.
[2019-12-01] MEDS: AMPICILLIN-SULBACTAM 1.5 GM in SODIUM CHLORIDE 0.9% 50 ML IVPB SCH (03:54)
[2019-12-01] MEDS: oxyCODONE-APAP 10-325MG 1 EACH TAB PO PRN ×4 (05:56→20:52)
[2019-12-01 06:36] LABS: Basophils % (A) 1 %; Eosinophils # (A) 0.2 k/uL (0-0.7); Eosinophils % (A) 2 %; HCT 35.7 % (39.0-53.0); HGB 11.7 gm/dL (13.0-17.5); Lymphocytes # (A) 2.4 k/uL (1.0-4.8); Lymphocytes % (A) 29 %; MCHC 32.7 g/dL (31.0-37.0); MCV 94.6 fL (80.0-100.0); Mean Platelet Volume 8.6; Monocytes # (A) 0.6 k/uL (0-1.0); Monocytes % (A) 7 %; Neutrophils % (A) 61 %; Platelet Count 281 k/uL (150-450); RBC 3.78 m/uL (4.30-5.90); RDW 13.4 % (11.5-15.5); WBC 8.2 k/uL (3.8-10.6)
[2019-12-01 06:53] LABS: ALT 31 U/L (4-49); AST 28 U/L (17-59); African American GFR (CKD) >90 (>60 ml/min/1.73 sqM); Albumin 3.3 g/dL (3.5-5.0); Alkaline Phosphatase 61 U/L (38-126); Anion Gap 5 mmol/L; Blood Urea Nitrogen 14 mg/dL (9-20); Calcium 8.9 mg/dL (8.4-10.2); Carbon Dioxide 23 mmol/L (22-30); Chloride 114 mmol/L (98-107); Glucose 99 mg/dL (74-99); Non-African American GFR(CKD) 86 (>60 ml/min/1.73 sqM); Potassium 3.8 mmol/L (3.5-5.1); Sodium 142 mmol/L (137-145); Total Bilirubin 0.6 mg/dL (0.2-1.3); Total Protein 5.5 g/dL (6.3-8.2)
[2019-12-01] MEDS ORDERED: Potassium Replacement Protocol 1 EACH MISC MISCELLANE PRN (06:58)
[2019-12-01] MEDS ORDERED: POTASSIUM CHLORIDE ER 20 MEQ TAB.ER PO SCH (07:00)
--- NOTE | 2019-12-01 07:29 | XR ---
EXAMINATION TYPE: XR chest 1V portable DATE OF EXAM: 12/01/2019 Comparison: 12/30/2019 Clinical History: 59-year-old male aspiration pneumonia Findings: Heart mildly enlarged. Diffuse interstitial prominence. Patchy peripheral based opacity remains. No o ther consolidation or pleural effusion. Impression: 1. Mild cardiomegaly. Interstitium appears prominent. Correlate to exclude mild pulmonary vascular co ngestion. 2. Unchanged mild patchy atelectasis/infiltrate at the peripheral left base.
[2019-12-01] MEDS: PREGABALIN 75 MG CAP PO SCH ×3 (08:38→20:52)
[2019-12-01] MEDS: lamoTRIgine 100 MG TAB PO SCH (08:40)
[2019-12-01] MEDS: FAMOTIDINE 20 MG TAB PO SCH ×2 (08:41→20:50)
[2019-12-01] MEDS: levETIRAcetam 500 MG TAB PO SCH ×2 (08:41→20:52)
[2019-12-01] MEDS: DULoxetine HCL 60 MG CAPSULE.DR PO SCH ×2 (08:41→20:52)
[2019-12-01] MEDS: REXULTI 4 MG PO SCH (08:41)
--- NOTE | 2019-12-01 08:44 | P.PCN ---
Date of Procedure: 12/01/19 Preoperative Diagnosis: Left-sided pleural effusion Postoperative Diagnosis: Left sided pleural effusion Procedure(s) Performed: Thoracentesis Anesthesia: local Surgeon: Elena Mae Estimated Blood Loss (ml): 0 Pathology: other (Was sent for chemistry and pathology) Condition: critical Disposition: ICU Operative Findings: Indication: Pleural effusion. A time-out was completed verifying correct patient, procedure, site, positioning, and implant (s) or special equipment if applicable. Ultrasound guidance was not used and appropriate fluid pocket was identified and marked. Patient was positioned, prepped and draped in usual sterile fashion. Lidocaine was used to anesthetize the area. A Thoracentesis catheter was introduced into the pleural space and fluid was removed. Blood loss was none. A chest x-ray was ordered to evaluate for pneumothorax. Total Fluid Removed: 850cc Color of Fluid: Turbid yellowish Fluid was sent for appropriate laboratory tests. Patient tolerated the procedure well and there were no complications.
[2019-12-01] MEDS: BACLOFEN 10 MG TAB PO SCH ×2 (10:47→20:52)
--- NOTE | 2019-12-01 11:41 | P.PN ---
Subjective Progress Note Date: 12/01/19 59-year-old male patient with known history of COPD presented to the ED with altered mentation, lethargy and unsteady gait. Note that the patient has also history of polysubstance abuse. Apparently the patient had taken a combination of medications. Urine drug screen was positive for methamphetamine, benzodiazepine and oxycodone. The patient was unable to volunteer any history. The history was obtained from the [id number]-lsk. The patient apparently became progressively more fatigued and confused and altered. He ultimately collapse. No seizure activity has been noted. The patient was admitted to the hospital because of altered mental status and polysubstance abuse and polypharmacy. His initial white cell count was at 15.0 with a hemoglobin of 13.7. The blood gases showed a pH of 7.36 with a pCO2 of 32 and pO2 of 87 this was on 28% FiO2. The patient had mild lactic acidosis with a lactic acid level of 2.5 that dropped down to 0.7 with hydration. Initial creatinine was at 2.7 dropped down to 2.1 with hydration. Note that he had a normal baseline renal function tests. The urine analysis essentially negative for any infection. There was +2 protein. LFTs are within normal limits. Troponin was negative. The serum alcohol was also negative. The CAT scan of the brain showed no acute abnormalities. The chest x-ray shows some left perihilar and basilar atelectasis favoring pneumonia. There is also coarse interstitial. The patient was started on IV Unasyn regarding the possibility of aspiration pneumonia. He is also normal state rate of 125 mL an hour. I was asked to evaluate this patient has the patient became quite restless and he was having coughing fits earlier this morning. He was getting restless and agitated. He was given Ativan and abdominal my evaluation he seemed to be quite lethargic and a bit more comfortable. No reported aspiration. The patient is currently on IV Unasyn. On today's evaluation of 11/30/2019, the patient is awake and alert. Overnight, the patient became more restless and agitated. I started him on Precedex drip. This helped her quite a bit with his agitation. Mentation gradually improved. He is currently on 0.1 mg per KG of minutes of Precedex and this will be further weaned off. He is awake and alert. His swallow will be checked and the patient will be started on oral feeding if he is able to swallow properly. He remains on normal saline at 75 mL an hour. He is on 1 L about 2 by nasal cannula. Pulse ox 97%. He is hemodynamically stable. He wants his painkillers to be restarted. Note that he is on oxycodone in the form of Percocet on outpatient basis. He is doing dressing was positive for various medication and polypharmacy is suspected. He is known to have bipolar disorder and depression and chronic anxiety in addition to ADD/ADHD. I think his mental status change was probably to the polypharmacy. No seizure activity has been noted. No focal logical deficits. A neurology consultation will be also obtained. 12/01/2019, the patient is much more alert and awake. He is having some resting shakes and this is related to the Parkinson's disease. Neurology consultation was done and their input is appreciated regarding the patient's mental status change which probably was metabolic/drug induced. In any rate, he is improved considerably and the patient is tolerating a regular diet. He is in a normal sinus rhythm. His pulse is 95% on room air. Is on IV fluids at the rate of 20 mL's an hour. He is weak. EEG showed no evidence of any seizure activity. No fever. No chills. No night sweats pH chest x-ray findings are essentially stable. The patient is on room air oxygen. Objective - Vital Signs Vital signs: Vital Signs Temp 99.5 F 12/01/19 08:00 Pulse 69 12/01/19 08:00 Resp 14 12/01/19 08:00 BP 149/87 12/01/19 08:00 Pulse Ox 94 L 12/01/19 08:00 Intake & Output 11/30/19 12/01/19 12/01/19 18:59 06:59 18:59 Intake Total 8067.576 2318 85 Output Total 445 950 135 Balance 1287.143 160 -50 Weight 106.3 kg Intake: IV 750 900 85 Normal Saline 750 900 85 Intake, IV Titration 22.143 50 Amount Ampicillin-Sulbactam 1.5 50 gm In Sodium Chloride 0.9 % 50 ml @ 100 mls/hr IVPB Q8H [facility] Rx#:[id number] Dexmedetomidine/0.9% NaCl 12.143 (Pmx) 400 mcg In Empty Bag 1 bag @ Titrate IV . Q0M [facility] Rx#:[id number] Sodium Chloride 0.9% 1, 10 000 ml @ 75 mls/hr IV . [id number] [facility] Rx#:[id number] Oral 480 160 Tube Feeding 480 Output: Urine 445 950 135 Other: Voiding Method Indwelling Catheter Indwelling Catheter Indwelling Catheter # Bowel Movements 1 - Exam General: non toxic, no distress, appears at stated age, obese, awake and alert and following orders and answering questions appropriately. Derm: no unusual rashes/lesions no unusual ecchymoses, warm, dry Head: atraumatic, normocephalic, symmetric Eyes: Anicteric sclera, pupils equal round reactive to light 4-5 mm gabo ENT: Nose and ears atraumatic Neck: Trachea midline, supple Mouth: no lip lesion, mucus membranes dry Cardiovascular: S1S2 reg, no murmur, positive posterior tibial pulse bilateral, no edema, capillary refill less than 2 seconds Lungs: CTA bilateral, no rhonchi, no rales , no accessory muscle use Abdominal: soft, nontender to palpation, no guarding, no appreciable organomegaly, normal bowel sounds Ext: no gross muscle atrophy, moving all extremities grossly, no contractures Neuro: Awake and alert and there is no focal neurological deficit. Neurologically, the patient is awake and alert and the patient does not have any focal neurological deficit. Cranial nerves are essentially intact. The patient has Parkinson's disease and the patient has some resting tremors. He is awake and is following commands and seems to be very appropriate at this point in time his swallowing appropriately. - Labs CBC & Chem 7: 12/01/19 06:00 12/01/19 06:00 Labs: Abnormal Lab Results - Last 24 Hours (Table) 12/01/19 12/01/19 Range/Units 06:00 06:00 RBC 3.78 L (4.30-5.90) m/uL Hgb 11.7 L (13.0-17.5) gm/dL Hct 35.7 L (39.0-53.0) % Chloride 114 H (98-107) mmol/L Total Protein 5.5 L (6.3-8.2) g/dL Albumin 3.3 L (3.5-5.0) g/dL Assessment and Plan Plan: 1 altered mental status likely secondary to polysubstance abuse/drug induced encephalopathy. The clinical symptoms of improved and the patient is back to normal mentation. Neurology consultation has been appreciated. The patient is back on his home medication with exception of the Rexulti. Neurology input is appreciated. The patient has no seizure activity. 2 acute dehydration, improved with fluid resuscitation 3 acute lactic acidosis, improved 4 acute kidney injury, improved with fluid resuscitation 5 COPD currently inactive in stable 6 question of perihilar pulmonary infiltrates, aspiration is doubtful currently on IV Unasyn. The repeat chest x-ray from today shows cardiomegaly and patchy left basilar atelectasis/infiltrates. 7 seizure disorder, last seizure in 2018 8 hypertension 9 osteoarthritis 10 previous history of prostate cancer with previous prostatectomy 11 chronic back pain/radiculopathy/chronic hip and knee pain bilateral Plan Provide regular diet Home medications have been resumed and the patient is currently on Cymbalta 60 mg, Lamictal 200 mg by mouth daily and Keppra 1 g twice a day. The patient is also on pain control with Percocet 10/325 one tablet 4 times a day and Lyrica 150 mg 3 times a day. Stop Unasyn Neurology consultation is appreciated We'll transfer this patient to medical surgical floor. We'll may need some rehabilitation the patient is quite weak and debilitated.
[2019-12-01] MEDS: ASPIRIN 81 MG PO SCH (12:01)
--- NOTE | 2019-12-01 14:17 | P.PN ---
Subjective Progress Note Date: 12/01/19 Patient states he is feeling much better. Offers no new complaints. No seizures, no focal symptoms. Denies headache. Mentation improved. Objective - Vital Signs Vital signs: Vital Signs Temp 98.3 F 12/01/19 12:00 Pulse 72 12/01/19 12:00 Resp 14 12/01/19 12:00 BP 136/75 12/01/19 12:00 Pulse Ox 97 12/01/19 12:00 Intake & Output 11/30/19 12/01/19 12/01/19 18:59 06:59 18:59 Intake Total 8010.146 0368 285 Output Total 445 950 535 Balance 1287.143 160 -250 Weight 106.3 kg Intake: IV 750 900 85 Normal Saline 750 900 85 Intake, IV Titration 22.143 50 Amount Ampicillin-Sulbactam 1.5 50 gm In Sodium Chloride 0.9 % 50 ml @ 100 mls/hr IVPB Q8H RICH Rx#:[id number] Dexmedetomidine/0.9% NaCl 12.143 (Pmx) 400 mcg In Empty Bag 1 bag @ Titrate IV . Q0M RICH Rx#:[id number] Sodium Chloride 0.9% 1, 10 000 ml @ 75 mls/hr IV . [id number] RICH Rx#:[id number] Oral 480 160 200 Tube Feeding 480 Output: Urine 445 950 535 Other: Voiding Method Indwelling Catheter Indwelling Catheter Indwelling Catheter # Bowel Movements 1 - Exam Patient is alert and awake. He knows it is November 2019 and that he is in [facility] in [place]. Muscle strength is normal. Cranial nerves normal. - Labs CBC & Chem 7: 12/01/19 06:00 12/01/19 06:00 Labs: Abnormal Lab Results - Last 24 Hours (Table) 12/01/19 12/01/19 Range/Units 06:00 06:00 RBC 3.78 L (4.30-5.90) m/uL Hgb 11.7 L (13.0-17.5) gm/dL Hct 35.7 L (39.0-53.0) % Chloride 114 H (98-107) mmol/L Total Protein 5.5 L (6.3-8.2) g/dL Albumin 3.3 L (3.5-5.0) g/dL Assessment and Plan Assessment: * Altered mental status, likely related to toxic metabolic encephalopathy related to polypharmacy/polysubstance abuse. Patient's urine positive for amphetamines and methamphetamines, although patient completely declining any use of amphetamines. * Seizure disorder * Moderate left ICA stenosis. * Patient with tremors at rest, slightly increased tone, and gait instability, raising possibility of mild Parkinson's disease. * Tobacco use Plan: * EEG was abnormal due to background slowing of moderate degree, suggestive of encephalopathy. No epileptiform activity was seen. * Continue Keppra 1000 mg twice a day and Lamictal 200 mg daily, which will be continued. * Patient is also on Lyrica 150 mg 3 times a day. Patient states that he has chronic back and leg issues and does not want to reduce the dose of Lyrica. * Suggest reassessing other medications, may need adjustment of his pain medications. * Carotid Doppler revealed 50-70% stenosis left ICA. Close to 50% stenosis right ICA. Patient started on aspirin 81 mg daily. Suggest repeating carotid Doppler in 6-12 months for a follow-up. * Patient is showing signs of mild Parkinson's disease. At this time patient is encephalopathic, therefore would avoid starting any new medication. I would suggest follow-up in neurology office as an outpatient once encephalopathy has resolved, to confirm Parkinson's and then may start appropriate treatment. * complete tobacco cessation. * Hemoglobin A1c is normal 5.6 and TSH 4.310 on 05/01/2018. Lipid panel with cholesterol 167, LDL 101, HDL 50 and triglycerides 81. We will start Lipitor 10 mg daily for carotid stenosis, to target LDL <70.
--- NOTE | 2019-12-01 18:46 | P.PN ---
Subjective Progress Note Date: 12/01/19 (dleayed charting seen at 1100) Principal diagnosis: altered mentation -year-old male past medical history of polysubstance abuse, seizures, COPD, hypertension, chronic pain, and debility requiring scooter use who presented to the emergency department initially for evaluation of his family member and then was noted to be lethargic with an unsteady gait in the ER. They therefore proceeded with examination of the patient. Initial vital signs showed an elevated pulse at 101 and elevated respiratory rate at 26. Laboratory analysis showed a white blood cell count of 13.9, VBG with pH of 7.38, lactic acid elevated at 2.5, creatinine elevated at 2.79, and urine drug screen was positive for oxycodone, amphetamines, benzodiazepines, and methamphetamines. Serum alcohol was negative. Urinalysis demonstrated proteinuria. Chest x-ray showed no acute process and CT of the brain was within normal limits. He received 1 dose of Narcan in the ER with improvement in his mentation. He was subsequently admitted for altered mentation. After arrival and 18 was called for worsening dyspnea. Chest x-ray demonstrated atelectasis versus pneumonia with coarsened interstitium. He was given 1 dose of Lasix and started on nebulized breathing treatments. He was also ordered Unasyn for aspiration pneumonia and pulmonology was consulted. He was subsequently transferred to the ICU. He then became increasingly agitated overnight requiring Precedex. Neurology was consulted, he underwent an EEG which showed background slowing suggestive of encephalopathy, they recommended a carotid Doppler rule out stenosis, as well as outpatient evaluation for Parkinson's disease. He was weaned off of Precedex on 11/29. She underwent a carotid Doppler which showed 50-70% stenosis in the left ICA and 50% stenosis in the right ICA. He was started on aspirin. Patient seen and examined at bedside. He states his pain is at baseline, he is feeling fine, he denies any intentional self-harm or suicidal thoughts. No other complaints currently. Wanting to go home and thinks his weakness is at baseline. He does have outpatient follow up with [facility], primary care physician, and neurology. General: non toxic, no distress, appears at stated age Derm: warm, dry Head: atraumatic, normocephalic, symmetric Eyes: EOMI, no lid lag, anicteric sclera Mouth: no lip lesion, mucus membranes moist Cardiovascular: S1S2 reg, no murmur, positive posterior tibial pulse bilateral, Lungs: CTA bilateral, no rhonchi, no rales , no accessory muscle use Abdominal: soft, nontender to palpation, no guarding, no appreciable organomegaly Ext: no gross muscle atrophy, no edema, no contractures Neuro: CN II-XI grossly intact, + intention tremor Psych: Alert, oriented, flat affect Toxic metabolic encephalopathy -Likely secondary to polysubstance abuse -Patient denies any suicidal ideation. -Patient is chronically on oxycodone, gabapentin, and baclofen. Will resume home medications and monitor for altered mentation. He will outpatient follow- up with his neurologist, he states he was told he is going through a crippling neuromuscular degenerative disease but not Parkinson's. He typically uses his scooter for any mobility outside of the house and uses his walker in the house but moves very little. Carotid arterial disease -Outpatient follow-up -Check lipid profile, last on file is from 2015 -Aspirin Bipolar disorder - Kenisha baca - outpatient [facility] follow-up COPD without exacerbation - prn BD Seizure disorder - Keppra, lamictal Hypertension - hypotensive on admission - resume lisinopril now that BP is stable and EDUIN is resolved Leukocytosis, resolved Lactic acidosis, resolved Acute kidney injury, resolved Dehydration, resolved DVT prophylaxis: SCDS Discussed with: patient, nursing Anticipated discharge: in AM Anticipated discharge place: A total of 35 minutes was spent on the care of this complex patient more than 50% of the time was spent in counseling and care coordination. Objective - Vital Signs Vital signs: Vital Signs Temp 98.4 F 12/01/19 17:36 Pulse 74 12/01/19 17:36 Resp 20 12/01/19 17:36 BP 142/80 12/01/19 17:36 Pulse Ox 98 12/01/19 17:36 Intake & Output 11/30/19 12/01/19 12/01/19 18:59 06:59 18:59 Intake Total 3549.305 7537 335 Output Total 445 950 535 Balance 1287.143 160 -200 Weight 106.3 kg Intake: IV 750 900 85 Normal Saline 750 900 85 Intake, IV Titration 22.143 50 Amount Ampicillin-Sulbactam 1.5 50 gm In Sodium Chloride 0.9 % 50 ml @ 100 mls/hr IVPB Q8H RICH Rx#:[id number] Dexmedetomidine/0.9% NaCl 12.143 (Pmx) 400 mcg In Empty Bag 1 bag @ Titrate IV . Q0M RICH Rx#:[id number] Sodium Chloride 0.9% 1, 10 000 ml @ 75 mls/hr IV . [id number] RICH Rx#:[id number] Oral 480 160 250 Tube Feeding 480 Output: Urine 445 950 535 Other: Voiding Method Indwelling Catheter Indwelling Catheter Indwelling Catheter # Bowel Movements 1 - Labs CBC & Chem 7: 12/01/19 06:00 12/01/19 06:00 Labs: Abnormal Lab Results - Last 24 Hours (Table) 12/01/19 12/01/19 Range/Units 06:00 06:00 RBC 3.78 L (4.30-5.90) m/uL Hgb 11.7 L (13.0-17.5) gm/dL Hct 35.7 L (39.0-53.0) % Chloride 114 H (98-107) mmol/L Total Protein 5.5 L (6.3-8.2) g/dL Albumin 3.3 L (3.5-5.0) g/dL
[2019-12-01] MEDS ORDERED: ATORVASTATIN 10 MG TAB PO SCH (21:00)
[2019-12-02] MEDS: oxyCODONE-APAP 10-325MG 1 EACH TAB PO PRN ×2 (04:51→10:06)
[2019-12-02 05:53] LABS: Basophils % (A) 0 %; Eosinophils # (A) 0.2 k/uL (0-0.7); Eosinophils % (A) 3 %; HCT 36.2 % (39.0-53.0); HGB 12.1 gm/dL (13.0-17.5); Lymphocytes # (A) 1.6 k/uL (1.0-4.8); Lymphocytes % (A) 18 %; MCH 30.8 pg (25.0-35.0); MCHC 33.3 g/dL (31.0-37.0); MCV 92.4 fL (80.0-100.0); Mean Platelet Volume 7.9; Monocytes # (A) 0.6 k/uL (0-1.0); Monocytes % (A) 6 %; Neutrophils # (A) 6.5 k/uL (1.3-7.7); Neutrophils % (A) 72 %; Platelet Count 257 k/uL (150-450); RBC 3.92 m/uL (4.30-5.90); RDW 13.1 % (11.5-15.5)
[2019-12-02 07:10] VITALS: BP 151/91; PULSE 59; RESP 16; TEMP 97.9
--- NOTE | 2019-12-02 07:48 | XR ---
EXAMINATION TYPE: XR chest 1V portable DATE OF EXAM: 12/02/2019 COMPARISON: 12/01/2019 INDICATION: Aspiration pneumonia TECHNIQUE: Single frontal view of the chest is obtained. FINDINGS: The heart size is mildly prominent. The pulmonary vasculature is normal. There appears be some mild increasing lingular infiltrate. Costophrenic angle is poorly visualized. S mall effusion may be developing. IMPRESSION: 1. Suggestion of mild developing lingular infiltrate and/or small left pleural effusion. Findings are worsening. Follow-up is recommended.
[2019-12-02] MEDS: BACLOFEN 10 MG TAB PO SCH (08:55)
[2019-12-02] MEDS: FAMOTIDINE 20 MG TAB PO SCH (08:55)
[2019-12-02] MEDS: ASPIRIN 81 MG PO SCH (08:55)
[2019-12-02] MEDS: DULoxetine HCL 60 MG CAPSULE.DR PO SCH (08:55)
[2019-12-02] MEDS: lamoTRIgine 100 MG TAB PO SCH (08:56)
[2019-12-02] MEDS: PREGABALIN 75 MG CAP PO SCH (08:56)
[2019-12-02] MEDS: levETIRAcetam 500 MG TAB PO SCH (08:56)
[2019-12-02] MEDS ORDERED: lisinopriL 5 MG TAB PO SCH (09:00)
[2019-12-02] MEDS ORDERED: TAMSULOSIN 0.4 MG CAP.ER.24H PO SCH (09:00)
[2019-12-02 09:54] LABS: African American GFR (CKD) 95.1 (60.0-200.0); Albumin 3.9 g/dL (3.80-4.90); Albumin/Globulin Ratio 2.44 (1.60-3.17); Calcium 8.8 mg/dL (8.7-10.3); Chol/HDL Ratio 3.87; Globulin 1.6 g/dL (1.6-3.3); LDL Cholesterol,Calculated 92.4 mg/dL (0.0-131.0); Potassium 3.8 mmol/L (3.5-5.5); Total Bilirubin 0.5 mg/dL (0.3-1.2); Total Protein 5.5 g/dL (6.2-8.2); VLDL Calculation 19.6 mg/dL (5.00-40.00)
[2019-12-02] MEDS: REXULTI 4 MG PO SCH (10:04)
--- NOTE | 2019-12-02 10:52 | P.DS ---
Providers Date of admission: 11/29/19 05:36 Expected date of discharge: 12/02/19 Attending physician: Joey Saleh MD Consults: 11/29/19 10:25 Consult Physician Stat Consulting Provider: Elena Mae Consult Reason/Comments: Respiratory -compromise Overdose Do you want consulting provider notified?: Yes 11/30/19 09:17 Consult Physician Routine Consulting Provider: Chris Fontenot Consult Reason/Comments: AMS Do you want consulting provider notified?: Yes Primary care physician: [facility] Course: Discharge Diagnosis: Toxic metabolic encephalopathy, suspect secondary to polysubstance abuse, unintentional overdose Carotid arterial disease Bipolar disorder COPD without exacerbation Seizure disorder Hypertension Leukocytosis, resolved Lactic acidosis, resolved Acute kidney injury, resolved Dehydration, resolved Hospital Course: Patient is a 59-year-old male past medical history of polysubstance abuse, seizures, COPD, hypertension, chronic pain, and debility requiring scooter use who presented to the emergency department initially for evaluation of his family member and then was noted to be lethargic with an unsteady gait in the ER. They therefore proceeded with examination of the patient. Initial vital signs showed an elevated pulse at 101 and elevated respiratory rate at 26. Laboratory analysis showed a white blood cell count of 13.9, VBG with pH of 7.38, lactic acid elevated at 2.5, creatinine elevated at 2.79, and urine drug screen was positive for oxycodone, amphetamines, benzodiazepines, and methamphetamines. Serum alcohol was negative. Urinalysis demonstrated proteinuria. Chest x-ray showed no acute process and CT of the brain was within normal limits. He received 1 dose of Narcan in the ER with improvement in his mentation. He was subsequently admitted for altered mentation. After arrival and 18 was called for worsening dyspnea. Chest x-ray demonstrated atelectasis versus pneumonia with coarsened interstitium. He was given 1 dose of Lasix and started on nebulized breathing treatments. He was also ordered Unasyn for aspiration pneumonia and pulmonology was consulted. He was subsequently transferred to the ICU. He then became increasingly agitated overnight requiring Precedex. Neurology was consulted, he underwent an EEG which showed background slowing suggestive of encephalopathy, they recommended a carotid Doppler rule out stenosis, as well as outpatient evaluation for Parkinson's disease. He was weaned off of Precedex on 11/29. She underwent a carotid Doppler which showed 50-70% stenosis in the left ICA and 50% stenosis in the right ICA. He was started on aspirin. He was on room air and his oxygenation was improved he was taken off Unasyn. His home pain medications were resumed and he did not have any increased confusion. He was determined stable for discharge. He will see his PCP from [facility]. He will follow with his neurologist Dr. Weiss in 2 weeks, he is aware that he will need carotid US in 6 months to check. Patient seen and examined at bedside. No chest pain, SOB nausea or vomiting. Having his chronic pain. No confusion. Vital signs reviewed and stable. General: non toxic, no distress, appears at stated age Derm: warm, dry Head: atraumatic, normocephalic, symmetric Eyes: EOMI, no lid lag, anicteric sclera Mouth: no lip lesion, mucus membranes moist Cardiovascular: S1S2 reg, no murmur, positive posterior tibial pulse bilateral, Lungs: CTA bilateral, no rhonchi, no rales , no accessory muscle use Abdominal: soft, nontender to palpation, no guarding, no appreciable organomegaly Ext: no gross muscle atrophy, no edema, no contractures Neuro: CN II-XI grossly intact, + tremors Psych: Alert, oriented, Flat affect A total of 35 minutes of time were spent preparing this complex discharge summary . Patient Condition at Discharge: Stable Plan - Discharge Summary Discharge Rx Participant: No New Discharge Prescriptions: New Aspirin 81 mg PO DAILY #30 chew Atorvastatin [Lipitor] 10 mg PO HS #30 tab Continue levETIRAcetam [Keppra] 1,000 mg PO BID DULoxetine HCL [Cymbalta] 60 mg PO BID Furosemide [Lasix] 40 mg PO DAILY #30 tablet Potassium Chloride ER [K-Dur 10] 10 meq PO DAILY #30 tab lamoTRIgine [LaMICtal] 200 mg PO DAILY lisinopriL [Zestril] 5 mg PO DAILY Cholecalciferol [Vitamin D3 (25 Mcg = 1000 Iu)] 5,000 unit PO DAILY Baclofen [Lioresal] 10 mg PO BID Oxybutynin Chloride [Ditropan] 5 mg PO BID Albuterol Sulfate [Ventolin HFA] 1 - 2 puff INHALATION RT-QID PRN PRN Reason: Shortness Of Breath Tamsulosin HCl [Flomax] 0.4 mg PO DAILY oxyCODONE HCL/ACETAMINOPHEN [Percocet 10-325 mg] 1 tab PO QID PRN PRN Reason: Pain Brexpiprazole [Rexulti] 4 mg PO DAILY Budesonide [Pulmicort Flexhaler] 2 puff INHALATION RT-BID Loratadine [Claritin] 10 mg PO DAILY Pregabalin 150 mg PO TID Discontinued lisinopriL [Zestril] 10 mg PO DAILY Discharge Medication List levETIRAcetam [Keppra] 1,000 mg PO BID 11/27/17 [History] DULoxetine HCL [Cymbalta] 60 mg PO BID 04/10/18 [History] Furosemide [Lasix] 40 mg PO DAILY #30 tablet 05/17/18 [Rx] Potassium Chloride ER [K-Dur 10] 10 meq PO DAILY #30 tab 05/17/18 [Rx] lamoTRIgine [LaMICtal] 200 mg PO DAILY 06/06/18 [History] lisinopriL [Zestril] 5 mg PO DAILY 06/06/18 [History] Albuterol Sulfate [Ventolin HFA] 1 - 2 puff INHALATION RT-QID PRN 03/30/19 [History] Baclofen [Lioresal] 10 mg PO BID 03/30/19 [History] Cholecalciferol [Vitamin D3 (25 Mcg = 1000 Iu)] 5,000 unit PO DAILY 03/30/19 [History] Oxybutynin Chloride [Ditropan] 5 mg PO BID 03/30/19 [History] Tamsulosin HCl [Flomax] 0.4 mg PO DAILY 03/30/19 [History] oxyCODONE HCL/ACETAMINOPHEN [Percocet 10-325 mg] 1 tab PO QID PRN 04/27/19 [Hi story] Brexpiprazole [Rexulti] 4 mg PO DAILY 11/29/19 [History] Budesonide [Pulmicort Flexhaler] 2 puff INHALATION RT-BID 11/29/19 [History] Loratadine [Claritin] 10 mg PO DAILY 11/29/19 [History] Pregabalin 150 mg PO TID 11/29/19 [History] Aspirin 81 mg PO DAILY #30 chew 12/02/19 [Rx] Atorvastatin [Lipitor] 10 mg PO HS #30 tab 12/02/19 [Rx] Follow up Appointment(s)/Referral(s): [facility], [NON-STAFF] - 1 Week [facility] Galen cantrell [Primary Care Provider] - 1-2 days Edgard Weiss MD [STAFF PHYSICIAN] - 2 Weeks Activity/Diet/Wound Care/Special Instructions: Activity: as tolerated Diet: heart healthy Special Instructions: abstain from illicit substances Discharge Disposition: HOME SELF-CARE
--- NOTE | 2019-12-02 11:51 | P.PN ---
Subjective Progress Note Date: 12/02/19 Principal diagnosis: Altered mental status secondary to polysubstance abuse/drug induced encephalopathy, recovered 59-year-old male patient with known history of COPD presented to the ED with altered mentation, lethargy and unsteady gait. Note that the patient has also history of polysubstance abuse. Apparently the patient had taken a combination of medications. Urine drug screen was positive for methamphetamine, benzodiazepine and oxycodone. The patient was unable to volunteer any history. The history was obtained from the [id number]. The patient apparently became progressively more fatigued and confused and altered. He ultimately collapse. No seizure activity has been noted. The patient was admitted to the hospital because of altered mental status and polysubstance abuse and polypharmacy. His initial white cell count was at 15.0 with a hemoglobin of 13.7. The blood gases showed a pH of 7.36 with a pCO2 of 32 and pO2 of 87 this was on 28% FiO2. The patient had mild lactic acidosis with a lactic acid level of 2.5 that dropped down to 0.7 with hydration. Initial creatinine was at 2.7 dropped down to 2.1 with hydration. Note that he had a normal baseline renal function tests. The urine analysis essentially negative for any infection. There was +2 protein. LFTs are within normal limits. Troponin was negative. The serum alcohol was also negative. The CAT scan of the brain showed no acute abnormalities. The chest x-ray shows some left perihilar and basilar atelectasis favoring pneumonia. There is also coarse interstitial. The patient was started on IV Unasyn regarding the possibility of aspiration pneumonia. He is also normal s thorpe rate of 125 mL an hour. I was asked to evaluate this patient has the patient became quite restless and he was having coughing fits earlier this morning. He was getting restless and agitated. He was given Ativan and abdominal my evaluation he seemed to be quite lethargic and a bit more comfor table. No reported aspiration. The patient is currently on IV Unasyn. On today's evaluation of 11/30/2019, the patient is awake and alert. Overnight, the patient became more restless and agitated. I started him on Precedex drip. This helped her quite a bit with his agitation. Mentation gradually improved. He is currently on 0.1 mg per KG of minutes of Precedex and this will be further weaned off. He is awake and alert. His swallow will be checked and the patient will be started on oral feeding if he is able to swallow properly. He remains on normal saline at 75 mL an hour. He is on 1 L about 2 by nasal cannula. Pulse ox 97%. He is hemodynamically stable. He wants his painkillers to be restarted. Note that he is on oxycodone in the form of Percocet on outpatient basis. He is doing dressing was positive for various medication and polypharmacy is suspected. He is known to have bipolar disorder and depression and chronic anxiety in addition to ADD/ADHD. I think his mental status change was probably to the polypharmacy. No seizure activity has been noted. No focal logical deficits. A neurology consultation will be also obtained. 12/01/2019, the patient is much more alert and awake. He is having some resting shakes and this is related to the Parkinson's disease. Neurology consultation was done and their input is appreciated regarding the patient's mental status change which probably was metabolic/drug induced. In any rate, he is improved considerably and the patient is tolerating a regular diet. He is in a normal sinus rhythm. His pulse is 95% on room air. Is on IV fluids at the rate of 20 mL's an hour. He is weak. EEG showed no evidence of any seizure activity. No fever. No chills. No night sweats pH chest x-ray findings are essentially sta ble. The patient is on room air oxygen. On 12/02/2019 patient seen in follow-up. Doing well, completely recovered, no neurologic deficits. Awake and alert, oriented 3, vital signs are stable. Ch est x-ray showed developing lingular infiltrate and small left pleural effusion, clinically patient has remained stable, no shortness of breath. No cough or congestion, no chest pain. Objective - Vital Signs Vital signs: Vital Signs Temp 97.9 F 12/02/19 07:00 Pulse 59 L 12/02/19 07:00 Resp 16 12/02/19 07:00 BP 151/91 12/02/19 07:00 Pulse Ox 97 12/02/19 07:00 Intake & Output 12/01/19 12/02/19 12/02/19 18:59 06:59 18:59 Intake Total 335 Output Total 535 Balance -200 Intake: IV 85 Normal Saline 85 Oral 250 Output: Urine 535 Other: Voiding Method Indwelling Catheter Toilet # Voids 1 # Bowel Movements 1 - Exam GENERAL EXAM: Alert, pleasant 59-year-old white male, on room air pulse ox 97% comfortable in no apparent distress. HEAD: Normocephalic/atraumatic. EYES: Normal reaction of pupils, equal size. Conjunctiva pink, sclera white. NOSE: Clear with pink turbinates. THROAT: No erythema or exudates. NECK: No masses, no JVD, no thyroid enlargement, no adenopathy. CHEST: No chest wall deformity. Symmetrical expansion. LUNGS: Equal air entry with no crackles, wheeze, rhonchi or dullness. CVS: Regular rate and rhythm, normal S1 and S2, no gallops, no murmurs, no rubs ABDOMEN: Soft, nontender. No hepatosplenomegaly, normal bowel sounds, no guarding or rigidity. EXTREMITIES: No clubbing, no edema, no cyanosis, 2+ pulses and upper and lower extremities. MUSCULOSKELETAL: Muscle strength and tone normal. SPINE: No scoliosis or deformity SKIN: No rashes CENTRAL NERVOUS SYSTEM: Alert and oriented -3. No focal deficits, tone is normal in all 4 extremities. PSYCHIATRIC: Alert and oriented -3. Appropriate affect. Intact judgment and insight. - Labs CBC & Chem 7: 12/02/19 05:34 12/02/19 05:34 Labs: Abnormal Lab Results - Last 24 Hours (Table) 12/02/19 12/02/19 Range/Units 05:34 05:34 RBC 3.92 L (4.30-5.90) m/uL Hgb 12.1 L (13.0-17.5) gm/dL Hct 36.2 L (39.0-53.0) % Chloride 110 H (96-109) mmol/L Total Protein 5.5 L (6.2-8.2) g/dL HDL Cholesterol 39.0 L (40.0-60.0) mg/dL Assessment and Plan Plan: Assessment: 1 altered mental status likely secondary to polysubstance abuse/drug induced encephalopathy. The clinical symptoms of improved and the patient is back to normal mentation. Neurology consultation has been appreciated. The patient is back on his home medication with exception of the Rexulti. Neurology input is appreciated. The patient has no seizure activity. 2 acute dehydration, improved with fluid resuscitation 3 acute lactic acidosis, improved 4 acute kidney injury, improved with fluid resuscitation 5 COPD currently inactive in stable 6 question of perihilar pulmonary infiltrates, aspiration is doubtful currently on IV Unasyn. The repeat chest x-ray from today shows cardiomegaly and patchy left basilar atelectasis/infiltrates. 7 seizure disorder, last seizure in 2018 8 hypertension 9 osteoarthritis 10 previous history of prostate cancer with previous prostatectomy 11 chronic back pain/radiculopathy/chronic hip and knee pain bilateral Plan: Patient has remained stable overnight, no fever or chills, no cough, no dyspnea, no altered mentation. His chest x-ray has been reviewed, suggesting mild lingular infiltrate, clinically asymptomatic, patient has been treated with Zosyn, vital signs have been stable, anticipate discharge home today I performed a history & physical examination of the patient and discussed their management with my nurse practitioner, Shania Oconnor. I reviewed the nurse practitioner's note and agree with the documented findings and plan of care. Lung sounds are positive for clear breath sounds. The findings and the impression was discussed with the patient. I attest to the documentation by the nurse practitioner. Time with Patient: Less than 30
== END 2019-12-02 13:21 | disposition home or self-care (01) | DRG 917 ==
LOC: EC 02:12 → 3SCARD 05:36 → 2SICU 12:56 → 4SSUR 12-01 17:33
PROVIDERS: ADMIT Internal Medicine; ATTEND Internal Medicine
DX: T42.4X1A Poisoning by benzodiazepines, accidental (unintentional), initial encounter (principal); G92 Toxic encephalopathy; J69.0 Pneumonitis due to inhalation of food and vomit; E87.2 Acidosis; N17.9 Acute kidney failure, unspecified; Z20.828 Contact with and (suspected) exposure to other viral communicable diseases; F31.9 Bipolar disorder, unspecified; I11.9 Hypertensive heart disease without heart failure; G20 Parkinson's disease; I95.9 Hypotension, unspecified; T43.621A Poisoning by amphetamines, accidental (unintentional), initial encounter; T40.2X1A Poisoning by other opioids, accidental (unintentional), initial encounter; G40.909 Epilepsy, unspecified, not intractable, without status epilepticus; J44.9 Chronic obstructive pulmonary disease, unspecified; E86.0 Dehydration; R40.2362 Coma scale, best motor response, obeys commands, at arrival to emergency department; R40.2142 Coma scale, eyes open, spontaneous, at arrival to emergency department; R40.2252 Coma scale, best verbal response, oriented, at arrival to emergency department; M79.7 Fibromyalgia; M19.90 Unspecified osteoarthritis, unspecified site; K21.9 Gastro-esophageal reflux disease without esophagitis; H54.7 Unspecified visual loss; G89.29 Other chronic pain; M54.5 Low back pain; R29.6 Repeated falls; G43.909 Migraine, unspecified, not intractable, without status migrainosus; F90.9 Attention-deficit hyperactivity disorder, unspecified type; F41.9 Anxiety disorder, unspecified; F17.210 Nicotine dependence, cigarettes, uncomplicated; R26.81 Unsteadiness on feet; M54.10 Radiculopathy, site unspecified; I65.23 Occlusion and stenosis of bilateral carotid arteries; R80.9 Proteinuria, unspecified; D72.829 Elevated white blood cell count, unspecified; E66.9 Obesity, unspecified; W18.30XA Fall on same level, unspecified, initial encounter; Z71.6 Tobacco abuse counseling; Z68.34 Body mass index [BMI] 34.0-34.9, adult; Z79.899 Other long term (current) drug therapy; Z85.46 Personal history of malignant neoplasm of prostate; Z86.14 Personal history of Methicillin resistant Staphylococcus aureus infection; Z90.49 Acquired absence of other specified parts of digestive tract; Z98.890 Other specified postprocedural states; Z90.79 Acquired absence of other genital organ(s); Z88.5 Allergy status to narcotic agent; Z88.8 Allergy status to other drugs, medicaments and biological substances; Z82.49 Family history of ischemic heart disease and other diseases of the circulatory system
CPT/HCPCS: 36415; 36600; 51701; 70450; 71045; 80048; 80053; 80061; 80306; 80320; 80329; 81001; 82140; 82803; 82805; 83605; 83735; 84484; 85025; 85027; 85610; 85730; 93005; 93880; 94640; 95816; 96361; 96374; 99285

== ENCOUNTER → 2020-07-07 | Outpatient (CLI) | payer MEDICARE, OTHER ==
[~2020-07-07] MED LIST: IODINE/POTASS IOD (LUGOLS) BOTTLE TOPICAL ONE
--- NOTE | 2020-07-07 15:54 | NM ---
EXAMINATION TYPE: NM DatScan Brain SPECT DATE OF EXAM: 07/07/2020 COMPARISON: CT brain November 29, 2019 HISTORY: Essential whole body tremor TECHNIQUE: 10 drops of Lugol's solution was administered 1 hour prior to injection as a thyroid bloc alon agent. After the administration of 4.8 mCi I-123 Ioflupane DaTscan. Images obtained [address] injection. SPECT images of the brain were acquired with axial and coronal reconstructions. FINDINGS: The DaTSCAN demonstrates significantly reduced uptake of tracer bilaterally to the striata, indicatin g the loss of the presynaptic dopaminergic terminals. IMPRESSION: This abnormal appearance would be supportive of a clinical diagnosis of either DLB, idiopathic PD, PS or Parkinson?s dementia disease.
== END | disposition home or self-care (01) ==
LOC: RADNMMAIN 10:30
PROVIDERS: ATTEND Psychiatry & Neurology Neurology
DX: G25.0 Essential tremor (principal); F01.50 Vascular dementia, unspecified severity, without behavioral disturbance, psychotic disturbance, mood disturbance, and anxiety
CPT/HCPCS: 78803; A9584

== ENCOUNTER 2020-11-20 18:42 | Inpatient (IN) | payer MEDICARE, OTHER ==
[2020-11-20] MEDS ORDERED: SODIUM CHLORIDE 0.9% 500 ML 500 ML IV STA (19:03)
[2020-11-20 19:22] LABS: Basophils # (A) 0.1 k/uL (0-0.2); Basophils % (A) 0 %; Eosinophils # (A) 0.1 k/uL (0-0.7); Eosinophils % (A) 0 %; HGB 15.3 gm/dL (13.0-17.5); Lymphocytes % (A) 9 %; MCHC 33.9 g/dL (31.0-37.0); MCV 97.3 fL (80.0-100.0); Monocytes # (A) 0.5 k/uL (0-1.0); Monocytes % (A) 5 %; Neutrophils # (A) 9.2 k/uL (1.3-7.7); Neutrophils % (A) 84 %; Platelet Count 266 k/uL (150-450); RBC 4.63 m/uL (4.30-5.90); RDW 14.8 % (11.5-15.5); WBC 10.9 k/uL (3.8-10.6)
[2020-11-20 19:36] LABS: INR 0.9 (<1.2); Partial Thromboplastin Time 21.2 sec (22.0-30.0); Prothrombin Time 9.7 sec (9.0-12.0)
--- NOTE | 2020-11-20 19:42 | XR ---
EXAMINATION TYPE: XR chest 2V DATE OF EXAM: 11/20/2020 COMPARISON: 12/02/2019 HISTORY: Altered mental status : FINDINGS: Heart is enlarged. There is pulmonary vascular congestion. There are chest leads. There are no hilar masses. Costophrenic angles are clear. IMPRESSION: There is evidence for some congestive heart failure that is new compared to old exam.
--- NOTE | 2020-11-20 19:45 | CT ---
EXAMINATION TYPE: CT brain wo con DATE OF EXAM: 11/20/2020 COMPARISON: 11/29/2019 HISTORY: Neuro deficits, stroke suspected CT DLP: 95342 mGycm Automated exposure control for dose reduction was used. There is cortical hypodensity involving large area of the left temporal lobe consistent with subacute infarct. There is no mass effect. There is no evidence of intracranial hemorrhage. Calvarium is inta ct. Skull base is intact. IMPRESSION: Large subacute left middle cerebral artery infarct which is a change compared to old exam. This invol ves mainly the left posterior temporal lobe.
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
[2020-11-20 20:24] LABS: Albumin 3.9 g/dL (3.5-5.0); Potassium 5.8 mmol/L (3.5-5.1); Total Bilirubin 0.7 mg/dL (0.2-1.3); Total Protein 6.3 g/dL (6.3-8.2)
[2020-11-20] MEDS ORDERED: SODIUM CHLORIDE 0.9% 500 ML 500 ML IV ONE (20:24)
[2020-11-20] MEDS ORDERED: ASPIRIN 325 MG TAB PO STA (20:27)
[2020-11-20] MEDS ORDERED: ASPIRIN 300 MG SUPP RECTAL STA (21:14)
[2020-11-20] MEDS: ASPIRIN 300 MG SUPP RECTAL STA ×2 (21:16→21:23)
[2020-11-20] MEDS: ATORVASTATIN 80 MG TAB PO SCH (21:16)
--- NOTE | 2020-11-20 21:21 | CT ---
EXAMINATION TYPE: CT angio head neck DATE OF EXAM: 11/20/2020 COMPARISON: None HISTORY: slurred speech CT DLP: 557.7 mGycm Automated exposure control for dose reduction was used. CONTRAST: Performed with IV Contrast, patient injected with 65 mL of Isovue 370. Images obtained from the aortic arch to the vertex of the brain with IV contrast. There are 3-D post processed images. There is normal branching pattern of the great vessels on the aortic arch. There is bilateral arteria l flow in the subclavian arteries. There is arterial flow in the common internal and external carotid arteries bilaterally. There is moderate plaque at the left carotid artery bifurcation and more than 75% stenosis of the proximal left internal carotid artery. The right carotid artery bifurcation appea rs fairly normal. There is arterial flow in both vertebral arteries. Right vertebral artery is larger than the left. There is arterial flow in the vertebrobasilar artery system. There is no evidence of carotid or vertebral artery aneurysm or dissection. There is arterial flow in the anterior middle and posterior cerebral arteries bilaterally. There is n ormal enhancement of the venous sinuses. There is no evidence of intracranial aneurysm or neovascular ity. There is no mass effect. I see no intracranial arterial stenosis. IMPRESSION: There is more than 75% stenosis at the proximal left internal carotid artery. Stenosis is probably mo re than 90%. No significant stenosis of the right carotid artery. No intracranial angiographic abnormality.
[2020-11-20] MEDS: SODIUM CHLORIDE 0.9% 1,000 ML IV SCH (21:51)
[2020-11-20] MEDS: PREGABALIN 75 MG CAP PO SCH (22:19)
[2020-11-21] MEDS: oxyCODONE-APAP 10-325MG 1 EACH TAB PO PRN ×3 (05:29→20:06)
[2020-11-21] MEDS ORDERED: ASPIRIN 325 MG TAB PO SCH (09:00)
[2020-11-21] MEDS ORDERED: ASPIRIN 300 MG SUPP RECTAL SCH (09:00)
[2020-11-21] MEDS: BACLOFEN 10 MG TAB PO SCH ×2 (10:54→20:06)
[2020-11-21] MEDS: levETIRAcetam 500 MG TAB PO SCH ×2 (10:54→20:07)
[2020-11-21] MEDS: lamoTRIgine 100 MG TAB PO SCH (10:54)
[2020-11-21] MEDS: ASPIRIN 325 MG TAB PO SCH (10:54)
[2020-11-21] MEDS: PREGABALIN 75 MG CAP PO SCH ×3 (10:54→20:06)
[2020-11-21] MEDS: DULoxetine HCL 60 MG CAPSULE.DR PO SCH ×2 (10:55→20:06)
[2020-11-21] MEDS: SODIUM CHLORIDE 0.9% 1,000 ML IV SCH (10:55)
[2020-11-21] MEDS: FUROSEMIDE 40 MG TAB PO SCH (10:55)
[2020-11-21] MEDS: CARBIDOPA-LEVODOPA 25-100 MG 1 EACH TAB PO SCH ×3 (11:24→20:06)
[2020-11-21] MEDS: CLOPIDOGREL 75 MG TAB PO SCH (11:24)
[2020-11-21 11:53] LABS: Chol/HDL Ratio 4.71; LDL Cholesterol,Calculated 108.4 mg/dL (0.0-131.0); VLDL Calculation 21.6 mg/dL (5.00-40.00)
[2020-11-21 12:54] LABS: Appearance,Urine Clear (Clear); Bilirubin,Urine Negative (Negative); Blood,Urine Negative (Negative); Color,Urine Colorless; Glucose,Urine (UA) Negative (Negative); Ketones,Urine Negative (Negative); Leukocyte Esterase,Urine Negative (Negative); Nitrite,Urine Negative (Negative); PH, Urine 5.5 (5.0-8.0); Protein,Urine Negative (Negative); Specific Gravity,Urine 1.003 (1.001-1.035); Urobilinogen,Urine <2.0 mg/dL (<2.0)
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
[2020-11-21 15:12] LABS: Basophils # (A) 0.1 k/uL (0-0.2); Basophils % (A) 1 %; Eosinophils # (A) 0.2 k/uL (0-0.7); Eosinophils % (A) 2 %; HCT 41.7 % (39.0-53.0); HGB 13.9 gm/dL (13.0-17.5); Lymphocytes # (A) 1.8 k/uL (1.0-4.8); Lymphocytes % (A) 22 %; MCH 33.2 pg (25.0-35.0); MCHC 33.2 g/dL (31.0-37.0); MCV 99.9 fL (80.0-100.0); Macrocytosis Slight; Mean Platelet Volume 9.2; Monocytes # (A) 0.6 k/uL (0-1.0); Monocytes % (A) 8 %; Neutrophils # (A) 5.4 k/uL (1.3-7.7); Neutrophils % (A) 66 %; Platelet Count 222 k/uL (150-450); RBC 4.18 m/uL (4.30-5.90); RDW 14.9 % (11.5-15.5); WBC 8.2 k/uL (3.8-10.6)
[2020-11-21] MEDS: ATORVASTATIN 80 MG TAB PO SCH (20:06)
[2020-11-22] MEDS: CARBIDOPA-LEVODOPA 25-100 MG 1 EACH TAB PO SCH ×6 (00:25→23:15)
[2020-11-22] MEDS: SODIUM CHLORIDE 0.9% 1,000 ML IV SCH ×3 (00:27→23:15)
[2020-11-22] MEDS: oxyCODONE-APAP 10-325MG 1 EACH TAB PO PRN ×3 (06:06→20:08)
[2020-11-22 09:15] LABS: African American GFR (CKD) 94.4 (60.0-200.0); Anion Gap 12.5 mmol/L (4.00-12.00); Carbon Dioxide 20.5 mmol/L (21.6-31.8); Non-African American GFR(CKD) 81.4 (60.0-200.0); Potassium 4.4 mmol/L (3.5-5.5)
[2020-11-22] MEDS: DULoxetine HCL 60 MG CAPSULE.DR PO SCH ×2 (09:15→20:04)
[2020-11-22] MEDS: FUROSEMIDE 40 MG TAB PO SCH (09:15)
[2020-11-22] MEDS: BACLOFEN 10 MG TAB PO SCH ×2 (09:15→20:04)
[2020-11-22] MEDS: ASPIRIN 325 MG TAB PO SCH (09:15)
[2020-11-22] MEDS: CLOPIDOGREL 75 MG TAB PO SCH (09:15)
[2020-11-22] MEDS: levETIRAcetam 500 MG TAB PO SCH ×2 (09:16→20:04)
[2020-11-22] MEDS: PREGABALIN 75 MG CAP PO SCH ×3 (09:16→20:04)
[2020-11-22] MEDS: lamoTRIgine 100 MG TAB PO SCH (09:16)
[2020-11-22] MEDS: NICOTINE 7MG/24HR PATCH TRANSDERM SCH (09:16)
--- NOTE | 2020-11-22 10:13 | US ---
EXAMINATION TYPE: US carotid duplex BILAT DATE OF EXAM: 11/22/2020 COMPARISON: CTA 11/20/2020, US 11/30/2019 CLINICAL HISTORY: cva right pat left carotid stenosis. CVA right pat left carotid stenosis per orde r. Current smoker. Hx hypertension. EXAM MEASUREMENTS: RIGHT: Peak Systolic Velocity (PSV) cm/sec ----- Right CCA: 71.0 ----- Right ICA: 97.1 ----- Right ECA: 78.4 ICA/CCA ratio: 1.4 RIGHT: End Diastole cm/sec ----- Right CCA: 16.0 ----- Right ICA: 17.9 ----- Right ECA: 16.8 LEFT: Peak Systolic Velocity (PSV) cm/sec ----- Left CCA: 99.3 ----- Left ICA: 88.3 ----- Left ECA: 82.8 ICA/CCA ratio: 0.9 LEFT: End Diastole cm/sec ----- Left CCA: 17.9 ----- Left ICA: 15.7 ----- Left ECA: 13.5 VERTEBRALS (direction of flow): Right Vertebral: Antegrade Left Vertebral: Antegrade Rhythm: Normal Plaque seen bilateral bulbs, left ICA and left ECA. No elevated velocities at this time. Difficult t o follow left ICA distally. IMPRESSION: 1. Mild atheromatous plaquing without significant flow-limiting stenosis by velocity measurements. 2. Previous left internal carotid artery stenosis, most recently by CTA, by velocity measurement is n ot evident. There is persistent plaquing evident. However, critical stenosis which can diminish veloc ity is not evident. NASCET criteria was used in interpretation of this exam? Criteria for Assigning % of Stenosis / Diameter reduction (Estimation based on the indirect measurements of the internal carotid artery velocities (ICA PSV). 1. Normal (no stenosis)=ICA PSV < 125 cm/s: ratio < 2.0: ICA EDV<40 cm/s. 2. Less than 50% stenosis=ICA PSV < 125 cm/s: ratio < 2.0: ICA EDV<40 cm/s. 3. 50 to 69% stenosis=ICA PSV of 125 to 230 cm/s: ration 2.0 ? 4.0: ICA EDV 40-100 cm/s. 4. Greater than 70% stenosis to near occlusion= ICA PSV > 230 cm/s: ratio > 4.0: ICA EDV > 100 cm/s. 5. Near occlusion= ICA PSV velocities may be low or undetectable: variable ratio and ICA EDV. 6. Total occlusion=unable to detect flow.
--- NOTE | 2020-11-22 11:21 | ECHOF ---
Referral Reason:Thrombus MEASUREMENTS -------- HEIGHT: 180.3 cm WEIGHT: 91.2 kg BP: 138/82 RVIDd: 3.1 cm (< 3.3) IVSd: 1.3 cm (0.6 - 1.1) LVIDd: 4.2 cm (3.9 - 5.3) LVPWd: 1.2 cm (0.6 - 1.1) IVSs: 1.7 cm LVIDs: 3.3 cm LVPWs: 1.6 cm LA Diam: 3.4 cm (2.7 - 3.8) Ao Diam: 3.4 cm (2.0 - 3.7) AV Cusp: 2.4 cm (1.5 - 2.6) MV EXCURSION: 8.482 mm (> 18.000) MV EF SLOPE: 31 mm/s (70 - 150) EPSS: 1.3 cm MV E Jason: 0.86 m/s MV DecT: 194 ms MV A Jason: 0.75 m/s MV E/A Ratio: 1.15 FINDINGS -------- Sinus rhythm. This was a technically difficult study with suboptimal views. The left ventricular size is normal. There is mild concentric left ventricular hypertrophy. Overa ll left ventricular systolic function is normal with, an EF between 55 - 60 %. The right ventricle is normal in size. The left atrium is normal in size. The right atrium is normal in size. 5 ml of Lumason was utilized for enhancement of images. Interatrial and interventricular septum intact. The aortic valve is trileaflet, and appears structurally normal. No aortic stenosis or regurgitation. The mitral valve is normal. The tricuspid valve appears structurally normal. Unable to estimate RVSP due to inadequate TR jet s pectral doppler profile. Trace/mild (physiologic) pulmonic regurgitation. The aortic root size is normal. IVC Not well visulized. There is no pericardial effusion. CONCLUSIONS -------- 1. The left ventricular size is normal. 2. There is mild concentric left ventricular hypertrophy. 3. Overall left ventricular systolic function is normal with, an EF between 55 - 60 %. 4. 5 ml of Lumason was utilized for enhancement of images. 5. The aortic valve is trileaflet, and appears structurally normal. No aortic stenosis or regurgitati on. 6. Trace/mild (physiologic) pulmonic regurgitation. 7. There is no pericardial effusion. 8. consider TEEfor definitive evaluation DUSTER TENDER: Sherine Douglas RDCS
--- NOTE | 2020-11-22 11:59 | MR ---
EXAMINATION TYPE: MR brain wo con DATE OF EXAM: 11/22/2020 COMPARISON: CT brain 2 days ago. MRI brain November 15, 2015. HISTORY: CVA. Parkinson's disease with acute onset TO 2 days earlier. TECHNIQUE: Multiplanar, multisequence imaging of the brain and brainstem is performed without IV cont rast. FINDINGS: Exam suboptimal due to patient motion Diffusion weighted images demonstrate areas of increased signal on diffusion weighted images with dim inished signal on ADC mapping involving the left frontal and parietal hemispheres predominantly subco rtical and more peripheral levels. There is sulcal effacement and edema greatest over the left pariet al lobe on current study. No midline shift. There is background mild ventricular and sulcal prominence. Midline structures redemonstrate normal morphology. The craniocervical junction appears within marty l limits. Normal vascular flow voids are present including left middle cerebral artery. Dominant righ t vertebral artery redemonstrated. The visualized sinuses are clear and the globes are intact. IMPRESSION: Evolving acute/subacute infarct left frontal and parietal lobes in the MCA distribution. A Yellow level critical message alert has been initiated for Kimberly Romero MD via the [employer] Critical Results System on 11/22/2020 11:56 AM. This message alert has been sent to Michael Abrams via the preferences provided by the clinician for the receipt of Radiology Critical Findings. Martha [employer] ID [id number].
--- NOTE | 2020-11-22 12:12 | FL ---
EXAMINATION TYPE: FL barium swallow w video DATE OF EXAM: 11/22/2020 COMPARISON: NONE HISTORY: Dysarthria, dysphasia TECHNIQUE: Fluoroscopy. FINDINGS: Fluoroscopic guidance was provided for the procedure performed in conjunction with the [facility] pathology department. Please see complete report forthcoming from the Speech Pathology departmen t. Various consistencies from thin liquid to solids were administered. Fluoroscopy time 1 minute 29 seconds. Number of images: 0. No aspiration or penetration was evident. No significant pooling was observed in the vallecula. There was normal propulsion of the bolus. IMPRESSION: 1. Normal modified barium swallow
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
[2020-11-22] MEDS: BUDESONIDE 0.5 MG/2 ML NEBU INHALATION SCH ×3 (13:06→16:42)
--- NOTE | 2020-11-22 18:19 | P.PN ---
Subjective Progress Note Date: 11/22/20 Patient states he is feeling better. Offers no new complaints. Patient's telemetry monitoring showing sinus rhythm, with sinus bradycardia. No new symptoms. Objective - Vital Signs Vital signs: Vital Signs Temp 97.8 F 11/22/20 12:00 Pulse 73 11/22/20 12:00 Resp 18 11/22/20 12:00 BP 142/94 11/22/20 12:00 Pulse Ox 98 11/22/20 12:00 Intake & Output 11/21/20 11/22/20 11/22/20 18:59 06:59 18:59 Intake Total 360 480 Output Total 325 480 Balance 35 -480 480 Weight 91.3 kg Intake: Oral 360 480 Output: Urine 325 480 Other: Voiding Method Toilet Toilet Urinal # Voids 2 2 # Bowel Movements 1 - Exam On examination patient is alert and awake. Speech and language functions are normal. No aphasia. Patient can name and repeat well. Cranial nerves are significant for mild right facial asymmetry. Visual milton are full. On muscle strength testing there is no pronator drift and the strength is normal in arms and legs. Sensory to touch is equal with no neglect. No ataxia for [id number] although patient is slightly tremulous. Patient continues to have bullous rash over his right anterior thigh. - Labs CBC & Chem 7: 11/21/20 14:50 11/22/20 08:40 Labs: Abnormal Lab Results - Last 24 Hours (Table) 11/21/20 11/21/20 Range/Units 14:50 14:50 RBC 4.18 L (4.30-5.90) m/uL Chloride 110 H (96-109) mmol/L Carbon Dioxide 20.5 L (21.6-31.8) mmol/L Anion Gap 12.50 H (4.00-12.00) mmol/L Assessment and Plan Assessment: * Probable acute ischemic stroke, involving left MCA vascular territory (2 different regions, involving smaller left frontal, and a larger left parietal region). * Probable symptomatic left ICA stenosis, severe degree (70 to >90% per CTA report). * Tobacco use disorder * Raised, erythematous rash with central Bullous vesicles on the right anterior thigh, unclear etiology. * Hyperlipidemia * Hypertension * Seizure disorder, currently in remission. Plan: * MRI of the brain revealed evolving acute/subacute infarct left frontal and parietal lobes in the MCA distribution. * Vascular surgical consultation for symptomatic left ICA stenosis input appreciated. Their recommendation is outpatient carotid angiogram and possible surgical intervention as outpatient. * 2-D echo revealed normal left-ventricular size. Mild concentric LVH. EF is between 55-60%. No aortic stenosis. Consider JESÚS for definitive evaluation. * Patient started on dual antiplatelet medications including aspirin and Plavix 75 mg. * Patient recommended complete tobacco cessation. * Lipid panel with cholesterol 165, LDL 108, HDL 35 and triglycerides 108. Start high-dose Lipitor 80 mg daily. * Optimize control of blood pressure. Current blood pressure 134/52. Avoid hypotension. * Check hemoglobin A1c. * DVT prophylaxis as per IM. * Suggest dermatology consultation for the rash, if no source identified. * Continue Sinemet 25/100, 5 times a day for Parkinson's. * Continue Keppra 1000 mg twice a day and Lamictal 200 mg daily. * Telemetry monitoring so far showing sinus rhythm with sinus bradycardia.
[2020-11-22] MEDS: ATORVASTATIN 80 MG TAB PO SCH (20:04)
[2020-11-23] MEDS: oxyCODONE-APAP 10-325MG 1 EACH TAB PO PRN ×3 (05:03→21:46)
[2020-11-23] MEDS: CARBIDOPA-LEVODOPA 25-100 MG 1 EACH TAB PO SCH ×5 (05:03→22:57)
[2020-11-23] MEDS: BACLOFEN 10 MG TAB PO SCH ×2 (08:11→20:29)
[2020-11-23] MEDS: NICOTINE 7MG/24HR PATCH TRANSDERM SCH ×2 (08:11→08:12)
[2020-11-23] MEDS: ASPIRIN 325 MG TAB PO SCH (08:11)
[2020-11-23] MEDS: DULoxetine HCL 60 MG CAPSULE.DR PO SCH ×2 (08:11→20:29)
[2020-11-23] MEDS: CLOPIDOGREL 75 MG TAB PO SCH (08:11)
[2020-11-23] MEDS: levETIRAcetam 500 MG TAB PO SCH ×2 (08:12→20:29)
[2020-11-23] MEDS: PREGABALIN 75 MG CAP PO SCH ×3 (08:12→20:29)
[2020-11-23] MEDS: FUROSEMIDE 40 MG TAB PO SCH (08:12)
[2020-11-23] MEDS: lamoTRIgine 100 MG TAB PO SCH (08:12)
[2020-11-23] MEDS: BUDESONIDE 0.5 MG/2 ML NEBU INHALATION SCH ×2 (08:23→12:04)
[2020-11-23 08:28] LABS: Hemoglobin A1C 5.3 % (4.0-6.0)
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
--- NOTE | 2020-11-23 10:43 | P.PN ---
Subjective Progress Note Date: 11/23/20 Patient is seen and examined sitting up in his bed. Yesterday he underwent a modified swallow evaluation which he passed. He is denying any changes through the night, no new focal deficits. States he is doing well. He is eating without difficulty. Yesterday he underwent an MRI of the brain that showed an evolving acute/subacute infarct left frontal and parietal lobes in the MCA distribution. He currently remains on aspirin, statin and Plavix. Objective - Vital Signs Vital signs: Vital Signs Temp 97.8 F 11/23/20 03:39 Pulse 66 11/23/20 03:39 Resp 17 11/23/20 03:39 BP 148/81 11/23/20 03:39 Pulse Ox 99 11/23/20 03:39 Intake & Output 11/22/20 11/23/20 11/23/20 18:59 06:59 18:59 Intake Total 720 Balance 720 Weight 90.7 kg Intake: Oral 720 Other: Voiding Method Toilet Toilet # Voids 2 1 # Bowel Movements 1 - Exam General appearance: The patient is alert, oriented, appears in no acute distress. Patient has upper extremity tremors. HET: Head is normocephalic and atraumatic. Pupils are equal and reactive. Neck: Supple without lymphadenopathy. Trachea midline. Heart: S1 S2. Regular rate and rhythm. Lungs: Clear to auscultation. Abdomen: Soft, nontender, nondistended. Extremities: Normal skin color and turgor. No cyanosis, rash, ulceration, clubbing, or edema. Radial pulses bilaterally. Neurological: Patient has bilateral upper extremity weakness 4/5. Right grasp 3/5. Bilateral lower extremity weakness. Speech is fluent, patient answers questions appropriately and follows commands. Patient has facial symmetry. Bilateral upper extremity tremors. - Labs CBC & Chem 7: 11/21/20 14:50 11/22/20 08:40 Assessment and Plan Assessment: 1. Symptomatic left ICA stenosis, greater than 75% per CTA 2. Acute/subacute infarct left frontal and parietal lobes 3. Tobacco abuse Plan: 1. CT angiogram head and neck and carotid ultrasound reviewed by Dr. Mckay 2. Agree with aspirin, Plavix, and statin 3. Continue to follow recommendations from neurology 4. Recommend outpatient carotid angiogram, discuss outpatient surgical intervention with patient 5. Thank you for this consultation, the patient may be discharged from a vascular surgical standpoint once otherwise medically stable 6. Patient to follow-up with Dr. Mckay in one week The impression and plan of care has been dictated as directed. Dr. Pimentel I performed a history and examination of this patient, discussed the same with the dictator. I agree with the dictator's note ,documented as a scribe. Any additional findings or plans will be noted.
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
[2020-11-23] MEDS: SODIUM CHLORIDE 0.9% 1,000 ML IV SCH ×2 (11:19→22:57)
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
--- NOTE | 2020-11-23 17:01 | P.PN ---
Subjective Progress Note Date: 11/23/20 Patient states he is feeling better. Offers no new complaints. No new symptoms. Patient does not remember how he developed rash/blister over his right upper medial knee region in the left knee. Denies run burn. Denies exposure to heating pad or any sunburn. Patient has been on Lamictal for over 6 years, and also on Lyrica for 6+ years. Patient denies rash anywhere else. Patient states he has history of seizure disorder for about 6-8 years. His first seizure was grand mal seizure, but then afterwards he had small seizures. The last small seizure was about 4 months ago. He does not remember name of his neurologist. He thinks it may be Dr. Weiss. Objective - Vital Signs Vital signs: Vital Signs Temp 98.4 F 11/23/20 11:50 Pulse 60 11/23/20 11:50 Resp 18 11/23/20 11:50 BP 110/79 11/23/20 11:50 Pulse Ox 95 11/23/20 11:50 Intake & Output 11/22/20 11/23/20 11/23/20 18:59 06:59 18:59 Intake Total 720 Balance 720 Weight 90.7 kg Intake: Oral 720 Other: Voiding Method Toilet Toilet Toilet # Voids 2 1 # Bowel Movements 1 - Exam On examination patient is alert and awake. Speech and language functions are normal. No aphasia. Patient can name and repeat well. Cranial nerves are significant for mild right facial asymmetry. Visual milton are full. On muscle strength testing there is no pronator drift and the strength is normal in arms and legs. Sensory to touch is equal with no neglect. No ataxia for finge r-to-nose although patient is slightly tremulous. Patient has significant tremors at rest, which gets worse when he gets anxious. Patient continues to have erythematous rash over bilateral knee region, with bullous vesicle over his right anterior thigh. Patient had another bullous lesion over the right upper forearm, which appears to have ruptured in the past. He has similar erupted ventricular rash, cigarette head size involving the base of the third and fourth digits on adjacent side, almost like cigarette burn. Patient has some small lacunar rash around his upper chest region, which he looked at the mirror and felt was baseline, not a new finding. - Labs CBC & Chem 7: 11/21/20 14:50 11/22/20 08:40 Assessment and Plan Assessment: * Acute ischemic stroke, involving left MCA vascular territory (2 different regions, involving smaller left frontal, and a larger left parietal region). * Probable symptomatic left ICA stenosis, severe degree (70 to >90% per CTA report). * Tobacco use disorder * Raised, erythematous rash with central Bullous vesicles on the right anterior thigh, unclear etiology. Rule out Sanchez-Gabriel syndrome from Lamictal. Patient has been on this medication for number of years, therefore unclear if related to Lamictal. * Hyperlipidemia * Hypertension * Seizure disorder, currently in remission. Plan: * MRI of the brain revealed evolving acute/subacute infarct left frontal and parietal lobes in the MCA distribution. * Vascular surgical consultation for symptomatic left ICA stenosis input appreciated. Their recommendation is outpatient carotid angiogram and possible surgical intervention as outpatient. * 2-D echo revealed normal left-ventricular size. Mild concentric LVH. EF is between 55-60%. No aortic stenosis. Consider JESÚS for definitive evaluation. * Patient started on dual antiplatelet medications including aspirin 81 mg and Plavix 75 mg. * Patient recommended complete tobacco cessation. * Lipid panel with cholesterol 165, LDL 108, HDL 35 and triglycerides 108. Start high-dose Lipitor 80 mg daily. * Optimize control of blood pressure. Current blood pressure 110/79. Avoid hypotension. * Hemoglobin A1c 5.3 normal. * DVT prophylaxis as per IM. * Suggest urgent dermatology consultation for the rash, to rule out Sanchez- Gabriel syndrome. I would stop the Lamictal. Continue Keppra 1000 mg twice a day. If the dermatology clears for Lamictal, then may resume it. Patient recommended to follow up with neurologist. I tried to contact local shed boss, sent pictures of his rash (after obtained informed consent from the patient, and the pictures did not include his face), but did not get any response. * Continue Sinemet 25/100, 5 times a day for Parkinson's. Time with Patient: Greater than 30
[2020-11-23] MEDS: ATORVASTATIN 80 MG TAB PO SCH (20:29)
[2020-11-24] MEDS: CARBIDOPA-LEVODOPA 25-100 MG 1 EACH TAB PO SCH ×2 (05:14→12:52)
[2020-11-24] MEDS: oxyCODONE-APAP 10-325MG 1 EACH TAB PO PRN ×2 (05:14→13:32)
[2020-11-24] MEDS: levETIRAcetam 500 MG TAB PO SCH (09:15)
[2020-11-24] MEDS: DULoxetine HCL 60 MG CAPSULE.DR PO SCH (09:15)
[2020-11-24] MEDS: BACLOFEN 10 MG TAB PO SCH (09:15)
[2020-11-24] MEDS: FUROSEMIDE 40 MG TAB PO SCH (09:15)
[2020-11-24] MEDS: CLOPIDOGREL 75 MG TAB PO SCH (09:15)
[2020-11-24] MEDS: PREGABALIN 75 MG CAP PO SCH (09:15)
[2020-11-24] MEDS: ASPIRIN 325 MG TAB PO SCH (09:15)
[2020-11-24] MEDS: NICOTINE 7MG/24HR PATCH TRANSDERM SCH (09:17)
[2020-11-24 09:43] VITALS: RESP 18
[2020-11-24 13:27] VITALS: BP 136/82; PULSE 59; TEMP 97.5
[2020-11-24] MEDS ORDERED: FAMOTIDINE 20 MG TAB PO SCH (21:00)
--- NOTE | 2020-11-24 21:48 | P.PN ---
Subjective Progress Note Date: 11/24/20 Patient states he is feeling better. Offers no new complaints. No new symptoms. Patient does not remember how he developed rash/blister over his right upper medial knee region in the left knee. Denies run burn. Denies exposure to heating pad or any sunburn. Patient has been on Lamictal for over 6 years, and also on Lyrica for 6+ years. Patient denies rash anywhere else. Patient states he has history of seizure disorder for about 6-8 years. His first seizure was grand mal seizure, but then afterwards he had small seizures. The last small seizure was about 4 months ago. He does not remember name of his neurologist. He thinks it may be Dr. Weiss. Telemetry monitoring only showing sinus rhythm, sinus bradycardia in 50s to 60s. Objective - Vital Signs Vital signs: Vital Signs Temp 97.5 F L 11/24/20 12:00 Pulse 59 L 11/24/20 12:00 Resp 18 11/24/20 12:00 BP 136/82 11/24/20 12:00 Pulse Ox 97 11/24/20 12:00 Intake & Output 11/23/20 11/24/20 11/24/20 18:59 06:59 18:59 Intake Total 840 444 726 Balance 840 444 726 Weight 90.1 kg Intake: Intake, IV Titration 600 Amount Sodium Chloride 0.9% 1, 600 000 ml @ 75 mls/hr IV . [id number] Rx#:[id number] Oral 240 444 726 Other: Voiding Method Toilet Toilet Toilet # Voids 3 1 1 - Exam On examination patient is alert and awake. Speech and language functions are normal. No aphasia. Patient can name and repeat well. Cranial nerves are significant for mild right facial asymmetry. Visual milton are full. On muscle strength testing there is no pronator drift and the strength is normal in arms and legs. Sensory to touch is equal with no neglect. No ataxia for [id number] although patient is slightly tremulous. Patient has significant tremors at rest, which gets worse when he gets anxious. Patient continues to have erythematous rash over bilateral knee region, with bullous vesicle over his right anterior thigh has now been de-roofed spontaneously. Patient had another bullous lesion over the right upper forearm, which appears to have ruptured in the past. He has similar erupted ventricular rash, cigarette head size involving the base of the third and fourth digits on adjacent side, almost like cigarette burn. Patient has some small lacunar rash around his upper chest region, which he looked at the mirror and felt was base line, not a new finding. - Labs CBC & Chem 7: 11/21/20 14:50 11/22/20 08:40 Assessment and Plan Assessment: * Acute ischemic stroke, involving left MCA vascular territory (2 different regions, involving smaller left frontal, and a larger left parietal region). * Probable symptomatic left ICA stenosis, severe degree (70 to >90% per CTA report). * Tobacco use disorder * Raised, erythematous rash with central Bullous vesicles on the right anterior thigh, unclear etiology. Rule out Sanchez-Gabriel syndrome from Lamictal. Patient has been on this medication for number of years, therefore unclear if related to Lamictal. * Hyperlipidemia * Hypertension * Seizure disorder, currently in remission. Plan: * MRI of the brain revealed evolving acute/subacute infarct left frontal and parietal lobes in the MCA distribution. * Vascular surgical consultation for symptomatic left ICA stenosis input appreciated. Their recommendation is outpatient carotid angiogram and possible surgical intervention as outpatient. * 2-D echo revealed normal left-ventricular size. Mild concentric LVH. EF is between 55-60%. No aortic stenosis. Consider JESÚS for definitive evaluation. * Patient started on dual antiplatelet medications including aspirin 81 mg and Plavix 75 mg. * Patient was recommended complete tobacco cessation. * Lipid panel with cholesterol 165, LDL 108, HDL 35 and triglycerides 108. Start high-dose Lipitor 80 mg daily. * Optimize control of blood pressure. Current blood pressure 132/82. Avoid hypotension. * Hemoglobin A1c 5.3 normal. * DVT prophylaxis as per IM. * Patient to follow up with structural welder tomorrow morning at 10 AM. * Continue Sinemet 25/100, 5 times a day for Parkinson's. Also started on amantadine. * Telemetry monitoring showing sinus rhythm, sinus bradycardia and 50s to 60s. No other arrhythmia. * Neurologically clear.
== END 2020-11-24 16:37 | disposition home or self-care (01) | DRG 64 ==
LOC: EC 18:42 → 3SCARD 20:56
PROVIDERS: ADMIT Family Medicine; ATTEND Family Medicine
DX: I63.512 Cerebral infarction due to unspecified occlusion or stenosis of left middle cerebral artery (principal); G92 Toxic encephalopathy; J96.90 Respiratory failure, unspecified, unspecified whether with hypoxia or hypercapnia; G81.91 Hemiplegia, unspecified affecting right dominant side; J44.1 Chronic obstructive pulmonary disease with (acute) exacerbation; N17.9 Acute kidney failure, unspecified; L51.1 Stevens-Johnson syndrome; R29.810 Facial weakness; E16.2 Hypoglycemia, unspecified; E78.5 Hyperlipidemia, unspecified; F17.210 Nicotine dependence, cigarettes, uncomplicated; F31.9 Bipolar disorder, unspecified; F41.9 Anxiety disorder, unspecified; F90.9 Attention-deficit hyperactivity disorder, unspecified type; G20 Parkinson's disease; G40.409 Other generalized epilepsy and epileptic syndromes, not intractable, without status epilepticus; G89.29 Other chronic pain; H54.7 Unspecified visual loss; I50.9 Heart failure, unspecified; I11.0 Hypertensive heart disease with heart failure; M79.7 Fibromyalgia; R29.711 NIHSS score 11; I65.22 Occlusion and stenosis of left carotid artery; R00.1 Bradycardia, unspecified; T42.6X5A Adverse effect of other antiepileptic and sedative-hypnotic drugs, initial encounter; S70.321A Blister (nonthermal), right thigh, initial encounter; T24.011A Burn of unspecified degree of right thigh, initial encounter; T24.012A Burn of unspecified degree of left thigh, initial encounter; Z79.82 Long term (current) use of aspirin; Z79.02 Long term (current) use of antithrombotics/antiplatelets; Z85.46 Personal history of malignant neoplasm of prostate; Z82.49 Family history of ischemic heart disease and other diseases of the circulatory system; Z79.899 Other long term (current) drug therapy; Z91.81 History of falling; Z86.14 Personal history of Methicillin resistant Staphylococcus aureus infection; R47.1 Dysarthria and anarthria; G62.9 Polyneuropathy, unspecified
CPT/HCPCS: 36415; 70450; 70496; 70498; 70551; 71046; 74230; 80048; 80053; 80061; 81003; 83036; 84132; 84484; 85025; 85610; 85730; 93005; 93306; 93880; 96360; 99291

== ENCOUNTER → 2021-01-06 | Outpatient (CLI) | payer MEDICARE, OTHER ==
[2021-01-06 14:06] LABS: Basophils % (A) 0 %; Eosinophils % (A) 0 %; HCT 43.7 % (39.0-53.0); Lymphocytes # (A) 1.7 k/uL (1.0-4.8); Lymphocytes % (A) 18 %; MCH 33.2 pg (25.0-35.0); MCHC 34.3 g/dL (31.0-37.0); MCV 96.7 fL (80.0-100.0); Mean Platelet Volume 7.9; Monocytes # (A) 0.6 k/uL (0-1.0); Monocytes % (A) 6 %; Neutrophils # (A) 7.1 k/uL (1.3-7.7); Neutrophils % (A) 74 %; Platelet Count 275 k/uL (150-450); RBC 4.53 m/uL (4.30-5.90); RDW 13.2 % (11.5-15.5); WBC 9.6 k/uL (3.8-10.6)
[2021-01-06 14:21] LABS: African American GFR (CKD) >90 (>60 ml/min/1.73 sqM); Anion Gap 11 mmol/L; Blood Urea Nitrogen 8 mg/dL (9-20); Carbon Dioxide 22 mmol/L (22-30); Chloride 105 mmol/L (98-107); Non-African American GFR(CKD) >90 (>60 ml/min/1.73 sqM); Potassium 4.5 mmol/L (3.5-5.1); Sodium 138 mmol/L (137-145)
== END | disposition home or self-care (01) ==
LOC: LABPAT 12:37
PROVIDERS: ATTEND Surgery
DX: Z01.812 Encounter for preprocedural laboratory examination (principal); I65.29 Occlusion and stenosis of unspecified carotid artery
CPT/HCPCS: 80051; 82565; 84520; 85025

== ENCOUNTER 2021-01-09 06:03 | Day surgery (SDC) | payer MEDICARE, OTHER ==
[2021-01-05 16:14] VITALS: BMI 28.8
[2021-01-09] MEDS ORDERED: SODIUM CHLORIDE 0.9% 1,000 ML in EMPTY BAG 1 BAG IV ONE (06:21)
[2021-01-09 06:54] LABS: Basophils % (A) 0 %; Eosinophils # (A) 0.2 k/uL (0-0.7); Eosinophils % (A) 2 %; HCT 45.4 % (39.0-53.0); HGB 15.5 gm/dL (13.0-17.5); Lymphocytes # (A) 1.9 k/uL (1.0-4.8); Lymphocytes % (A) 16 %; MCH 32.3 pg (25.0-35.0); MCHC 34.1 g/dL (31.0-37.0); MCV 94.9 fL (80.0-100.0); Monocytes # (A) 0.7 k/uL (0-1.0); Monocytes % (A) 6 %; Neutrophils # (A) 9.1 k/uL (1.3-7.7); Neutrophils % (A) 75 %; Platelet Count 305 k/uL (150-450); RBC 4.79 m/uL (4.30-5.90); RDW 12.9 % (11.5-15.5); WBC 12.1 k/uL (3.8-10.6)
[2021-01-09 07:02] VITALS: RESP 18; TEMP 98.3
[2021-01-09 07:11] LABS: African American GFR (CKD) >90 (>60 ml/min/1.73 sqM); Anion Gap 12 mmol/L; Blood Urea Nitrogen 8 mg/dL (9-20); Calcium 10.1 mg/dL (8.4-10.2); Carbon Dioxide 22 mmol/L (22-30); Chloride 105 mmol/L (98-107); Glucose 118 mg/dL (74-99); Non-African American GFR(CKD) >90 (>60 ml/min/1.73 sqM); Sodium 139 mmol/L (137-145)
[2021-01-09] MEDS ORDERED: LIDOCAINE 1% INJ 10MG/ML (20 ML MDV) ONE (07:12)
[2021-01-09] MEDS ORDERED: fentaNYL (PF) 50 MCG/ML 2 ML AMP ONE (08:34)
[2021-01-09] MEDS ORDERED: fentaNYL (PF) 50 MCG/ML 2 ML AMP IV ONE (08:40)
[2021-01-09] MEDS ORDERED: MIDAZOLAM 2 MG/2 ML VIAL IV ONE (08:40)
[2021-01-09] MEDS ORDERED: LIDOCAINE 1% INJ 10MG/ML (20 ML MDV) SQ ONE (08:43)
[2021-01-09] MEDS ORDERED: IOPAMIDOL-370 100ML BTL INJ ONE (08:55)
--- NOTE | 2021-01-09 09:18 | P.OP ---
Date of Procedure: 01/09/21 Preoperative Diagnosis: TIA, symptomatic carotid stenosis Postoperative Diagnosis: Same Procedure(s) Performed: Arch angiogram with bilateral carotid artery angiogram the ultrasound-guided left common femoral access Anesthesia: local Surgeon: Awais Mckay Estimated Blood Loss (ml): 5 Pathology: none sent Condition: stable Disposition: PACU Indications for Procedure: 60-year-old gentleman with history of Parkinson's with recent admission to the hospital secondary to a TIA involving speech. His speech has improved since his hospitalization and during that time he had a CT angiogram that demonstrated greater than 75% stenosis of the left ICA. He then underwent carotid Doppler which demonstrated less than 50% stenosis. Due to the discordance between the 2 studies he presents today for catheter directed angiogram Operative Findings: Aortic arch is patent without any significant stenosis or calcification. Brachiocephalic takeoff is patent without any significant calcification or stenosis. Subclavian artery is patent without any significant atherosclerotic disease or stenosis bilaterally Right common carotid artery and ICA are widely patent without any significant stenosis. Left common carotid artery is patent with minimal calcification without any evidence of stenosis. ICA is stenotic with calcific disease just after the takeoff of the carotid bulb measuring greater than 65% with post stenotic dilatation noted Description of Procedure: After written and informed consent was obtained the patient and all risks benefits and complications were described the patient is brought to the [facility] and laid supine position. The area of the groins were prepped and draped in usual sterile fashion. Utilizing ultrasound the left common femoral artery was visualized and shown to be patent without any significant calcific disease or stenosis. Under direct guidance and utilizing Seldinger technique a 5-Turkmen sheath was placed. 035 guidewire was then placed into the aortic arch followed by pigtail catheter. Aortic arch angiogram was then obtained as well as multiple angles with good visualization of the carotid arteries bilaterally. Once completed guidewires and catheters were then removed. Sheath was removed and pressure was placed for hemostasis. Patient tolerated procedure well. Patient will require carotid endarterectomy and patch angioplasty versus stenting. We will discuss this in the office. Plan - Discharge Summary Discharge Rx Participant: No New Discharge Prescriptions: No Action levETIRAcetam [Keppra] 1,000 mg PO BID DULoxetine HCL [Cymbalta] 60 mg PO BID Furosemide [Lasix] 40 mg PO DAILY #30 tablet Potassium Chloride ER [K-Dur 10] 10 meq PO DAILY #30 tab lisinopriL [Zestril] 5 mg PO DAILY Cholecalciferol [Vitamin D3 (25 Mcg = 1000 Iu)] 5,000 unit PO DAILY Baclofen [Lioresal] 10 mg PO BID Albuterol Sulfate [Ventolin HFA] 1 - 2 puff INHALATION RT-Q6H PRN PRN Reason: Shortness Of Breath Tamsulosin HCl [Flomax] 0.4 mg PO DAILY Brexpiprazole [Rexulti] 4 mg PO DAILY Budesonide [Pulmicort Flexhaler] 2 puff INHALATION RT-BID Carbidopa-Levodopa 25-100 mg [Sinemet 25-100 mg] 1 tab PO TID Clopidogrel Bisulfate [Plavix] 75 mg PO DAILY #30 tab amantadine HCL [Amantadine] 100 mg PO BID #60 tab Atorvastatin Calcium [Lipitor] 80 mg PO HS #30 tablet Oxybutynin Chloride [Ditropan XL] 5 mg PO BID lamoTRIgine [LaMICtal] 200 mg PO DAILY Loratadine [Claritin] 10 mg PO DAILY Aspirin 81 mg PO DAILY Discharge Medication List levETIRAcetam [Keppra] 1,000 mg PO BID 11/27/17 [History] DULoxetine HCL [Cymbalta] 60 mg PO BID 04/10/18 [History] Furosemide [Lasix] 40 mg PO DAILY #30 tablet 05/17/18 [Rx] Potassium Chloride ER [K-Dur 10] 10 meq PO DAILY #30 tab 05/17/18 [Rx] lisinopriL [Zestril] 5 mg PO DAILY 06/06/18 [History] Albuterol Sulfate [Ventolin HFA] 1 - 2 puff INHALATION RT-Q6H PRN 03/30/19 [History] Baclofen [Lioresal] 10 mg PO BID 03/30/19 [History] Cholecalciferol [Vitamin D3 (25 Mcg = 1000 Iu)] 5,000 unit PO DAILY 03/30/19 [History] Tamsulosin HCl [Flomax] 0.4 mg PO DAILY 03/30/19 [History] Brexpiprazole [Rexulti] 4 mg PO DAILY 11/29/19 [History] Budesonide [Pulmicort Flexhaler] 2 puff INHALATION RT-BID 11/29/19 [History] Carbidopa-Levodopa 25-100 mg [Sinemet 25-100 mg] 1 tab PO TID 11/20/20 [History] Atorvastatin Calcium [Lipitor] 80 mg PO HS #30 tablet 11/24/20 [Rx] Clopidogrel Bisulfate [Plavix] 75 mg PO DAILY #30 tab 11/24/20 [Rx] amantadine HCL [Amantadine] 100 mg PO BID #60 tab 11/24/20 [Rx] Aspirin 81 mg PO DAILY 01/05/21 [History] Loratadine [Claritin] 10 mg PO DAILY 01/05/21 [History] Oxybutynin Chloride [Ditropan XL] 5 mg PO BID 01/05/21 [History] lamoTRIgine [LaMICtal] 200 mg PO DAILY 01/05/21 [History] Follow up Appointment(s)/Referral(s): Awais Mckay DO [STAFF PHYSICIAN] - 1 Week Discharge Disposition: HOME SELF-CARE
[2021-01-09 13:21] VITALS: BP 98/53; PULSE 68
== END 2021-01-09 14:35 | disposition home or self-care (01) ==
LOC: CATHCVL 06:03
PROVIDERS: ATTEND Surgery
DX: I65.22 Occlusion and stenosis of left carotid artery (principal); Z20.822 Contact with and (suspected) exposure to COVID-19; G20 Parkinson's disease; Z86.73 Personal history of transient ischemic attack (TIA), and cerebral infarction without residual deficits; Z85.46 Personal history of malignant neoplasm of prostate
CPT/HCPCS: 36221; 80048; 85025; 87635; C1769 ×3; C1894; J2250; J2001; J3010; Q9967

== ENCOUNTER → 2021-02-20 | Outpatient (CLI) | payer MEDICARE, OTHER ==
[2021-02-20 15:05] LABS: African American GFR (CKD) >90 (>60 ml/min/1.73 sqM); Anion Gap 10 mmol/L; Blood Urea Nitrogen 8 mg/dL (9-20); Carbon Dioxide 26 mmol/L (22-30); Chloride 104 mmol/L (98-107); Non-African American GFR(CKD) >90 (>60 ml/min/1.73 sqM); Sodium 140 mmol/L (137-145)
[2021-02-20 15:34] LABS: Basophils % (A) 1 %; Eosinophils # (A) 0.2 k/uL (0-0.7); Eosinophils % (A) 3 %; Lymphocytes # (A) 2.1 k/uL (1.0-4.8); Lymphocytes % (A) 26 %; MCH 32.6 pg (25.0-35.0); MCHC 34.9 g/dL (31.0-37.0); MCV 93.5 fL (80.0-100.0); Monocytes # (A) 0.4 k/uL (0-1.0); Monocytes % (A) 5 %; Neutrophils # (A) 5.4 k/uL (1.3-7.7); Neutrophils % (A) 65 %; Platelet Count 275 k/uL (150-450); RDW 13.2 % (11.5-15.5); WBC 8.2 k/uL (3.8-10.6)
== END | disposition home or self-care (01) ==
LOC: LABPAT 13:29
PROVIDERS: ATTEND Surgery
DX: Z01.812 Encounter for preprocedural laboratory examination (principal); I65.29 Occlusion and stenosis of unspecified carotid artery
CPT/HCPCS: 36415; 80051; 82565; 84520; 85025

== ENCOUNTER 2022-10-09 08:16 | Inpatient (IN) | payer MEDICARE, OTHER ==
[2022-10-09 08:23] LABS: Glucose,Whole Blood >600 mg/dL (70-110)
[2022-10-09] MEDS ORDERED: SODIUM CHLORIDE 0.9% 1,000 ML IV STA ×3 (08:23→09:19)
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
[2022-10-09 08:42] LABS: Appearance,Urine Clear (Clear); Bilirubin,Urine Negative (Negative); Blood,Urine Large (Negative); Color,Urine Light Yellow; Glucose,Urine (UA) 4+ (Negative); Ketones,Urine Negative (Negative); Leukocyte Esterase,Urine Negative (Negative); Nitrite,Urine Negative (Negative); PH, Urine 5.5 (5.0-8.0); Protein,Urine Trace (Negative); RBC,Urine <1 /hpf (0-5); Specific Gravity,Urine 1.027 (1.001-1.035); Squamous Epithelial Cell,Urine <1 /hpf (0-4); Urobilinogen,Urine <2.0 mg/dL (<2.0); WBC,Urine 1 /hpf (0-5)
[2022-10-09 08:50] LABS: Basophils % (A) 0 %; Eosinophils # (A) 0.2 k/uL (0-0.7); Eosinophils % (A) 1 %; HGB 13.4 gm/dL (13.0-17.5); Hypochromasia Slight; Lymphocytes # (A) 0.9 k/uL (1.0-4.8); Lymphocytes % (A) 5 %; MCH 32.5 pg (25.0-35.0); MCHC 31.9 g/dL (31.0-37.0); Macrocytosis Slight; Mean Platelet Volume 9.5; Monocytes # (A) 0.9 k/uL (0-1.0); Monocytes % (A) 5 %; Neutrophils % (A) 88 %; Platelet Count 213 k/uL (150-450); RBC 4.12 m/uL (4.30-5.90); RDW 12.8 % (11.5-15.5); WBC 18.2 k/uL (3.8-10.6)
[2022-10-09 08:54] LABS: Amphetamine Screen,Urine Not Detected (NotDetected); Barbiturate Screen,Urine Not Detected (NotDetected); Benzodiazepines Screen,Urine Not Detected (NotDetected); Cocaine Screen,Urine Not Detected (NotDetected); Methadone Screen, Urine Not Detected (NotDetected); Opiate Screen,Urine Not Detected (NotDetected); Oxycodone Screen, Urine Not Detected (NotDetected); Phencyclidine Screen,Urine Not Detected (NotDetected); Tricyclic Antidepressant,Urine Not Detected (NotDetected); Urn Cannabinoid Scrn Not Detected (NotDetected)
[2022-10-09 09:01] LABS: ALT 37 U/L (4-49); AST 119 U/L (17-59); African American GFR (CKD) 68 (>60 ml/min/1.73 sqM); Alcohol <10 mg/dL; Alkaline Phosphatase 166 U/L (38-126); Anion Gap 13 mmol/L; Blood Urea Nitrogen 22 mg/dL (9-20); Calcium 8.9 mg/dL (8.4-10.2); Carbon Dioxide 24 mmol/L (22-30); Chloride 96 mmol/L (98-107); Magnesium 2.6 mg/dL (1.6-2.3); Non-African American GFR(CKD) 59 (>60 ml/min/1.73 sqM); Phosphorus 3.6 mg/dL (2.5-4.5); Potassium 3.7 mmol/L (3.5-5.1); Sodium 133 mmol/L (137-145); Total Bilirubin 1.9 mg/dL (0.2-1.3); Total Protein 6.3 g/dL (6.3-8.2)
--- NOTE | 2022-10-09 09:03 | CT ---
EXAMINATION TYPE: CT brain wo con DATE OF EXAM: 10/09/2022 COMPARISON: 11/20/2020 HISTORY: AMS CT DLP: 1182.[address] of the brain was performed. The ventricles, basal cisterns and sulci overlying the cerebral convexities demonstrate mild enlargem ent. Noted are remote insults involving the left posterior MCA territory as well as the anterior MCA territory. There is no evidence for intracranial hemorrhage or sulcal effacement. There is decreased attenuation about the periventricular white matter and deep white matter of both c erebral hemispheres, compatible with chronic small vessel ischemia. Differential diagnosis does inclu de demyelination. No mass effects are seen.No midline shift. Osseous calvarium is intact. If symptoms persist consider MRI. IMPRESSION: 1. Age related atrophic and chronic small vessel ischemic change without acute intracranial process s een at this time.
[2022-10-09 09:10] LABS: Glucose 1162 mg/dL (74-99)
[2022-10-09 09:16] LABS: INR 0.9 (<1.2); Prothrombin Time 9.6 sec (9.0-12.0); T4, Free (Free Thyroxine) 1.25 ng/dL (0.78-2.19)
--- NOTE | 2022-10-09 09:30 | XR ---
EXAMINATION TYPE: XR chest 2V DATE OF EXAM: 10/09/2022 COMPARISON: 11/20/2020 HISTORY: Shortness of breath TECHNIQUE: Frontal and lateral views of the chest are obtained. FINDINGS: Scattered senescent parenchymal changes noted. Hyperinflation compatible with COPD. No evidence for infiltrate. No evidence for atelectasis. There is chronic elevation of the right pat diaphragm. Heart size is stable. Mediastinal structures are stable and grossly unremarkable. No evidence for hilar prominence. Degenerative changes dorsal spine. IMPRESSION: 1. No evidence for acute pulmonary disease.
[2022-10-09 09:39] LABS: Partial Thromboplastin Time 19.3 sec (22.0-30.0)
[2022-10-09] MEDS ORDERED: SODIUM CHLORIDE 0.9% 1,000 ML IV ONE (10:00)
[2022-10-09 10:19] LABS: Glucose,Whole Blood >600 mg/dL (70-110)
[2022-10-09] MEDS: INSULIN REGULAR 100 UNIT in SODIUM CHLORIDE 0.9% 100 ML IV SCH ×2 (10:49→19:19)
[2022-10-09 11:03] LABS: Glucose,Whole Blood >600 mg/dL (70-110)
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
[2022-10-09 12:26] LABS: Glucose,Whole Blood >600 mg/dL (70-110)
[2022-10-09 12:46] LABS: African American GFR (CKD) 84 (>60 ml/min/1.73 sqM); Anion Gap 10 mmol/L; Blood Urea Nitrogen 21 mg/dL (9-20); Carbon Dioxide 23 mmol/L (22-30); Chloride 112 mmol/L (98-107); Non-African American GFR(CKD) 72 (>60 ml/min/1.73 sqM); Phosphorus 2.8 mg/dL (2.5-4.5); Potassium 2.8 mmol/L (3.5-5.1); Sodium 145 mmol/L (137-145)
[2022-10-09 12:57] LABS: Glucose 643 mg/dL (74-99)
[2022-10-09] MEDS ORDERED: ALBUTEROL NEBULIZED 2.5 MG/3 ML INHALATION PRN (13:04)
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
[2022-10-09] MEDS: D5-0.45% NACL WITH KCL 20MEQ/L 1,000 ML IV SCH ×2 (13:22→16:00)
[2022-10-09] MEDS: SODIUM CHLORIDE 0.9% 1,000 ML IV SCH ×3 (13:30→14:39)
[2022-10-09 13:35] LABS: Glucose,Whole Blood 470 mg/dL (70-110)
[2022-10-09] MEDS ORDERED: POTASSIUM CHLORIDE 40 MEQ in WATER FOR INJECTION 1 100ML.BAG IVPB STA (14:32)
[2022-10-09] MEDS ORDERED: POTASSIUM CHLORIDE ER 20 MEQ TAB.ER PO STA (14:34)
[2022-10-09 14:39] LABS: Glucose,Whole Blood 351 mg/dL (70-110)
--- NOTE | 2022-10-09 15:02 | XR ---
EXAMINATION TYPE: XR chest 2V DATE OF EXAM: 10/09/2022 COMPARISON: 10/09/2022 HISTORY: Shortness of breath TECHNIQUE: Frontal and lateral views of the chest are obtained. Degree of inspiration is slightly li miting. FINDINGS: Scattered senescent parenchymal changes noted. Hyperinflation compatible with COPD. While there is mild pulmonary venous congestion there are scattered infiltrates right suprahilar and right infrahilar regions could reflect developing pneumonia. Correlate clinically and progress studie s are recommended. No sizable effusions are present. Heart size is stable. Mediastinal structures are stable and grossly unremarkable. No evidence for hilar prominence. Degenerative changes dorsal spine. IMPRESSION: 1. While there is mild pulmonary venous congestion there are scattered infiltrates right suprahilar a nd right infrahilar regions could reflect developing pneumonia. Correlate clinically and progress mena dies are recommended. No sizable effusions are present.
[2022-10-09] MEDS: HEPARIN SODIUM,PORCINE/PF 5,000 UNIT/0.5 ML SYRINGE SQ SCH (15:37)
[2022-10-09 15:42] LABS: Glucose,Whole Blood 222 mg/dL (70-110)
[2022-10-09] MEDS: POTASSIUM CHLORIDE 10 MEQ in WATER FOR INJECTION 1 100ML.BAG IVPB SCH ×4 (16:11→21:34)
[2022-10-09] MEDS: CARBIDOPA-LEVODOPA 25-250 MG 1 EACH TAB PO SCH ×2 (16:33→22:49)
[2022-10-09 16:34] LABS: African American GFR (CKD) >90 (>60 ml/min/1.73 sqM); Anion Gap 8 mmol/L; Blood Urea Nitrogen 19 mg/dL (9-20); Carbon Dioxide 25 mmol/L (22-30); Chloride 116 mmol/L (98-107); Glucose 176 mg/dL (74-99); Non-African American GFR(CKD) 83 (>60 ml/min/1.73 sqM); Phosphorus 4.5 mg/dL (2.5-4.5); Potassium 3.5 mmol/L (3.5-5.1); Sodium 149 mmol/L (137-145)
[2022-10-09 16:43] LABS: Glucose,Whole Blood 167 mg/dL (70-110)
[2022-10-09 17:41] LABS: Glucose,Whole Blood 196 mg/dL (70-110)
[2022-10-09 19:00] LABS: ABG HCO3 25 mmol/L (21-25); ABG PCO2 40 mmHg (35-45); ABG PO2 96 mmHg (83-108); ABG TCO2 26 mmol/L (19-24); Allen Test Performed? Yes
[2022-10-09 19:15] LABS: Glucose,Whole Blood 260 mg/dL (70-110)
[2022-10-09 20:37] LABS: Glucose,Whole Blood 307 mg/dL (70-110)
[2022-10-09] MEDS: ATORVASTATIN 80 MG TAB PO SCH (20:48)
[2022-10-09] MEDS: DULoxetine HCL 60 MG CAPSULE.DR PO SCH (20:49)
[2022-10-09] MEDS: levETIRAcetam 500 MG TAB PO SCH (20:50)
[2022-10-09] MEDS: FLUTICASONE 110 MCG INHALER INHALATION SCH (21:18)
[2022-10-09 21:38] LABS: Glucose,Whole Blood 261 mg/dL (70-110)
[2022-10-09 22:43] LABS: Glucose,Whole Blood 222 mg/dL (70-110)
[2022-10-09] MEDS: ENTACAPONE 200 MG TAB PO SCH (22:49)
[2022-10-09 23:09] LABS: African American GFR (CKD) >90 (>60 ml/min/1.73 sqM); Anion Gap 4 mmol/L; Blood Urea Nitrogen 18 mg/dL (9-20); Calcium 7.6 mg/dL (8.4-10.2); Carbon Dioxide 25 mmol/L (22-30); Chloride 113 mmol/L (98-107); Glucose 222 mg/dL (74-99); Non-African American GFR(CKD) 88 (>60 ml/min/1.73 sqM); Sodium 142 mmol/L (137-145)
[2022-10-09 23:32] LABS: Glucose,Whole Blood 207 mg/dL (70-110)
[2022-10-10] MEDS: D5-0.45% NACL WITH KCL 20MEQ/L 1,000 ML IV SCH (00:18)
[2022-10-10] MEDS: HEPARIN SODIUM,PORCINE/PF 5,000 UNIT/0.5 ML SYRINGE SQ SCH ×4 (00:31→23:43)
[2022-10-10 01:34] LABS: Glucose,Whole Blood 251 mg/dL (70-110)
[2022-10-10 01:34] LABS: Glucose,Whole Blood 204 mg/dL (70-110)
[2022-10-10] MEDS: INSULIN REGULAR 100 UNIT in SODIUM CHLORIDE 0.9% 100 ML IV SCH (01:51)
[2022-10-10 02:29] LABS: Glucose,Whole Blood 239 mg/dL (70-110)
[2022-10-10] MEDS ORDERED: INSULIN NPH 100 UNIT/ML 10 ML VIAL SQ ONE (03:00)
[2022-10-10] MEDS ORDERED: INSULIN DETEMIR (LEVEMIR) 100 UNIT/ML SYR SQ SCH (03:00)
[2022-10-10 05:07] LABS: Glucose,Whole Blood 224 mg/dL (70-110)
[2022-10-10 06:31] LABS: Levetiracetam (Keppra) 36.2 ug/mL (3.0-60.0)
[2022-10-10 06:48] LABS: Glucose,Whole Blood 236 mg/dL (70-110)
[2022-10-10] MEDS: INSULIN DETEMIR (LEVEMIR) 100 UNIT/ML SYR SQ SCH (06:54)
[2022-10-10 06:57] LABS: Basophils % (A) 0 %; Eosinophils # (A) 0.3 k/uL (0-0.7); Eosinophils % (A) 2 %; HCT 33.4 % (39.0-53.0); HGB 11.6 gm/dL (13.0-17.5); Lymphocytes # (A) 2.1 k/uL (1.0-4.8); Lymphocytes % (A) 15 %; MCH 32.6 pg (25.0-35.0); MCHC 34.7 g/dL (31.0-37.0); Monocytes # (A) 0.7 k/uL (0-1.0); Monocytes % (A) 5 %; Neutrophils # (A) 10.8 k/uL (1.3-7.7); Neutrophils % (A) 77 %; Platelet Count 188 k/uL (150-450); RBC 3.55 m/uL (4.30-5.90); RDW 12.9 % (11.5-15.5); WBC 13.9 k/uL (3.8-10.6)
[2022-10-10 07:05] LABS: ALT 42 U/L (4-49); AST 323 U/L (17-59); African American GFR (CKD) >90 (>60 ml/min/1.73 sqM); Albumin 2.9 g/dL (3.5-5.0); Alkaline Phosphatase 112 U/L (38-126); Anion Gap 5 mmol/L; Blood Urea Nitrogen 17 mg/dL (9-20); Calcium 7.5 mg/dL (8.4-10.2); Carbon Dioxide 26 mmol/L (22-30); Chloride 111 mmol/L (98-107); Glucose 211 mg/dL (74-99); Magnesium 2.5 mg/dL (1.6-2.3); Non-African American GFR(CKD) >90 (>60 ml/min/1.73 sqM); Potassium 3.7 mmol/L (3.5-5.1); Sodium 142 mmol/L (137-145); Total Bilirubin 1.2 mg/dL (0.2-1.3); Total Protein 5.2 g/dL (6.3-8.2)
[2022-10-10 07:11] LABS: MCV 93.9 fL (80.0-100.0)
[2022-10-10 07:23] LABS: Glucose,Whole Blood 220 mg/dL (70-110)
[2022-10-10] MEDS: INSULIN ASPART (NovoLOG) 100 UNIT/ML VIAL SQ SCH ×4 (07:31→21:21)
[2022-10-10] MEDS: FLUTICASONE 110 MCG INHALER INHALATION SCH ×2 (08:11→20:57)
[2022-10-10] MEDS: CARBIDOPA-LEVODOPA 25-250 MG 1 EACH TAB PO SCH ×3 (08:20→21:22)
[2022-10-10] MEDS: lamoTRIgine 25 MG TAB PO SCH ×2 (08:20→09:26)
[2022-10-10] MEDS: DULoxetine HCL 60 MG CAPSULE.DR PO SCH ×2 (08:20→20:15)
[2022-10-10] MEDS: ENTACAPONE 200 MG TAB PO SCH ×2 (08:20→21:22)
[2022-10-10] MEDS: ASPIRIN 81 MG PO SCH (08:20)
[2022-10-10] MEDS: TAMSULOSIN 0.4 MG CAP.ER.24H PO SCH (08:21)
[2022-10-10] MEDS: CLOPIDOGREL 75 MG TAB PO SCH (08:21)
[2022-10-10] MEDS: levETIRAcetam 500 MG TAB PO SCH ×2 (08:21→20:15)
[2022-10-10] MEDS: CHOLECALCIFEROL 125 MCG (5000 IU) TABLET PO SCH (08:21)
[2022-10-10] MEDS ORDERED: IPRATROPIUM-ALBUTEROL 3 ML NEB INHALATION PRN (08:36)
[2022-10-10] MEDS: IPRATROPIUM-ALBUTEROL 3 ML NEB INHALATION SCH ×3 (08:46→20:58)
[2022-10-10] MEDS: BUDESONIDE 1 MG/2 ML NEBU INHALATION SCH ×2 (08:46→20:56)
[2022-10-10] MEDS: FORMOTEROL FUMARATE 20 MCG/2 ML NEBU INHALATION SCH ×2 (08:47→20:56)
--- NOTE | 2022-10-10 08:53 | XR ---
EXAMINATION TYPE: XR chest 1V portable DATE OF EXAM: 10/10/2022 8:42 AM COMPARISON: Chest radiographs from 10/09/2022 TECHNIQUE: XR chest 1V portable Frontal view of the chest. CLINICAL INDICATION:Male, 62 years old with history of hypoxia; FINDINGS: Lungs/Pleura: There is no evidence of pleural effusion, focal consolidation, or pneumothorax. Pulmonary vascularity: Unremarkable. Heart/mediastinum: Cardiomediastinal silhouette is enlarged and stable. Musculoskeletal: No acute osseous pathology. IMPRESSION: Low lung volumes with a generalized hazy appearance which could represent atelectasis versus pulmonar y edema correlate with serum BNP.
[2022-10-10 09:08] LABS: Lamotrigine (Lamictal) 5.1 ug/mL (2.0-15.0)
[2022-10-10] MEDS: lamoTRIgine 100 MG TAB PO SCH (09:26)
[2022-10-10] MEDS: AZITHROMYCIN 500 MG in SODIUM CHLORIDE 0.9% 250 ML IVPB SCH (09:36)
[2022-10-10 10:00] LABS: Glucose,Whole Blood 229 mg/dL (70-110)
[2022-10-10] MEDS: BREXPIPRAZOLE 4 MG PO SCH (10:12)
[2022-10-10 11:55] LABS: Glucose,Whole Blood 321 mg/dL (70-110)
[2022-10-10] MEDS ORDERED: FUROSEMIDE 10 MG/ML 4 ML VIAL IV STA (13:02)
--- NOTE | 2022-10-10 13:03 | CA ---
Transthoracic Echo Report Name: Jimenez Triana Age: 62 Gender: M : 1960 Exam Date: 10/10/2022 09:03 Exam Location: [facility] Ht (in): 70 Wt (lb): 280 Ordering Physician: Francisco Tamez MD Attending/Referring Phys: Flat Clothier Lori Jones [facility] Procedure CPT: Indications: hypoxia, pulm vasc congestion Cardiac Hx: Technical Quality: Technically difficult study Contrast 1: Lumason Total Dose (mL): 5 Contrast 2: Total Dose (mL): MEASUREMENTS (Male / Female) Normal Values 2D ECHO LV Diastolic Diameter PLAX 4.8 cm 4.2 - 5.9 / 3.9 - 5.3 cm LV Systolic Diameter PLAX 2.9 cm IVS Diastolic Thickness 0.9 cm 0.6 - 1.0 / 0.6 - 0.9 cm LVPW Diastolic Thickness 0.9 cm 0.6 - 1.0 / 0.6 - 0.9 cm LV Relative Wall Thickness 0.4 M-MODE Aortic Root Diameter MM 2.7 cm LA Systolic Diameter MM 3.5 cm LA Ao Ratio MM 1.3 AV Cusp Separation MM 2.1 cm DOPPLER AV Peak Velocity 120.7 cm/s AV Peak Gradient 5.8 mmHg AV Mean Velocity 98.2 cm/s AV Mean Gradient 4.0 mmHg AV Velocity Time Integral 22.1 cm LVOT Peak Velocity 99.7 cm/s LVOT Peak Gradient 4.0 mmHg LVOT Velocity Time Integral 19.9 cm Mitral E Point Velocity 103.6 cm/s Mitral A Point Velocity 94.0 cm/s Mitral E to A Ratio 1.1 MV Deceleration Time 121.7 ms LV E' Lateral Velocity 7.9 cm/s Mitral E to LV E' Lateral Ratio 13.1 LV E' Septal Velocity 6.8 cm/s Mitral E to LV E' Septal Ratio 15.1 Right Atrial Pressure 8.0 mmHg FINDINGS Left Ventricle Normal Left ventricular size, wall thickness, systolic function with no obvious regional wall motion abnormalities. Left ventricular ejection fraction is estimated at 55-60%. Right Ventricle Mildly dilated right ventricle. Unable to estimate the right ventricular systolic pressure. Right Atrium Right atrium not well visualized. Left Atrium Normal left atrial size. Mitral Valve Structurally normal mitral valve. No mitral regurgitation. Aortic Valve Aortic valve not well visualized. No aortic regurgitation. Tricuspid Valve Structurally normal tricuspid valve. No tricuspid regurgitation. Pulmonic Valve Pulmonic valve not well visualized. Pericardium No pericardial effusion. Echo free space anterior to the right ventricle likely represents a fat pad. Aorta Normal size aortic root. CONCLUSIONS Technically difficult study. Lumason ECHO contrast used for improved visualization of the endocardial borders (inadequate visualization of two or more contiguous segments). 1. Normal left ventricular size and systolic function 2. Limited Doppler study with no significant abnormalities Previewed by: Dr. Lynette Lombardi MD (Electronically Signed) Final Date: 10 October 2022 13:02
--- NOTE | 2022-10-10 13:04 | P.PN ---
Subjective Progress Note Date: 10/10/22 Hospital Course: 62-year-old male with history of Parkinson's disease, CVA, hypertension, severe disorder?, dyslipidemia , history of prostate cancer, chronic back pain presenting with altered mental status. In the ED, temperature was 98.5, pulse 98, blood pressure 143/77, saturating at 92% on 6 L. WBC 18.2, sodium 133, chloride 96, creatinine 1.29 up from baseline, glucose 1000, lactate 3.1, magnesium 2.6, slightly elevated AST at 119, ALP 166, troponin negative, TSH 0.548, free T4 1 0.05, ketone negative, urine tox negative. EKG shows normal sinus rhythm. CXR shows no acute process. Patient admitted for [facility], now off of insulin drip. Subjective: Patient seen and examined at bedside. No acute events overnight. Continues to have difficulty breathing. Pertinent positives and negatives as discussed above, a complete review of systems was performed and all other systems are negative. Vitals Signs Reviewed. General: nontoxic, no distress, appears at stated age, morbidly obese Derm: warm, dry Head: atraumatic, normocephalic, symmetric Eyes: EOMI, no lid lag, anicteric sclera, pupils equal round reactive to light ENT: Nose and ears atraumatic Neck: No thyromegaly, supple Mouth: no lip lesion, mucus membranes moist Cardiovascular: S1S2 reg, no murmur, no edema Lungs: bilateral rales, no wheeze, no accessory muscle use, supplemental oxygen Abdominal: soft, nontender to palpation, no guarding, no appreciable organomegaly Ext: no gross muscle atrophy, muscle strength muscle strength 5 out of 5 in all 4 extremities, no contractures Neuro: CN II-XII grossly intact Psych: Lethargic, oriented 2, appropriate affect Data Reviewed Today: Pertinent Labs: WBC 13.9, hemoglobin 11.6, sodium 142, potassium 3.7, creatinine 0.83, blood sugars range between 211-321 Imaging: Chest x-ray shows bilateral pulmonary vascular congestion Assessment and Plan: Active: Hyperosmolar hyperglycemia, nonketotic, resolving Acute metabolic encephalopathy, resolving Lactic acidosis resolved Hypernatremia resolved Acute hypoxic respiratory failure Pulmonary vascular congestion Suspected pneumonia, community-acquired Acute kidney injury, resolved hx of Hypertension -On sliding scale insulin, Levemir 25 units daily -Laboratory Phlebotomist following -Leobardo Flanagan level pending -Hold home NICHOLAS inhibitor -We'll give 40 of IV Lasix now -Echocardiogram pending -Started on ceftriaxone and azithromycin -Sputum cultures, blood cultures pending -Pro calcitonin ordered Chronic: History of Parkinson's disease History of CVA Seizure disorder Dyslipidemia Prostate cancer history DVT ppx: Heparin subcu Code status: Full code Anticipated discharge place: Pending clinical course Anticipated discharge time: Pending clinical course Objective - Vital Signs Vital signs: Vital Signs Temp 99.0 F 10/09/22 10:59 Pulse 84 10/10/22 12:45 Resp 22 10/10/22 12:45 BP 96/65 10/10/22 12:45 Pulse Ox 95 10/10/22 12:45 FiO2 Intake & Output 10/09/22 10/10/22 10/10/22 18:59 06:59 18:59 Intake Total 81.453 31.143 Balance 81.453 31.143 Weight 127.006 kg Intake: Intake, IV Titration 81.453 31.143 Amount Insulin Regular 100 unit 81.453 31.143 In Sodium Chloride 0.9% 100 ml @ 0.1 UNITS/KG/HR 12.828 mls/hr IV .Q7H53M [facility] Rx#:[id number] - Labs CBC & Chem 7: 10/10/22 06:04 10/10/22 06:04 Labs: Abnormal Lab Results - Last 24 Hours (Table) 10/09/22 10/09/22 10/09/22 Range/Units 13:25 14:36 15:32 WBC (3.8-10.6) k/uL RBC (4.30-5.90) m/uL Hgb (13.0-17.5) gm/dL Hct (39.0-53.0) % Neutrophils # (1.3-7.7) k/uL ABG Total CO2 (19-24) mmol/L Sodium (137-145) mmol/L Chloride (98-107) mmol/L Glucose (74-99) mg/dL POC Glucose (mg/dL) 470 H 351 H 222 H (70-110) mg/dL Plasma Lactic Acid Blake (0.7-2.0) mmol/L Calcium (8.4-10.2) mg/dL Magnesium (1.6-2.3) mg/dL AST (17-59) U/L Total Protein (6.3-8.2) g/dL Albumin (3.5-5.0) g/dL 10/09/22 10/09/22 10/09/22 Range/Units 16:07 16:07 16:35 WBC (3.8-10.6) k/uL RBC (4.30-5.90) m/uL Hgb (13.0-17.5) gm/dL Hct (39.0-53.0) % Neutrophils # (1.3-7.7) k/uL ABG Total CO2 (19-24) mmol/L Sodium 149 H (137-145) mmol/L Chloride 116 H (98-107) mmol/L Glucose 176 H (74-99) mg/dL POC Glucose (mg/dL) 167 H (70-110) mg/dL Plasma Lactic Acid Blake 2.4 H* (0.7-2.0) mmol/L Calcium (8.4-10.2) mg/dL Magnesium (1.6-2.3) mg/dL AST (17-59) U/L Total Protein (6.3-8.2) g/dL Albumin (3.5-5.0) g/dL 10/09/22 10/09/22 10/09/22 Range/Units 17:39 18:56 19:14 WBC (3.8-10.6) k/uL RBC (4.30-5.90) m/uL Hgb (13.0-17.5) gm/dL Hct (39.0-53.0) % Neutrophils # (1.3-7.7) k/uL ABG Total CO2 26 H (19-24) mmol/L Sodium (137-145) mmol/L Chloride (98-107) mmol/L Glucose (74-99) mg/dL POC Glucose (mg/dL) 196 H 260 H (70-110) mg/dL Plasma Lactic Acid Blake (0.7-2.0) mmol/L Calcium (8.4-10.2) mg/dL Magnesium (1.6-2.3) mg/dL AST (17-59) U/L Total Protein (6.3-8.2) g/dL Albumin (3.5-5.0) g/dL 10/09/22 10/09/22 10/09/22 Range/Units 20:32 21:32 22:41 WBC (3.8-10.6) k/uL RBC (4.30-5.90) m/uL Hgb (13.0-17.5) gm/dL Hct (39.0-53.0) % Neutrophils # (1.3-7.7) k/uL ABG Total CO2 (19-24) mmol/L Sodium (137-145) mmol/L Chloride (98-107) mmol/L Glucose (74-99) mg/dL POC Glucose (mg/dL) 307 H 261 H 222 H (70-110) mg/dL Plasma Lactic Acid Blake (0.7-2.0) mmol/L Calcium (8.4-10.2) mg/dL Magnesium (1.6-2.3) mg/dL AST (17-59) U/L Total Protein (6.3-8.2) g/dL Albumin (3.5-5.0) g/dL 10/09/22 10/09/22 10/10/22 Range/Units 22:45 23:30 00:30 WBC (3.8-10.6) k/uL RBC (4.30-5.90) m/uL Hgb (13.0-17.5) gm/dL Hct (39.0-53.0) % Neutrophils # (1.3-7.7) k/uL ABG Total CO2 (19-24) mmol/L Sodium (137-145) mmol/L Chloride 113 H (98-107) mmol/L Glucose 222 H (74-99) mg/dL POC Glucose (mg/dL) 207 H 204 H (70-110) mg/dL Plasma Lactic Acid Blake (0.7-2.0) mmol/L Calcium 7.6 L (8.4-10.2) mg/dL Magnesium (1.6-2.3) mg/dL AST (17-59) U/L Total Protein (6.3-8.2) g/dL Albumin (3.5-5.0) g/dL 10/10/22 10/10/22 10/10/22 Range/Units 01:32 02:28 05:06 WBC (3.8-10.6) k/uL RBC (4.30-5.90) m/uL Hgb (13.0-17.5) gm/dL Hct (39.0-53.0) % Neutrophils # (1.3-7.7) k/uL ABG Total CO2 (19-24) mmol/L Sodium (137-145) mmol/L Chloride (98-107) mmol/L Glucose (74-99) mg/dL POC Glucose (mg/dL) 251 H 239 H 224 H (70-110) mg/dL Plasma Lactic Acid Blake (0.7-2.0) mmol/L Calcium (8.4-10.2) mg/dL Magnesium (1.6-2.3) mg/dL AST (17-59) U/L Total Protein (6.3-8.2) g/dL Albumin (3.5-5.0) g/dL 10/10/22 10/10/22 10/10/22 Range/Units 06:04 06:04 06:45 WBC 13.9 H (3.8-10.6) k/uL RBC 3.55 L (4.30-5.90) m/uL Hgb 11.6 L (13.0-17.5) gm/dL Hct 33.4 L (39.0-53.0) % Neutrophils # 10.8 H (1.3-7.7) k/uL ABG Total CO2 (19-24) mmol/L Sodium (137-145) mmol/L Chloride 111 H (98-107) mmol/L Glucose 211 H (74-99) mg/dL POC Glucose (mg/dL) 236 H (70-110) mg/dL Plasma Lactic Acid Blake (0.7-2.0) mmol/L Calcium 7.5 L (8.4-10.2) mg/dL Magnesium 2.5 H (1.6-2.3) mg/dL AST 323 H (17-59) U/L Total Protein 5.2 L (6.3-8.2) g/dL Albumin 2.9 L (3.5-5.0) g/dL 10/10/22 10/10/22 10/10/22 Range/Units 07:22 09:59 11:54 WBC (3.8-10.6) k/uL RBC (4.30-5.90) m/uL Hgb (13.0-17.5) gm/dL Hct (39.0-53.0) % Neutrophils # (1.3-7.7) k/uL ABG Total CO2 (19-24) mmol/L Sodium (137-145) mmol/L Chloride (98-107) mmol/L Glucose (74-99) mg/dL POC Glucose (mg/dL) 220 H 229 H 321 H (70-110) mg/dL Plasma Lactic Acid Blake (0.7-2.0) mmol/L Calcium (8.4-10.2) mg/dL Magnesium (1.6-2.3) mg/dL AST (17-59) U/L Total Protein (6.3-8.2) g/dL Albumin (3.5-5.0) g/dL
--- NOTE | 2022-10-10 13:31 | P.PN ---
Subjective Progress Note Date: 10/10/22 62-year-old male who was seen in the emergency department, room #2. The patient has a history of prostate cancer, ongoing tobacco use, CVA, Parkinson's disease, and chronic back pain. He sees a nurse practitioner [facility]. Currently, he's being evaluated for hyperglycemic, hyperosmolar, nonketotic coma. The patient presented to the emergency department, with weakness, and mental status changes. Family members at the bedside. The patient's history is primarily from the ER [facility], and from family members. The patient's currently on 5 L of oxygen. An insulin drip with will be started. The patient did receive some fluid, I believe 1-2 L of saline. It should be pointed out that the patient does not have a prior history of diabetes. White count is 18.2, hemoglobin 13.4, hematocrit 42, and platelet count 213,000. Sodium 133, potassium 3.7, chlorides 96, CO2 24, BUN 22, and creatinine 1.29. The patient's corrected sodium is 151, based on the patient's elevated blood glucose. Lactic acid is 3.1. Albumin is 4.0. Troponin is normal. Thyroid function is normal. Brain CT does not show anything acute. There are some age-related atrophic and chronic small vessel ischemic changes. Chest x-ray shows nothing acute. The patient is seen today 10/10/2022 in follow-up in the emergency department. He is more awake and alert today. He is having issues with shortness of breath and wheezing. Current labs 5 L high flow nasal cannula with O2 saturations in the mid 90s. Chest x-ray reveals low lung volumes with generalized hazy appearance possibly representing atelectasis versus pulmonary edema. Echocardiogram revealed preserved left ventricular systolic function. White count 13.9. Hemoglobin 11.6. Platelets 188. Sodium 142. Potassium 3.7. Bicarb 26. BUN 17. Creatinine 0.83. Glucose 211. AST 323. ALT 42. ProBNP 123. He is currently on Levemir insulin 25 units daily along with a NovoLog sliding scale. Antibiotics in the form of ceftriaxone and azithromycin. Objective - Vital Signs Vital signs: Vital Signs Temp 99.0 F 10/09/22 10:59 Pulse 84 10/10/22 12:45 Resp 22 10/10/22 12:45 BP 96/65 10/10/22 12:45 Pulse Ox 95 10/10/22 12:45 FiO2 Intake & Output 10/09/22 10/10/22 10/10/22 18:59 06:59 18:59 Intake Total 81.453 31.143 Balance 81.453 31.143 Weight 127.006 kg Intake: Intake, IV Titration 81.453 31.143 Amount Insulin Regular 100 unit 81.453 31.143 In Sodium Chloride 0.9% 100 ml @ 0.1 UNITS/KG/HR 12.828 mls/hr IV .Q7H53M [facility] Rx#:[id number] - Exam GENERAL EXAM: Alert, obese, 62-year-old male, on 5 L nasal cannula, fairly comfortable in no apparent distress. HEAD: Normocephalic. EYES: Normal reaction of pupils, equal size. NOSE: Clear with pink turbinates. THROAT: No erythema or exudates. NECK: No masses, no JVD. CHEST: No chest wall deformity. LUNGS: Equal air entry with bilateral end expiratory wheeze, crackles in the bases. CVS: S1 and S2 normal with no audible murmur, regular rhythm. ABDOMEN: No hepatosplenomegaly, normal bowel sounds, no guarding or rigidity. SPINE: No scoliosis or deformity SKIN: No rashes CENTRAL NERVOUS SYSTEM: No focal deficits, tone is normal in all 4 extremities. EXTREMITIES: There is 1+ peripheral edema. No clubbing, no cyanosis. Peripheral pulses are intact. - Labs CBC & Chem 7: 10/10/22 06:04 10/10/22 06:04 Labs: Abnormal Lab Results - Last 24 Hours (Table) 10/09/22 10/09/22 10/09/22 Range/Units 13:25 14:36 15:32 WBC (3.8-10.6) k/uL RBC (4.30-5.90) m/uL Hgb (13.0-17.5) gm/dL Hct (39.0-53.0) % Neutrophils # (1.3-7.7) k/uL ABG Total CO2 (19-24) mmol/L Sodium (137-145) mmol/L Chloride (98-107) mmol/L Glucose (74-99) mg/dL POC Glucose (mg/dL) 470 H 351 H 222 H (70-110) mg/dL Plasma Lactic Acid Blake (0.7-2.0) mmol/L Calcium (8.4-10.2) mg/dL Magnesium (1.6-2.3) mg/dL AST (17-59) U/L Total Protein (6.3-8.2) g/dL Albumin (3.5-5.0) g/dL 10/09/22 10/09/22 10/09/22 Range/Units 16:07 16:07 16:35 WBC (3.8-10.6) k/uL RBC (4.30-5.90) m/uL Hgb (13.0-17.5) gm/dL Hct (39.0-53.0) % Neutrophils # (1.3-7.7) k/uL ABG Total CO2 (19-24) mmol/L Sodium 149 H (137-145) mmol/L Chloride 116 H (98-107) mmol/L Glucose 176 H (74-99) mg/dL POC Glucose (mg/dL) 167 H (70-110) mg/dL Plasma Lactic Acid Blake 2.4 H* (0.7-2.0) mmol/L Calcium (8.4-10.2) mg/dL Magnesium (1.6-2.3) mg/dL AST (17-59) U/L Total Protein (6.3-8.2) g/dL Albumin (3.5-5.0) g/dL 10/09/22 10/09/22 10/09/22 Range/Units 17:39 18:56 19:14 WBC (3.8-10.6) k/uL RBC (4.30-5.90) m/uL Hgb (13.0-17.5) gm/dL Hct (39.0-53.0) % Neutrophils # (1.3-7.7) k/uL ABG Total CO2 26 H (19-24) mmol/L Sodium (137-145) mmol/L Chloride (98-107) mmol/L Glucose (74-99) mg/dL POC Glucose (mg/dL) 196 H 260 H (70-110) mg/dL Plasma Lactic Acid Blake (0.7-2.0) mmol/L Calcium (8.4-10.2) mg/dL Magnesium (1.6-2.3) mg/dL AST (17-59) U/L Total Protein (6.3-8.2) g/dL Albumin (3.5-5.0) g/dL 10/09/22 10/09/22 10/09/22 Range/Units 20:32 21:32 22:41 WBC (3.8-10.6) k/uL RBC (4.30-5.90) m/uL Hgb (13.0-17.5) gm/dL Hct (39.0-53.0) % Neutrophils # (1.3-7.7) k/uL ABG Total CO2 (19-24) mmol/L Sodium (137-145) mmol/L Chloride (98-107) mmol/L Glucose (74-99) mg/dL POC Glucose (mg/dL) 307 H 261 H 222 H (70-110) mg/dL Plasma Lactic Acid Blake (0.7-2.0) mmol/L Calcium (8.4-10.2) mg/dL Magnesium (1.6-2.3) mg/dL AST (17-59) U/L Total Protein (6.3-8.2) g/dL Albumin (3.5-5.0) g/dL 10/09/22 10/09/22 10/10/22 Range/Units 22:45 23:30 00:30 WBC (3.8-10.6) k/uL RBC (4.30-5.90) m/uL Hgb (13.0-17.5) gm/dL Hct (39.0-53.0) % Neutrophils # (1.3-7.7) k/uL ABG Total CO2 (19-24) mmol/L Sodium (137-145) mmol/L Chloride 113 H (98-107) mmol/L Glucose 222 H (74-99) mg/dL POC Glucose (mg/dL) 207 H 204 H (70-110) mg/dL Plasma Lactic Acid Blake (0.7-2.0) mmol/L Calcium 7.6 L (8.4-10.2) mg/dL Magnesium (1.6-2.3) mg/dL AST (17-59) U/L Total Protein (6.3-8.2) g/dL Albumin (3.5-5.0) g/dL 10/10/22 10/10/22 10/10/22 Range/Units 01:32 02:28 05:06 WBC (3.8-10.6) k/uL RBC (4.30-5.90) m/uL Hgb (13.0-17.5) gm/dL Hct (39.0-53.0) % Neutrophils # (1.3-7.7) k/uL ABG Total CO2 (19-24) mmol/L Sodium (137-145) mmol/L Chloride (98-107) mmol/L Glucose (74-99) mg/dL POC Glucose (mg/dL) 251 H 239 H 224 H (70-110) mg/dL Plasma Lactic Acid Blake (0.7-2.0) mmol/L Calcium (8.4-10.2) mg/dL Magnesium (1.6-2.3) mg/dL AST (17-59) U/L Total Protein (6.3-8.2) g/dL Albumin (3.5-5.0) g/dL 10/10/22 10/10/22 10/10/22 Range/Units 06:04 06:04 06:45 WBC 13.9 H (3.8-10.6) k/uL RBC 3.55 L (4.30-5.90) m/uL Hgb 11.6 L (13.0-17.5) gm/dL Hct 33.4 L (39.0-53.0) % Neutrophils # 10.8 H (1.3-7.7) k/uL ABG Total CO2 (19-24) mmol/L Sodium (137-145) mmol/L Chloride 111 H (98-107) mmol/L Glucose 211 H (74-99) mg/dL POC Glucose (mg/dL) 236 H (70-110) mg/dL Plasma Lactic Acid Blake (0.7-2.0) mmol/L Calcium 7.5 L (8.4-10.2) mg/dL Magnesium 2.5 H (1.6-2.3) mg/dL AST 323 H (17-59) U/L Total Protein 5.2 L (6.3-8.2) g/dL Albumin 2.9 L (3.5-5.0) g/dL 10/10/22 10/10/22 10/10/22 Range/Units 07:22 09:59 11:54 WBC (3.8-10.6) k/uL RBC (4.30-5.90) m/uL Hgb (13.0-17.5) gm/dL Hct (39.0-53.0) % Neutrophils # (1.3-7.7) k/uL ABG Total CO2 (19-24) mmol/L Sodium (137-145) mmol/L Chloride (98-107) mmol/L Glucose (74-99) mg/dL POC Glucose (mg/dL) 220 H 229 H 321 H (70-110) mg/dL Plasma Lactic Acid Blake (0.7-2.0) mmol/L Calcium (8.4-10.2) mg/dL Magnesium (1.6-2.3) mg/dL AST (17-59) U/L Total Protein (6.3-8.2) g/dL Albumin (3.5-5.0) g/dL Assessment and Plan Assessment: Hyperosmolar, hyperglycemic, nonketotic coma. Acute hypoxemic respiratory failure secondary to an acute exacerbation of chronic obstructive pulmonary disease. No prior history of diabetes mellitus. Dilutional hyponatremia, with a corrected sodium of 151. History of prostate cancer. History of CVA. History of Parkinson's disease. History of chronic back pain. History of ongoing tobacco use with nicotine addiction. Obesity. Plan: The patient was seen and evaluated Chest x-ray, echocardiogram, medications and labs reviewed Currently on 5 L nasal cannula Titrate the FiO2 as tolerated Add DuoNeb inhalations, Pulmicort and Perforomist inhalations, IV Solu-Medrol Educated regarding the importance of complete smoking cessation Continue to monitor blood glucose levels We will continue to follow I have personally seen and examined the patient, performed the documentation and the assessment and plan as written. Number of minutes spent on the visit: 10.
[2022-10-10 16:37] LABS: Glucose,Whole Blood 360 mg/dL (70-110)
[2022-10-10] MEDS: ACETAMINOPHEN TAB 325 MG TAB PO PRN (20:14)
[2022-10-10] MEDS: ATORVASTATIN 80 MG TAB PO SCH (20:15)
[2022-10-10 20:43] LABS: Glucose,Whole Blood 247 mg/dL (70-110)
[2022-10-10] MEDS: PREGABALIN 100 MG CAP PO SCH (21:22)
[2022-10-11 01:44] LABS: Glucose,Whole Blood 233 mg/dL (70-110)
[2022-10-11] MEDS: INSULIN ASPART (NovoLOG) 100 UNIT/ML VIAL SQ SCH ×5 (02:17→21:21)
[2022-10-11] MEDS: ACETAMINOPHEN TAB 325 MG TAB PO PRN ×2 (02:18→19:57)
[2022-10-11 06:10] LABS: Glucose,Whole Blood 195 mg/dL (70-110)
[2022-10-11] MEDS: INSULIN DETEMIR (LEVEMIR) 100 UNIT/ML SYR SQ SCH (06:34)
[2022-10-11] MEDS: FLUTICASONE 110 MCG INHALER INHALATION SCH ×2 (08:50→20:47)
[2022-10-11] MEDS: IPRATROPIUM-ALBUTEROL 3 ML NEB INHALATION SCH ×5 (08:52→20:47)
[2022-10-11] MEDS: FORMOTEROL FUMARATE 20 MCG/2 ML NEBU INHALATION SCH ×2 (08:52→20:47)
[2022-10-11] MEDS: BUDESONIDE 1 MG/2 ML NEBU INHALATION SCH ×2 (08:52→20:47)
[2022-10-11] MEDS: ASPIRIN 81 MG PO SCH (10:02)
[2022-10-11] MEDS: HEPARIN SODIUM,PORCINE/PF 5,000 UNIT/0.5 ML SYRINGE SQ SCH ×3 (10:02→21:22)
[2022-10-11] MEDS: DULoxetine HCL 60 MG CAPSULE.DR PO SCH ×2 (10:03→21:20)
[2022-10-11] MEDS: CHOLECALCIFEROL 125 MCG (5000 IU) TABLET PO SCH (10:03)
[2022-10-11] MEDS: CLOPIDOGREL 75 MG TAB PO SCH (10:03)
[2022-10-11] MEDS: CARBIDOPA-LEVODOPA 25-250 MG 1 EACH TAB PO SCH ×3 (10:03→21:21)
[2022-10-11] MEDS: PREGABALIN 100 MG CAP PO SCH ×3 (10:04→21:20)
[2022-10-11] MEDS: lamoTRIgine 25 MG TAB PO SCH (10:04)
[2022-10-11] MEDS: TAMSULOSIN 0.4 MG CAP.ER.24H PO SCH (10:04)
[2022-10-11] MEDS: ENTACAPONE 200 MG TAB PO SCH ×2 (10:04→21:21)
[2022-10-11] MEDS: lamoTRIgine 100 MG TAB PO SCH (10:05)
[2022-10-11] MEDS: levETIRAcetam 500 MG TAB PO SCH ×2 (10:05→21:21)
[2022-10-11] MEDS: AZITHROMYCIN 500 MG in SODIUM CHLORIDE 0.9% 250 ML IVPB SCH (10:16)
[2022-10-11] MEDS: BREXPIPRAZOLE 4 MG PO SCH (10:21)
[2022-10-11 11:46] LABS: Glucose,Whole Blood 208 mg/dL (70-110)
[2022-10-11 13:55] VITALS: BMI 38.1
[2022-10-11 14:12] LABS: BUN/Creat Ratio 17.67 Ratio (12.00-20.00); Blood Urea Nitrogen 15.9 mg/dL (9.0-27.0); Calcium 8.3 mg/dL (8.7-10.3); Carbon Dioxide 21.9 mmol/L (21.6-31.8); Chloride 102 mmol/L (96-109); Glucose 230 mg/dL (70-110); Magnesium 2.4 mg/dL (1.5-2.4); Potassium 4.6 mmol/L (3.5-5.5); Sodium 136 mmol/L (135-145)
[2022-10-11 14:21] LABS: Basophils # (A) 0.03 X 10*3/uL (0.00-0.10); Basophils % (A) 0.4 %; Eosinophils # (A) 0.18 X 10*3/uL (0.04-0.35); Eosinophils % (A) 2.2 %; HCT 34.9 % (39.6-50.0); Lymphocytes # (A) 1.28 X 10*3/uL (0.90-5.00); Lymphocytes % (A) 15.6 %; MCH 32.1 pg (27.0-32.0); MCHC 34.4 d/dL (32.0-37.0); MCV 93.3 FL (80.0-97.0); Mean Platelet Volume 11.8 FL (9.5-12.2); Monocytes # (A) 0.58 X 10*3/uL (0.20-1.00); NRBC Per 100 WBC 0 X 10*3/uL (0.00-0.01); Neutrophils # (A) 6.11 X 10*3/uL (1.80-7.70); Neutrophils % (A) 74.2 %; Platelet Count 194 X 10*3/uL (140-440); RBC 3.74 X 10*6/uL (4.40-5.60); RDW 13.2 % (11.5-14.5); WBC 8.23 X 10*3/uL (4.50-10.00)
[2022-10-11] MEDS: traMADol 50 MG TAB PO SCH ×2 (15:07→21:20)
--- NOTE | 2022-10-11 15:18 | P.PN ---
Subjective Progress Note Date: 10/11/22 62-year-old male who was seen in the emergency department, room #2. The patient has a history of prostate cancer, ongoing tobacco use, CVA, Parkinson's disease, and chronic back pain. He sees a nurse practitioner [facility]. Currently, he's being evaluated for hyperglycemic, hyperosmolar, nonketotic coma. The patient presented to the emergency department, with weakness, and mental status changes. Family members at the bedside. The patient's history is primarily from the ER [facility], and from family members. The patient's currently on 5 L of oxygen. An insulin drip with will be started. The patient did receive some fluid, I believe 1-2 L of saline. It should be pointed out that the patient does not have a prior history of diabetes. White count is 18.2, hemoglobin 13.4, hematocrit 42, and platelet count 213,000. Sodium 133, potassium 3.7, chlorides 96, CO2 24, BUN 22, and creatinine 1.29. The patient's corrected sodium is 151, based on the patient's elevated blood glucose. Lactic acid is 3.1. Albumin is 4.0. Troponin is normal. Thyroid function is normal. Brain CT does not show anything acute. There are some age-related atrophic and chronic small vessel ischemic changes. Chest x-ray shows nothing acute. The patient is seen today 10/10/2022 in follow-up in the emergency department. He is more awake and alert today. He is having issues with shortness of breath and wheezing. Current labs 5 L high flow nasal cannula with O2 saturations in the mid 90s. Chest x-ray reveals low lung volumes with generalized hazy appearance possibly representing atelectasis versus pulmonary edema. Echocardiogram revealed preserved left ventricular systolic function. White count 13.9. Hemoglobin 11.6. Platelets 188. Sodium 142. Potassium 3.7. Bicarb 26. BUN 17. Creatinine 0.83. Glucose 211. AST 323. ALT 42. ProBNP 123. He is currently on Levemir insulin 25 units daily along with a NovoLog sliding scale. Antibiotics in the form of ceftriaxone and azithromycin. The patient is seen today 10/11/2022 in follow-up on the regular medical floor. He is currently sitting up in a chair at the bedside. Awake and alert in no acute distress. He has tremors from his Parkinson's disease. He is maintaining O2 saturations in the 90s on 4 L/m per nasal cannula. He has normal saline at 20 ML's per hour. He is continued on DuoNeb inhalations, Pulmicort and Perforomist inhalations, antibiotics in the form of ceftriaxone. Heparin for DVT prophylaxis.White count 8.2. Hemoglobin 12.0. Sodium 136. Potassium 4.6. Bicarb 22. BUN 16. Creatinine 0.9. Blood sugar 230. He is on Levemir 25 units daily along with the Novolog sliding scale. Objective - Vital Signs Vital signs: Vital Signs Temp 97.8 F 10/11/22 14:00 Pulse 73 10/11/22 14:00 Resp 19 10/11/22 14:00 BP 112/71 10/11/22 14:00 Pulse Ox 98 10/11/22 14:00 FiO2 Intake & Output 10/10/22 10/11/22 10/11/22 18:59 06:59 18:59 Output Total 300 450 650 Balance -300 -450 -650 Weight 127.006 kg 120.5 kg 120.5 kg Output: Urine 300 450 650 Other: Voiding Method External Catheter External Catheter # Bowel Movements 2 - Exam GENERAL EXAM: Alert, obese, 62-year-old male, up in a chair, on 4 L nasal cannula, comfortable in no apparent distress. HEAD: Normocephalic. EYES: Normal reaction of pupils, equal size. NOSE: Clear with pink turbinates. THROAT: No erythema or exudates. NECK: No masses, no JVD. CHEST: No chest wall deformity. LUNGS: Equal air entry with bilateral end expiratory wheeze, crackles in the bases. CVS: S1 and S2 normal with no audible murmur, regular rhythm. ABDOMEN: No hepatosplenomegaly, normal bowel sounds, no guarding or rigidity. SPINE: No scoliosis or deformity SKIN: No rashes CENTRAL NERVOUS SYSTEM: No focal deficits, tone is normal in all 4 extremities. EXTREMITIES: There is 1+ peripheral edema. No clubbing, no cyanosis. Peripheral pulses are intact. - Labs CBC & Chem 7: 10/11/22 08:04 10/11/22 08:04 Labs: Abnormal Lab Results - Last 24 Hours (Table) 10/10/22 10/10/22 10/10/22 Range/Units 06:04 16:35 16:46 RBC (4.40-5.60) X 10*6/uL Hgb (13.0-17.0) d/dL Hct (39.6-50.0) % MCH (27.0-32.0) pg Anion Gap (4.00-12.00) mmol/L Glucose (70-110) mg/dL POC Glucose (mg/dL) 360 H (70-110) mg/dL Calcium (8.7-10.3) mg/dL Procalcitonin 0.58 H 0.53 H (0.02-0.09) ng/mL 10/10/22 10/11/22 10/11/22 Range/Units 20:42 01:43 06:09 RBC (4.40-5.60) X 10*6/uL Hgb (13.0-17.0) d/dL Hct (39.6-50.0) % MCH (27.0-32.0) pg Anion Gap (4.00-12.00) mmol/L Glucose (70-110) mg/dL POC Glucose (mg/dL) 247 H 233 H 195 H (70-110) mg/dL Calcium (8.7-10.3) mg/dL Procalcitonin (0.02-0.09) ng/mL 10/11/22 10/11/22 10/11/22 Range/Units 08:04 08:04 11:45 RBC 3.74 L (4.40-5.60) X 10*6/uL Hgb 12.0 L (13.0-17.0) d/dL Hct 34.9 L (39.6-50.0) % MCH 32.1 H (27.0-32.0) pg Anion Gap 12.10 H (4.00-12.00) mmol/L Glucose 230 H (70-110) mg/dL POC Glucose (mg/dL) 208 H (70-110) mg/dL Calcium 8.3 L (8.7-10.3) mg/dL Procalcitonin (0.02-0.09) ng/mL Assessment and Plan Assessment: Hyperosmolar, hyperglycemic, nonketotic coma. Recovered Acute hypoxemic respiratory failure secondary to an acute exacerbation of chronic obstructive pulmonary disease No prior history of diabetes mellitus Dilutional hyponatremia, corrected History of prostate cancer History of CVA History of Parkinson's disease History of chronic back pain History of ongoing tobacco use with nicotine addiction Obesity Plan: The patient was seen and evaluated Medications and labs reviewed Currently on 4 L nasal cannula Titrate the FiO2 as tolerated Continue DuoNeb inhalations, Pulmicort and Perforomist inhalations We will continue to follow I have personally seen and examined the patient, performed the documentation and the assessment and plan as written. Number of minutes spent on the visit: 10.
--- NOTE | 2022-10-11 15:52 | P.PN ---
Subjective Progress Note Date: 10/11/22 Hospital Course: 62-year-old male with history of Parkinson's disease, CVA, hypertension, severe disorder?, dyslipidemia , history of prostate cancer, chronic back pain presenting with altered mental status. In the ED, temperature was 98.5, pulse 98, blood pressure 143/77, saturating at 92% on 6 L. WBC 18.2, sodium 133, chloride 96, creatinine 1.29 up from baseline, glucose 1000, lactate 3.1, magnesium 2.6, slightly elevated AST at 119, ALP 166, troponin negative, TSH 0.548, free T4 1 0.05, ketone negative, urine tox negative. EKG shows normal sinus rhythm. CXR shows no acute process. Patient admitted for [facility], now off of insulin drip. He did require high supplemental oxygen. Repeat x-ray did show bilateral pulmonary vascular congestion. Patient also has elevated pro calci tonin and wheezing on exam. Patient being treated for community-acquired pneumonia as well as COPD exacerbation. Was given one-time dose of IV Lasix as well. Slowly weaning off oxygen. Subjective: Patient seen and examined at bedside. No acute events overnight. Continues to have difficulty breathing but improving, has been extremely weak. Pertinent positives and negatives as discussed above, a complete review of systems was performed and all other systems are negative. Vitals Signs Reviewed. General: nontoxic, no distress, appears at stated age, morbidly obese Derm: warm, dry Head: atraumatic, normocephalic, symmetric Eyes: EOMI, no lid lag, anicteric sclera, pupils equal round reactive to light ENT: Nose and ears atraumatic Neck: No thyromegaly, supple Mouth: no lip lesion, mucus membranes moist Cardiovascular: S1S2 reg, no murmur, no edema Lungs: bilateral rales, no wheeze, no accessory muscle use, supplemental oxygen Abdominal: soft, nontender to palpation, no guarding, no appreciable organomegaly Ext: no gross muscle atrophy, muscle strength muscle strength 5 out of 5 in all 4 extremities, no contractures Neuro: CN II-XII grossly intact Psych: Lethargic, oriented 2, appropriate affect Data Reviewed Today: Pertinent Labs: WBC 8.03, hemoglobin 12, sodium 136, creatinine 0.9, glucose ranged between 195 to 2:30 Imaging: No new imaging Assessment and Plan: Active: Acute hypoxic respiratory failure Community acquired pneumonia COPD exacerbation Pulmonary vascular congestion, resolved Hyperosmolar hyperglycemia, nonketotic, resolved Neuro diagnosis of diabetes mellitus Acute metabolic encephalopathy, resolved Lactic acidosis resolved Hypernatremia resolved Acute kidney injury, resolved hx of Hypertension Generalized weakness -Continue to wean oxygen -Pulmonology following, patient on IV antibiotics, IV antibiotics -On sliding scale insulin, Levemir 25 units daily -Hold home NICHOLAS inhibitor -Echocardiogram shows normal LV size and systolic function -Sputum cultures, blood cultures pending -PT/OT Chronic: History of Parkinson's disease History of CVA Seizure disorder Dyslipidemia Prostate cancer history DVT ppx: Heparin subcu Code status: Full code Anticipated discharge place: Pending clinical course Anticipated discharge time: Pending clinical course Objective - Vital Signs Vital signs: Vital Signs Temp 97.8 F 10/11/22 14:00 Pulse 73 10/11/22 14:00 Resp 19 10/11/22 14:00 BP 112/71 10/11/22 14:00 Pulse Ox 98 10/11/22 14:00 FiO2 Intake & Output 10/10/22 10/11/22 10/11/22 18:59 06:59 18:59 Output Total 300 450 650 Balance -300 -450 -650 Weight 127.006 kg 120.5 kg 120.5 kg Output: Urine 300 450 650 Other: Voiding Method External Catheter External Catheter # Bowel Movements 2 - Labs CBC & Chem 7: 10/11/22 08:04 10/11/22 08:04 Labs: Abnormal Lab Results - Last 24 Hours (Table) 10/10/22 10/10/22 10/10/22 Range/Units 06:04 16:35 16:46 RBC (4.40-5.60) X 10*6/uL Hgb (13.0-17.0) d/dL Hct (39.6-50.0) % MCH (27.0-32.0) pg Anion Gap (4.00-12.00) mmol/L Glucose (70-110) mg/dL POC Glucose (mg/dL) 360 H (70-110) mg/dL Calcium (8.7-10.3) mg/dL Procalcitonin 0.58 H 0.53 H (0.02-0.09) ng/mL 10/10/22 10/11/22 10/11/22 Range/Units 20:42 01:43 06:09 RBC (4.40-5.60) X 10*6/uL Hgb (13.0-17.0) d/dL Hct (39.6-50.0) % MCH (27.0-32.0) pg Anion Gap (4.00-12.00) mmol/L Glucose (70-110) mg/dL POC Glucose (mg/dL) 247 H 233 H 195 H (70-110) mg/dL Calcium (8.7-10.3) mg/dL Procalcitonin (0.02-0.09) ng/mL 10/11/22 10/11/22 10/11/22 Range/Units 08:04 08:04 11:45 RBC 3.74 L (4.40-5.60) X 10*6/uL Hgb 12.0 L (13.0-17.0) d/dL Hct 34.9 L (39.6-50.0) % MCH 32.1 H (27.0-32.0) pg Anion Gap 12.10 H (4.00-12.00) mmol/L Glucose 230 H (70-110) mg/dL POC Glucose (mg/dL) 208 H (70-110) mg/dL Calcium 8.3 L (8.7-10.3) mg/dL Procalcitonin (0.02-0.09) ng/mL
[2022-10-11 16:39] LABS: Glucose,Whole Blood 138 mg/dL (70-110)
[2022-10-11 20:34] LABS: Glucose,Whole Blood 182 mg/dL (70-110)
[2022-10-11] MEDS: ATORVASTATIN 80 MG TAB PO SCH (21:20)
[2022-10-12 01:46] LABS: Glucose,Whole Blood 163 mg/dL (70-110)
[2022-10-12] MEDS: INSULIN ASPART (NovoLOG) 100 UNIT/ML VIAL SQ SCH ×5 (01:58→21:32)
[2022-10-12 06:15] LABS: Glucose,Whole Blood 182 mg/dL (70-110)
[2022-10-12] MEDS: INSULIN DETEMIR (LEVEMIR) 100 UNIT/ML SYR SQ SCH (06:30)
[2022-10-12] MEDS: FLUTICASONE 110 MCG INHALER INHALATION SCH ×2 (08:13→21:11)
[2022-10-12] MEDS: BUDESONIDE 1 MG/2 ML NEBU INHALATION SCH ×2 (08:14→21:11)
[2022-10-12] MEDS: FORMOTEROL FUMARATE 20 MCG/2 ML NEBU INHALATION SCH ×2 (08:14→21:11)
[2022-10-12] MEDS: IPRATROPIUM-ALBUTEROL 3 ML NEB INHALATION SCH ×4 (08:14→21:11)
[2022-10-12] MEDS: levETIRAcetam 500 MG TAB PO SCH ×2 (08:16→21:38)
[2022-10-12] MEDS: TAMSULOSIN 0.4 MG CAP.ER.24H PO SCH (08:17)
[2022-10-12] MEDS: CARBIDOPA-LEVODOPA 25-250 MG 1 EACH TAB PO SCH ×3 (08:17→21:40)
[2022-10-12] MEDS: traMADol 50 MG TAB PO SCH ×3 (08:17→21:38)
[2022-10-12] MEDS: lamoTRIgine 100 MG TAB PO SCH (08:17)
[2022-10-12] MEDS: DULoxetine HCL 60 MG CAPSULE.DR PO SCH ×2 (08:18→21:41)
[2022-10-12] MEDS: CHOLECALCIFEROL 125 MCG (5000 IU) TABLET PO SCH (08:18)
[2022-10-12] MEDS: HEPARIN SODIUM,PORCINE/PF 5,000 UNIT/0.5 ML SYRINGE SQ SCH ×3 (08:18→21:41)
[2022-10-12] MEDS: lamoTRIgine 25 MG TAB PO SCH (08:18)
[2022-10-12] MEDS: PREGABALIN 100 MG CAP PO SCH ×3 (08:18→21:38)
[2022-10-12] MEDS: ASPIRIN 81 MG PO SCH (08:18)
[2022-10-12] MEDS: ENTACAPONE 200 MG TAB PO SCH ×2 (08:18→21:40)
[2022-10-12] MEDS: CLOPIDOGREL 75 MG TAB PO SCH (08:18)
[2022-10-12] MEDS: AZITHROMYCIN 500 MG in SODIUM CHLORIDE 0.9% 250 ML IVPB SCH (09:19)
[2022-10-12] MEDS: BREXPIPRAZOLE 4 MG PO SCH (09:20)
[2022-10-12 10:14] LABS: Glucose,Whole Blood 212 mg/dL (70-110)
[2022-10-12 11:41] LABS: Glucose,Whole Blood 257 mg/dL (70-110)
--- NOTE | 2022-10-12 12:01 | P.PN ---
Subjective Progress Note Date: 10/12/22 62-year-old male who was seen in the emergency department, room #2. The patient has a history of prostate cancer, ongoing tobacco use, CVA, Parkinson's disease, and chronic back pain. He sees a nurse practitioner [facility]. Currently, he's being evaluated for hyperglycemic, hyperosmolar, nonketotic coma. The patient presented to the emergency department, with weakness, and mental status changes. Family members at the bedside. The patient's history is primarily from the ER lilly, and from family members. The patient's currently on 5 L of oxygen. An insulin drip with will be started. The patient did receive some fluid, I believe 1-2 L of saline. It should be pointed out that the patient does not have a prior history of diabetes. White count is 18.2, hemoglobin 13.4, hematocrit 42, and platelet count 213,000. Sodium 133, potassium 3.7, chlorides 96, CO2 24, BUN 22, and creatinine 1.29. The patient's corrected sodium is 151, based on the patient's elevated blood glucose. Lactic acid is 3.1. Albumin is 4.0. Troponin is normal. Thyroid function is normal. Brain CT does not show anything acute. There are some age-related atrophic and chronic small vessel ischemic changes. Chest x-ray shows nothing acute. The patient is seen today 10/10/2022 in follow-up in the emergency department. He is more awake and alert today. He is having issues with shortness of breath and wheezing. Current labs 5 L high flow nasal cannula with O2 saturations in the mid 90s. Chest x-ray reveals low lung volumes with generalized hazy appearance possibly representing atelectasis versus pulmonary edema. Echocardiogram revealed preserved left ventricular systolic function. White count 13.9. Hemoglobin 11.6. Platelets 188. Sodium 142. Potassium 3.7. Bicarb 26. BUN 17. Creatinine 0.83. Glucose 211. AST 323. ALT 42. ProBNP 123. He is currently on Levemir insulin 25 units daily along with a NovoLog sliding scale. Antibiotics in the form of ceftriaxone and azithromycin. The patient is seen today 10/11/2022 in follow-up on the regular medical floor. He is currently sitting up in a chair at the bedside. Awake and alert in no acute distress. He has tremors from his Parkinson's disease. He is maintaining O2 saturations in the 90s on 4 L/m per nasal cannula. He has normal saline at 20 ML's per hour. He is continued on DuoNeb inhalations, Pulmicort and Perforomist inhalations, antibiotics in the form of ceftriaxone. Heparin for DVT prophylaxis.White count 8.2. Hemoglobin 12.0. Sodium 136. Potassium 4.6. Bicarb 22. BUN 16. Creatinine 0.9. Blood sugar 230. He is on Levemir 25 units daily along with the Novolog sliding scale. The patient is seen today 10/12/2022 in follow-up on the regular medical floor. He is currently resting comfortably in bed. Awake and alert in no acute distress. Maintaining O2 saturations in the 90s on 4 L/m per nasal cannula. His normal saline at 20 ML's per hour. Blood sugar 257. He is continued on DuoNeb inhalations, Pulmicort and Perforomist inhalations, antibiotics in the form of ceftriaxone. Heparin for DVT prophylaxis. He is receiving Levemir and NovoLog sliding scale for his new diagnosis of diabetes mellitus. Objective - Vital Signs Vital signs: Vital Signs Temp 97.5 F L 10/12/22 08:00 Pulse 87 10/12/22 08:18 Resp 14 10/12/22 08:00 BP 124/80 10/12/22 08:00 Pulse Ox 99 10/12/22 08:16 FiO2 Intake & Output 10/11/22 10/12/22 10/12/22 18:59 06:59 18:59 Output Total 650 1810 900 Balance -650 -1810 -900 Weight 120.5 kg 121 kg Output: Urine 650 1810 900 Other: Voiding Method External Catheter # Bowel Movements 2 1 - Exam GENERAL EXAM: Alert, pleasant 62-year-old male, resting in bed, on 4 L nasal cannula, comfortable in no apparent distress. HEAD: Normocephalic. EYES: Normal reaction of pupils, equal size. NOSE: Clear with pink turbinates. THROAT: No erythema or exudates. NECK: No masses, no JVD. CHEST: No chest wall deformity. LUNGS: Equal air entry with bilateral end expiratory wheeze, crackles in the bases. CVS: S1 and S2 normal with no audible murmur, regular rhythm. ABDOMEN: No hepatosplenomegaly, normal bowel sounds, no guarding or rigidity. SPINE: No scoliosis or deformity SKIN: No rashes CENTRAL NERVOUS SYSTEM: No focal deficits, tone is normal in all 4 extremities. EXTREMITIES: There is 1+ peripheral edema. No clubbing, no cyanosis. Peripheral pulses are intact. - Labs CBC & Chem 7: 10/11/22 08:04 10/11/22 08:04 Labs: Abnormal Lab Results - Last 24 Hours (Table) 10/10/22 10/11/22 10/11/22 Range/Units 06:04 08:04 08:04 RBC 3.74 L (4.40-5.60) X 10*6/uL Hgb 12.0 L (13.0-17.0) d/dL Hct 34.9 L (39.6-50.0) % MCH 32.1 H (27.0-32.0) pg Anion Gap 12.10 H (4.00-12.00) mmol/L Glucose 230 H (70-110) mg/dL POC Glucose (mg/dL) (70-110) mg/dL Hemoglobin A1c 10.6 H (<=6.0) % Calcium 8.3 L (8.7-10.3) mg/dL 10/11/22 10/11/22 10/12/22 Range/Units 16:37 20:32 01:44 RBC (4.40-5.60) X 10*6/uL Hgb (13.0-17.0) d/dL Hct (39.6-50.0) % MCH (27.0-32.0) pg Anion Gap (4.00-12.00) mmol/L Glucose (70-110) mg/dL POC Glucose (mg/dL) 138 H 182 H 163 H (70-110) mg/dL Hemoglobin A1c (<=6.0) % Calcium (8.7-10.3) mg/dL 10/12/22 10/12/22 10/12/22 Range/Units 06:13 10:12 11:40 RBC (4.40-5.60) X 10*6/uL Hgb (13.0-17.0) d/dL Hct (39.6-50.0) % MCH (27.0-32.0) pg Anion Gap (4.00-12.00) mmol/L Glucose (70-110) mg/dL POC Glucose (mg/dL) 182 H 212 H 257 H (70-110) mg/dL Hemoglobin A1c (<=6.0) % Calcium (8.7-10.3) mg/dL Microbiology - Last 24 Hours (Table) 10/10/22 16:46 Blood Culture - Preliminary Blood 10/10/22 13:08 Blood Culture - Preliminary Blood Assessment and Plan Assessment: Hyperosmolar, hyperglycemic, nonketotic coma. Recovered. Currently on Levemir and NovoLog Acute hypoxemic respiratory failure secondary to an acute exacerbation of chronic obstructive pulmonary disease No prior history of diabetes mellitus Dilutional hyponatremia, corrected History of prostate cancer History of CVA History of Parkinson's disease History of chronic back pain History of ongoing tobacco use with nicotine addiction Obesity Plan: The patient was seen and evaluated Medications and labs reviewed Plan is for home with home care Currently on 4 L nasal cannula Need to be evaluated for possible home oxygen Continue his home pulmonary medications Would benefit from a follow-up in our office in one week I have personally seen and examined the patient, performed the documentation and the assessment and plan as written. Number of minutes spent on the visit: 10.
--- NOTE | 2022-10-12 12:49 | CDI ---
Documentation Clarification Form Date: 10/12/2022 12:36:50 PM From: Rosario Workman RN, CCDS Admit Date: 10/09/2022 10:00:00 AM Patient Name: Jimenez Triana Visit Number: [id number] Discharge Date: ATTENTION: The Clinical Documentation Specialists (CDI) and [facility] Coding Staff appreciate your assistance in clarifying documentation. Please respond to the clarification below the line at the bottom and electronically sign. The CDI & [facility] Coding staff will review the response and follow-up if needed. Please note: Queries are made part of the Legal Health Record. If you have any questions, please contact the author of this message via ITS. Dr. Francisco Tamez New diagnosis of Diabetes Mellitus is documented [insert date, location]. Additional specificity regarding the diabetes diagnosis is requested. History/Risk Factors: Parkinson's disease, CVA, hypertension, seizure disorder, dyslipidemia, prostate cancer, Clinical Indicators: 62-year-old male present with altered mental status. 10/09 VS 143/77 98 98.5 10/09 Labs: WBC 18.2 Na 133 Chloride 96, Creatinine 1.29 Glucose 1,000 Lactic acid 3.1. Mag+ 2.6, Ketones negative. 10/10 Hgb A1c 10.6 He was admitted with hyperosmolar hyperglycemia, nonketotic. On 10/10 Hgb A1c was 10.6 ruled in for new diagnosis of diabetes mellitus. Treatment: .9NS @ 200 ML HR Insulin drip, blood glucose monitoring every hour Monitor O2 Sats (titrate) Please clarify the type of diabetes, if known and are you treating? [ ] Diabetes Type 1 with hyperglycemia with hyperosmolarity without nonketotic hyperglycemic-hyperosmolar coma [ x ] Diabetes Type 2 with hyperglycemia with hyperosmolarity without nonketotic hyperglycemic-hyperosmolar coma [ ] Other, please specify [ ] Unable to Determine (Template Last Revised: May 2020) DANISHD
--- NOTE | 2022-10-12 15:39 | P.PN ---
Subjective Progress Note Date: 10/12/22 Hospital Course: 62-year-old male with history of Parkinson's disease, CVA, hypertension, severe disorder?, dyslipidemia , history of prostate cancer, chronic back pain presenting with altered mental status. In the ED, temperature was 98.5, pulse 98, blood pressure 143/77, saturating at 92% on 6 L. WBC 18.2, sodium 133, chloride 96, creatinine 1.29 up from baseline, glucose 1000, lactate 3.1, magnesium 2.6, slightly elevated AST at 119, ALP 166, troponin negative, TSH 0.548, free T4 1 0.05, ketone negative, urine tox negative. EKG shows normal sinus rhythm. CXR shows no acute process. Patient admitted for [facility], now off of insulin drip. He did require high supplemental oxygen. Repeat x-ray did show bilateral pulmonary vascular congestion. Patient also has elevated pro calc itonin and wheezing on exam. Patient being treated for community-acquired pneumonia as well as COPD exacerbation. Was given one-time dose of IV Lasix as well. Slowly weaning off oxygen. Likely discharge home with home care. Subjective: Patient seen and examined at bedside. No acute events overnight. Continues to have difficulty breathing but improving, has been extremely weak. Pertinent positives and negatives as discussed above, a complete review of systems was performed and all other systems are negative. Vitals Signs Reviewed. General: nontoxic, no distress, appears at stated age, morbidly obese Derm: warm, dry Head: atraumatic, normocephalic, symmetric Eyes: EOMI, no lid lag, anicteric sclera, pupils equal round reactive to light ENT: Nose and ears atraumatic Neck: No thyromegaly, supple Mouth: no lip lesion, mucus membranes moist Cardiovascular: S1S2 reg, no murmur, no edema Lungs: bilateral rales, no wheeze, no accessory muscle use, supplemental oxygen Abdominal: soft, nontender to palpation, no guarding, no appreciable organomegaly Ext: no gross muscle atrophy, muscle strength muscle strength 5 out of 5 in all 4 extremities, no contractures Neuro: CN II-XII grossly intact Psych: Lethargic, oriented 3, appropriate affect Data Reviewed Today: Pertinent Labs: Blood glucose ranged between 163-257 Imaging: No new imaging Assessment and Plan: Active: Acute hypoxic respiratory failure Community acquired pneumonia COPD exacerbation Pulmonary vascular congestion, resolved Hyperosmolar hyperglycemia, nonketotic, resolved Neuro diagnosis of diabetes mellitus Acute metabolic encephalopathy, resolved Lactic acidosis resolved Hypernatremia resolved Acute kidney injury, resolved hx of Hypertension Generalized weakness -Continue to wean oxygen -Pulmonology following, outpatient follow-up in 1 week -On sliding scale insulin, Levemir 25 units daily -NICHOLAS inhibitor restarted -Echocardiogram shows normal LV size and systolic function -Blood cultures negative -PT/OT Chronic: History of Parkinson's disease History of CVA Seizure disorder Dyslipidemia Prostate cancer history DVT ppx: Heparin subcu Code status: Full code Anticipated discharge place: Home with home care Anticipated discharge time: Likely tomorrow Objective - Vital Signs Vital signs: Vital Signs Temp 97.6 F 10/12/22 14:00 Pulse 76 10/12/22 14:00 Resp 19 10/12/22 14:00 BP 124/79 10/12/22 14:00 Pulse Ox 96 10/12/22 14:00 FiO2 Intake & Output 10/11/22 10/12/22 10/12/22 18:59 06:59 18:59 Output Total 650 1810 900 Balance -650 -1810 -900 Weight 120.5 kg 121 kg Output: Urine 650 1810 900 Other: Voiding Method External Catheter # Bowel Movements 2 1 - Labs CBC & Chem 7: 10/11/22 08:04 10/11/22 08:04 Labs: Abnormal Lab Results - Last 24 Hours (Table) 10/10/22 10/11/22 10/11/22 Range/Units 06:04 16:37 20:32 POC Glucose (mg/dL) 138 H 182 H (70-110) mg/dL Hemoglobin A1c 10.6 H (<=6.0) % 10/12/22 10/12/22 10/12/22 Range/Units 01:44 06:13 10:12 POC Glucose (mg/dL) 163 H 182 H 212 H (70-110) mg/dL Hemoglobin A1c (<=6.0) % 10/12/22 Range/Units 11:40 POC Glucose (mg/dL) 257 H (70-110) mg/dL Hemoglobin A1c (<=6.0) % Microbiology - Last 24 Hours (Table) 10/10/22 16:46 Blood Culture - Preliminary Blood 10/10/22 13:08 Blood Culture - Preliminary Blood
[2022-10-12 16:30] LABS: Glucose,Whole Blood 121 mg/dL (70-110)
[2022-10-12 21:16] LABS: Glucose,Whole Blood 142 mg/dL (70-110)
[2022-10-12] MEDS: ATORVASTATIN 80 MG TAB PO SCH (21:38)
[2022-10-13 02:03] LABS: Glucose,Whole Blood 109 mg/dL (70-110)
[2022-10-13] MEDS: INSULIN ASPART (NovoLOG) 100 UNIT/ML VIAL SQ SCH ×3 (03:21→12:43)
[2022-10-13 05:54] LABS: Glucose,Whole Blood 129 mg/dL (70-110)
[2022-10-13] MEDS: INSULIN DETEMIR (LEVEMIR) 100 UNIT/ML SYR SQ SCH (06:46)
[2022-10-13] MEDS: BUDESONIDE 1 MG/2 ML NEBU INHALATION SCH (08:34)
[2022-10-13] MEDS: FLUTICASONE 110 MCG INHALER INHALATION SCH (08:34)
[2022-10-13] MEDS: FORMOTEROL FUMARATE 20 MCG/2 ML NEBU INHALATION SCH (08:34)
[2022-10-13] MEDS: IPRATROPIUM-ALBUTEROL 3 ML NEB INHALATION SCH ×2 (08:35→13:08)
[2022-10-13] MEDS ORDERED: lisinopriL 5 MG TAB PO SCH (09:00)
[2022-10-13] MEDS: PREGABALIN 100 MG CAP PO SCH (09:03)
[2022-10-13] MEDS: levETIRAcetam 500 MG TAB PO SCH (09:03)
[2022-10-13] MEDS: lamoTRIgine 100 MG TAB PO SCH (09:03)
[2022-10-13] MEDS: CHOLECALCIFEROL 125 MCG (5000 IU) TABLET PO SCH (09:03)
[2022-10-13] MEDS: ENTACAPONE 200 MG TAB PO SCH (09:03)
[2022-10-13] MEDS: HEPARIN SODIUM,PORCINE/PF 5,000 UNIT/0.5 ML SYRINGE SQ SCH (09:03)
[2022-10-13] MEDS: ASPIRIN 81 MG PO SCH (09:03)
[2022-10-13] MEDS: TAMSULOSIN 0.4 MG CAP.ER.24H PO SCH (09:03)
[2022-10-13] MEDS: CLOPIDOGREL 75 MG TAB PO SCH (09:03)
[2022-10-13] MEDS: lamoTRIgine 25 MG TAB PO SCH (09:03)
[2022-10-13] MEDS: traMADol 50 MG TAB PO SCH (09:03)
[2022-10-13] MEDS: BREXPIPRAZOLE 4 MG PO SCH (09:05)
[2022-10-13] MEDS: DULoxetine HCL 60 MG CAPSULE.DR PO SCH (09:05)
[2022-10-13] MEDS: CARBIDOPA-LEVODOPA 25-250 MG 1 EACH TAB PO SCH (09:05)
[2022-10-13 11:18] LABS: Glucose,Whole Blood 151 mg/dL (70-110)
[2022-10-13 13:20] VITALS: BP 122/75; PULSE 94; RESP 16; TEMP 97.9
--- NOTE | 2022-10-13 16:15 | P.DS ---
Providers Date of admission: 10/09/22 10:00 Expected date of discharge: 10/13/22 Attending physician: Guerline Claudio DO Consults: 10/09/22 10:25 Consult Physician Urgent Consulting Provider: Palomo Bradford Reason/Comments: critical care Do you want consulting provider notified?: Already Contacted Primary care physician: Stated None Hospital Course: Discharge Diagnosis: Acute hypoxic respiratory failure Community acquired pneumonia COPD exacerbation Pulmonary vascular congestion Hyperosmolar hyperglycemia, nonketotic New diagnosis of diabetes mellitus Acute metabolic encephalopathy Lactic acidosis Hypernatremia Acute kidney injury hx of Hypertension Generalized weakness Hospital Course: 62-year-old male with history of Parkinson's disease, CVA, hypertension, severe disorder?, dyslipidemia , history of prostate cancer, chronic back pain presenting with altered mental status. In the ED, temperature was 98.5, pulse 98, blood pressure 143/77, saturating at 92% on 6 L. WBC 18.2, sodium 133, chloride 96, creatinine 1.29 up from baseline, glucose 1000, lactate 3.1, magnesium 2.6, slightly elevated AST at 119, ALP 166, troponin negative, TSH 0.5 48, free T4 1 0.05, ketone negative, urine tox negative. EKG shows normal sinus rhythm. CXR shows no acute process. Patient admitted for [facility], was on insulin drip. Hemoglobin A1c 10.6. He did require high supplemental oxygen. Repeat x- ray did show bilateral pulmonary vascular congestion. Patient also has elevated pro calcitonin and wheezing on exam. Patient being treated for community-acquir ed pneumonia as well as COPD exacerbation. Was given one-time dose of IV Lasix as well. Patient weaned off of oxygen. Patient follow-up with pulmonology outpatient. Being discharged on long-acting insulin, and metformin, follow up with PCP. Patient seen and examined at bedside. Vital signs reviewed and stable. General: nontoxic, no distress, appears at stated age, morbidly obese Derm: warm, dry Head: atraumatic, normocephalic, symmetric Eyes: EOMI, no lid lag, anicteric sclera, pupils equal round reactive to light ENT: Nose and ears atraumatic Neck: No thyromegaly, supple Mouth: no lip lesion, mucus membranes moist Cardiovascular: S1S2 reg, no murmur, no edema Lungs: bilateral rales, no wheeze, no accessory muscle use, supplemental oxygen Abdominal: soft, nontender to palpation, no guarding, no appreciable organomegaly Ext: no gross muscle atrophy, muscle strength muscle strength 5 out of 5 in all 4 extremities, no contractures Neuro: CN II-XII grossly intact Psych: Lethargic, oriented 3, appropriate affect A total of 36 minutes of time were spent preparing this complex discharge summary. Patient was discharged on 10/13/22 at 12:09. Patient Condition at Discharge: Stable Plan - Discharge Summary Discharge Rx Participant: Yes New Discharge Prescriptions: New Insulin Detemir [Levemir Flexpen] 25 units SQ DAILY #7 each metFORMIN HCL [Glucophage] 500 mg PO BID #60 tab Cefdinir 300 mg PO Q12HR #2 cap Continue levETIRAcetam [Keppra] 1,000 mg PO BID DULoxetine HCL [Cymbalta] 60 mg PO BID lisinopriL [Zestril] 5 mg PO DAILY Albuterol Sulfate [Ventolin HFA] 1 - 2 puff INHALATION RT-Q6H PRN PRN Reason: Shortness Of Breath Tamsulosin HCl [Flomax] 0.4 mg PO DAILY Brexpiprazole [Rexulti] 4 mg PO DAILY Clopidogrel Bisulfate [Plavix] 75 mg PO DAILY #30 tab amantadine HCL [Amantadine] 100 mg PO BID #60 tab Entacapone 200 mg PO BID Atorvastatin Calcium [Lipitor] 80 mg PO HS #30 tablet lamoTRIgine [LaMICtal] 200 mg PO DAILY Cholecalciferol [Vitamin D3 (125 Mcg = 5000 Iu)] 125 mcg PO DAILY Carbidopa-Levodopa 25-250 mg [Sinemet 25-250 mg] 1 tab PO TID Budesonide [Pulmicort Flexhaler] 2 puff INHALATION RT-BID lamoTRIgine [LaMICtal] 50 mg PO DAILY Pregabalin [Lyrica] 100 mg PO TID Aspirin 81 mg PO DAILY Discontinued Baclofen [Lioresal] 10 mg PO BID Mirtazapine [Remeron] 30 mg PO HS Loratadine [Claritin] 10 mg PO DAILY oxyBUTYnin chloride 5 mg PO BID rOPINIRole HCL [Requip] See Taper PO Discharge Medication List levETIRAcetam [Keppra] 1,000 mg PO BID 11/27/17 [History] DULoxetine HCL [Cymbalta] 60 mg PO BID 04/10/18 [History] lisinopriL [Zestril] 5 mg PO DAILY 06/06/18 [History] Albuterol Sulfate [Ventolin HFA] 1 - 2 puff INHALATION RT-Q6H PRN 03/30/19 [History] Tamsulosin HCl [Flomax] 0.4 mg PO DAILY 03/30/19 [History] Brexpiprazole [Rexulti] 4 mg PO DAILY 11/29/19 [History] Atorvastatin Calcium [Lipitor] 80 mg PO HS #30 tablet 11/24/20 [Rx] Clopidogrel Bisulfate [Plavix] 75 mg PO DAILY #30 tab 11/24/20 [Rx] amantadine HCL [Amantadine] 100 mg PO BID #60 tab 11/24/20 [Rx] lamoTRIgine [LaMICtal] 200 mg PO DAILY 01/05/21 [History] Aspirin 81 mg PO DAILY 10/09/22 [History] Budesonide [Pulmicort Flexhaler] 2 puff INHALATION RT-BID 10/09/22 [History] Carbidopa-Levodopa 25-250 mg [Sinemet 25-250 mg] 1 tab PO TID 10/09/22 [History] Cholecalciferol [Vitamin D3 (125 Mcg = 5000 Iu)] 125 mcg PO DAILY 10/09/22 [ History] Entacapone 200 mg PO BID 10/09/22 [History] Pregabalin [Lyrica] 100 mg PO TID 10/09/22 [History] lamoTRIgine [LaMICtal] 50 mg PO DAILY 10/09/22 [History] Cefdinir 300 mg PO Q12HR #2 cap 10/13/22 [Rx] Insulin Detemir [Levemir Flexpen] 25 units SQ DAILY #7 each 10/13/22 [Rx] metFORMIN HCL [Glucophage] 500 mg PO BID #60 tab 10/13/22 [Rx] Follow up Appointment(s)/Referral(s): Palomo Bradford DO [Doctor of Osteopathic Medicine] - 1 Week (Please call office on Saturday to schedule appointment ) Diana Espino, ALLI [Nurse Practitioner] - 1 Week (Please call office Saturday to schedule appointment ) [facility] Visiting Nurse, [NON-STAFF] - 1 Week Patient Instructions/Handouts: Type 2 Diabetes in Adults: New Diagnosis (DC), COPD (Chronic Obstructive Pulmonary Disease) (DC), Hyperosmolar Hyperglycemic State (DC), Diabetes and Nutrition (DC), Diabetes and Exercise (DC) Activity/Diet/Wound Care/Special Instructions: Please see your PCP. Discharge Disposition: HOME WITH HOME HEALTH SERVICES
== END 2022-10-13 14:43 | disposition home health service (06) | DRG 637 ==
LOC: EC 08:16 → 2SICU 10:00 → 4SSUR 10-10 03:58
PROVIDERS: ADMIT Internal Medicine; ATTEND Internal Medicine
DX: E11.00 Type 2 diabetes mellitus with hyperosmolarity without nonketotic hyperglycemic-hyperosmolar coma (NKHHC) (principal); G93.41 Metabolic encephalopathy; J18.9 Pneumonia, unspecified organism; J96.01 Acute respiratory failure with hypoxia; J44.0 Chronic obstructive pulmonary disease with (acute) lower respiratory infection; J44.1 Chronic obstructive pulmonary disease with (acute) exacerbation; E87.20 Acidosis, unspecified; N17.9 Acute kidney failure, unspecified; E87.1 Hypo-osmolality and hyponatremia; M79.7 Fibromyalgia; Z85.46 Personal history of malignant neoplasm of prostate; Z90.79 Acquired absence of other genital organ(s); R29.6 Repeated falls; E66.9 Obesity, unspecified; G20 Parkinson's disease; G89.29 Other chronic pain; Z68.37 Body mass index [BMI] 37.0-37.9, adult; M54.59 Other low back pain; M54.10 Radiculopathy, site unspecified; E11.65 Type 2 diabetes mellitus with hyperglycemia; F17.210 Nicotine dependence, cigarettes, uncomplicated; M19.90 Unspecified osteoarthritis, unspecified site; F31.9 Bipolar disorder, unspecified; G40.909 Epilepsy, unspecified, not intractable, without status epilepticus; E86.0 Dehydration; T14.90XS Injury, unspecified, sequela; V49.9XXS Car occupant (driver) (passenger) injured in unspecified traffic accident, sequela; G43.909 Migraine, unspecified, not intractable, without status migrainosus; E86.1 Hypovolemia; E78.5 Hyperlipidemia, unspecified; F90.9 Attention-deficit hyperactivity disorder, unspecified type; F41.9 Anxiety disorder, unspecified; Z86.14 Personal history of Methicillin resistant Staphylococcus aureus infection; Z79.82 Long term (current) use of aspirin; Z79.02 Long term (current) use of antithrombotics/antiplatelets; Z79.899 Other long term (current) drug therapy; Z79.51 Long term (current) use of inhaled steroids; Z88.5 Allergy status to narcotic agent; Z82.49 Family history of ischemic heart disease and other diseases of the circulatory system; Z86.73 Personal history of transient ischemic attack (TIA), and cerebral infarction without residual deficits
CPT/HCPCS: 36415; 36600; 70450; 71045; 71046; 80048; 80051; 80053; 80175; 80177; 80306; 80320; 81001; 82009; 82565; 82805; 82947; 83036; 83605; 83735; 83880; 83930; 83935; 84100; 84145; 84439; 84443; 84481; 84484; 84520; 85025; 85610; 85730; 87040; 93005; 93306; 94640; 94760; 96361; 96365; 96366; 96367; 96368; 96372; 96375; 99291

== ENCOUNTER 2022-11-16 10:46 | Emergency (ER) | payer MEDICARE, OTHER ==
[2022-11-16 11:14] VITALS: TEMP 97.3
[2022-11-16] MEDS ORDERED: SODIUM CHLORIDE 0.9% 2,000 ML IV STA (11:20)
[2022-11-16 11:24] LABS: Glucose,Whole Blood >600 mg/dL (70-110)
[2022-11-16 11:45] LABS: Basophils % (A) 0 %; Eosinophils # (A) 0.2 k/uL (0-0.7); Eosinophils % (A) 3 %; HCT 41.9 % (39.0-53.0); HGB 14.3 gm/dL (13.0-17.5); Lymphocytes # (A) 1.9 k/uL (1.0-4.8); Lymphocytes % (A) 26 %; MCH 31.8 pg (25.0-35.0); MCHC 34.1 g/dL (31.0-37.0); MCV 93.2 fL (80.0-100.0); Mean Platelet Volume 9.7; Monocytes # (A) 0.4 k/uL (0-1.0); Monocytes % (A) 6 %; Neutrophils # (A) 4.6 k/uL (1.3-7.7); Neutrophils % (A) 64 %; Platelet Count 249 k/uL (150-450); RDW 12.8 % (11.5-15.5); WBC 7.2 k/uL (3.8-10.6)
[2022-11-16 11:47] LABS: VBG PH 7.36 (7.31-7.41)
[2022-11-16 11:56] LABS: ALT 40 U/L (4-49); AST 24 U/L (17-59); African American GFR (CKD) >90 (>60 ml/min/1.73 sqM); Albumin 4.1 g/dL (3.5-5.0); Alkaline Phosphatase 136 U/L (38-126); Amylase 35 U/L (30-110); Anion Gap 11 mmol/L; Blood Urea Nitrogen 9 mg/dL (9-20); Calcium 8.9 mg/dL (8.4-10.2); Carbon Dioxide 23 mmol/L (22-30); Chloride 94 mmol/L (98-107); Lipase 91 U/L (23-300); Non-African American GFR(CKD) >90 (>60 ml/min/1.73 sqM); Potassium 4.3 mmol/L (3.5-5.1); Sodium 128 mmol/L (137-145); Total Protein 6.5 g/dL (6.3-8.2)
[2022-11-16] MEDS ORDERED: INSULIN REGULAR 100 UNIT/ML VIAL (IV) IV ONE ×2 (11:58→15:46)
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
[2022-11-16 12:09] LABS: Glucose 666 mg/dL (74-99)
[2022-11-16] MEDS ORDERED: oxyCODONE-APAP 5-325MG 1 EACH TAB PO PRN (13:40)
[2022-11-16 13:55] LABS: Appearance,Urine Clear (Clear); Bilirubin,Urine Negative (Negative); Blood,Urine Negative (Negative); Color,Urine Colorless; Glucose,Urine (UA) 4+ (Negative); Ketones,Urine Negative (Negative); Leukocyte Esterase,Urine Negative (Negative); Nitrite,Urine Negative (Negative); PH, Urine 5.5 (5.0-8.0); Protein,Urine Negative (Negative); Specific Gravity,Urine 1.038 (1.001-1.035); Urobilinogen,Urine <2.0 mg/dL (<2.0)
[2022-11-16 14:28] LABS: Glucose,Whole Blood 303 mg/dL (70-110)
[2022-11-16 15:40] LABS: Glucose,Whole Blood 309 mg/dL (70-110)
[2022-11-16] MEDS ORDERED: PREGABALIN 100 MG CAP PO SCH (16:00)
[2022-11-16] MEDS ORDERED: CARBIDOPA-LEVODOPA 25-250 MG 1 EACH TAB PO SCH (16:00)
[2022-11-16 16:18] VITALS: RESP 16
[2022-11-16 17:00] VITALS: BP 135/68; PULSE 65
== END 2022-11-16 17:00 | disposition home or self-care (01) ==
LOC: EC 10:46
DX: E11.65 Type 2 diabetes mellitus with hyperglycemia (principal); J44.9 Chronic obstructive pulmonary disease, unspecified; K21.9 Gastro-esophageal reflux disease without esophagitis; I10 Essential (primary) hypertension; F90.9 Attention-deficit hyperactivity disorder, unspecified type; F41.9 Anxiety disorder, unspecified; F31.9 Bipolar disorder, unspecified; F17.200 Nicotine dependence, unspecified, uncomplicated; M19.90 Unspecified osteoarthritis, unspecified site; Z79.1 Long term (current) use of non-steroidal anti-inflammatories (NSAID); Z79.51 Long term (current) use of inhaled steroids; Z79.899 Other long term (current) drug therapy; Z88.6 Allergy status to analgesic agent; Z88.8 Allergy status to other drugs, medicaments and biological substances
CPT/HCPCS: 36415; 80053; 81003; 82009; 82150; 82803; 83690; 84484; 85025; 93005; 96360; 96361; 99284

== ENCOUNTER 2022-11-26 16:34 | Observation (INO) | payer MEDICARE, OTHER ==
[2022-11-26 17:08] LABS: Glucose,Whole Blood >600 mg/dL (70-110)
[2022-11-26] MEDS ORDERED: SODIUM CHLORIDE 0.9% 1,000 ML IV STA ×2 (19:00)
[2022-11-26] MEDS ORDERED: SODIUM CHLORIDE 0.9% 500 ML 500 ML IV STA (19:00)
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
[2022-11-26 19:10] LABS: Glucose,Whole Blood >600 mg/dL (70-110)
--- NOTE | 2022-11-26 19:37 | XR ---
EXAMINATION TYPE: XR chest 2V DATE OF EXAM: 11/26/2022 COMPARISON: 10/10/2022 HISTORY: 62-year-old male with weakness TECHNIQUE: AP and lateral views FINDINGS: Heart mildly enlarged. Mild interstitial prominence as a chronic appearance and may in part relate to hypoventilatory change. No consolidation or pleural effusion. IMPRESSION: Mild cardiomegaly and hypoventilatory changes. No definite acute process.
[2022-11-26 20:16] LABS: Basophils % (A) 0 %; Eosinophils # (A) 0.1 k/uL (0-0.7); Eosinophils % (A) 1 %; HCT 50.5 % (39.0-53.0); HGB 16.3 gm/dL (13.0-17.5); Lymphocytes # (A) 1.8 k/uL (1.0-4.8); Lymphocytes % (A) 19 %; MCH 30.7 pg (25.0-35.0); MCHC 32.4 g/dL (31.0-37.0); Mean Platelet Volume 9.6; Monocytes # (A) 0.5 k/uL (0-1.0); Monocytes % (A) 5 %; Neutrophils # (A) 7.1 k/uL (1.3-7.7); Neutrophils % (A) 74 %; Platelet Count 326 k/uL (150-450); RBC 5.31 m/uL (4.30-5.90); RDW 12.4 % (11.5-15.5); WBC 9.6 k/uL (3.8-10.6)
[2022-11-26 20:43] LABS: ALT 36 U/L (4-49); AST 21 U/L (17-59); African American GFR (CKD) >90 (>60 ml/min/1.73 sqM); Albumin 4.9 g/dL (3.5-5.0); Alkaline Phosphatase 159 U/L (38-126); Anion Gap 16 mmol/L; Blood Urea Nitrogen 11 mg/dL (9-20); Calcium 9.6 mg/dL (8.4-10.2); Carbon Dioxide 18 mmol/L (22-30); Chloride 93 mmol/L (98-107); Magnesium 2.2 mg/dL (1.6-2.3); Non-African American GFR(CKD) >90 (>60 ml/min/1.73 sqM); Phosphorus 4.2 mg/dL (2.5-4.5); Potassium 5.3 mmol/L (3.5-5.1); Sodium 127 mmol/L (137-145); Total Bilirubin 1.4 mg/dL (0.2-1.3); Total Protein 7.7 g/dL (6.3-8.2)
[2022-11-26 20:54] LABS: Glucose 687 mg/dL (74-99)
[2022-11-26] MEDS ORDERED: ONDANSETRON 4 MG/2 ML VIAL IVP PRN (21:19)
[2022-11-26] MEDS ORDERED: NALOXONE 0.4 MG/ML 1 ML VIAL IV PRN (21:19)
[2022-11-26] MEDS ORDERED: Potassium Replacement Protocol 1 EACH MISC MISCELLANE PRN (21:22)
[2022-11-26] MEDS ORDERED: Magnesium Replacement Protocol 1 EACH MISC MISCELLANE PRN (21:22)
[2022-11-26] MEDS ORDERED: DEXTROSE 50% SYRINGE 50 ML IVP PRN ×2 (21:22)
[2022-11-26] MEDS ORDERED: INSULIN REGULAR 100 UNIT in SODIUM CHLORIDE 0.9% 100 ML IV SCH (21:30)
[2022-11-26 21:48] LABS: Appearance,Urine Clear (Clear); Bilirubin,Urine Negative (Negative); Blood,Urine Negative (Negative); Color,Urine Colorless; Glucose,Urine (UA) 4+ (Negative); Ketones,Urine Negative (Negative); Leukocyte Esterase,Urine Negative (Negative); Nitrite,Urine Negative (Negative); PH, Urine 5.5 (5.0-8.0); Protein,Urine Negative (Negative); Specific Gravity,Urine 1.037 (1.001-1.035); Urobilinogen,Urine <2.0 mg/dL (<2.0)
[2022-11-26] MEDS ORDERED: MORPHINE SULFATE 4 MG/ML SYRINGE IVP STA (22:13)
[2022-11-26] MEDS ORDERED: MORPHINE SULFATE 4 MG/ML SYRINGE IV PRN (22:13)
[2022-11-26 22:16] LABS: VBG PH 7.37 (7.31-7.41)
[2022-11-26] MEDS: SODIUM CHLORIDE 0.9% 1,000 ML IV SCH ×2 (22:19→22:20)
[2022-11-26 22:20] LABS: Glucose,Whole Blood 433 mg/dL (70-110)
[2022-11-26 23:43] LABS: Glucose,Whole Blood 266 mg/dL (70-110)
[2022-11-27] MEDS ORDERED: D5-0.45% NACL WITH KCL 20MEQ/L 1,000 ML IV SCH (01:00)
[2022-11-27 01:35] LABS: Glucose,Whole Blood 202 mg/dL (70-110)
[2022-11-27 02:38] LABS: Glucose,Whole Blood 71 mg/dL (70-110)
[2022-11-27] MEDS: SODIUM CHLORIDE 0.9% 1,000 ML IV SCH ×2 (02:41→12:50)
[2022-11-27] MEDS ORDERED: MORPHINE SULFATE 4 MG/ML SYRINGE ONE (03:34)
[2022-11-27 05:54] LABS: ALT 29 U/L (4-49); AST 19 U/L (17-59); African American GFR (CKD) >90 (>60 ml/min/1.73 sqM); Albumin 3.5 g/dL (3.5-5.0); Alkaline Phosphatase 113 U/L (38-126); Anion Gap 11 mmol/L; Blood Urea Nitrogen 9 mg/dL (9-20); Calcium 8.6 mg/dL (8.4-10.2); Carbon Dioxide 20 mmol/L (22-30); Chloride 104 mmol/L (98-107); Glucose 97 mg/dL (74-99); Magnesium 2.1 mg/dL (1.6-2.3); Non-African American GFR(CKD) >90 (>60 ml/min/1.73 sqM); Phosphorus 4.1 mg/dL (2.5-4.5); Sodium 135 mmol/L (137-145); Total Bilirubin 0.9 mg/dL (0.2-1.3); Total Protein 5.9 g/dL (6.3-8.2)
[2022-11-27 06:02] LABS: Glucose,Whole Blood 113 mg/dL (70-110)
[2022-11-27 06:02] LABS: Glucose,Whole Blood 100 mg/dL (70-110)
[2022-11-27 06:02] LABS: Glucose,Whole Blood 166 mg/dL (70-110)
[2022-11-27 06:13] LABS: Glucose,Whole Blood 123 mg/dL (70-110)
[2022-11-27 06:53] LABS: Basophils % (A) 0 %; Eosinophils # (A) 0.2 k/uL (0-0.7); Eosinophils % (A) 2 %; HCT 38.8 % (39.0-53.0); HGB 13.4 gm/dL (13.0-17.5); Lymphocytes # (A) 1.6 k/uL (1.0-4.8); Lymphocytes % (A) 12 %; MCH 31.3 pg (25.0-35.0); MCHC 34.6 g/dL (31.0-37.0); MCV 90.6 fL (80.0-100.0); Mean Platelet Volume 9.5; Monocytes # (A) 0.7 k/uL (0-1.0); Monocytes % (A) 6 %; Neutrophils # (A) 10.5 k/uL (1.3-7.7); Neutrophils % (A) 80 %; Platelet Count 267 k/uL (150-450); RBC 4.28 m/uL (4.30-5.90); RDW 12.3 % (11.5-15.5); WBC 13.2 k/uL (3.8-10.6)
[2022-11-27 07:30] LABS: Glucose,Whole Blood 141 mg/dL (70-110)
[2022-11-27] MEDS ORDERED: FLUTICASONE 110 MCG INHALER INHALATION SCH (08:00)
[2022-11-27 08:26] LABS: Glucose,Whole Blood 156 mg/dL (70-110)
[2022-11-27] MEDS ORDERED: lisinopriL 5 MG TAB PO SCH (09:00)
[2022-11-27] MEDS ORDERED: DULoxetine HCL 60 MG CAPSULE.DR PO SCH (09:00)
[2022-11-27] MEDS ORDERED: CLOPIDOGREL 75 MG TAB PO SCH (09:00)
[2022-11-27] MEDS ORDERED: INSULIN NPH 100 UNIT/ML 10 ML VIAL SQ ONE (09:00)
[2022-11-27] MEDS ORDERED: PANTOPRAZOLE 40 MG/10 ML VIAL IV SCH (09:00)
[2022-11-27] MEDS ORDERED: OXYBUTYNIN XL 5 MG TAB.ER.24 PO SCH (09:00)
[2022-11-27] MEDS ORDERED: PREGABALIN 100 MG CAP PO SCH (09:00)
[2022-11-27] MEDS ORDERED: levETIRAcetam 500 MG TAB PO SCH (09:00)
[2022-11-27] MEDS ORDERED: ASPIRIN 81 MG PO SCH (09:00)
[2022-11-27] MEDS ORDERED: lamoTRIgine 25 MG TAB PO SCH (09:00)
[2022-11-27] MEDS ORDERED: TAMSULOSIN 0.4 MG CAP.ER.24H PO SCH (09:00)
[2022-11-27] MEDS ORDERED: CHOLECALCIFEROL 125 MCG (5000 IU) TABLET PO SCH (09:00)
[2022-11-27] MEDS ORDERED: NON FORMULARY DRUG (Brexpiprazole [Rexulti] 4 MG Tablet) PO SCH (09:00)
[2022-11-27] MEDS ORDERED: metFORMIN 500 MG TAB PO SCH (09:00)
[2022-11-27] MEDS ORDERED: DAPAGLIFLOZIN PROPANEDIOL 5 MG TABLET PO SCH (09:00)
[2022-11-27] MEDS ORDERED: ENTACAPONE 200 MG TAB PO SCH (09:00)
[2022-11-27] MEDS ORDERED: CARBIDOPA-LEVODOPA 25-250 MG 1 EACH TAB PO SCH (09:00)
[2022-11-27] MEDS: oxyCODONE-APAP 5-325MG 1 EACH TAB PO SCH ×2 (09:56→12:50)
[2022-11-27] MEDS: lamoTRIgine 100 MG TAB PO SCH (09:58)
[2022-11-27 10:24] LABS: Glucose,Whole Blood 192 mg/dL (70-110)
[2022-11-27] MEDS: INSULIN ASPART (NovoLOG) 100 UNIT/ML VIAL SQ SCH ×2 (10:24→12:52)
[2022-11-27] MEDS ORDERED: ENOXAPARIN 40 MG/0.4 ML SYRINGE SQ SCH (11:45)
[2022-11-27 12:05] LABS: Glucose,Whole Blood 258 mg/dL (70-110)
[2022-11-27] MEDS ORDERED: POTASSIUM CHLORIDE ER 20 MEQ TAB.ER PO STA (13:43)
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
[2022-11-27 17:52] VITALS: BP 105/65; PULSE 78; RESP 16; TEMP 97.9
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
[2022-11-27] MEDS ORDERED: INSULIN DETEMIR (LEVEMIR) 100 UNIT/ML SYR SQ SCH ×2 (21:00)
[2022-11-27] MEDS ORDERED: ATORVASTATIN 80 MG TAB PO SCH (21:00)
== END 2022-11-27 18:22 | disposition home or self-care (01) ==
LOC: EC 16:34 → 6NMEDSUR 21:21
PROVIDERS: ADMIT Hospitalist; ATTEND Hospitalist
DX: E11.65 Type 2 diabetes mellitus with hyperglycemia (principal); R53.1 Weakness; E86.0 Dehydration; J44.9 Chronic obstructive pulmonary disease, unspecified; M79.7 Fibromyalgia; K21.9 Gastro-esophageal reflux disease without esophagitis; I10 Essential (primary) hypertension; F31.9 Bipolar disorder, unspecified; F41.9 Anxiety disorder, unspecified; G20 Parkinson's disease; E78.5 Hyperlipidemia, unspecified; G89.4 Chronic pain syndrome; G40.909 Epilepsy, unspecified, not intractable, without status epilepticus; N40.0 Benign prostatic hyperplasia without lower urinary tract symptoms; R26.9 Unspecified abnormalities of gait and mobility; F17.200 Nicotine dependence, unspecified, uncomplicated; Z85.46 Personal history of malignant neoplasm of prostate; Z79.899 Other long term (current) drug therapy; Z79.82 Long term (current) use of aspirin; Z79.4 Long term (current) use of insulin; Z79.84 Long term (current) use of oral hypoglycemic drugs; Z79.02 Long term (current) use of antithrombotics/antiplatelets; Z88.5 Allergy status to narcotic agent
CPT/HCPCS: 96368; 96361; 96365; 96366 ×2; 96367; 96372; 96375 ×2; 99285; 36415; 94640; 93005; 80053 ×2; 82803; 82009; 83605; 83735 ×2; 84100 ×2; 84484; 85025 ×2; 81003; 71046; G0378 ×2; J2270; J1650; C9113

== ENCOUNTER 2023-02-12 08:37 | Day surgery (SDC) | payer MEDICARE, OTHER ==
[2023-02-08 11:02] VITALS: BMI 34.2
[~2023-02-12 08:37] MED LIST changes: -IODINE/POTASS IOD (LUGOLS) BOTTLE TOPICAL ONE; +LACTATED RINGERS 1,000 ML IV SCH
[2023-02-12 09:30] LABS: Glucose,Whole Blood 125 mg/dL (70-110)
[2023-02-12] MEDS ORDERED: PROPOFOL 10 MG/ML 20 ML VIAL IV ONE (09:51)
[2023-02-12 10:02] VITALS: TEMP 97.3
--- NOTE | 2023-02-12 10:07 | P.PCN ---
Date of Procedure: 02/12/23 Procedure(s) Performed: BRIEF HISTORY: Patient is a 62-year-old pleasant white male scheduled for an elective colonoscopy as a part of screening for colon cancer. PROCEDURE PERFORMED: Colonoscopy with snare polypectomy. PREOPERATIVE DIAGNOSIS: Screening for colon cancer. IV sedation per Anesthesia. PROCEDURE: After informed consent was obtained, the patient, was brought into the endoscopy unit. IV sedation was administered by Anesthesia under continuous monitoring. Digital rectal examination was normal. Initially the Olympus CF-160 flexible video colonoscope was then inserted in the rectum, gradually advanced into the cecum without any difficulty. Careful examination was performed as the scope was gradually being withdrawn. Ileocecal valve and the appendiceal orifice were visualized and appeared normal. Prep was poor and several areas of the colon.. Mucosa of the cecum, appeared normal. In the ascending colon there was a 3 mm a 7 mm polyp that was removed by cold snare polypectomy. In the descending colon there was another 7 mm polyp that was removed by cold snare polypectomy. Rest of the ascending colon, transverse colon, descending colon, sigmoid colon, and rectum appeared normal. Prep in the sigmoid: Rectum was extremely poor with significant amount of retained solid stool that could not be adequately irrigated Retroflexion was performed in the rectum and no lesions were seen. The patient tolerated the procedure well. IMPRESSION: 3 mm and 7 mm cecal ascending colon polyp status post polypectomy 7 mm descending colon polyp status post snare polypectomy Poor prep in several areas of the colon especially in the left RECOMMENDATIONS: Findings of this examination were discussed with the patient as well as his family. He was was advised to follow with the biopsy results and recommend repeat colonoscopy in 3 years because of the poor prep.
[2023-02-12 10:32] VITALS: BP 147/86; PULSE 54; RESP 16
== END 2023-02-12 11:00 | disposition home or self-care (01) ==
LOC: ORWHC2ENDO 08:37
PROVIDERS: ATTEND Internal Medicine Gastroenterology
DX: Z12.11 Encounter for screening for malignant neoplasm of colon (principal); D12.2 Benign neoplasm of ascending colon; D12.4 Benign neoplasm of descending colon; E78.5 Hyperlipidemia, unspecified; J44.9 Chronic obstructive pulmonary disease, unspecified; F17.210 Nicotine dependence, cigarettes, uncomplicated; G40.909 Epilepsy, unspecified, not intractable, without status epilepticus; Z79.82 Long term (current) use of aspirin; Z79.899 Other long term (current) drug therapy; Z98.890 Other specified postprocedural states; Z85.46 Personal history of malignant neoplasm of prostate
CPT/HCPCS: 88305; 45385; J2704

== ENCOUNTER 2024-07-05 17:20 | Inpatient (IN) | payer MEDICARE, OTHER ==
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
[2024-07-05] MEDS: SODIUM CHLORIDE 0.9% 1,000 ML IV ONE (17:49)
--- NOTE | 2024-07-05 17:58 | CT ---
EXAMINATION TYPE: CT brain wo con DATE OF EXAM: 07/05/2024 5:48 PM COMPARISON: Previous CT studies, most recently dated 10/09/2022. CLINICAL INDICATION: Male, 64 years old with history of weakness, Pt brought in for altered mental st atus, suspicious for overdose due to missing medication from bottles TECHNIQUE: Brain: Axial CT images of the brain were obtained with coronal and sagittal reformats created and rev iewed. Contrast used: None. Oral contrast used: None. CT DLP: 1147.4 mGycm, Automated exposure control for dose reduction was used. FINDINGS: Brain: Extra-axial spaces: No abnormal extra-axial fluid collections. Ventricular system: Within normal limits Cerebral parenchyma: No acute intraparenchymal hemorrhage or mass effect. Encephalomalacia changes i n the left frontal and parietal lobes related to previous infarctions. Scattered hypoattenuating area s are seen within the white matter. Cerebellum: Unremarkable. Mass effect: No evidence of midline shift. Intracranial vasculature: unremarkable Soft tissues: Normal. Calvarium/osseous structures: No depressed skull fracture. Paranasal sinuses and mastoid air cells: Mild scattered paranasal sinus disease. Visualized orbits: Orbital contents are intact. IMPRESSION: No acute intracranial process. [facility], , 07/05/2024 5:56 PM
[2024-07-05 17:59] LABS: ALT 42 U/L (4-49); AST 82 U/L (17-59); Acetaminophen <10.0 ug/mL; African American GFR (CKD) 32 (>60 ml/min/1.73 sqM); Albumin 4.7 g/dL (3.5-5.0); Alcohol <10 mg/dL; Alkaline Phosphatase 87 U/L (38-126); Anion Gap 13 mmol/L; Blood Urea Nitrogen 30 mg/dL (9-20); Calcium 10.4 mg/dL (8.4-10.2); Carbon Dioxide 21 mmol/L (22-30); Chloride 102 mmol/L (98-107); Glucose 79 mg/dL (74-99); Magnesium 2.3 mg/dL (1.6-2.3); Non-African American GFR(CKD) 28 (>60 ml/min/1.73 sqM); Potassium 5.5 mmol/L (3.5-5.1); Salicylate <1.0 mg/dL; Sodium 136 mmol/L (137-145); Total Bilirubin 1.7 mg/dL (0.2-1.3); Total Protein 7.2 g/dL (6.3-8.2)
[2024-07-05 18:02] LABS: VBG PH 7.26 (7.31-7.41)
[2024-07-05 18:08] LABS: NT-Pro-B-Type Natriuretic Pept 23 pg/mL
--- NOTE | 2024-07-05 18:12 | XR ---
EXAMINATION TYPE: XR chest 1V portable DATE OF EXAM: 07/05/2024 6:03 PM COMPARISON: Prior chest radiograph, most recently dated 11/26/2022. CLINICAL INDICATION: Male, 64 years old with history of sob; [facility] TECHNIQUE: XR chest 1V portable Frontal view of the chest. FINDINGS: Lungs/Pleura: Questionable infiltrative opacity in the right upper lobe. No pleural effusion or pneum othorax. Pulmonary vascularity: Mild pulmonary vascular congestion. Heart/mediastinum: Cardiomegaly. Musculoskeletal: No acute osseous pathology. Other findings: None IMPRESSION: Cardiomegaly and mild pulmonary vascular congestion with questionable infiltrative opacity in the rig ht upper lobe which could reflect pneumonia. [facility], , 07/05/2024 6:10 PM
[2024-07-05 18:13] LABS: Creatine Kinase 2933 U/L (55-170)
[2024-07-05] MEDS ORDERED: IPRATROPIUM-ALBUTEROL 3 ML NEB INHALATION PRN (18:17)
[2024-07-05] MEDS ORDERED: PNEUMONIA PROTOCOL UTILIZED 1 EACH MISC PO PRN (18:17)
[2024-07-05 18:21] LABS: INR 0.9 (<1.2); Partial Thromboplastin Time 22.8 sec (22.0-30.0); Prothrombin Time 10.1 sec (10.0-12.5)
[2024-07-05 18:31] LABS: Influenza A Not Detected (Not Detectd); Influenza B Not Detected (Not Detectd); RSV Not Detected (Not Detectd)
[2024-07-05 18:44] LABS: Appearance,Urine Clear (Clear); Bilirubin,Urine Negative (Negative); Blood,Urine Negative (Negative); Color,Urine Light Yellow; Glucose,Urine (UA) 3+ (Negative); Ketones,Urine Negative (Negative); Leukocyte Esterase,Urine Negative (Negative); Nitrite,Urine Negative (Negative); Protein,Urine Negative (Negative); Specific Gravity,Urine 1.015 (1.001-1.035); Urobilinogen,Urine <2.0 mg/dL (<2.0)
[2024-07-05] MEDS: AZITHROMYCIN 500 MG in SODIUM CHLORIDE 0.9% 250 ML IVPB STA (19:05)
[2024-07-05] MEDS: SODIUM CHLORIDE 0.9% 1,000 ML IV SCH (19:05)
[2024-07-05 19:54] LABS: Basophils # (A) 0.05 10*3/uL (0.00-0.10); Basophils % (A) 0.5 %; Eosinophils % (A) 3.3 %; HCT 39.9 % (39.6-50.0); HGB 13.2 g/dL (13.0-17.0); Lymphocytes # (A) 2.14 10*3/uL (0.90-5.00); Lymphocytes % (A) 23.3 %; MCH 31.4 pg (27.0-32.0); MCHC 33.1 g/dL (32.0-37.0); MCV 94.8 fL (80.0-97.0); Mean Platelet Volume 11.7 fL (9.5-12.2); Monocytes # (A) 0.65 10*3/uL (0.20-1.00); Monocytes % (A) 7.1 %; Neutrophils # (A) 6.02 10*3/uL (1.80-7.70); Neutrophils % (A) 65.5 %; Platelet Count 240 10*3/uL (140-440); RBC 4.21 10*6/uL (4.40-5.60); RDW 14.4 % (11.5-14.5); WBC 9.19 10*3/uL (4.50-10.00)
[2024-07-05] MEDS: metroNIDAZOLE-NS PMX 500 MG in SALINE 1 100ML.BAG IVPB SCH (20:57)
[2024-07-05] MEDS: LACTATED RINGERS 1,000 ML IV ONE (22:06)
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
[2024-07-06] MEDS ORDERED: DEXTROSE 50% SYRINGE 50 ML IVP PRN ×2 (01:08)
[2024-07-06] MEDS: PREGABALIN 75 MG CAP PO SCH (02:00)
[2024-07-06] MEDS: levETIRAcetam 500 MG TAB PO SCH (02:00)
[2024-07-06] MEDS: CARBIDOPA-LEVODOPA 25-250 MG 1 EACH TAB PO SCH (02:00)
[2024-07-06] MEDS: SODIUM CHLORIDE 0.9% 1,000 ML IV SCH (02:02)
[2024-07-06] MEDS: MORPHINE SULFATE 2 MG/ML SYRINGE IVP PRN (05:28)
[2024-07-06 06:17] LABS: ALT 11 U/L (4-49); AST 96 U/L (17-59); African American GFR (CKD) 79 (>60 ml/min/1.73 sqM); Albumin 3.6 g/dL (3.5-5.0); Alkaline Phosphatase 79 U/L (38-126); Anion Gap 7 mmol/L; Blood Urea Nitrogen 20 mg/dL (9-20); Calcium 9.1 mg/dL (8.4-10.2); Carbon Dioxide 22 mmol/L (22-30); Chloride 109 mmol/L (98-107); Glucose 88 mg/dL (74-99); Non-African American GFR(CKD) 68 (>60 ml/min/1.73 sqM); Potassium 4.4 mmol/L (3.5-5.1); Sodium 138 mmol/L (137-145); Total Bilirubin 1.6 mg/dL (0.2-1.3)
[2024-07-06 06:51] LABS: Glucose,Whole Blood 88 mg/dL (70-110)
[2024-07-06 06:54] LABS: Creatine Kinase 4381 U/L (55-170)
[2024-07-06] MEDS: INSULIN LISPRO (HumaLOG) 100 UNIT/ML 10 mL VL SQ SCH (08:42)
[2024-07-06] MEDS: PANTOPRAZOLE 40 MG TABLET PO SCH (08:43)
[2024-07-06] MEDS: HEPARIN SODIUM,PORCINE 5,000 UNIT/ML 1 ML VIAL SQ SCH (09:31)
[2024-07-06] MEDS: lamoTRIgine 100 MG TAB PO SCH (09:32)
[2024-07-06] MEDS: lamoTRIgine 25 MG TAB PO SCH (09:32)
[2024-07-06] MEDS: CLOPIDOGREL 75 MG TAB PO SCH (09:32)
[2024-07-06] MEDS: TAMSULOSIN 0.4 MG CAP.ER.24H PO SCH (09:32)
--- NOTE | 2024-07-06 09:45 | XR ---
EXAMINATION TYPE: XR chest 2V DATE OF EXAM: 07/06/2024 9:14 AM COMPARISON: Chest radiographs from 07/05/2024. CLINICAL INDICATION: Male, 64 years old with history of pneumonia; TECHNIQUE: XR chest 2V Frontal and lateral views of the chest. FINDINGS: Lungs/Pleura: There is no evidence of pleural effusion, focal consolidation, or pneumothorax. Pulmonary vascularity: Unremarkable. Heart/mediastinum: Cardiomediastinal silhouette is unremarkable. Musculoskeletal: No acute osseous pathology. IMPRESSION: No acute cardiopulmonary disease/process. [facility], , 07/06/2024 9:42 AM
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
[2024-07-06 11:09] LABS: Glucose,Whole Blood 105 mg/dL (70-110)
--- NOTE | 2024-07-06 12:35 | US ---
EXAMINATION TYPE: US kidneys/renal and bladder DATE OF EXAM: 07/06/2024 COMPARISON: CT 2018 CLINICAL INDICATION: Male, 64 years old with history of sandra; TECHNIQUE: Grayscale imaging of the bilateral kidneys and urinary bladder: FINDINGS: EXAM MEASUREMENTS: Right Kidney: 11.5 x 5.0 x 4.7 cm Left Kidney: 11.5 x 5.4 x 5.6 cm Right Kidney: No hydronephrosis or masses seen Left Kidney: No hydronephrosis or masses seen Bladder: not distended, rodriguez catheter IMPRESSION: No evidence for obstructive uropathy or renal calculus. No acute processes. [facility], , 07/06/2024 12:33 PM
--- NOTE | 2024-07-06 17:01 | P.PN ---
Subjective Progress Note Date: 07/06/24 Hospital Course: 64 year old male with complex past medical history Patient has advanced parkinson , he lives alone, uses a cane and walker. he was found down today by the front door , patient does not remember how he got there, however, he believes he has messed up with his meds. last time he was seen normal was about 2 days ago. Patient reports pain lower back and bilateral hips, otherwise denies trouble breathing, fever, chills, nausea , vomiting , abd pain , leg pain , headache, changes in vision or hearing He provides limited history as he is confused about what actually happened and does not remember much himself. Subjective: Patient seen and examined at bedside. No acute events overnight. Pertinent positives and negatives as discussed above, a complete review of systems was performed and all other systems are negative. Vitals: Signs Reviewed Physical Exam: General: nontoxic, no distress, appears at stated age Derm: warm, dry, intact Head: atraumatic, normocephalic, symmetric Eyes: EOMI, anicteric sclera Mouth: no lip lesion, mucus membranes moist Cardiovascular: S1 S2 reg, no murmur, rubs, or gallops Lungs: CTA bilateral, no rhonchi, no rales, no accessory muscle use Abdominal: soft, non-tender to palpataion, no appreciable organomegaly Extremities: no gross muscle atrophy, no edema, no contractures Neuro: Alert, Oriented, CNII-XII grossly intact, gait normal Psych: well appearing, appropriate affect Data Received Today: Pertinent Labs: Creatine kinase 4381, procalcitonin 0.12, BUN 20, creatinine 1.14 Imaging: Renal ultrasound showing no evidence of obstructive uropathy or renal calculus, no acute processes Assessment and Plan: 64 year old male with advanced parkinson , presented after being found down , i discussed the case with ed doc and I accepted the admission for EDUIN 2/2 rhabdomyolysis and possible aspiration pneumonia with anticipated length of stay > 2 midnights #. EDUIN 2/2 Rhabdomyolysis secondary to being down, improving CK 2933 continue to trend Na 136 unremarkable elevated K 5.5 borderline elevated PO4 5.0 elevated BUN 30 cr 2.4 IVF hydration with normal saline 150c c per hour Continue to hold statin monitor urine output trend renal function and CK and electrolytes LA 5 --> 0.9 Renal ultrasound showing no evidence of obstructive uropathy or renal calculus, no acute processes Nephrology following #. Possible aspiration pneumonia currently on room air , no hypoxemia CXR possible RUL infilterate afebrile no leukocytosis , WBC 9 on admission supplemental oxygen as needed Procalcitonin unremarkable at 0.12, will discontinue antibiotics #. Acute metabolic encephalopathy , resolved suspected possible drug overdose , unknown which one patient admits that he possibly made some mistakes with his meds he is not sure which one CT brain no acute pathology #. Bilateral hip pain and lower back pain secondary to prolonged time on the floor pain control opiates morphine 2 mg iVP prn q3hr s #. 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 please excuse any grammatical, word or spelling errors. I saw and evaluated the patient during the [place] and critical portions of this encounter, and discussed the case in detail with the resident author of this note, I agree with the Assessment and Plan, and my changes, if any, are highlighted in blue. Objective - Vital Signs Vital signs: Vital Signs Temp 97.5 F L 07/05/24 17:26 Pulse 80 07/06/24 07:19 Resp 18 07/06/24 07:19 BP 111/61 07/06/24 07:19 Pulse Ox 95 07/06/24 07:19 FiO2 Intake & Output 07/05/24 07/06/24 07/06/24 18:59 06:59 18:59 Output Total 4600 Balance -4600 Weight 99.79 kg Output: Urine 4600 Uretheral (Pimentel) 650 - Labs CBC & Chem 7: 07/05/24 17:45 07/06/24 05:22 Labs: Abnormal Lab Results - Last 24 Hours (Table) 07/05/24 07/05/24 07/05/24 Range/Units 17:43 17:43 17:45 RBC (4.40-5.60) 10*6/uL VBG pH 7.26 L (7.31-7.41) VBG HCO3 19 L (24-28) mmol/L Sodium 136 L (137-145) mmol/L Potassium 5.5 H (3.5-5.1) mmol/L Chloride (98-107) mmol/L Carbon Dioxide 21 L (22-30) mmol/L BUN 30 H (9-20) mg/dL Creatinine 2.40 H (0.66-1.25) mg/dL Plasma Lactic Acid Blake 5.0 H* (0.7-2.0) mmol/L Calcium 10.4 H (8.4-10.2) mg/dL Phosphorus 5.0 H (2.5-4.5) mg/dL Total Bilirubin 1.7 H (0.2-1.3) mg/dL AST 82 H (17-59) U/L Ammonia 39 H (<30) umol/L Creatine Kinase 2933 H* (55-170) U/L Total Protein (6.3-8.2) g/dL Urine Glucose (UA) (Negative) 07/05/24 07/05/24 07/06/24 Range/Units 17:45 18:30 05:22 RBC 4.21 L (4.40-5.60) 10*6/uL VBG pH (7.31-7.41) VBG HCO3 (24-28) mmol/L Sodium (137-145) mmol/L Potassium (3.5-5.1) mmol/L Chloride 109 H (98-107) mmol/L Carbon Dioxide (22-30) mmol/L BUN (9-20) mg/dL Creatinine (0.66-1.25) mg/dL Plasma Lactic Acid Blake (0.7-2.0) mmol/L Calcium (8.4-10.2) mg/dL Phosphorus (2.5-4.5) mg/dL Total Bilirubin 1.6 H (0.2-1.3) mg/dL AST 96 H (17-59) U/L Ammonia (<30) umol/L Creatine Kinase 4381 H* (55-170) U/L Total Protein 6.0 L (6.3-8.2) g/dL Urine Glucose (UA) 3+ H (Negative)
[2024-07-06 17:02] LABS: Glucose,Whole Blood 88 mg/dL (70-110)
[2024-07-06 20:09] LABS: Glucose,Whole Blood 89 mg/dL (70-110)
[2024-07-06] MEDS ORDERED: AZITHROMYCIN 500 MG in SODIUM CHLORIDE 0.9% 250 ML IVPB SCH (21:00)
[2024-07-06] MEDS ORDERED: ATORVASTATIN 80 MG TAB PO SCH (21:00)
[2024-07-07 06:16] LABS: Glucose,Whole Blood 113 mg/dL (70-110)
[2024-07-07 08:09] LABS: Basophils # (A) 0.04 10*3/uL (0.00-0.10); Basophils % (A) 0.7 %; Eosinophils # (A) 0.18 10*3/uL (0.04-0.35); Eosinophils % (A) 3.1 %; HCT 35.3 % (39.6-50.0); HGB 11.8 g/dL (13.0-17.0); Lymphocytes # (A) 1.31 10*3/uL (0.90-5.00); Lymphocytes % (A) 22.5 %; MCHC 33.4 g/dL (32.0-37.0); MCV 92.7 fL (80.0-97.0); Mean Platelet Volume 11.6 fL (9.5-12.2); Monocytes # (A) 0.54 10*3/uL (0.20-1.00); Monocytes % (A) 9.3 %; Neutrophils # (A) 3.74 10*3/uL (1.80-7.70); Neutrophils % (A) 64.1 %; Platelet Count 210 10*3/uL (140-440); RBC 3.81 10*6/uL (4.40-5.60); RDW 14.4 % (11.5-14.5); WBC 5.83 10*3/uL (4.50-10.00)
[2024-07-07 08:28] LABS: African American GFR (CKD) >90 (>60 ml/min/1.73 sqM); Anion Gap 9 mmol/L; Blood Urea Nitrogen 9 mg/dL (9-20); Calcium 9.1 mg/dL (8.4-10.2); Carbon Dioxide 21 mmol/L (22-30); Chloride 111 mmol/L (98-107); Glucose 90 mg/dL (74-99); Magnesium 1.7 mg/dL (1.6-2.3); Non-African American GFR(CKD) >90 (>60 ml/min/1.73 sqM); Potassium 4.4 mmol/L (3.5-5.1); Sodium 141 mmol/L (137-145)
[2024-07-07 08:36] LABS: Creatine Kinase 1110 U/L (55-170)
[2024-07-07] MEDS: ENTACAPONE 200 MG TAB PO SCH (10:17)
--- NOTE | 2024-07-07 10:54 | P.PN ---
Subjective Patient is seen in follow-up for acute kidney injury. Renal function back to baseline. Oral intake fair. Has Pimentel catheter. Nonoliguric. Vital signs are stable. General: No acute distress. HEENT: Head exam is unremarkable. LUNGS: No audible rhonchi or wheezes. HEART: Rate and Rhythm are regular. ABDOMEN: Nontender. EXTREMITITES: No edema. Objective - Vital Signs Vital signs: Vital Signs Temp 98.0 F 07/07/24 07:45 Pulse 96 07/07/24 07:45 Resp 20 07/07/24 07:45 BP 122/75 07/07/24 07:45 Pulse Ox 96 07/07/24 07:45 FiO2 Intake & Output 07/06/24 07/07/24 07/07/24 18:59 06:59 18:59 Intake Total 222 Output Total 1700 3300 1400 Balance -1700 -3300 -1178 Weight 99 kg Intake: Oral 222 Output: Urine 1700 3300 1400 Other: Voiding Method Indwelling Catheter Indwelling Catheter - Labs CBC & Chem 7: 07/07/24 07:39 07/07/24 07:39 Labs: Abnormal Lab Results - Last 24 Hours (Table) 07/07/24 07/07/24 07/07/24 Range/Units 06:14 07:39 07:39 RBC 3.81 L (4.40-5.60) 10*6/uL Hgb 11.8 L (13.0-17.0) g/dL Hct 35.3 L (39.6-50.0) % Chloride 111 H (98-107) mmol/L Carbon Dioxide 21 L (22-30) mmol/L POC Glucose (mg/dL) 113 H (70-110) mg/dL Creatine Kinase 1110 H* (55-170) U/L Microbiology - Last 24 Hours (Table) 07/05/24 19:20 Blood Culture - Preliminary Blood Assessment and Plan Plan: Assessment: 1. Acute kidney injury secondary to vasomotor nephropathy secondary to hypotension. Creatinine 2.4 on admission and is 0.75 today. UA benign. No hydronephrosis noted on ultrasound. 2. Rhabdomyolysis secondary to tremors, statin. CK level 2933 on admission and is 1110 today. 3. Parkinson's disease. 4. Hypercalcemia secondary to acute kidney injury and volume contraction. Resolved. Plan: Maintain IV fluids. Decrease rate to 75 cc an hour. Avoid nephrotoxins. Encourage oral intake.
[2024-07-07 11:56] LABS: Glucose,Whole Blood 99 mg/dL (70-110)
--- NOTE | 2024-07-07 12:06 | P.PN ---
Subjective Progress Note Date: 07/07/24 Hospital Course: 64 year old male with complex past medical history Patient has advanced parkinson , he lives alone, uses a cane and walker. he was found down today by the front door , patient does not remember how he got there, however, he believes he has messed up with his meds. last time he was seen normal was about 2 days ago. Patient reports pain lower back and bilateral hips, otherwise denies trouble breathing, fever, chills, nausea , vomiting , abd pain , leg pain , headache, changes in vision or hearing He provides limited history as he is confused about what actually happened and does not remember much himself. Subjective: Patient seen and examined at bedside. No acute events overnight. Pertinent positives and negatives as discussed above, a complete review of systems was performed and all other systems are negative. Vitals: Signs Reviewed Physical Exam: General: nontoxic, no distress, appears at stated age Derm: warm, dry, intact Head: atraumatic, normocephalic, symmetric Eyes: EOMI, anicteric sclera Mouth: no lip lesion, mucus membranes moist Cardiovascular: S1 S2 reg, no murmur, rubs, or gallops Lungs: CTA bilateral, no rhonchi, no rales, no accessory muscle use Abdominal: soft, non-tender to palpataion, no appreciable organomegaly Extremities: no gross muscle atrophy, no edema, no contractures Neuro: Alert, Oriented, CNII-XII grossly intact, gait normal Psych: well appearing, appropriate affect Data Received Today: Pertinent Labs: Creatine kinase 4381 => 1110, BUN 9, creatinine 0.75 Imaging: Renal ultrasound showing no evidence of obstructive uropathy or renal calculus, no acute processes Assessment and Plan: 64 year old male with advanced parkinson , presented after being found down , i discussed the case with ed doc and I accepted the admission for EDUIN 2/2 rhabdo myolysis and possible aspiration pneumonia with anticipated length of stay > 2 midnights #. EDUIN 2/2 Rhabdomyolysis secondary to being down, improving CK 2933 => 4381 => continue to trend Na 136 unremarkable elevated K 5.5 borderline elevated PO4 5.0 elevated BUN 30 cr 2.4 IVF hydration with normal saline 75 cc an hour Continue to hold statin monitor urine output trend renal function and CK and electrolytes LA 5 --> 0.9 Renal ultrasound showing no evidence of obstructive uropathy or renal calculus, no acute processes Nephrology following #. Bilateral hip pain and lower back pain secondary to prolonged time on the floor pain control opiates morphine 2 mg iVP prn q3hr s #. Debility Contacted case management and are beginning process of finding placement PT/OT recommending placement for patient Resolved: #. Possible aspiration pneumonia #. Acute metabolic encephalopathy , resolved FULL CODE DVT PPX heparin sc tid 5000 units GI ppx protonix 40 mg daily Lizabeth Moran MD PGY-1 IM Dictation was produced using [employer] dictation software. please excuse any grammatical, word or spelling errors. I saw and evaluated the patient during the mckinley and critical portions of this encounter, and discussed the case in detail with the resident author of this note, I agree with the Assessment and Plan, and my changes, if any, are highlighted in blue. I saw and evaluated the patient during the mckinley and critical portions of this encounter, and discussed the case in detail with the resident author of this note, I agree with the Assessment and Plan, and my changes, if any, are highlighted in blue. Objective - Vital Signs Vital signs: Vital Signs Temp 98.3 F 07/06/24 21:10 Pulse 65 07/07/24 03:10 Resp 17 07/07/24 03:10 BP 105/64 07/07/24 03:10 Pulse Ox 95 07/07/24 03:10 FiO2 Intake & Output 07/06/24 07/06/24 07/07/24 06:59 18:59 06:59 Output Total 4600 1700 3300 Balance -4600 -1700 -3300 Weight 99 kg Output: Urine 4600 1700 3300 Uretheral (Pimentel) 650 Other: Voiding Method Indwelling Catheter - Labs CBC & Chem 7: 07/07/24 07:39 07/07/24 07:39 Labs: Abnormal Lab Results - Last 24 Hours (Table) 07/06/24 07/07/24 Range/Units 05:22 06:14 Chloride 109 H (98-107) mmol/L POC Glucose (mg/dL) 113 H (70-110) mg/dL Total Bilirubin 1.6 H (0.2-1.3) mg/dL AST 96 H (17-59) U/L Creatine Kinase 4381 H* (55-170) U/L Total Protein 6.0 L (6.3-8.2) g/dL Microbiology - Last 24 Hours (Table) 07/05/24 19:20 Blood Culture - Preliminary Blood
[2024-07-07] MEDS: SODIUM CHLORIDE 0.9% 1,000 ML IV SCH (12:09)
--- NOTE | 2024-07-07 13:25 | P.DS ---
Providers Date of admission: 07/05/24 18:19 Discharge Diagnosis: EDUIN secondary to rhabdomyolysis secondary to being found Bilateral hip pain and lower back pain Debility Possible aspiration pneumonia Acute metabolic encephalopathy Hospital Course: Patient is a 64 year old male with complex past medical history. Patient has advanced parkinson , he lives alone, uses a cane and walker. he was found down today by the front door , patient does not remember how he got there, however, he believes he has messed up with his meds. last time he was seen normal was about 2 days ago. Patient reports pain lower back and bilateral hips, otherwise denies trouble breathing, fever, chills, nausea , vomiting , abd pain , leg pain , headache, changes in vision or hearing. He provides limited history as he is confused about what actually happened and does not remember much himself. Labs on admission: Creatine kinase 2933, sodium 136, potassium 5.5, CO2 21, BUN 30, creatinine 2.40, calcium 10.4, phosphorus 5.0, total bili 1.7, AST 83, ALT 42, ammonia 39 EKG independently interpreted displays sinus rhythm, low voltage, rate 84 bpm, QTc [address] showing no acute intracranial process CXR independently interpreted displaying cardiomegaly and mild pulmonary vascular gestation, questionable opacity right upper lobe Patient was admitted for further workup for rhabdomyolysis and suspected aspiration pneumonia. Nephrology was consulted. Limited treatment patient was treated with aggressive IV fluid hydration for his rhabdomyolysis that ultimately resolved along with his acute kidney injury. Abdominal bladder ultrasound showing no evidence of obstructive uropathy or renal calculus, no acute process. Patient was placed on empiric antibiotics for suspected aspiration pneumonia. Workup was done for for suspected aspiration pneumonia. Procalcitonin was unremarkable, patient was afebrile with no leukocytosis, antibiotics were discontinued. Patient is to follow-up with nephrology and his PCP. Patient is being discharged home with home services. Vital signs reviewed and stable. Physical examination: Vital signs reviewed General: non toxic, no distress, appears at stated age, normal weight Derm: no unusual rashes/lesions, warm Head: atraumatic, normocephalic, symmetric Eyes: EOMI, anicteric sclera, pupils equal round reactive to light ENT: Nose and ears atraumatic Neck: No cervical lymphadenopathy, trachea midline, supple Mouth: no lip lesion, mucus membranes moist Cardiovascular: S1S2 reg, no murmur, positive dorsalis pedis pulse bilateral, no edema Lungs: CTA bilateral, no rhonchi, no rales, no accessory muscle use Abdominal: soft, nontender to palpation, no guarding Ext: muscle strength 5 out of 5 in all 4 extremities grossly, no gross muscle atrophy Neuro: CN II-XI grossly intact, no gross focal neuro deficits Psych: Alert, oriented to person, place, and time A total of greater than 30 minutes of time were spent preparing this complex discharge summary. Patient was discharge on July 07, 2024 at 1:15 PM. Lizabeth Moran MD PGY-1 IM Dictation was produced using [employer] dictation software. please excuse any grammatical, word or spelling errors. I saw and evaluated the patient during the mckinley and critical portions of this encounter, and discussed the case in detail with the resident author of this note, I agree with the Assessment and Plan, and my changes, if any, are highlighted in blue. Expected date of discharge: 07/07/24 Attending physician: Leticia Tian MD Consults: 07/05/24 18:17 Consult Physician Routine Consulting Provider: Keron Alcaraz Consult Reason/Comments: eduin,ckd Do you want consulting provider notified?: Yes Primary care physician: Venkat Shelton MD Patient Condition at Discharge: Serious Plan - Discharge Summary New Discharge Prescriptions: Continue levETIRAcetam [Keppra] 1,000 mg PO Q12H DULoxetine HCL [Cymbalta] 60 mg PO BID Tamsulosin HCl [Flomax] 0.4 mg PO DAILY Brexpiprazole [Rexulti] 4 mg PO DAILY Clopidogrel Bisulfate [Plavix] 75 mg PO DAILY #30 tab Entacapone 200 mg PO BID Empagliflozin [Jardiance] 10 mg PO DAILY rOPINIRole HCL [Requip] 1 mg PO TID Temazepam [Restoril] 15 mg PO HS Pregabalin [Lyrica] 150 mg PO QID Amantadine 100mg Tablet 100 mg PO BID metFORMIN HCL [Glucophage] 500 mg PO BID-W/MEALS Atorvastatin Calcium [Lipitor] 80 mg PO HS #30 tablet lamoTRIgine [LaMICtal] 200 mg PO DAILY Cholecalciferol [Vitamin D3 (125 Mcg = 5000 Iu)] 125 mcg PO MOWEFR Carbidopa-Levodopa 25-250 mg [Sinemet 25-250 mg] 1 tab PO TID lamoTRIgine [LaMICtal] 50 mg PO DAILY oxyCODONE-APAP 5-325MG [Percocet 5-325 mg] 1 tab PO TID oxyBUTYnin chloride [oxyBUTYnin chloride ER] 5 mg PO DAILY lisinopriL [Prinivil] 20 mg PO DAILY Primidone [Mysoline] 50 mg PO HS Insulin Degludec [Tresiba Flextouch U-100 Pen] 36 units SQ DAILY Discharge Medication List levETIRAcetam [Keppra] 1,000 mg PO Q12H 11/27/17 [History] DULoxetine HCL [Cymbalta] 60 mg PO BID 04/10/18 [History] Tamsulosin HCl [Flomax] 0.4 mg PO DAILY 03/30/19 [History] Brexpiprazole [Rexulti] 4 mg PO DAILY 11/29/19 [History] Atorvastatin Calcium [Lipitor] 80 mg PO HS #30 tablet 11/24/20 [Rx] Clopidogrel Bisulfate [Plavix] 75 mg PO DAILY #30 tab 11/24/20 [Rx] lamoTRIgine [LaMICtal] 200 mg PO DAILY 01/05/21 [History] Carbidopa-Levodopa 25-250 mg [Sinemet 25-250 mg] 1 tab PO TID 10/09/22 [History] Cholecalciferol [Vitamin D3 (125 Mcg = 5000 Iu)] 125 mcg PO MOWEFR 10/09/22 [History] Entacapone 200 mg PO BID 10/09/22 [History] lamoTRIgine [LaMICtal] 50 mg PO DAILY 10/09/22 [History] oxyCODONE-APAP 5-325MG [Percocet 5-325 mg] 1 tab PO TID 11/16/22 [History] oxyBUTYnin chloride [oxyBUTYnin chloride ER] 5 mg PO DAILY 11/26/22 [History] Amantadine 100mg Tablet 100 mg PO BID 07/05/24 [History] Empagliflozin [Jardiance] 10 mg PO DAILY 07/05/24 [History] Insulin Degludec [Tresiba Flextouch U-100 Pen] 36 units SQ DAILY 07/05/24 [History] Pregabalin [Lyrica] 150 mg PO QID 07/05/24 [History] Primidone [Mysoline] 50 mg PO HS 07/05/24 [History] Temazepam [Restoril] 15 mg PO HS 07/05/24 [History] lisinopriL [Prinivil] 20 mg PO DAILY 07/05/24 [History] metFORMIN HCL [Glucophage] 500 mg PO BID-W/MEALS 07/05/24 [History] rOPINIRole HCL [Requip] 1 mg PO TID 07/05/24 [History] Follow up Appointment(s)/Referral(s): Venkat Shelton MD [Primary Care Provider] - 1-2 days Keron Alcaraz DO [STAFF PHYSICIAN] - 1 Week Patient Instructions/Handouts: Acute Kidney Injury (DC), Rhabdomyolysis (DC) Activity/Diet/Wound Care/Special Instructions: Follow up with PCP and nephrology. Discharge Disposition: HOME WITH HOME HEALTH SERVICES
[2024-07-07 15:19] VITALS: BP 113/68; PULSE 88; RESP 18; TEMP 98.2
[2024-07-07 16:13] LABS: Glucose,Whole Blood 91 mg/dL (70-110)
--- NOTE | 2024-07-08 12:58 | CDI ---
Documentation Clarification Form Date: 07/08/2024 12:49:05 PM From: Sheela Leigh Phone: Admit Date: 07/05/2024 06:19:00 PM Patient Name: Jimenez Triana Visit Number: [id number] Discharge Date: 07/07/2024 05:53:00 PM ATTENTION: The Clinical Documentation Specialists (CDI) and [facility] Coding Staff appreciate your assistance in clarifying documentation. Please respond to the clarification below the line at the bottom and electronically sign. The CDI & [facility] Coding staff will review the response and follow-up if needed. Please note: Queries are made part of the Legal Health Record. If you have any questions, please contact the author of this message via ITS. Doctor/Provider: Leticia Tian Rhabdomyolysis is documented in DS on 07/07/2024. Additional clarification regarding the type of rhabdomyolysis is requested. History/Risk Factors: This is a 64-year-old male with concern foraltered mental statuspossible overdose, brought in by EMS as he was found down by family member who checks on him every 2 days patient with not really able to take care of himself slow to respond which remains that way here in the emergency department, patient does know who he is where he is anddeniestakingoverdoseon medication Clinical Indicators: Labs on admission: Creatine kinase 2933, sodium 136, potassium 5.5, CO2 21, BUN 30, creatinine 2.40, calcium 10.4, phosphorus 5.0, total bili 1.7, AST 83, ALT 42, ammonia 39 EKGindependently interpreted displays sinusrhythm, low voltage, rate 84 bpm, QTc 387MS Brain CTshowing no acute intracranial process CXRindependently interpreted displayingcardiomegalyand mild pulmonary vascular gestation, questionableopacityright upper lobe On 07/06 consult note -Rhabdomyolysissecondary totremors, statin.CK level 2933 on admission and is 4381 today. On 07/06 pn -AKI2/2Rhabdomyolysissecondary to being down, improving CK 2933 continue to trend Na 136 unremarkable elevatedK 5.5 borderline elevatedPO4 5.0 elevatedBUN 30 cr 2.4 On 07/07 DS -Patient was admitted for further workup forrhabdomyolysisandsuspected aspiration pneumonia. Nephrology was consulted. Limited treatment patient was treated with aggressive IV fluid hydration for hisrhabdomyolysisthat ultimatelyresolvedalong with hisacute kidney injury. Treatment: IVFhydration with normal saline 150c c per hour Continue to hold statin monitor urine output trend renal function and CK and electrolytes Please clarify the type of rhabdomyolysis, if known: [ x ] Traumatic rhabdomyolysis due to fall [ ] Traumatic rhabdomyolysis due to prolonged immobility [ ] Non traumatic rhabdomyolysis due to medication (please specify) [ ] Non traumatic rhabdomyolysis due to infection (please specify) [ ] Other, please specify [ ] Unable to Determine (Template Last Revised: May 2020) MTDD
== END 2024-07-07 17:53 | disposition home or self-care (01) | DRG 917 ==
LOC: EC 17:20 → 3SCARD 18:19
PROVIDERS: ADMIT Internal Medicine; ATTEND Internal Medicine
DX: T50.901A Poisoning by unspecified drugs, medicaments and biological substances, accidental (unintentional), initial encounter (principal); G92.8 Other toxic encephalopathy; N17.0 Acute kidney failure with tubular necrosis; E72.20 Disorder of urea cycle metabolism, unspecified; E87.20 Acidosis, unspecified; T79.6XXA Traumatic ischemia of muscle, initial encounter; G20.A1 Parkinson's disease without dyskinesia, without mention of fluctuations; E11.9 Type 2 diabetes mellitus without complications; I10 Essential (primary) hypertension; Z79.4 Long term (current) use of insulin; M54.50 Low back pain, unspecified; R53.81 Other malaise; F17.200 Nicotine dependence, unspecified, uncomplicated; I95.9 Hypotension, unspecified; E83.52 Hypercalcemia; Z88.8 Allergy status to other drugs, medicaments and biological substances; Z88.5 Allergy status to narcotic agent; Z79.899 Other long term (current) drug therapy; Z79.02 Long term (current) use of antithrombotics/antiplatelets; Z79.82 Long term (current) use of aspirin; Z79.84 Long term (current) use of oral hypoglycemic drugs; Z85.46 Personal history of malignant neoplasm of prostate
CPT/HCPCS: 36415; 51702; 70450; 71045; 71046; 76770; 80048; 80053; 80143; 80179; 80320; 81003; 82009; 82140; 82550; 82803; 83036; 83605; 83735; 83880; 84100; 84145; 84443; 84484; 85025; 85379; 85610; 85730; 87040; 87449; 87636; 93005; 96361; 96365; 96366; 96367; 96368; 96372; 96375; 96376; 99291

== ENCOUNTER 2024-07-13 10:17 | Emergency (ER) | payer MEDICARE ==
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
[2024-07-13 11:24] LABS: Basophils # (A) 0.03 10*3/uL (0.00-0.10); Basophils % (A) 0.5 %; Eosinophils # (A) 0.12 10*3/uL (0.04-0.35); Eosinophils % (A) 1.9 %; HGB 12.6 g/dL (13.0-17.0); Lymphocytes # (A) 1.39 10*3/uL (0.90-5.00); Lymphocytes % (A) 21.6 %; MCH 30.8 pg (27.0-32.0); MCHC 34.1 g/dL (32.0-37.0); MCV 90.5 fL (80.0-97.0); Mean Platelet Volume 11.1 fL (9.5-12.2); Monocytes # (A) 0.49 10*3/uL (0.20-1.00); Monocytes % (A) 7.6 %; Neutrophils % (A) 68.2 %; Platelet Count 248 10*3/uL (140-440); RBC 4.09 10*6/uL (4.40-5.60); RDW 13.9 % (11.5-14.5); WBC 6.44 10*3/uL (4.50-10.00)
--- NOTE | 2024-07-13 11:26 | CT ---
EXAMINATION TYPE: CT brain miracleine wo con DATE OF EXAM: 07/13/2024 11:01 AM COMPARISON: 07/05/2024 CLINICAL INDICATION: Male, 64 years old with history of code coag, CODE COAG, pain Technique: Examination of the head was done in axial plane without intravenous contrast. Coronal and sagittal reconstructions performed. CT of the cervical spine was obtained in axial plane without intravenous injection of contrast mater ial. Coronal and sagittal reformatted images were obtained from the axial views for evaluation of f ractures, spinal alignment and canal. CT DLP: 1446.7 mGycm, Automated exposure control for dose reduction was used. FINDINGS: Head: Patient motion limits the evaluation. Redemonstrated multiple areas of cortical encephalomalacia sergio g the left cerebral hemisphere. Otherwise, lying for this limitation, there is no evidence of acute intracranial hemorrhage, acute i schemic changes, mass, mass-effect, or extra-axial fluid collection. There is no effacement of cereb ral sulci or basal subarachnoid cisterns. There is no hydrocephalus. There is no midline shift. Gr ay-white matter distinction is preserved. Paranasal sinuses well pneumatized. Mastoid air cells are well pneumatized. Orbits and globes appear intact. Cervical spine: Degenerative change of the C1 dens articulation. Mild degenerative disc disease C6-C7 with disc osteo phyte complex mildly narrowing the spinal canal. Moderate uncovertebral joint and scattered mild face t arthropathy especially mid to lower cervical spine. Variable mild neural foraminal narrowing. The a lignment of the cervical spine is normal on coronal and reformatted images. There is no cranial verte bral abnormality. Fracture of the cervical spine is not seen. Sagittal and coronal reformatted images confirm above findings. COMBINED IMPRESSION: 1. Patient motion limiting the evaluation. There are old areas of encephalomalacia along the left cer ebral cortex. Allowing for motion artifact, no definite acute intracranial abnormality is seen. 2. Scattered mild to moderate spondylotic change. No acute fracture or malalignment of the cervical s pine. [facility], Workstation: [id number], 07/13/2024 11:24 AM
[2024-07-13 11:37] LABS: African American GFR (CKD) >90 (>60 ml/min/1.73 sqM); Anion Gap 11 mmol/L; Blood Urea Nitrogen 12 mg/dL (9-20); Calcium 10.1 mg/dL (8.4-10.2); Carbon Dioxide 23 mmol/L (22-30); Chloride 103 mmol/L (98-107); Glucose 84 mg/dL (74-99); Non-African American GFR(CKD) >90 (>60 ml/min/1.73 sqM); Potassium 4.4 mmol/L (3.5-5.1); Sodium 137 mmol/L (137-145)
[2024-07-13] MEDS: oxyCODONE-APAP 5-325MG 1 EACH TAB PO STA (12:21)
[2024-07-13 13:36] VITALS: BP 126/57; PULSE 90; RESP 18; TEMP 98.1
== END 2024-07-13 13:36 | disposition home or self-care (01) ==
LOC: EC 10:17
DX: S09.90XA Unspecified injury of head, initial encounter (principal); F17.200 Nicotine dependence, unspecified, uncomplicated; Z88.5 Allergy status to narcotic agent; Z88.8 Allergy status to other drugs, medicaments and biological substances; Z79.01 Long term (current) use of anticoagulants; W19.XXXA Unspecified fall, initial encounter
CPT/HCPCS: 36415; 70450; 72125; 80048; 85025; 93005; 99285

== ENCOUNTER 2024-09-30 15:08 | Inpatient (IN) | payer MEDICARE, OTHER ==
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
[2024-09-30] MEDS: LACTATED RINGERS 1,000 ML IV SCH (16:17)
[2024-09-30] MEDS: ONDANSETRON 4 MG/2 ML VIAL IVP STA (16:18)
[2024-09-30] MEDS: MORPHINE SULFATE 2 MG/ML SYRINGE IVP STA (16:20)
[2024-09-30 16:23] LABS: Basophils # (A) 0.06 10*3/uL (0.00-0.10); Basophils % (A) 0.5 %; Eosinophils # (A) 0.40 10*3/uL (0.04-0.35); Eosinophils % (A) 3.1 %; HCT 36.7 % (39.6-50.0); HGB 12.9 g/dL (13.0-17.0); Lymphocytes # (A) 1.86 10*3/uL (0.90-5.00); Lymphocytes % (A) 14.3 %; MCH 31.9 pg (27.0-32.0); MCHC 35.1 g/dL (32.0-37.0); MCV 90.8 fL (80.0-97.0); Monocytes # (A) 1.25 10*3/uL (0.20-1.00); Monocytes % (A) 9.6 %; Neutrophils # (A) 9.36 10*3/uL (1.80-7.70); Neutrophils % (A) 72.0 %; Platelet Count 289 10*3/uL (140-440); RBC 4.04 10*6/uL (4.40-5.60); RDW 13.6 % (11.5-14.5); WBC 13.00 10*3/uL (4.50-10.00)
[2024-09-30 16:34] LABS: ALT 112 U/L (4-49); AST 427 U/L (17-59); African American GFR (CKD) 15 (>60 ml/min/1.73 sqM); Albumin 4.1 g/dL (3.5-5.0); Alkaline Phosphatase 88 U/L (38-126); Anion Gap 17 mmol/L; Blood Urea Nitrogen 51 mg/dL (9-20); Calcium 9.4 mg/dL (8.4-10.2); Carbon Dioxide 17 mmol/L (22-30); Chloride 102 mmol/L (98-107); Glucose 91 mg/dL (74-99); Magnesium 2.1 mg/dL (1.6-2.3); Non-African American GFR(CKD) 13 (>60 ml/min/1.73 sqM); Potassium 3.7 mmol/L (3.5-5.1); Sodium 136 mmol/L (137-145); Total Protein 6.4 g/dL (6.3-8.2)
[2024-09-30 16:37] LABS: INR 0.9 (<1.2); Partial Thromboplastin Time 23.6 sec (22.0-30.0); Prothrombin Time 9.9 sec (10.0-12.5)
[2024-09-30 16:43] LABS: NT-Pro-B-Type Natriuretic Pept 221 pg/mL
[2024-09-30 17:00] LABS: RSV Not Detected (Not Detectd)
--- NOTE | 2024-09-30 17:14 | CT ---
EXAMINATION TYPE: CT brain cspine wo con DATE OF EXAM: 09/30/2024 4:53 PM COMPARISON: None. CLINICAL INDICATION: Male, 64 years old with history of fall, unknown head trauma, hx parkinsons; wea kness, ams, pain TECHNIQUE: Brain: Multiple axial CT images of the brain were obtained without IV contrast. Cspine: Axial CT images from the skull base to the inferior aspect of T2 we obtained without intraven ous contrast. Coronal and sagittal reformatted images were also reviewed. . CT DLP: 1433 mGycm, Automated exposure control for dose reduction was used. FINDINGS: Brain: Extra-axial spaces: No abnormal extra-axial fluid collections. Ventricular system: Within normal limits Cerebral parenchyma: Left MCA territory encephalomalacia Cerebral atrophy. No acute intraparenchymal hemorrhage or mass effect. The remainder of the melendez-white junctions are well differentiated. Scatte red hypoattenuating areas are seen within the white matter. Cerebellum: Unremarkable. Mass effect: No evidence of midline shift. Intracranial vasculature: Atherosclerotic calcifications of the intracranial vessels. Soft tissues: Normal. Calvarium/osseous structures: No depressed skull fracture. Paranasal sinuses and mastoid air cells: Clear. Visualized orbits: Orbital contents are intact. Cervical spine: Fracture: None. Osseous structures: Multilevel degenerative disc disease changes with endplate spurring and disc oste ophyte complex's. Vertebral alignment: Within normal limits. Spinal canal/Neural Foramina: Disc osteophyte complexes at C5-C6 and C6-C7 with at least mild spinal canal stenosis. Facet joint uncovertebral joint arthropathy scattered throughout the cervical spine w ith varying degrees of neural foraminal stenosis. Neck soft tissues: Prevertebral soft tissues are within normal limits. Other: The airway is patent. Atherosclerosis of the carotid bifurcations IMPRESSION: 1. No acute intracranial process. 2. Remote left MCA territory injury with encephalomalacia. 3. Nonspecific white matter changes, likely secondary to chronic small vessel ischemic disease. 4. No evidence of cervical spine fracture. 5. Mild multilevel degenerative disc disease. [facility], , 09/30/2024 5:11 PM
--- NOTE | 2024-09-30 17:26 | XR ---
EXAMINATION TYPE: XR chest 2V DATE OF EXAM: 09/30/2024 5:17 PM COMPARISON: Chest radiographs from 07/06/2024. CLINICAL INDICATION: Male, 64 years old with history of Weakness; H TECHNIQUE: XR chest 2V Frontal and lateral views of the chest. FINDINGS: Lungs/Pleura: There is no evidence of pleural effusion, focal consolidation, or pneumothorax. Pulmonary vascularity: Unremarkable. Heart/mediastinum: Cardiomediastinal silhouette is enlarged. Musculoskeletal: No acute osseous pathology. IMPRESSION: No acute cardiopulmonary disease/process. [facility], , 09/30/2024 5:23 PM
[2024-09-30 17:29] LABS: Creatine Kinase 19412 U/L (55-170)
[2024-09-30] MEDS: SODIUM CHLORIDE 0.9% 1,000 ML IV ONE (18:45)
--- NOTE | 2024-09-30 19:23 | US ---
EXAMINATION TYPE: US liver DATE OF EXAM: 09/30/2024 COMPARISON: CT 2019 CLINICAL INDICATION: Male, 64 years old with history of elevated LFTs; elevated LFTs TECHNIQUE: Grayscale and color Doppler imaging of the right upper quadrant was performed. 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 enlarged, appears hyperechoic no focal masses. Gallbladder: wnl as best visualized intercostally. unable to image in LLD due to patient unable to r oll onto side Evidence for sonographic Pruitt's sign: no CBD: Obscured by overlying bowel gas Right Kidney: wnl as best visualized IMPRESSION: 1. No evidence for acute abdominal process. 2. Hepatic steatosis. [facility], , 09/30/2024 7:20 PM
[2024-09-30] MEDS ORDERED: SODIUM BICARB 8.4% 50 ML SYR (1 MEQ/ML) IV STA (19:56)
[2024-09-30] MEDS: ATORVASTATIN 80 MG TAB PO SCH (20:08)
[2024-09-30] MEDS: oxyCODONE-APAP 10-325MG 1 EACH TAB PO STA (20:08)
[2024-09-30] MEDS: CHOLECALCIFEROL 125 MCG (5000 IU) TABLET PO SCH (20:09)
[2024-09-30] MEDS: DULoxetine HCL 60 MG CAPSULE.DR PO SCH (20:09)
[2024-09-30] MEDS: oxyCODONE-APAP 7.5-325MG 1 EACH TAB PO SCH (20:19)
[2024-09-30] MEDS ORDERED: NALOXONE 0.4 MG/ML 1 ML VIAL IV PRN (20:36)
[2024-09-30] MEDS ORDERED: ONDANSETRON 4 MG/2 ML VIAL IVP PRN (20:36)
[2024-09-30] MEDS: SODIUM CHLORIDE 0.9% 1,000 ML IV SCH ×2 (20:58→22:58)
[2024-09-30] MEDS ORDERED: FAMOTIDINE 20 MG TAB PO SCH (21:00)
[2024-09-30] MEDS: SODIUM CHLORIDE IV SCH (21:04)
[2024-09-30] MEDS: SOD BICARB IV SCH (21:04)
[2024-09-30] MEDS: levETIRAcetam 500 MG TAB PO SCH (21:06)
[2024-09-30] MEDS: TEMAZEPAM 15 MG CAP PO SCH (21:06)
[2024-09-30] MEDS: PRIMIDONE 50 MG TAB PO SCH (21:06)
[2024-09-30] MEDS: ENTACAPONE 200 MG TAB PO SCH (21:07)
[2024-09-30] MEDS: PREGABALIN 75 MG CAP PO SCH (21:07)
[2024-09-30] MEDS: CARBIDOPA-LEVODOPA 25-250 MG 1 EACH TAB PO SCH (21:07)
[2024-09-30 23:44] LABS: Bacteria,Urine Rare /hpf; Bilirubin,Urine Negative (Negative); Blood,Urine Large (Negative); Color,Urine Yellow; Glucose,Urine (UA) 2+ (Negative); Hyaline Casts,Urine 12 /lpf (0-2); Ketones,Urine Negative (Negative); Leukocyte Esterase,Urine Negative (Negative); Mucus,Urine Rare /hpf; Nitrite,Urine Negative (Negative); PH, Urine 5.5 (5.0-8.0); Protein,Urine Trace (Negative); RBC,Urine <1 /hpf (0-5); Specific Gravity,Urine 1.014 (1.001-1.035); Squamous Epithelial Cell,Urine <1 /hpf (0-4); Urobilinogen,Urine <2.0 mg/dL (<2.0); WBC,Urine 4 /hpf (0-5)
[2024-10-01 01:20] LABS: Glucose,Whole Blood 80 mg/dL (70-110)
[2024-10-01] MEDS: ACETAMINOPHEN TAB 325 MG TAB PO PRN (05:41)
[2024-10-01 05:53] LABS: African American GFR (CKD) 38 (>60 ml/min/1.73 sqM); Anion Gap 10 mmol/L; Blood Urea Nitrogen 41 mg/dL (9-20); Calcium 8.9 mg/dL (8.4-10.2); Carbon Dioxide 19 mmol/L (22-30); Chloride 107 mmol/L (98-107); Glucose 87 mg/dL (74-99); Non-African American GFR(CKD) 33 (>60 ml/min/1.73 sqM); Potassium 3.1 mmol/L (3.5-5.1); Sodium 136 mmol/L (137-145)
[2024-10-01 07:03] LABS: Glucose,Whole Blood 108 mg/dL (70-110)
[2024-10-01 07:54] LABS: Creatine Kinase 17557 U/L (55-170)
[2024-10-01 08:01] LABS: Magnesium 2.0 mg/dL (1.6-2.3)
[2024-10-01] MEDS: CLOPIDOGREL 75 MG TAB PO SCH (08:17)
[2024-10-01] MEDS: TAMSULOSIN 0.4 MG CAP.ER.24H PO SCH (08:17)
[2024-10-01] MEDS: lamoTRIgine 100 MG TAB PO SCH (08:18)
[2024-10-01] MEDS: lamoTRIgine 25 MG TAB PO SCH (08:18)
[2024-10-01] MEDS: NON FORMULARY DRUG (Brexpiprazole [Rexulti] 4 MG Tablet) PO SCH (08:19)
[2024-10-01] MEDS: FAMOTIDINE 20 MG TAB PO SCH (08:27)
[2024-10-01] MEDS ORDERED: TAMSULOSIN 0.4 MG CAP.ER.24H PO SCH (09:00)
[2024-10-01] MEDS: INSULIN GLARGINE (LANTUS) 100 UNIT/ML SYR SQ SCH (09:16)
[2024-10-01] MEDS: OXYBUTYNIN XL 5 MG TAB.ER.24 PO SCH (09:16)
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
[2024-10-01] MEDS ORDERED: Potassium Replacement Protocol 1 EACH MISC MISCELLANE PRN (11:53)
[2024-10-01 12:06] LABS: Glucose,Whole Blood 85 mg/dL (70-110)
[2024-10-01] MEDS: POTASSIUM CHLORIDE ER 20 MEQ TAB.ER PO SCH (12:09)
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
[2024-10-01 16:50] LABS: Glucose,Whole Blood 94 mg/dL (70-110)
[2024-10-01] MEDS: SODIUM CHLORIDE 0.9% 1,000 ML with SODIUM BICARB (1 MEQ/ML) 50 ML IV SCH (17:08)
[2024-10-01 21:20] LABS: Glucose,Whole Blood 116 mg/dL (70-110)
[2024-10-02 07:26] LABS: Glucose,Whole Blood 96 mg/dL (70-110)
[2024-10-02 08:09] LABS: Anion Gap 9.10 mmol/L (4.00-12.00); BUN/Creat Ratio 23.29 Ratio (12.00-20.00); Blood Urea Nitrogen 16.3 mg/dL (9.0-27.0); Calcium 8.1 mg/dL (8.7-10.3); Carbon Dioxide 22.9 mmol/L (21.6-31.8); Chloride 110 mmol/L (96-109); Glucose 89 mg/dL (70-110); Magnesium 1.7 mg/dL (1.5-2.4); Potassium 3.6 mmol/L (3.5-5.5); Sodium 142 mmol/L (135-145)
[2024-10-02 08:23] LABS: Creatine Kinase 4895 U/L (35-257)
[2024-10-02] MEDS: INSULIN GLARGINE (LANTUS) 100 UNIT/ML SYR SQ SCH (08:51)
--- NOTE | 2024-10-02 11:03 | P.PN ---
Subjective Patient is seen in follow-up for acute kidney injury and rhabdomyolysis. Renal function back to baseline. CK levels trending down. On IV fluids. Nonoliguric. Vital signs are stable. General: No acute distress. HEENT: Head exam is unremarkable. LUNGS: No audible rhonchi or wheezes. HEART: Rate and Rhythm are regular. ABDOMEN: Non-tender. EXTREMITITES: No edema. Upper extremity tremors noted. Objective - Vital Signs Vital signs: Vital Signs Temp 98.2 F 10/02/24 07:28 Pulse 56 L 10/02/24 07:28 Resp 16 10/02/24 07:28 BP 105/65 10/02/24 07:28 Pulse Ox 98 10/02/24 07:28 FiO2 Intake & Output 10/01/24 10/02/24 10/02/24 18:59 06:59 18:59 Intake Total 2420 480 Output Total 2300 2075 Balance 120 -1595 Intake: Oral 2420 480 Output: Urine 1700 2075 Straight 700 Post Void Residual 600 - Labs CBC & Chem 7: 09/30/24 16:10 10/02/24 05:51 Labs: Abnormal Lab Results - Last 24 Hours (Table) 10/01/24 10/02/24 Range/Units 21:19 05:51 Chloride 110 H (96-109) mmol/L BUN/Creatinine Ratio 23.29 H (12.00-20.00) Ratio POC Glucose (mg/dL) 116 H (70-110) mg/dL Calcium 8.1 L (8.7-10.3) mg/dL Creatine Kinase 4895 H (35-257) U/L Assessment and Plan Plan: Assessment: 1. Acute kidney injury secondary to ATN secondary to rhabdomyolysis. Creati nine over 4 on admission and is improved to 0.7 today. CK levels trending down. 2. Rhabdomyolysis secondary to fall and immobility. Also on statin. CK levels trending down. 3. Hypokalemia from saline diuresis. 4. Metabolic acidosis secondary to acute kidney injury and IV fluids. Better. 5. Diabetes mellitus. Plan: Decrease rate of normal saline to 100 cc an hour. Repeat CK level in the morning. Replace potassium. Avoid nephrotoxins. Continue to hold statin for now.
[2024-10-02 12:17] LABS: Glucose,Whole Blood 105 mg/dL (70-110)
[2024-10-02] MEDS: POTASSIUM CHLORIDE ER 20 MEQ TAB.ER PO STA (12:47)
[2024-10-02 17:13] LABS: Glucose,Whole Blood 149 mg/dL (70-110)
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
[2024-10-02] MEDS: LACTATED RINGERS 1,000 ML IV SCH (18:35)
--- NOTE | 2024-10-02 18:42 | CDI ---
Documentation Clarification Form Date: 10/02/2024 06:15:25 PM From: Rosario Workman RN, CCDS Phone: [phone] Admit Date: 09/30/2024 08:36:00 PM Patient Name: Jimenez Triana Visit Number: [id number] Discharge Date: ATTENTION: The Clinical Documentation Specialists (CDI) and [facility] Coding Staff appreciate your assistance in clarifying documentation. Please respond to the clarification below the line at the bottom and electronically sign. The CDI & [facility] Coding staff will review the response and follow-up if needed. Please note: Queries are made part of the Legal Health Record. If you have any questions, please contact the author of this message via ITS. DoctorMarlena Arnett Acute severe Rhabdomyolysis secondary to fail is documented is documented in the Internal Medicine H/P on 10/01/16. To accurately capture the diagnosis additional clarification regarding the type of rhabdomyolysis is requested. History/Risk Factors: COPD on 2/L, Hypertension, Seizure, Prostate CA, Diabetes Mellitus, chronic medical debility, Parkinson disease Clinical Indicators: 64-year-old male present to ER for weakness fell 2 days prior to presentation and been crawling from his chair to bathroom due to weakness. He has decreased appetite. 09/30 VS: 118/88 89 18 98.4 95% 4/L NC 09/30 WBC 13.00 HGB 12.9, NA 136, BUN 41 CR 2.06, k+ 3.1, AST 427, ALT 112 creatinine kinase 82406 Treatment: .9w NaBicarb 50 ML 1,050 ML @100ML/HR 10/01-10/02 .9NS 1,000 ML@150 MLS/HR IV 09/30-10/01 LR 1,000 MLS@ 75 MLS/HR 10/02 Monitor renal function PT, OT adz worker Evaluation Check CK level 10/03 Please clarify the type of rhabdomyolysis, if known: [ + ] Traumatic rhabdomyolysis due to fall [ + ] Traumatic rhabdomyolysis due to prolonged immobility [ ] Other, please specify [ ] Unable to Determine (Template Last Revised: May 2020) MTDD
[2024-10-02 20:40] LABS: Glucose,Whole Blood 101 mg/dL (70-110)
[2024-10-03 07:00] LABS: Glucose,Whole Blood 89 mg/dL (70-110)
[2024-10-03 07:20] VITALS: RESP 16
[2024-10-03 09:00] LABS: Anion Gap 8.80 mmol/L (4.00-12.00); BUN/Creat Ratio 22.57 Ratio (12.00-20.00); Blood Urea Nitrogen 15.8 mg/dL (9.0-27.0); Calcium 8.3 mg/dL (8.7-10.3); Carbon Dioxide 23.2 mmol/L (21.6-31.8); Chloride 107 mmol/L (96-109); Glucose 78 mg/dL (70-110); Magnesium 1.6 mg/dL (1.5-2.4); Potassium 3.4 mmol/L (3.5-5.5); Sodium 139 mmol/L (135-145)
[2024-10-03] MEDS: INSULIN GLARGINE (LANTUS) 100 UNIT/ML SYR SQ SCH (09:06)
[2024-10-03 09:35] LABS: Creatine Kinase 1827 U/L (35-257)
[2024-10-03 11:53] LABS: Glucose,Whole Blood 97 mg/dL (70-110)
[2024-10-03 12:06] VITALS: BP 140/74; PULSE 66; TEMP 98.2
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
[2024-10-03] MEDS: POTASSIUM CHLORIDE ER 20 MEQ TAB.ER PO STA (13:28)
== END 2024-10-03 14:37 | disposition still patient (30) | DRG 564 ==
LOC: EC 15:08 → 4SSUR 20:36 → 5NMEDONC 21:52
PROVIDERS: ADMIT Hospitalist; ATTEND Hospitalist
DX: T79.6XXA Traumatic ischemia of muscle, initial encounter (principal); G93.41 Metabolic encephalopathy; N17.0 Acute kidney failure with tubular necrosis; G20.A1 Parkinson's disease without dyskinesia, without mention of fluctuations; J44.9 Chronic obstructive pulmonary disease, unspecified; G40.909 Epilepsy, unspecified, not intractable, without status epilepticus; E11.9 Type 2 diabetes mellitus without complications; F31.9 Bipolar disorder, unspecified; I10 Essential (primary) hypertension; E87.20 Acidosis, unspecified; Z79.4 Long term (current) use of insulin; E78.5 Hyperlipidemia, unspecified; Z91.81 History of falling; W18.30XA Fall on same level, unspecified, initial encounter; Y92.009 Unspecified place in unspecified non-institutional (private) residence as the place of occurrence of the external cause; M79.7 Fibromyalgia; F17.200 Nicotine dependence, unspecified, uncomplicated; F90.9 Attention-deficit hyperactivity disorder, unspecified type; W19.XXXA Unspecified fall, initial encounter; G89.4 Chronic pain syndrome; E87.6 Hypokalemia; N40.0 Benign prostatic hyperplasia without lower urinary tract symptoms; R29.6 Repeated falls; Z79.02 Long term (current) use of antithrombotics/antiplatelets; Z79.84 Long term (current) use of oral hypoglycemic drugs; Z79.899 Other long term (current) drug therapy; Z85.46 Personal history of malignant neoplasm of prostate; Z91.148 Patient's other noncompliance with medication regimen for other reason; Z82.49 Family history of ischemic heart disease and other diseases of the circulatory system
CPT/HCPCS: 36415; 70450; 71046; 72125; 76705; 80048; 80053; 80143; 81001; 82550; 83605; 83735; 83880; 84132; 84443; 84484; 85025; 85610; 85730; 86850; 86900; 86901; 87636; 93005; 96361; 96374; 96375; 99291